=== PATIENT | male | born 1955 | race Caucasian/White ===

== ENCOUNTER 2022-03-26 00:25 | Inpatient (IN) | payer MEDICARE, OTHER, SELFPAY ==
[2022-03-26] VITALS (30 sets, daily range): BP systolic 92–196; BP diastolic 47–80; PULSE 74–104; RESP 15–23; TEMP 36.4–37.7; O2SAT 91–100; BMI 43.4
--- NOTE | ~2022-03-26 | XR_ITS ---
EXAMINATION: XR chest 1V portable 03/26/2022 01:28 INDICATION: Dyspnea. PROCEDURE: 2 view chest COMPARISON: 10/25/2017 FINDINGS: The lungs are clear. The cardiomediastinal silhouette is within normal limits. There are no pleural effusions. There is no pneumothorax suspected. IMPRESSION: 1: NO ACUTE CARDIOPULMONARY DISEASE. Reviewed, dictated and finalized at location A.
--- NOTE | ~2022-03-26 | XR_ITS ---
XR tibia fibula RT 2V 03/26/2022 01:28 INDICATION: Right leg pain after fall PROCEDURE: 2 views right tibia/fibula COMPARISON: No prior studies for comparison. FINDINGS: Fracture, dislocation or subluxation is not identified. There are extensive vascular calcif ications. The soft tissues appear within normal limits. No foreign bodies are identified. There are degenerative calcaneal enthesophytes. IMPRESSION: 1: NO ACUTE BONE OR JOINT ABNORMALITY IDENTIFIED. Reviewed, dictated and finalized at location A.
--- NOTE | 2022-03-26 00:35 | ECG_ITS ---
Measurements Intervals [place] Rate: 103 P: 55 VA: 175 QRS: 7 QRSD: 107 T: 29 QT: 326 QTc: 428 Interpretive Statements SINUS TACHYCARDIA LOW QRS VOLTAGE IN PRECORDIAL LEADS [QRS DEFLECTION < 1.0 mV IN CHEST LEADS] POSSIBLE ANTEROLATERAL MYOCARDIAL INFARCTION , OF INDETERMINATE AGE [30 ms Q WAVE IN I/aVL/V3-V6] NO PREVIOUS ECG AVAILABLE FOR COMPARISON Electronically Signed On 03-26-2022 11:05:53 CDT by Ap Zheng M.D.
--- NOTE | 2022-03-26 00:40 | ED.SOB ---
HPI - SOB/Dyspnea General Chief Complaint: Shortness of Breath/Dyspnea Stated Complaint: Covid positive today Weakness Skin Tear Time Seen by Provider: 03/26/22 00:34 Source: patient History of Present Illness HPI Narrative: Patient presents with shortness of breath cough and chest pain. Patient reports has been feeling unwell for the past couple days getting progressively worse today he was using the restroom and developed diffuse weakness and lightheadedness and lowered himself to the ground maybe he caught his leg on a table. Called EMS and he was transferred to the ER for further evaluation. Patient did report taking a home COVID test today and it was positive and thinks that may be contributing to his symptoms. His pain is achy, constant is in the center of her chest no clear aggravating or alleviating factors, no radiation. He is unsure if he had any fevers denies any nausea or vomiting. Denies any known sick contacts. EMS transported the patient and note is desaturation on room air to the low 80s on 4 L he was in the high 80s to low 90s and he was placed on a nonrebreather. Patient also reports his lower extremity edema has been getting worse and that he has a history of heart failure Related Data Home Medications Medication Instructions Recorded Confirmed Novolog Flexpen U-100 Insulin 03/26/22 allopurinol 100 mg tablet mg 03/26/22 aspirin 81 mg tablet,delayed mg 03/26/22 release atorvastatin 40 mg tablet mg 03/26/22 cetirizine 10 mg tablet mg 03/26/22 clonazepam 0.5 mg tablet mg 03/26/22 cyclobenzaprine 10 mg tablet mg 03/26/22 dulaglutide 4.5 mg/0.5 mL mg subcut 03/26/22 subcutaneous pen injector (Trulicity) empagliflozin 25 mg tablet mg 03/26/22 escitalopram oxalate 10 mg tablet mg 03/26/22 ezetimibe 10 mg tablet (Zetia) mg 03/26/22 fenofibrate 160 mg tablet mg 03/26/22 ferrous sulfate 325 mg (65 mg mg 03/26/22 iron) tablet fluticasone propionate 50 intranasal 03/26/22 mcg/actuation nasal spray,suspension (Allergy Relief (fluticasone)) gabapentin 600 mg tablet mg 03/26/22 insulin glargine 100 unit/mL unit subcut 03/26/22 subcutaneous solution isosorbide mononitrate 120 mg mg PO 03/26/22 tablet,extended release 24 hr lisinopril 10 mg tablet mg 03/26/22 metoprolol tartrate 100 mg tablet mg 03/26/22 nifedipine 30 mg tablet,extended mg PO 03/26/22 release nitroglycerin 400 mcg/spray 03/26/22 translingual aerosol oxycodone-acetaminophen 5 mg-325 tablet 03/26/22 mg tablet pantoprazole 20 mg tablet,delayed mg PO 03/26/22 release ropinirole 2 mg tablet mg 03/26/22 torsemide 20 mg tablet mg 03/26/22 warfarin 10 mg tablet mg 03/26/22 Allergies Allergy/AdvReac Type Severity Reaction Status Date / Time sitagliptin Allergy Unknown Rash Verified 03/26/22 00:51 metformin [From [employer] XR] Allergy Other Verified 03/26/22 00:58 perflutren AdvReac Mild Other Verified 03/26/22 00:51 Review of Systems Review of Systems: CONSTITUTIONAL: Denies fever, chills, or sweats. EYES: Denies visual changes, redness, or discharge. ENT: Denies rhinorrhea, congestion, sore throat, or otalgia. CARDIOVASCULAR: Denies palpitations, or edema. RESPIRATORY: Shortness of breath and cough GASTROINTESTINAL: Denies abdominal pain, nausea, vomiting, or diarrhea. GENITOURINARY: Denies dysuria or hematuria. SKIN: Denies rash or itching. MUSCULOSKELETAL: Denies back pain, joint pain, or myalgia. NEUROLOGIC: Denies headache, numbness, dizziness, or weakness. PSYCHIATRIC: Denies anxiety or depression. All systems reviewed & are unremarkable except as noted in HPI and below Exam Narrative: GENERAL: Well-appearing, well-nourished, and in no acute distress. HEAD: Normocephalic, atraumatic. EYES: PERRLA and EOMI. ENT: Nares clear, no rhinorrhea or epistaxis. Mucous membranes moist. NECK: Supple. No masses. CHEST: Clear to auscultation. No respiratory distress. No wheezes rales or r
[2022-03-26] MEDS: FUROSEMIDE INJ 40 MG/4 ML VIAL IV PUSH (00:44)
[2022-03-26 00:57] LABS: Alveolar/Arterial O2 Gradient 151.7 mmHg; Base Excess ABG 4.2 mEq/l (+/-2.0); Fractional Inspired Oxygen 38 %; Oxygen Content ABG 18.8 %vol (16.0-22.0); Oxygen Saturation ABG 94.1 % (95.0-100.0); Oxyhemoglobin 93.5 % THb (90.0-100.0); PCO2 ABG 44.2 mmHg (35.0-45.0); PO2 ABG 68.2 mmHg (80.0-100.0); PO2 FiO2 Ratio Arterial Blood 1.79 %; Total Hemoglobin 14.3 g/dL (12.0-18.0); pH ABG 7.435 (7.350-7.450)
[2022-03-26 00:58] LABS: Device NASAL CANNULA; Liters per Minute 4.5 LPM; Site Drawn RIGHT BRACHIAL
[2022-03-26 01:04] LABS: Alanine Aminotransferase 41 U/L (6-50); Albumin Level 3.5 g/dL (3.5-5.1); Alkaline Phosphatase 72 U/L (38-126); Anion Gap 5 mmol/L (8-16); Aspartate Amino Transferase 46 U/L (17-59); Bilirubin,Total 0.4 mg/dL (0.2-1.3); Blood Urea Nitrogen 40 mg/dL (9-20); Calcium 8.6 mg/dL (8.4-10.2); Carbon Dioxide 33 mmol/L (22-30); Chloride 102 mmol/L (98-107); Estimated CRCL calculation 54 ml/min; Estimated Glomerular Filt Rate 40; Glucose 86 mg/dL (65-110); Magnesium 1.9 mg/dL (1.6-2.3); Potassium 3.7 mmol/L (3.4-5.0); Sodium 140 mmol/L (137-145)
[2022-03-26 01:05] LABS: Lactic Acid Reflex 1.6 mmol/L (0.7-2.0)
[2022-03-26 01:07] LABS: INR 3.9; Prothrombin Time 37.3 Seconds (11.1-14.7)
[2022-03-26 01:08] LABS: Partial Thromboplastin Time 65.4 SECONDS (22.3-36.8)
--- NOTE | 2022-03-26 01:09 | PC.NURSE ---
Xray in room at this time.
[2022-03-26 01:16] LABS: NT Pro B Type Natriuretic Pept 117 pg/mL (5-100); Troponin I 0.015 ng/mL (0.000-0.034)
[2022-03-26 01:30] LABS: Basophils Absolute Auto 0.1 K/mm3 (0.0-0.1); Basophils Percent Auto 0.7 % (0.2-1.2); Eosinophils Absolute Auto 0.2 K/mm3 (0-0.3); Eosinophils Percent Auto 2.5 % (0-4.4); Hematocrit 43.9 % (42.0-52.0); Immature Granulocyte Absolute 0.11 K/mm3 (0.00-0.031); Immature Granulocyte Percent A 1.3 % (0-0.5); Lymphocytes Absolute Auto 0.93 K/mm3 (0.9-3.2); Lymphocytes Percent Auto 11.1 % (18.3-44.2); Mean Corpuscular HGB Conc 31.9 g/dl (32-36); Mean Corpuscular Hemoglobin 29.7 pg (26-34); Mean Corpuscular Volume 93.2 fl (80-100); Mean Platelet Volume 10.7 fl (7.4-10.4); Monocytes Absolute Auto 0.6 K/mm3 (0.1-0.6); Monocytes Percent Auto 7.6 % (2.6-8.5); Neutrophils Absolute Auto 6.4 K/mm3 (1.3-6.7); Neutrophils Percent Auto 76.8 % (45.5-73.1); Platelet Count Result 279 k/mm3 (150-375); Red Blood Count 4.71 M/mm3 (4.6-6.20); Red Cell Distribution Width 15.8 % (11.5-14.5); White Blood Count 8.4 K/mm3 (4.5-10.0)
[2022-03-26 01:33] LABS: SARS-CoV-2 RNA PCR Positive
[2022-03-26] MEDS: TETANUS,DIPHTHERIA,AC PERTUSSIS ADULT (0.5 ML) BOOSTRIX IM (02:02)
[2022-03-26] MEDS: DEXAMETHASONE SOD PHOS INJ 4 MG/ML VIAL 6 MG IV PUSH (02:19)
[2022-03-26] MEDS: REMDESIVIR 200 MG/NS 250 ML 200 MG/250 ML BAG 250 MG IVPB (02:21)
--- NOTE | 2022-03-26 02:29 | PC.NURSE ---
Stella, patients calls to get update. This nurse informed her of the plan of care and room number for admission.
--- NOTE | 2022-03-26 03:00 | ADMGEN ---
This patient, Vinh Goodrich, was admitted to Medical Room 249-01. Patient/family oriented to hospital policies and general routines including ID bracelet, bed and alarms, visiting hours, pain management, procedures, bathroom and other care routines, personal items, smoking policy, room service/diet, and visiting hours. Information on how to activate the Rapid Response Team has been discussed. Patient/Family are encouraged to report perceived risks to care and to ask questions if they do not understand what they are told or what they should do.
[2022-03-26 03:05] LABS: D Dimer 0.31 ug/mL (<0.48)
--- NOTE | 2022-03-26 06:25 | PM.IMHP ---
H&P: HPI History of Present Illness Date/Time: 03/26/22 05:25 Chief Complaint: COVID positive, shortness of breath Narrative: 66-year-old male with complex past medical history including CHF, chronic kidney disease, chronic kidney disease, coronary artery disease, diabetes mellitus, Miller and pulmonary embolism on chronic anticoagulation who presented to the ER with COVID and shortness of breath. The patient developed upper respiratory symptoms on the and thought that he had a summer c cold. He had rhinorrhea, nasal congestion, nonproductive cough, and postnasal drip. However, he reported feeling severely weak more so than he was expect from just a cold. He took a at home COVID test which was positive today. He reports that he is vaccinated against COVID and received his 1st booster. His primary care doctor told him last week that he was eligible for his 2nd booster but he had not yet received it. He did not check his temperature but felt warm the last couple of days. He did develop some chills before he came to the ER. He has had some decreased appetite but no nausea or vomiting. He has been having normal bowel movements. He denies any recent ill contacts. His and his [id number] who both live in the same house with him have been in good health. They took COVID test that her both negative. The patient reported that he became so weak that he has had to ambulate around the house with a 4 prong cane which he usually only uses when he is outside of the house on uneven surfaces. He was ambulating to the bathroom and lowered himself to the floor when he became lightheaded and was unable to get up. He did not strike his head. When EMS arrived at the patient's home he was satting 82% on room air. He was placed on 4 L nasal cannula in came up to the high 80s to low 90s. Was placed on 15 L non-rebreather was satting 99%. On arrival to the ER was 99.8. The patient reports he has got chronic venous stasis of his lower extremities and chronic edema. He feels that his edema is lower extremities has been worse over the last week. Source of information: Patient report in ER records. Patient has never been to our facility before. Review of Systems Review of Systems: 12 systems were reviewed with pertinent positives and negatives per HPI. Except as documented in the HPI, all other systems were reviewed and are negative. FOR[facility]LY [facility] Past Medical History Medical History (Updated 03/26/22 @ 07:06 by Larissa Silva DO) Chronic kidney disease, stage 3a Chronic venous stasis dermatitis of both lower extremities Managed by Nephrology at [facility] Congestive heart failure Coronary artery disease Diabetic peripheral neuropathy Diabetic retinopathy DVT (deep venous thrombosis) Initial DVT of the portal venous system and subsequent recurrent DVT several years later bilateral lower extremities Essential hypertension Gout Nonalcoholic steatohepatitis (MILLER) Normal esophagogastroduodenoscopy (EGD) Obstructive sleep apnea on CPAP Pulmonary embolism Stasis dermatitis of left lower extremity with venous ulcer due to chronic peripheral venous hypertension Type 2 diabetes mellitus, with long-term current use of insulin Managed by Endocrinology at [facility] with most recent hemoglobin A1c greater than 9 Surgical History Surgical History (Updated 03/26/22 @ 06:53 by Larissa Silva DO) History of appendectomy History of colonoscopy with polypectomy History of heart artery stent X4 managed by Cardiology at [facility] History of tonsillectomy Status post cataract extraction of both eyes with insertion of intraocular lens Family History Family History Father ALS (amyotrophic lateral sclerosis) Mother Heart attack Sibling Diabetes mellitus Hypertension Sibling Hypertension Sibling Hypertension Social History Social History (Updated 03/26/22 @ 06:42 by Larissa Silva DO) Social
[2022-03-26 07:11] LABS: CRP 3.4 mg/dL (<1.0); Lactate Dehydrogenase 490 U/L (313-618)
[2022-03-26 07:50] LABS: INR 3.6; Prothrombin Time 34.9 Seconds (11.1-14.7)
[2022-03-26] MEDS: DEXAMETHASONE 2 MG TABLET 6 MG PO (08:39)
[2022-03-26] MEDS: allopurinoL 100 MG TABLET 200 MG PO (08:39)
[2022-03-26] MEDS: FENOFIBRATE 160 MG TABLET PO (08:40)
[2022-03-26] MEDS: GABAPENTIN 300 MG CAPSULE 600 MG PO ×3 (08:40→16:47)
[2022-03-26] MEDS: FERROUS SULFATE 324 MG TABLET PO ×2 (08:40→16:47)
[2022-03-26] MEDS: ISOSORBIDE MONONITRATE 60 MG TAB.ER.24H 120 MG PO (08:40)
[2022-03-26] MEDS: EMPAGLIFLOZIN 25 MG TABLET PO (08:40)
[2022-03-26] MEDS: ASPIRIN 81 MG ENTERIC TABLET PO (08:40)
[2022-03-26] MEDS: ESCITALOPRAM OXALATE 10 MG TABLET PO (08:40)
[2022-03-26] MEDS: EZETIMIBE 10 MG TABLET PO (08:40)
[2022-03-26] MEDS: lisinopriL 10 MG TABLET PO (08:40)
[2022-03-26] MEDS: TORSEMIDE 20 MG TABLET 80 MG PO (08:41)
[2022-03-26] MEDS: NIFEdipine 30 MG TAB.ER.24 PO (08:41)
[2022-03-26] MEDS: LORATADINE 10 MG TABLET PO (08:41)
[2022-03-26] MEDS: PANTOPRAZOLE SOD SESQUIHYDRATE 20 MG TAB PO (08:41)
[2022-03-26] MEDS: METOPROLOL TARTRATE 50 MG TAB 100 MG PO ×2 (08:41→20:44)
[2022-03-26 09:01] LABS: Glucose Point of Care 150 mg/dl (65-105)
[2022-03-26 11:21] LABS: Glucose Point of Care 286 mg/dl (65-105)
--- NOTE | 2022-03-26 12:06 | P.PNIM_ITS ---
Progress Note: A&P Assessment and Plan (1) Acute respiratory failure with hypoxia: Code(s): J96.01 - Acute respiratory failure with hypoxia Status: Acute Assessment and Plan: Acute hypoxic respiratory failure due to COVID. * Currently requiring 3 L supplemental O2 per nasal cannula. Maintaining O2 sats at 100% * Wean oxygen as tolerated with goal saturations 92% or above (2) COVID-19: Code(s): U07.1 - COVID-19 Status: Acute Assessment and Plan: COVID PCR positive on 03/26 * Continue Dexamethasone and Remdesivir #2 today. LFTs reviewed and are appropriate for Remdesivir. Will need close monitoring with his history of liver disease. * Isolation precautions implemented * Supportive care to include bronchodilators, expectorants, antipyretics, incentive spirometry * Monitor inflammatory markers * Completed COVID vaccine with 1 booster (3) Supratherapeutic INR: Code(s): R79.1 - Abnormal coagulation profile Status: Acute Assessment and Plan: INR is 3.6 today * Warfarin on hold given supratherapeutic INR * Home regimen: 10 mg Sunday and 5 mg all other days. * May need to consider dose reduction when warfarin is resumed (4) Stasis dermatitis of left lower extremity with venous ulcer due to chronic peripheral venous hypertension: Code(s): I87.332 - Chronic venous hypertension (idiopathic) with ulcer and inflammation of left lower extremity; L97.929 - Non-pressure chronic ulcer of unspecified part of left lower leg with unspecified severity Status: Acute Assessment and Plan: Wound Care has been consulted for management of dressings and further recommendations. (5) Elevated serum creatinine: Code(s): R79.89 - Other specified abnormal findings of blood chemistry Status: Acute Assessment and Plan: Creatinine is 1.7 * No prior labs available to establish baseline * Monitor renal function * Will attempt to obtain records to establish baseline on Sunday if no improvement (6) Type 2 diabetes mellitus, with long-term current use of insulin: Code(s): E11.9 - Type 2 diabetes mellitus without complications; Z79.4 - alf (current) use of insulin Status: Acute Assessment and Plan: Patient has historically poorly controlled diabetes. * Continue Accu-Cheks, moderate dose sliding scale, hypoglycemic protocol * Anticipate blood sugars to be elevated with addition of IV steroids * Continue home Lantus * Home Trulicity is on hold * Check A1c (7) Skin tear of right lower leg without complication: Code(s): S81.811A - Laceration without foreign body, right lower leg, initial encounter Status: Acute Assessment and Plan: Sustained during fall prior to admission * Continue with dressing * Appreciate wound care evaluation * Received tetanus vaccination in ED Subjective Date/time seen: 03/26/22 12:06 Interval history: Date of service: 03/26/2022 Vinh Goodrich is a 66-year-old male with a history of CKD, CHF, CAD, chronic venous stasis dermatitis, VTE maintained on warfarin, hypertension, type 2 diabetes mellitus, Frankel, and several other comorbidities who is seen in follow- up for COVID-19 pneumonia. He is feeling slightly improved today. He continues to endorse shortness of breath. He reports he was able to get up and walk to the restroom today and denied having increased dyspnea with exertion. He does endorse frequent dry, barking cough that is bothersome to him. He feel
--- NOTE | 2022-03-26 12:06 | PM.IMPN ---
Progress Note: A&P Assessment and Plan (1) Acute respiratory failure with hypoxia: Code(s): J96.01 - Acute respiratory failure with hypoxia Status: Acute Assessment and Plan: Acute hypoxic respiratory failure due to COVID. Currently requiring 3 L supplemental O2 per nasal cannula. Maintaining O2 sats at 100% Wean oxygen as tolerated with goal saturations 92% or above (2) COVID-19: Code(s): U07.1 - COVID-19 Status: Acute Assessment and Plan: COVID PCR positive on 03/26 Continue Dexamethasone and Remdesivir #2 today. LFTs reviewed and are appropriate for Remdesivir. Will need close monitoring with his history of liver disease. Isolation precautions implemented Supportive care to include bronchodilators, expectorants, antipyretics, incentive spirometry Monitor inflammatory markers Completed COVID vaccine with 1 booster (3) Supratherapeutic INR: Code(s): R79.1 - Abnormal coagulation profile Status: Acute Assessment and Plan: INR is 3.6 today Warfarin on hold given supratherapeutic INR Home regimen: 10 mg Sunday and 5 mg all other days. May need to consider dose reduction when warfarin is resumed (4) Stasis dermatitis of left lower extremity with venous ulcer due to chronic peripheral venous hypertension: Code(s): I87.332 - Chronic venous hypertension (idiopathic) with ulcer and inflammation of left lower extremity; L97.929 - Non-pressure chronic ulcer of unspecified part of left lower leg with unspecified severity Status: Acute Assessment and Plan: Wound Care has been consulted for management of dressings and further recommendations. (5) Elevated serum creatinine: Code(s): R79.89 - Other specified abnormal findings of blood chemistry Status: Acute Assessment and Plan: Creatinine is 1.7 No prior labs available to establish baseline Monitor renal function Will attempt to obtain records to establish baseline on Sunday if no improvement (6) Type 2 diabetes mellitus, with long-term current use of insulin: Code(s): E11.9 - Type 2 diabetes mellitus without complications; Z79.4 - snf (current) use of insulin Status: Acute Assessment and Plan: Patient has historically poorly controlled diabetes. Continue Accu-Cheks, moderate dose sliding scale, hypoglycemic protocol Anticipate blood sugars to be elevated with addition of IV steroids Continue home Lantus Home Trulicity is on hold Check A1c (7) Skin tear of right lower leg without complication: Code(s): S81.811A - Laceration without foreign body, right lower leg, initial encounter Status: Acute Assessment and Plan: Sustained during fall prior to admission Continue with dressing Appreciate wound care evaluation Received tetanus vaccination in ED Subjective Date/time seen: 03/26/22 12:06 Interval history: Date of service: 03/26/2022 Vinh Goodrich is a 66-year-old male with a history of CKD, CHF, CAD, chronic venous stasis dermatitis, VTE maintained on warfarin, hypertension, type 2 diabetes mellitus, Frankel, and several other comorbidities who is seen in follow-up for COVID-19 pneumonia. He is feeling slightly improved today. He continues to endorse shortness of breath. He reports he was able to get up and walk to the restroom today and denied having increased dyspnea with exertion. He does endorse frequent dry, barking cough that is bothersome to him. He feels weak all over but particularly in his legs. He states he is unsure what he hit when he fell and scraped his leg. He currently rates his leg pain as 4/10 and notes that the site has been bleeding. He denies chest pain or palpitations. He denies nausea, vomiting, diarrhea, fever, chills, dizziness, or lightheadedness. He has no additional concerns. Review of Systems Review of Systems: All systems reviewed & are unrema
[2022-03-26] MEDS: INSULIN ASPART (*BKC) 100 UNITS/ML SUB-Q ×2 (12:08→16:49)
[2022-03-26 16:41] LABS: Glucose Point of Care 394 mg/dl (65-105)
[2022-03-26] MEDS: INSULIN GLARGINE (*BKC) 100 UNITS/ML 50 UNITS SUB-Q (16:47)
[2022-03-26] MEDS: ATORVASTATIN 40 MG TABLET PO (20:43)
[2022-03-26] MEDS: CYCLOBENZAPRINE HCL 10 MG TABLET PO (20:43)
[2022-03-26] MEDS: guaiFENesin 12 HR 600 MG TABCR PO (20:44)
[2022-03-26] MEDS: clonazePAM (*CRX) 0.5 MG TABLET PO (20:44)
[2022-03-26] MEDS: rOPINIRole HCL 1 MG TABLET 2 MG PO (20:44)
[2022-03-26] MEDS: REMDESIVIR 100 MG/NS 250 ML 100 MG/250 ML BAG 250 MG IVPB (20:44)
[2022-03-26] MEDS: INSULIN ASPART (*BKC) 100 UNITS/ML 8 UNITS SUB-Q (21:13)
[2022-03-26] MEDS: INSULIN GLARGINE (*BKC) 100 UNITS/ML 20 UNITS SUB-Q (21:14)
[2022-03-26 21:54] LABS: Glucose Point of Care 434 mg/dl (65-105)
[2022-03-27] VITALS (7 sets, daily range): BP systolic 116–130; BP diastolic 40–64; PULSE 58–77; RESP 16–20; TEMP 35.6–36.6; O2SAT 95–100
[2022-03-27 00:27] LABS: Glucose Point of Care 305 mg/dl (65-105)
[2022-03-27] MEDS: INSULIN ASPART (*BKC) 100 UNITS/ML 10 UNITS SUB-Q (00:37)
[2022-03-27 04:34] LABS: Glucose Point of Care 224 mg/dl (65-105)
[2022-03-27 05:45] LABS: Hematocrit 41.8 % (42.0-52.0); Hemoglobin 13.7 g/dL (14.0-18.0); Mean Corpuscular HGB Conc 32.8 g/dl (32-36); Mean Corpuscular Hemoglobin 29.8 pg (26-34); Mean Corpuscular Volume 91.1 fl (80-100); Mean Platelet Volume 10.6 fl (7.4-10.4); Platelet Count Result 288 k/mm3 (150-375); Red Blood Count 4.59 M/mm3 (4.6-6.20); Red Cell Distribution Width 15.5 % (11.5-14.5); White Blood Count 8.9 K/mm3 (4.5-10.0)
[2022-03-27 05:55] LABS: INR 2.8; Prothrombin Time 28.9 Seconds (11.1-14.7)
[2022-03-27 05:56] LABS: Hemoglobin A1C 10.6 % (<5.7)
[2022-03-27 06:01] LABS: Alanine Aminotransferase 36 U/L (6-50); Albumin Level 3.5 g/dL (3.5-5.1); Alkaline Phosphatase 70 U/L (38-126); Anion Gap 4 mmol/L (8-16); Aspartate Amino Transferase 38 U/L (17-59); Bilirubin,Total 0.4 mg/dL (0.2-1.3); Blood Urea Nitrogen 42 mg/dL (9-20); CRP 3.7 mg/dL (<1.0); Calcium 8.8 mg/dL (8.4-10.2); Carbon Dioxide 34 mmol/L (22-30); Chloride 96 mmol/L (98-107); Estimated CRCL calculation 58 ml/min; Estimated Glomerular Filt Rate 43; Glucose 204 mg/dL (65-110); Lactate Dehydrogenase 441 U/L (313-618); Sodium 134 mmol/L (137-145)
[2022-03-27] MEDS: GABAPENTIN 300 MG CAPSULE 600 MG PO ×3 (08:50→16:35)
[2022-03-27] MEDS: PANTOPRAZOLE SOD SESQUIHYDRATE 20 MG TAB PO (08:53)
[2022-03-27] MEDS: NIFEdipine 30 MG TAB.ER.24 PO (08:53)
[2022-03-27] MEDS: METOPROLOL TARTRATE 50 MG TAB 100 MG PO ×2 (08:53→20:23)
[2022-03-27 08:54] LABS: Glucose Point of Care 331 mg/dl (65-105)
[2022-03-27] MEDS: guaiFENesin 12 HR 600 MG TABCR PO ×2 (08:54→20:22)
[2022-03-27] MEDS: FERROUS SULFATE 324 MG TABLET PO ×2 (08:54→16:35)
[2022-03-27] MEDS: lisinopriL 10 MG TABLET PO (08:54)
[2022-03-27] MEDS: allopurinoL 100 MG TABLET 200 MG PO (08:54)
[2022-03-27] MEDS: TORSEMIDE 20 MG TABLET 80 MG PO (08:54)
[2022-03-27] MEDS: EZETIMIBE 10 MG TABLET PO (08:54)
[2022-03-27] MEDS: ISOSORBIDE MONONITRATE 60 MG TAB.ER.24H 120 MG PO (08:54)
[2022-03-27] MEDS: EMPAGLIFLOZIN 25 MG TABLET PO (08:55)
[2022-03-27] MEDS: FENOFIBRATE 160 MG TABLET PO (08:55)
[2022-03-27] MEDS: ESCITALOPRAM OXALATE 10 MG TABLET PO (08:55)
[2022-03-27] MEDS: DEXAMETHASONE 2 MG TABLET 6 MG PO (08:55)
[2022-03-27] MEDS: ASPIRIN 81 MG ENTERIC TABLET PO (08:55)
[2022-03-27] MEDS: LORATADINE 10 MG TABLET PO (08:56)
[2022-03-27] MEDS: INSULIN ASPART (*BKC) 100 UNITS/ML SUB-Q ×3 (09:00→16:39)
[2022-03-27] MEDS: INSULIN GLARGINE (*BKC) 100 UNITS/ML 70 UNITS SUB-Q (09:01)
[2022-03-27 11:21] LABS: Glucose Point of Care 288 mg/dl (65-105)
[2022-03-27] MEDS: INSULIN ASPART (*BKC) 100 UNITS/ML 7 UNITS SUB-Q (11:27)
--- NOTE | 2022-03-27 14:33 | P.PNIM_ITS ---
Progress Note: A&P Assessment and Plan (1) Acute respiratory failure with hypoxia: Code(s): J96.01 - Acute respiratory failure with hypoxia Status: Acute Assessment and Plan: Acute hypoxic respiratory failure due to COVID. * Currently requiring 3 L supplemental O2 per nasal cannula. Maintaining O2 sats at 97% * Wean oxygen as tolerated with goal saturations 92% or above (2) COVID-19: Code(s): U07.1 - COVID-19 Status: Acute Assessment and Plan: COVID PCR positive on 03/26 * Continue Dexamethasone and Remdesivir #3 today. LFTs reviewed and are appropriate for Remdesivir. Will need close monitoring with his history of liver disease. * Isolation precautions implemented * Supportive care to include bronchodilators, expectorants, antipyretics, incentive spirometry * Monitor inflammatory markers * Completed COVID vaccine with 1 booster (3) Supratherapeutic INR: Code(s): R79.1 - Abnormal coagulation profile Status: Acute Assessment and Plan: Resolved. INR 3.9 on presentation. * Warfarin was held and INR has declined to normal limits, 2.8 today * Home regimen: 10 mg Sunday and 5 mg all other days. * Resume warfarin, will decrease to 5 mg daily and monitor INR with this reduction (4) Elevated serum creatinine: Code(s): R79.89 - Other specified abnormal findings of blood chemistry Status: Acute Assessment and Plan: Creatinine is 1.6 * No prior labs available to establish baseline * Monitor renal function * Will attempt to obtain records to establish baseline (5) Type 2 diabetes mellitus, with long-term current use of insulin: Code(s): E11.9 - Type 2 diabetes mellitus without complications; Z79.4 - long term care administrator (current) use of insulin Status: Acute Assessment and Plan: Patient has historically poorly controlled diabetes. A1c is 10.6 * Continue Accu-Cheks, moderate dose sliding scale, hypoglycemic protocol * Blood sugars to be elevated while on IV steroids * Continue home Lantus * Add scheduled novolog 9 units TID with meals * Home Trulicity is on hold (6) Skin tear of right lower leg without complication: Code(s): S81.811A - Laceration without foreign body, right lower leg, initial encounter Status: Acute Assessment and Plan: Sustained during fall prior to admission * Continue with dressing * Appreciate wound care evaluation * Received tetanus vaccination in ED (7) Stasis dermatitis of left lower extremity with venous ulcer due to chronic peripheral venous hypertension: Code(s): I87.332 - Chronic venous hypertension (idiopathic) with ulcer and inflammation of left lower extremity; L97.929 - Non-pressure chronic ulcer of unspecified part of left lower leg with unspecified severity Status: Acute Assessment and Plan: No acute issues * Evaluated by wound care, no further treatment/wound care needs Subjective Date/time seen: 03/27/22 14:33 Interval history: Date of service: 03/27/2022 Vinh Goodrich is a 66-year-old male with a history of CKD, CHF, CAD, chronic venous stasis dermatitis, VTE maintained on warfarin, hypertension, type 2 diabetes mellitus, MILLER, and several other comorbidities who is seen in follow- up for COVID-19 pneumonia. Is feeling a bit better today. His shortness of breath has improved. He still endorses dyspnea on exertion after walking to the bathroom. He has been able to get up and ambulate around the room however. He endorses a persistent
--- NOTE | 2022-03-27 14:33 | PM.IMPN ---
Progress Note: A&P Assessment and Plan (1) Acute respiratory failure with hypoxia: Code(s): J96.01 - Acute respiratory failure with hypoxia Status: Acute Assessment and Plan: Acute hypoxic respiratory failure due to COVID. Currently requiring 3 L supplemental O2 per nasal cannula. Maintaining O2 sats at 97% Wean oxygen as tolerated with goal saturations 92% or above (2) COVID-19: Code(s): U07.1 - COVID-19 Status: Acute Assessment and Plan: COVID PCR positive on 03/26 Continue Dexamethasone and Remdesivir #3 today. LFTs reviewed and are appropriate for Remdesivir. Will need close monitoring with his history of liver disease. Isolation precautions implemented Supportive care to include bronchodilators, expectorants, antipyretics, incentive spirometry Monitor inflammatory markers Completed COVID vaccine with 1 booster (3) Supratherapeutic INR: Code(s): R79.1 - Abnormal coagulation profile Status: Acute Assessment and Plan: Resolved. INR 3.9 on presentation. Warfarin was held and INR has declined to normal limits, 2.8 today Home regimen: 10 mg Sunday and 5 mg all other days. 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 A1c is 10.6 Continue Accu-Cheks, moderate dose sliding scale, hypoglycemic protocol Blood sugars to be elevated while on IV steroids Continue home Lantus Add scheduled novolog 9 units TID with meals Home Trulicity is on hold (6) Skin tear of right lower leg without complication: Code(s): S81.811A - Laceration without foreign body, right lower leg, initial encounter Status: Acute Assessment and Plan: Sustained during fall prior to admission Continue with dressing Appreciate wound care evaluation Received tetanus vaccination in ED (7) Stasis dermatitis of left lower extremity with venous ulcer due to chronic peripheral venous hypertension: Code(s): I87.332 - Chronic venous hypertension (idiopathic) with ulcer and inflammation of left lower extremity; L97.929 - Non-pressure chronic ulcer of unspecified part of left lower leg with unspecified severity Status: Acute Assessment and Plan: No acute issues Evaluated by wound care, no further treatment/wound care needs Subjective Date/time seen: 03/27/22 14:33 Interval history: Date of service: 03/27/2022 Vinh Goodrich is a 66-year-old male with a history of CKD, CHF, CAD, chronic venous stasis dermatitis, VTE maintained on warfarin, hypertension, type 2 diabetes mellitus, MILLER, and several other comorbidities who is seen in follow-up for COVID-19 pneumonia. Is feeling a bit better today. His shortness of breath has improved. He still endorses dyspnea on exertion after walking to the bathroom. He has been able to get up and ambulate around the room however. He endorses a persistent dry cough that is bothersome to him. His appetite is good. He denies nausea, vomiting, fever, chills, dizziness, lightheadedness. He feels that his weakness has improved some. His leg pain has improved. He also notes that his skin tear has been bleeding much less today. He denies numbness or tingling of his extremities. He feels that his lower extremity edema is minimally improved. He has been trying to elevate his legs.
[2022-03-27 16:12] LABS: Glucose Point of Care 242 mg/dl (65-105)
[2022-03-27] MEDS: INSULIN GLARGINE (*BKC) 100 UNITS/ML 50 UNITS SUB-Q (16:35)
[2022-03-27] MEDS: INSULIN ASPART (*BKC) 100 UNITS/ML 9 UNITS SUB-Q (16:38)
[2022-03-27] MEDS: CYCLOBENZAPRINE HCL 10 MG TABLET PO (20:22)
[2022-03-27] MEDS: clonazePAM (*CRX) 0.5 MG TABLET PO (20:22)
[2022-03-27] MEDS: REMDESIVIR 100 MG/NS 250 ML 100 MG/250 ML BAG 200 MG IVPB (20:22)
[2022-03-27] MEDS: rOPINIRole HCL 1 MG TABLET 2 MG PO (20:22)
[2022-03-27] MEDS: ATORVASTATIN 40 MG TABLET PO (20:22)
[2022-03-27 20:35] LABS: Glucose Point of Care 273 mg/dl (65-105)
[2022-03-28] VITALS (9 sets, daily range): BP systolic 100–108; BP diastolic 49–52; PULSE 60–68; RESP 16–20; TEMP 36.1–36.6; O2SAT 95–99
[2022-03-28 05:48] LABS: Hematocrit 45.3 % (42.0-52.0); Hemoglobin 14.7 g/dL (14.0-18.0); Mean Corpuscular HGB Conc 32.5 g/dl (32-36); Mean Corpuscular Hemoglobin 29.7 pg (26-34); Mean Corpuscular Volume 91.5 fl (80-100); Mean Platelet Volume 10.8 fl (7.4-10.4); Platelet Count Result 388 k/mm3 (150-375); Red Blood Count 4.95 M/mm3 (4.6-6.20); Red Cell Distribution Width 15.5 % (11.5-14.5); White Blood Count 10.2 K/mm3 (4.5-10.0)
[2022-03-28 05:59] LABS: INR 1.7; Prothrombin Time 19.1 Seconds (11.1-14.7)
[2022-03-28 06:05] LABS: Alanine Aminotransferase 40 U/L (6-50); Alkaline Phosphatase 77 U/L (38-126); Anion Gap 6 mmol/L (8-16); Aspartate Amino Transferase 42 U/L (17-59); Bilirubin,Total 0.6 mg/dL (0.2-1.3); Blood Urea Nitrogen 50 mg/dL (9-20); CRP 2.3 mg/dL (<1.0); Carbon Dioxide 34 mmol/L (22-30); Chloride 93 mmol/L (98-107); Estimated CRCL calculation 55 ml/min; Estimated Glomerular Filt Rate 40; Glucose 274 mg/dL (65-110); Sodium 133 mmol/L (137-145)
[2022-03-28 07:44] LABS: Glucose Point of Care 242 mg/dl (65-105)
[2022-03-28] MEDS: INSULIN ASPART (*BKC) 100 UNITS/ML SUB-Q ×2 (07:53→12:15)
[2022-03-28] MEDS: INSULIN ASPART (*BKC) 100 UNITS/ML 9 UNITS SUB-Q ×2 (07:54→12:15)
[2022-03-28] MEDS: INSULIN GLARGINE (*BKC) 100 UNITS/ML 70 UNITS SUB-Q (07:55)
[2022-03-28] MEDS: DEXAMETHASONE 2 MG TABLET 6 MG PO (07:59)
[2022-03-28] MEDS: FERROUS SULFATE 324 MG TABLET PO (07:59)
[2022-03-28] MEDS: allopurinoL 100 MG TABLET 200 MG PO (08:00)
[2022-03-28] MEDS: NIFEdipine 30 MG TAB.ER.24 PO (08:02)
[2022-03-28] MEDS: LORATADINE 10 MG TABLET PO (08:02)
[2022-03-28] MEDS: guaiFENesin 12 HR 600 MG TABCR PO (08:02)
[2022-03-28] MEDS: PANTOPRAZOLE SOD SESQUIHYDRATE 20 MG TAB PO (08:02)
[2022-03-28] MEDS: EZETIMIBE 10 MG TABLET PO (08:05)
[2022-03-28] MEDS: lisinopriL 10 MG TABLET PO (08:05)
[2022-03-28] MEDS: TORSEMIDE 20 MG TABLET 80 MG PO (08:05)
[2022-03-28] MEDS: GABAPENTIN 300 MG CAPSULE 600 MG PO ×2 (08:05→12:12)
[2022-03-28] MEDS: ISOSORBIDE MONONITRATE 60 MG TAB.ER.24H 120 MG PO (08:05)
[2022-03-28] MEDS: ASPIRIN 81 MG ENTERIC TABLET PO (08:06)
[2022-03-28] MEDS: ESCITALOPRAM OXALATE 10 MG TABLET PO (08:06)
[2022-03-28] MEDS: EMPAGLIFLOZIN 25 MG TABLET PO (08:06)
[2022-03-28] MEDS: METOPROLOL TARTRATE 50 MG TAB 100 MG PO (08:06)
[2022-03-28] MEDS: FENOFIBRATE 160 MG TABLET PO (08:06)
[2022-03-28 11:51] LABS: Glucose Point of Care 272 mg/dl (65-105)
--- NOTE | 2022-03-28 14:49 | P.DS_ITS ---
DS: Admitting Diagnosis Discharge Date 03/28/2022 Admitting Diagnosis COVID-19 DS: Discharge Diagnosis Discharge Diagnosis (1) Acute respiratory failure with hypoxia: Code(s): J96.01 - Acute respiratory failure with hypoxia Status: Acute Assessment and Plan: Acute hypoxic respiratory failure due to COVID. * He required up to 3 L supplemental O2 per nasal cannula during admission * Was able to be weaned to room air and maintained adequate O2 saturations * Home O2 eval performed on 03/28/2022. Patient does not require supplemental oxygen (2) COVID-19: Code(s): U07.1 - COVID-19 Status: Acute Assessment and Plan: COVID PCR positive on 03/26 * Completed 3 days of dexamethasone and remdesivir. LFTs reviewed and were appropriate to continue remdesivir. * Patient was weaned from oxygen, therefore steroid and antiviral therapy discontinued * Supportive care provided including bronchodilators, expectorants, antipyretics, incentive spirometry. * Educated on proper COVID-19 precautions and isolation * Patient completed his COVID vaccination with 1 booster (3) Chronic anticoagulation: Code(s): Z79.01 - jail (current) use of anticoagulants Status: Acute Assessment and Plan: INR was supratherapeutic on presentation at 3.9 * Warfarin was held to allow INR to drift down. * INR declined to 2.8. Warfarin was resumed at 5 mg however patient did not receive this dose * Subsequent INR was subtherapeutic at 1.8 * Patient will continue warfarin on discharge. Dosing was changed. He will take 6 mg daily and 10 mg on Wednesdays. * He has an INR machine at home. He will recheck his INR on 03/31/2022 * Follow-up with [facility] at [facility] where he is established * Discussed transitioning to DOAC, however patient prefers to discuss this with his senior consumer insights consultant. He will follow-up as an outpatient. (4) Elevated serum creatinine: Code(s): R79.89 - Other specified abnormal findings of blood chemistry Status: Acute Assessment and Plan: Creatinine was 1.6-1.7 during admission * No prior labs available to establish baseline * Records requested from PCP to establish baseline, however records were not received during the admission * Suspect this is near his baseline. He should follow-up with his PCP as an outpatient for further monitoring (5) Type 2 diabetes mellitus, with long-term current use of insulin: Code(s): E11.9 - Type 2 diabetes mellitus without complications; Z79.4 - jail (current) use of insulin Status: Acute Assessment and Plan: Patient has historically poorly controlled diabetes. A1c is 10.6 * Monitored with Accu-Cheks, moderate dose sliding scale, hypoglycemic protocol during admission * Blood sugars elevated well on IV steroids * Continue regimen including Lantus 70 units in the morning and 50 units at bedtime, NovoLog 10 units with meals, Trulicity * Encouraged to monitor blood sugars closely and follow-up with PCP for review (6) Skin tear of right lower leg without complication: Code(s): S81.811A - Laceration without foreign body, right lower leg, initial encounter Status: Acute Assessment and Plan: Sustained during fall prior to admission * Received tetanus vaccination in the ED * He was seen by wound care. Wound was dressed appropriately * Educated on how to care for this at home. He has follow-up with his paperhanger on Sunday who will evaluate (7) Stasis dermatitis of left lower extremity with venous ulcer
--- NOTE | 2022-03-28 14:49 | PM.DS ---
DS: Admitting Diagnosis Discharge Date 03/28/2022 Admitting Diagnosis COVID-19 DS: Discharge Diagnosis Discharge Diagnosis (1) Acute respiratory failure with hypoxia: Code(s): J96.01 - Acute respiratory failure with hypoxia Status: Acute Assessment and Plan: Acute hypoxic respiratory failure due to COVID. He required up to 3 L supplemental O2 per nasal cannula during admission Was able to be weaned to room air and maintained adequate O2 saturations Home O2 eval performed on 03/28/2022. Patient does not require supplemental oxygen (2) COVID-19: Code(s): U07.1 - COVID-19 Status: Acute Assessment and Plan: COVID PCR positive on 03/26 Completed 3 days of dexamethasone and remdesivir. LFTs reviewed and were appropriate to continue remdesivir. Patient was weaned from oxygen, therefore steroid and antiviral therapy discontinued Supportive care provided including bronchodilators, expectorants, antipyretics, incentive spirometry. 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 INR declined to 2.8. Warfarin was resumed at 5 mg however patient did not receive this dose Subsequent INR was subtherapeutic at 1.8 Patient will continue warfarin on discharge. Dosing was changed. He will take 6 mg daily and 10 mg on Wednesdays. He has an INR machine at home. 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 He will follow-up as an outpatient. (4) Elevated serum creatinine: Code(s): R79.89 - Other specified abnormal findings of blood chemistry Status: Acute Assessment and Plan: Creatinine was 1.6-1.7 during admission No prior labs available to establish baseline Records requested from PCP to establish baseline, however records were not received during the admission Suspect this is near his baseline. He should follow-up with his PCP as an outpatient for further monitoring (5) Type 2 diabetes mellitus, with long-term current use of insulin: Code(s): E11.9 - Type 2 diabetes mellitus without complications; Z79.4 - detention (current) use of insulin Status: Acute Assessment and Plan: Patient has historically poorly controlled diabetes. A1c is 10.6 Monitored with Accu-Cheks, moderate dose sliding scale, hypoglycemic protocol during admission Blood sugars elevated well on IV steroids Continue regimen including Lantus 70 units in the morning and 50 units at bedtime, NovoLog 10 units with meals, Trulicity Encouraged to monitor blood sugars closely and follow-up with PCP for review (6) Skin tear of right lower leg without complication: Code(s): S81.811A - Laceration without foreign body, right lower leg, initial encounter Status: Acute Assessment and Plan: Sustained during fall prior to admission Received tetanus vaccination in the ED He was seen by wound care. Wound was dressed appropriately Educated on how to care for this at home. 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
== END 2022-03-28 15:40 | disposition home or self-care (01) | DRG 177 ==
LOC: ANHED 01:59 → ANH2MED 02:27
PROVIDERS: Physician Assistant; Admitting Provider Internal Medicine; Emergency Provider Emergency Medicine; Visit Provider Internal Medicine
DX: U07.1 COVID-19 (principal); J96.01 Acute respiratory failure with hypoxia; I87.332 Chronic venous hypertension (idiopathic) with ulcer and inflammation of left lower extremity; L97.929 Non-pressure chronic ulcer of unspecified part of left lower leg with unspecified severity; I13.0 Hypertensive heart and chronic kidney disease with heart failure and stage 1 through stage 4 chronic kidney disease, or unspecified chronic kidney disease; Z79.4 Long term (current) use of insulin; G47.33 Obstructive sleep apnea (adult) (pediatric); R79.1 Abnormal coagulation profile; S81.811A Laceration without foreign body, right lower leg, initial encounter; E11.22 Type 2 diabetes mellitus with diabetic chronic kidney disease; N18.31 Chronic kidney disease, stage 3a; I50.9 Heart failure, unspecified; E11.42 Type 2 diabetes mellitus with diabetic polyneuropathy; Z86.718 Personal history of other venous thrombosis and embolism; Z86.711 Personal history of pulmonary embolism; I25.10 Atherosclerotic heart disease of native coronary artery without angina pectoris; I87.2 Venous insufficiency (chronic) (peripheral); E11.319 Type 2 diabetes mellitus with unspecified diabetic retinopathy without macular edema; Z82.49 Family history of ischemic heart disease and other diseases of the circulatory system; Z83.3 Family history of diabetes mellitus; Z79.899 Other long term (current) drug therapy; Z79.01 Long term (current) use of anticoagulants; W19.XXXA Unspecified fall, initial encounter
CPT/HCPCS: 36415; 36600; 71045; 73590; 80053; 82728; 82805; 82948; 83036; 83605; 83615; 83735; 83880; 84484; 85025; 85027; 85380; 85610; 85730; 86140; 90471; 90715; 93005; 94618; 96374; 96375; 99285; A9270; C9803; J0131; J0248; J1100; J1815; J1940; J8540; U0003; U0005

== ENCOUNTER 2023-10-16 10:37 | Outpatient (RCR) | payer MEDICARE, OTHER, SELFPAY ==
[2023-10-16 11:00] VITALS: BP_SYST 75
--- NOTE | 2023-10-16 11:49 | OPREHPOC ---
Outpatient Therapy Plan of Care This is a Multidisciplinary Plan of Care that may contain components documented by all disciplines (PT, OT, and ST.) PT Problem 1 PT Problem #1 Knowledge Deficit PT Goal 1 Goal 1* indep with HEP PT Problem 2 PT Problem #2 Pain PT Goal 1 Goal 1* pain rating at worst of 7/10 2* self assessment Quick DASH score of 30% limitation in activity level 3* pt report with sleeping, awaken 2x/night due to shoulder pain PT Problem 3 PT Problem #3 Impaired Range of Motion PT Goal 1 Goal increase L shoulder ROM to increase use of L arm with reaching up into cabinets, bathing active ROM in sittin* flexion 90' 2* abduction 80' 3* IR- reach behind back, palm to waist 4* ER- reach towards back of head, palm to behind ear PT Problem 4 PT Problem #4 Impaired Strength PT Goal 1 Goal increase strength of L shoulder, to improve use or arm with self care and kitchen tasks: in sitting, perform 5 reps through available ROM: 1* flexion 2* abduction 3* IR 4* ER
--- NOTE | 2023-10-16 11:50 | PTOPEVAL1 ---
Assessment and note entered by Katharina Wright, PT Evaluation Information Assessment Status Evaluation Diagnosis L shoulder pain Onset Jul 2023 Subjective Information gradual increase in shoulder pain, fell about month ago and landed on L shoulder; decreased strength of L arm and hand x ray negative per pt; awaiting MRI insurance approval after therapy ACTIVITY: use cane or walker for walking; light cooking and home tasks, using walker and seat with it; stays on main level of home, due to not able to do the stairs. not working/disabled Reported Pain Level Pain Score Self Report Additional Pain Score Comments pain range 0-10/10; lateral shoulder radicular to elbow at worst; very severe, sharp pain; sleep- normally on L side, cannot do now; awaken from sleep 3-4x/night due to pain; increase: lie on L side, moving or lifting arm decrease pain: use shoulder harness, tramadol 3x/ day; gabapentin for LE neuropathy; have tried heat and ice- not really help; Assessment PT Clinical Summary Neno has the diagnosis of L shoulder pain, gradual increase in pain, then fell recently and landed on L shoulder. His medical history includes back pain, neuropathy of legs, diabetes, HTN and decreased mobility with use of cane for walking. was present during eval and supportive to pt. He is R handed. Shoulder pain is limiting his sleeping and activity level with home and self care tasks. Self assessment functional score of Quick DASH 45% limitation in activity level. With the evaluation, he has decreased ROM and strength of all ranges of L shoulder; most pain increase with abduction; poor standing position of shoulders and trunk; pain over deltoid area. Skilled PT services are indicated for treatment of L shoulder pain: modalities for pain control, therapeutic exercises to increase ROM and strength with education for HEP and posture correction. Plan of Care Interventions Electrical Stimulation,Hot Pack/Cold Pack,Manual Therapy,Patient/Caregiver Education,Therapeutic Activities,Therapeutic Exercise,Ultrasound,Other Other Interventions tap
--- NOTE | 2023-10-23 10:54 | PTOPDC ---
Assessment and note entered by Katharina Wright, PT Discharge Information Assessment PT Clinical Summary PHYSICAL THERAPY DISCHARGE Neno attended the PT evaluation on 10-16-23, for L shoulder pain. He then called and canceled therapy due to falling. Discharge PT per pt request. The goals were not addressed. Plan of Care PT Services Indicated No
== END 2023-10-23 11:26 | disposition home or self-care (01) ==
LOC: ANHPT 10:37
DX: M25.512 Pain in left shoulder (principal)
CPT/HCPCS: 97110; 97161

== ENCOUNTER 2023-12-12 12:56 | Emergency (ER) | payer MEDICARE, OTHER, SELFPAY ==
[2023-12-12 13:08] VITALS: BP 151/72; PULSE 81; RESP 18; TEMP 36.3; O2SAT 99
--- NOTE | 2023-12-12 13:26 | ED.HEATRA ---
HPI - Head Injury General Chief complaint: Head Injury Stated complaint: Head Injury Time Seen by Provider: 12/12/23 13:07 Source: patient, family and RN notes reviewed Mode of arrival: wheelchair Limitations: no limitations History of Present Illness HPI Narrative: Patient presents today after a trip and fall at home approximately 1 hour prior to arrival. He fell in his bathroom and struck his head on the bathroom door. Denies loss of consciousness. Denies headache, vision changes, nausea or vomiting, dizziness or lightheadedness, neck pain. He currently takes Plavix and Coumadin. He is currently pain-free. He was in the hospital at [facility] at the end of October for STEMI. Related Data Home Medications Medication Instructions Recorded Confirmed allopurinol 100 mg tablet 200 mg PO DAILY 03/26/22 12/12/23 aspirin 81 mg tablet,delayed 81 mg PO DAILY 03/26/22 12/12/23 release atorvastatin 40 mg tablet 40 mg PO HS 03/26/22 12/12/23 cetirizine 10 mg tablet 10 mg PO DAILY 03/26/22 12/12/23 clonazepam 0.5 mg tablet 0.5 mg PO HS 03/26/22 12/12/23 cyclobenzaprine 10 mg tablet 10 mg PO HS 03/26/22 12/12/23 dulaglutide 4.5 mg/0.5 mL 1 mg subcut WEEKLY 03/26/22 12/12/23 subcutaneous pen injector (Trulicity) empagliflozin 25 mg tablet 25 mg PO DAILY 03/26/22 12/12/23 escitalopram oxalate 10 mg tablet 10 mg PO DAILY 03/26/22 12/12/23 ezetimibe 10 mg tablet (Zetia) 10 mg PO DAILY 03/26/22 12/12/23 fenofibrate 160 mg tablet 160 mg PO DAILY 03/26/22 12/12/23 ferrous sulfate 325 mg (65 mg 325 mg PO BIDWM 03/26/22 12/12/23 iron) tablet fluticasone propionate 50 1 spray intranasal PRN PRN 03/26/22 12/12/23 mcg/actuation nasal Allergic Symptoms spray,suspension (Allergy Relief (fluticasone)) gabapentin 600 mg tablet 600 mg PO TID 03/26/22 12/12/23 insulin glargine 100 unit/mL 70 unit subcut DAILY 03/26/22 12/12/23 subcutaneous solution isosorbide mononitrate 120 mg 120 mg PO DAILY 03/26/22 12/12/23 tablet,extended release 24 hr lisinopril 10 mg tablet 2.5 mg PO DAILY 03/26/22 12/12/23 metoprolol tartrate 100 mg tablet 100 mg PO Q12H 03/26/22 12/12/23 nifedipine 30 mg tablet,extended 30 mg PO DAILY 03/26/22 12/12/23 release nitroglycerin 400 mcg/spray 400 mcg translingual PRN PRN Chest 03/26/22 12/12/23 translingual aerosol Pain pantoprazole 20 mg tablet,delayed 20 mg PO DAILY 03/26/22 12/12/23 release ropinirole 2 mg tablet 2 mg PO HS 03/26/22 12/12/23 torsemide 20 mg tablet 80 mg PO DAILY 03/26/22 12/12/23 clopidogrel 75 mg tablet 75 mg PO DAILY 12/12/23 12/12/23 insulin aspart U-100 100 unit/mL 100 unit subcut DAILY 12/12/23 12/12/23 (3 mL) subcutaneous pen (Novolog FlexPen U-100 Insulin aspart) paricalcitol 1 mcg capsule 1 mcg PO DAILY 12/12/23 12/12/23 Allergies Allergy/AdvReac Type Severity Reaction Status Date / Time metformin [From OctPerformLinet XR] AdvReac Mild Other Verified 12/12/23 13:00 perflutren AdvReac Mild Other Verified 12/12/23 13:00 sitagliptin AdvReac Mild Rash Verified 12/12/23 13:00 Review of Systems Review of Systems: CONSTITUTIONAL: Denies body aches, fever, chills, or sweats. EYES: Denies visual changes, redness, or discharge. ENT: Denies rhinorrhea, congestion, sore throat, or otalgia. CARDIOVASCULAR: Denies chest pain, palpitations, or edema. RESPIRATORY: Denies cough or dyspnea. GASTROINTESTINAL: Denies abdominal pain, nausea, vomiting, or diarrhea. GENITOURINARY: Denies dysuria or hematuria. SKIN: Denies rash, itching. + laceration to scalp MUSCULOSKELETAL: Denies back pain, joint pain, or myalgia. NEUROLOGIC: Denies headache, numbness, tingling, or weakness.+ head injury PSYCH: Denies depression or anxiety. [facility] Past Medical History Medical History Chronic kidney disease, stage 3a Chronic venous stasis dermatitis of both lower extremities Managed by Nephrology at [facility] Congestive heart failure Darren
== END 2023-12-12 13:25 | disposition short-term general hospital (02) ==
PROVIDERS: Emergency Provider Nurse Practitioner
DX: S09.90XA Unspecified injury of head, initial encounter (principal); W19.XXXA Unspecified fall, initial encounter; I13.0 Hypertensive heart and chronic kidney disease with heart failure and stage 1 through stage 4 chronic kidney disease, or unspecified chronic kidney disease; E11.22 Type 2 diabetes mellitus with diabetic chronic kidney disease; N18.31 Chronic kidney disease, stage 3a; I50.9 Heart failure, unspecified; Z79.4 Long term (current) use of insulin; I25.10 Atherosclerotic heart disease of native coronary artery without angina pectoris; E11.42 Type 2 diabetes mellitus with diabetic polyneuropathy; E11.319 Type 2 diabetes mellitus with unspecified diabetic retinopathy without macular edema; Z86.718 Personal history of other venous thrombosis and embolism; M10.9 Gout, unspecified; K75.81 Nonalcoholic steatohepatitis (NASH); G47.33 Obstructive sleep apnea (adult) (pediatric); Z86.711 Personal history of pulmonary embolism; Z95.5 Presence of coronary angioplasty implant and graft; Z96.1 Presence of intraocular lens; Z98.42 Cataract extraction status, left eye; Z98.41 Cataract extraction status, right eye; Z79.01 Long term (current) use of anticoagulants; Z79.82 Long term (current) use of aspirin
CPT/HCPCS: 99212; G0463

== ENCOUNTER 2024-04-09 17:18 | Emergency (ER) | payer MEDICARE, OTHER, SELFPAY ==
--- NOTE | ~2024-04-09 | XR_ITS ---
EXAM: XR foot RT min 3V DATE: 04/09/2024 18:26 HISTORY: fall . COMPARISON: None available. FINDINGS: Normal mineralization. No fracture or dislocation. No lytic or blastic lesion. Moderate de generative change at the first MTP joint. Plantar enthesopathy. No erosion or periosteal change. Line ar radiopaque foreign body in the soft tissues of the ball of the foot overlying the second ray. Diff use vascular calcification. IMPRESSION: No acute osseous finding in the right foot. Linear radiopaque foreign body, likely needle fragment, in the soft tissues of the ball of foot over the second ray, at the level of the second MT P joint. Reviewed, dictated and finalized at location K. IMPRESSION: No acute osseous finding in the right foot. Linear radiopaque forei gn body, likely needle fragment, in the soft tissues of the ball of foot over t he second ray, at the level of the second MTP joint.
--- NOTE | ~2024-04-09 | XR_ITS ---
EXAM: XR foot RT 2V DATE: 04/09/2024 19:43 HISTORY: r/o fb . COMPARISON: None available. FINDINGS: Examination limited by obliquity in the frontal view. Normal mineralization. No fracture o r dislocation. No lytic or blastic lesion. First MTP, first interphalangeal joint, and midfoot degene rative changes. Plantar enthesopathy. No erosion or periosteal change. Vascular calcifications. Uncha nged linear radiopacity over the ball of foot. No soft tissue gas. IMPRESSION: Unchanged likely needle fragment in the ball of foot, projecting at the level of the seco nd MTP joint. Reviewed, dictated and finalized at location K. IMPRESSION: Unchanged likely needle fragment in the ball of foot, projecting at the level of the second MTP joint.
[2024-04-09 17:19] VITALS: BP 136/66; PULSE 72; RESP 16; TEMP 36.8; O2SAT 94
--- NOTE | 2024-04-09 17:33 | ED.LOWEXIN ---
HPI - Extremity Injury (Lower) General Chief Complaint: Extremity Injury, Lower Stated Complaint: foot lac Time Seen by Provider: 04/09/24 17:23 Source: patient Mode of arrival: EMS Limitations: no limitations History of Present Illness HPI Narrative: Patient is a 68 y/o male who presents to the ED via EMS with report of fall, R foot pain. Patient reports he tripped and fell today and injured his right 1st toe in the fall. He sustained a skin tear/blood blister to his right 1st toe. He is on warfarin and Plavix due to history of CAD and blood clots and was unable to control bleeding at home so EMS was contacted. Patient denies any pain. Denies head injury or LOC, other injuries from the fall. He does have history of peripheral arterial/venous disease, peripheral neuropathy, diabetes. He has been seeing wound care for a skin tear on his R lower leg sustained from a separate fall, but states he was just released from wound care. Tetanus up-to-date. Related Data Home Medications Medication Instructions Recorded Confirmed allopurinol 100 mg tablet 200 mg PO DAILY 03/26/22 12/12/23 aspirin 81 mg tablet,delayed 81 mg PO DAILY 03/26/22 12/12/23 release atorvastatin 40 mg tablet 40 mg PO HS 03/26/22 12/12/23 cetirizine 10 mg tablet 10 mg PO DAILY 03/26/22 12/12/23 clonazepam 0.5 mg tablet 0.5 mg PO HS 03/26/22 12/12/23 cyclobenzaprine 10 mg tablet 10 mg PO HS 03/26/22 12/12/23 dulaglutide 4.5 mg/0.5 mL 1 mg subcut WEEKLY 03/26/22 12/12/23 subcutaneous pen injector (Trulicity) empagliflozin 25 mg tablet 25 mg PO DAILY 03/26/22 12/12/23 escitalopram oxalate 10 mg tablet 10 mg PO DAILY 03/26/22 12/12/23 ezetimibe 10 mg tablet (Zetia) 10 mg PO DAILY 03/26/22 12/12/23 fenofibrate 160 mg tablet 160 mg PO DAILY 03/26/22 12/12/23 ferrous sulfate 325 mg (65 mg 325 mg PO BIDWM 03/26/22 12/12/23 iron) tablet fluticasone propionate 50 1 spray intranasal PRN PRN 03/26/22 12/12/23 mcg/actuation nasal Allergic Symptoms spray,suspension (Allergy Relief (fluticasone)) gabapentin 600 mg tablet 600 mg PO TID 03/26/22 12/12/23 insulin glargine 100 unit/mL 70 unit subcut DAILY 03/26/22 12/12/23 subcutaneous solution isosorbide mononitrate 120 mg 120 mg PO DAILY 03/26/22 12/12/23 tablet,extended release 24 hr lisinopril 10 mg tablet 2.5 mg PO DAILY 03/26/22 12/12/23 metoprolol tartrate 100 mg tablet 100 mg PO Q12H 03/26/22 12/12/23 nifedipine 30 mg tablet,extended 30 mg PO DAILY 03/26/22 12/12/23 release nitroglycerin 400 mcg/spray 400 mcg translingual PRN PRN Chest 03/26/22 12/12/23 translingual aerosol Pain pantoprazole 20 mg tablet,delayed 20 mg PO DAILY 03/26/22 12/12/23 release ropinirole 2 mg tablet 2 mg PO HS 03/26/22 12/12/23 torsemide 20 mg tablet 80 mg PO DAILY 03/26/22 12/12/23 clopidogrel 75 mg tablet 75 mg PO DAILY 12/12/23 12/12/23 insulin aspart U-100 100 unit/mL 100 unit subcut DAILY 12/12/23 12/12/23 (3 mL) subcutaneous pen (Novolog FlexPen U-100 Insulin aspart) paricalcitol 1 mcg capsule 1 mcg PO DAILY 12/12/23 12/12/23 Allergies Allergy/AdvReac Type Severity Reaction Status Date / Time metformin [From Octumet XR] AdvReac Mild Other Verified 04/09/24 17:25 perflutren AdvReac Mild Other Verified 04/09/24 17:25 sitagliptin AdvReac Mild Rash Verified 04/09/24 17:25 Review of Systems Review of Systems: CONSTITUTIONAL: Denies fever, chills, or sweats. MUSCULOSKELETAL: see HPI. NEUROLOGIC: Denies HI/LOC, headache, dizziness, numbness, or weakness. All systems reviewed & are unremarkable except as noted in HPI and below PMFSH Past Medical History Medical History Chronic kidney disease, stage 3a Chronic venous stasis dermatitis of both lower extremities Managed by Nephrology at [facility] Congestive heart failure Coronary artery disease Diabetic peripheral neuropathy Diabetic retinopathy DVT (deep venous thrombosis) Initial DVT of the p
[2024-04-09 20:01] LABS: INR 3.2; Prothrombin Time 32.6 Seconds (11.1-14.7)
--- NOTE | 2024-04-09 21:29 | PC.NURSE ---
Pressure dressing applied to R big toe and foot using gauze and coban.
[2024-04-09 22:21] VITALS: BP 139/84; PULSE 81; RESP 15; O2SAT 93
== END 2024-04-09 22:24 | disposition home or self-care (01) ==
PROVIDERS: Emergency Provider Physician Assistant
DX: S91.111A Laceration without foreign body of right great toe without damage to nail, initial encounter (principal); S90.421A Blister (nonthermal), right great toe, initial encounter; S90.851A Superficial foreign body, right foot, initial encounter; E11.22 Type 2 diabetes mellitus with diabetic chronic kidney disease; I13.0 Hypertensive heart and chronic kidney disease with heart failure and stage 1 through stage 4 chronic kidney disease, or unspecified chronic kidney disease; N18.31 Chronic kidney disease, stage 3a; I50.9 Heart failure, unspecified; I87.2 Venous insufficiency (chronic) (peripheral); E11.42 Type 2 diabetes mellitus with diabetic polyneuropathy; E11.319 Type 2 diabetes mellitus with unspecified diabetic retinopathy without macular edema; E11.51 Type 2 diabetes mellitus with diabetic peripheral angiopathy without gangrene; I73.9 Peripheral vascular disease, unspecified; I25.10 Atherosclerotic heart disease of native coronary artery without angina pectoris; M10.9 Gout, unspecified; Z95.5 Presence of coronary angioplasty implant and graft; Z86.718 Personal history of other venous thrombosis and embolism; Z86.010 Personal history of colon polyps; Z96.1 Presence of intraocular lens; Z98.42 Cataract extraction status, left eye; Z98.41 Cataract extraction status, right eye; Z79.85 Long-term (current) use of injectable non-insulin antidiabetic drugs; Z79.82 Long term (current) use of aspirin; Z79.4 Long term (current) use of insulin; Z79.899 Other long term (current) drug therapy; Z79.01 Long term (current) use of anticoagulants; Z79.02 Long term (current) use of antithrombotics/antiplatelets; W01.0XXA Fall on same level from slipping, tripping and stumbling without subsequent striking against object, initial encounter; W27.3XXA Contact with needle (sewing), initial encounter
CPT/HCPCS: 36415; 73620; 73630; 85610; 99283

== ENCOUNTER 2025-02-04 07:23 | Emergency (ER) | payer MEDICARE, OTHER, SELFPAY ==
[2025-02-04] VITALS (15 sets, daily range): BP systolic 98–119; BP diastolic 58–70; PULSE 90–110; RESP 18–29; TEMP 37; O2SAT 94–100
--- NOTE | ~2025-02-04 | US_ITS ---
Limited Abdominal Sonogram: Real-time sonographic imaging of the right upper quadrant was performed. Clinical History: Cholecystitis Findings: The liver appears echogenic, with no evidence of mass lesion or bile duct dilatation. Main portal vein demonstrates normal direction of flow. The gallbladder is well distended, with no defini te gallstone. There is borderline gallbladder wall thickening. The common bile duct measures 3 mm. T he visualized pancreas, aorta, and IVC are unremarkable. Impression: Diffuse fatty infiltration of liver. Borderline gallbladder wall thickening without evidence of gallstone. This is nonspecific. Reviewed, dictated and finalized at location M. Impression: Diffuse fatty infiltration of liver. Borderline gallbladder wall thickening without evidence of gallstone. This is n onspecific.
--- NOTE | ~2025-02-04 | CT_ITS ---
CT abdomen pelvis w con Ordering provider: Juany Marquez MD History: 69 years Male with . Abdominal pain . Comparison: None. Technique: CT of abdomen and pelvis with IV and without oral contrast. Automated exposure control and iterative reconstruction technique were employed. The dose-length product was 1659.76 mGy-cm. 100 mL Omnipaque 350 was given IV. Findings: VISUALIZED LOWER CHEST: Dependent atelectatic changes. Under lying fibrotic changes. UPPER ABDOMINAL ORGANS: Liver: Normal. Minimal fluid seen around the liver. 1.8 cm lymph node is seen in the zhanna hepatis. Gallbladder: Distended with thickened wall. Focal thickening is seen in the wall adjacent to the live r Spleen: Normal. Stomach/duodenum: Normal. Pancreas: Normal. Adrenals: Normal. Kidneys: Normal. PELVIC ORGANS: The bladder is normal. BOWEL AND MESENTERY: Colon: No evidence of diverticulitis. Appendix is remote surgically. Small Bowel: Normal. No obstruction. Peritoneum/mesentery: No free air. Trace of Free fluid seen around the liver and in the right paracol ic gutter. No mesenteric lymphadenopathy. RETROPERITONEUM: Mild atheromatous disease of the abdominal aorta. No retroperitoneal lymphadenopat hy. MUSCULOSKELETAL: Superficial soft tissues: A fat-containing umbilical hernia. Fat stranding in the subcutaneous tissue s of the upper abdomen. Otherwise, The superficial soft tissues are normal. Bones: Age appropriate degenerative changes of the spine. Bilateral hip osteoarthritic changes. IMPRESSION: 1. No evidence of appendicitis, diverticulitis or intestinal obstruction. 2. Thickened wall of the gallbladder with distention which may raise the possibility of cholecystiti s. Clinical correlation and follow-up advised. 3. Minimal free fluid around the liver and in the right upper. 4. Small fat-containing umbilical hernia. Reviewed, dictated and finalized at location A. IMPRESSION: 1. No evidence of appendicitis, diverticulitis or intestinal obstruction. 2. Thickened wall of the gallbladder with distention which may raise the possi bility of cholecystitis. Clinical correlation and follow-up advised. 3. Minimal free fluid around the liver and in the right upper. 4. Small fat-containing umbilical hernia.
--- NOTE | ~2025-02-04 | XR_ITS ---
EXAMINATION: XR chest 2V DATE: 02/04/2025 08:42 INDICATION: Shortness of breath and wheezing TECHNIQUE: frontal view of the chest was obtained. COMPARISON: Chest radiograph dated 03/26/[address] dated 02/04/2025 FINDINGS: Mild streaky bibasilar atelectasis. Subtle increased interstitial pattern in the bilateral lower lung zones consistent with minimal pulmonary edema. Bilateral pericardial fat pads more prominent on the leftward obscures portions of the left heart border. No pleural effusion or pneumothorax. Heart size within normal limits for AP technique. Coronary artery stenting. IMPRESSION: 1. Minimal pulmonary edema and mild streaky atelectasis at the bilateral lung bases. Reviewed, dictated and finalized at location A. IMPRESSION: 1. Minimal pulmonary edema and mild streaky atelectasis at the bilateral lung b ases.
--- NOTE | 2025-02-04 07:27 | ED_ITS ---
HPI - SOB/Dyspnea General Chief Complaint: Shortness of Breath/Dyspnea Stated Complaint: Vomiting, SOB Source: patient, family and EMS Mode of arrival: EMS Limitations: no limitations History of Present Illness HPI Narrative: 69 years old white male came to the ED from home by ambulance because of abdominal pain started last night, vomiting twice at 6:00 a.m. today. History of CHF, diabetes, hypertension, hyperlipidemia, coronary artery disease with multiple stents, TIA, patient currently on aspirin and warfarin. Patient did not take his medication last night or this morning because of the abdominal pain. Patient on home oxygen as needed, got it from, [facility] without a physician prescription. Patient denies any fever or chills. History of appendectomy and large abdomen Patient is DNR discussed with the patient/ and daughter who are at the bedside right now Patient usually go to [facility] Medications ?Medication ?Instructions ?Recorded ?Confirmed ?Last Taken ?Type allopurinol 100 mg tablet 200 mg PO DAILY 03/26/22 12/12/23 Unknown History aspirin 81 mg tablet,delayed 81 mg PO DAILY 03/26/22 12/12/23 Unknown History release atorvastatin 40 mg tablet 40 mg PO HS 03/26/22 12/12/23 Unknown History cetirizine 10 mg tablet 10 mg PO DAILY 03/26/22 12/12/23 Unknown History clonazepam 0.5 mg tablet 0.5 mg PO HS 03/26/22 12/12/23 Unknown History cyclobenzaprine 10 mg tablet 10 mg PO HS 03/26/22 12/12/23 Unknown History dulaglutide 4.5 mg/0.5 mL 1 mg subcut WEEKLY 03/26/22 12/12/23 Unknown History subcutaneous pen injector (Trulicity) empagliflozin 25 mg tablet 25 mg PO DAILY 03/26/22 12/12/23 Unknown History escitalopram oxalate 10 mg tablet 10 mg PO DAILY 03/26/22 12/12/23 Unknown History ezetimibe 10 mg tablet (Zetia) 10 mg PO DAILY 03/26/22 12/12/23 Unknown History fenofibrate 160 mg tablet 160 mg PO DAILY 03/26/22 12/12/23 Unknown History ferrous sulfate 325 mg (65 mg 325 mg PO BIDWM 03/26/22 12/12/23 Unknown History iron) tablet fluticasone propionate 50 1 spray intranasal PRN PRN 03/26/22 12/12/23 Unknown History mcg/actuation nasal Allergic Symptoms spray,suspension (Allergy Relief (fluticasone)) gabapentin 600 mg tablet 600 mg PO TID 03/26/22 12/12/23 Unknown History insulin glargine 100 unit/mL 70 unit subcut DAILY 03/26/22 12/12/23 Unknown History subcutaneous solution isosorbide mononitrate 120 mg 120 mg PO DAILY 03/26/22 12/12/23 Unknown History tablet,extended release 24 hr lisinopril 10 mg tablet 2.5 mg PO DAILY 03/26/22 12/12/23 Unknown History metoprolol tartrate 100 mg tablet 100 mg PO Q12H 03/26/22 12/12/23 Unknown History nifedipine 30 mg tablet,extended 30 mg PO DAILY 03/26/22 12/12/23 Unknown History release nitroglycerin 400 mcg/spray 400 mcg translingual PRN PRN Chest 03/26/22 12/12/23 Unknown History translingual aerosol Pain pantoprazole 20 mg tablet,delayed 20 mg PO DAILY 03/26/22 12/12/23 Unknown History release ropinirole 2 mg tablet 2 mg PO HS 03/26/22 12/12/23 Unknown History torsemide 20 mg tablet 80 mg PO DAILY 03/26/22 12/12/23 Unknown History clopidogrel 75 mg tablet 75 mg PO DAILY 12/12/23 12/12/23 Unknown History insulin aspart U-100 100 unit/mL 100 unit subcut DAILY 12/12/23 12/12/23 Unknown History (3 mL) subcutaneous pen (Novolog FlexPen U-100 Insulin aspart) paricalcitol 1 mcg capsule 1 mcg PO DAILY 12/12/23 12/12/23 Unknown History Allergies Allergy/AdvReac Type Severity Reaction Status Date / Time metformin (From Janumet XR) AdvReac Mild Other Verified 02/04/25 07:55 perflutren AdvReac Mild Other Verified 02/04/25 07:55 sitagliptin AdvReac Mild Rash Verified 02/04/25 07:55 Review of Systems 2 Review of Systems: All systems reviewed & are unremarkable except as noted in HPI and below PMFSH Past Medical History Medical History Diabetic retinopathy Normal esophagogastroduodenoscopy (EGD) Coronary artery disease Gout Essential hypertension Pulmonary embolism DVT (deep venous thrombosis) Initial DVT of the portal venous system and subsequent recurrent DVT several years later bilateral lower extremities Obstructive sleep apnea on CPAP Nonalcoholic steatohepatitis (MILLER) Chronic kidney disease, stage 3a Congestive heart failure Stasis dermatitis of left lower extremity with venous ulcer due to chronic peripheral venous hypertension Chronic venous stasis dermatitis of both lower extremities Managed by Nephrology at [facility] Diabetic peripheral neuropathy Type 2 diabetes mellitus, with long-term current use of insulin Managed by Endocrinology at [facility] with most recent hemoglobin A1c greater than 9 Surgical History Surgical History Status post cataract extraction of both eyes with insertion of intraocular lens History of colonoscopy with polypectomy History of appendectomy History of tonsillectomy History of heart artery stent X4 managed by Cardiology at [facility] Family History Family History Father ALS (amyotrophic lateral sclerosis) Mother Heart attack Sibling Diabetes mellitus Hypertension Sibling Hypertension Sibling Hypertension Social History Social History Social History: He lives at home with his and his [id number]. He and his have been for 41 years. They raised both the daughter (teacher) and a son (pH D). He served in the [employer] for 21 years before retiring in completing 2nd career for another 20 years. Code status: Full code Surrogate decision maker: Smoking status: Never smoker Alcohol intake: never Substance use: never Spiritual care concerns: No Exam 2 Narrative: General appearance: Well-developed, well-nourished, obese, intermittent snoring and sleeping, arousable Skin: Normal color Head: Normocephalic, nontraumatic Eyes: Clear conjunctiva ENT: Oropharynx normal, ears normal, nose normal Neck: Supple, nontender Chest and respiratory: Diminution of air entry bilaterally at the bases, patient is obese, difficult to auscultation Heart: Regular rate/rhythm Abdomen: Soft, mild diffuse tenderness, no organomegaly, quiet bowel sounds, large abdomen Neurologic: Alert and oriented ?3, PATIENT ACCOUNTS CLERK is normal as tested, no gross motor deficit Course Consultations Consultation #1: Dr. Villarreal Hospitalist at [facility] who accepted patient transfer, waiting for a bed. Date: 02/04/25 Vital Signs Vital signs: Vital Signs Temperature 37.0 C 02/04/25 07:24 Pulse Rate 110 H 02/04/25 07:24 Respiratory Rate 20 02/04/25 07:24 Pulse Oximetry 96 02/04/25 07:24 Oxygen Delivery Nasal Cannula 02/04/25 07:24 Oxygen Flow Rate 6 02/04/25 07:24 Temperature 37.0 C 02/04/25 07:24 Pulse Rate 90 02/04/25 12:38 Respiratory Rate 20 02/04/25 12:38 Blood Pressure 119/58 L 02/04/25 10:58 Pulse Oximetry 94 02/04/25 12:38 Oxygen Delivery Nasal Cannula 02/04/25 07:36 Oxygen Flow Rate 6 02/04/25 07:36 MDM - SOB/Dyspnea MDM Narrative Medical decision making narrative: Patient presents with abdominal pain and vomiting Vital signs showing heart rate of 110 otherwise within normal limit Physical examination showing sleeping patient, arousable, large abdomen, slightly diffusely tender Differential diagnosis include small-bowel obstruction, diverticulitis, colitis, gastritis, esophagitis, urinary tract infection, pancreatitis Blood workup today includes CBC, CMP, lipase showed WBC 12.5, INR 2.0 glucose 198, lactic acid 2.1, total bilirubin 3.7, AST 310, ALT 110, pro BMP 3630, troponin 2.1 Chest x-ray showed slight pulmonary edema CT abdomen and pelvis with IV contrast showed possible cholecystitis EKG on arrival showed sinus tachycardia at 1:11 a.m. Zosyn IV given, Diagnosis: Acute cholecystitis-suspected, elevated troponin The patient and his family requested to be transferred to [facility] Patient was accepted for transferred to [facility] waiting for a bed Lab Data 02/04/25 07:42 02/04/25 07:42 Labs: Lab Results 02/04/25 02/04/25 02/04/25 Range/Units 07:34 07:42 07:44 WBC 12.5 H (4.5-10.0) K/mm3 RBC 4.99 (4.6-6.20) M/mm3 Hgb 14.5 (14.0-18.0) g/dL Hct 46.2 (42.0-52.0) % MCV 92.6 (80-100) fl MCH 29.1 (26-34) pg MCHC 31.4 L (32-36) g/dl RDW 16.0 H (11.5-14.5) % Plt Count 275 (150-375) k/mm3 MPV 10.6 H (7.4-10.4) fl Immature Gran % (Auto) 0.6 H (0-0.5) % Neut % (Auto) 94.4 H (45.5-73.1) % Lymph % (Auto) 3.1 L (18.3-44.2) % [place] % (Auto) 1.5 L (2.6-8.5) % Eos % (Auto) 0.2 (0-4.4) % Baso % (Auto) 0.2 (0.2-1.2) % Lymph # (Auto) 0.39 L (0.9-3.2) K/mm3 [place] # (Auto) 0.2 (0.1-0.6) K/mm3 Eos # (Auto) 0.0 (0-0.3) K/mm3 Baso # (Auto) 0.0 (0.0-0.1) K/mm3 Abs Immat Gran (auto) 0.07 H (0.00-0.031) K/mm3 Absolute Neuts (auto) 11.8 H (1.3-6.7) K/mm3 Absolute Nucleated RBC 0.000 (0.0-0.012) K/mm3 Nucleated RBC % 0.0 (0.0-0.2) % PT 23.2 H (11.1-14.7) Seconds INR 2.0 APTT 32.7 (22.3-36.8) Seconds Sodium 138 (137-145) mmol/L Potassium 3.8 (3.4-5.0) mmol/L Chloride 102 (98-107) mmol/L Carbon Dioxide 28 (22-30) mmol/L Anion Gap 8 (4-12) mmol/L BUN 19 D (9-20) mg/dL Creatinine 1.17 (0.7-1.3) mg/dL Estim Creat Clear Calc 75 ml/min Estimated GFR > 60 (59 - ) Glucose 198 H (65-110) mg/dL POC Capillary Glucose 225 H (65-105) mg/dl Lactic Acid 2.1 H (0.7-2.0) mmol/L Calcium 9.0 (8.4-10.2) mg/dL Total Bilirubin 3.7 H (0.2-1.3) mg/dL AST 310 H (17-59) U/L ALT 110 H (6-50) U/L Alkaline Phosphatase 107 (38-126) U/L Troponin I 2.140 H* (0.000-0.034) ng/mL NT-Pro-B Natriuret Pep 3630 H (19.9-100) pg/mL Total Protein 7.0 (6.3-8.2) g/dL Albumin 3.6 (3.5-5.1) g/dL Lipase (23-300) U/L Urine Color (Yellow) Urine Appearance (Clear) Urine pH (5.0-9.0) Ur Specific [place] (1.001-1.035) Urine Protein (Negative) mg/dL Urine Glucose (UA) (Negative) mg/dL Urine Ketones (Negative) mg/dL Ur Blood (Man) (Negative) Urine Nitrate (Negative) Urine Bilirubin (Negative) Urine Urobilinogen (<2.0) mg/dL Leukocyte Esterase Rfl (Negative) SABA/UL Urine RBC (0-2) /hpf Urine WBC (0-3) /hpf Ur Squamous Epith Cells (Few) /hpf Urine Bacteria /hpf Urine Casts 02/04/25 02/04/25 02/04/25 Range/Units 09:55 10:14 11:04 WBC (4.5-10.0) K/mm3 RBC (4.6-6.20) M/mm3 Hgb (14.0-18.0) g/dL Hct (42.0-52.0) % MCV (80-100) fl MCH (26-34) pg MCHC (32-36) g/dl RDW (11.5-14.5) % Plt Count (150-375) k/mm3 MPV (7.4-10.4) fl Immature Gran % (Auto) (0-0.5) % Neut % (Auto) (45.5-73.1) % Lymph % (Auto) (18.3-44.2) % [place] % (Auto) (2.6-8.5) % Eos % (Auto) (0-4.4) % Baso % (Auto) (0.2-1.2) % Lymph # (Auto) (0.9-3.2) K/mm3 [place] # (Auto) (0.1-0.6) K/mm3 Eos # (Auto) (0-0.3) K/mm3 Baso # (Auto) (0.0-0.1) K/mm3 Abs Immat Gran (auto) (0.00-0.031) K/mm3 Absolute Neuts (auto) (1.3-6.7) K/mm3 Absolute Nucleated RBC (0.0-0.012) K/mm3 Nucleated RBC % (0.0-0.2) % PT (11.1-14.7) Seconds INR APTT (22.3-36.8) Seconds Sodium (137-145) mmol/L Potassium (3.4-5.0) mmol/L Chloride (98-107) mmol/L Carbon Dioxide (22-30) mmol/L Anion Gap (4-12) mmol/L BUN (9-20) mg/dL Creatinine (0.7-1.3) mg/dL Estim Creat Clear Calc ml/min Estimated GFR (59 - ) Glucose (65-110) mg/dL POC Capillary Glucose (65-105) mg/dl Lactic Acid 2.2 H (0.7-2.0) mmol/L Calcium (8.4-10.2) mg/dL Total Bilirubin (0.2-1.3) mg/dL AST (17-59) U/L ALT (6-50) U/L Alkaline Phosphatase (38-126) U/L Troponin I 4.940 H* D (0.000-0.034) ng/mL NT-Pro-B Natriuret Pep (19.9-100) pg/mL Total Protein (6.3-8.2) g/dL Albumin (3.5-5.1) g/dL Lipase 120 (23-300) U/L Urine Color Dark yellow (Yellow) Urine Appearance Clear (Clear) Urine pH 7.0 (5.0-9.0) Ur Specific [place] 1.022 (1.001-1.035) Urine Protein 1+ H (Negative) mg/dL Urine Glucose (UA) 1+ H (Negative) mg/dL Urine Ketones Negative (Negative) mg/dL Ur Blood (Man) Non-hemolyzed trace (Negative) Urine Nitrate Negative (Negative) Urine Bilirubin Negative (Negative) Urine Urobilinogen 1.0 (<2.0) mg/dL Leukocyte Esterase Rfl Negative (Negative) SABA/UL Urine RBC 6-10 H (0-2) /hpf Urine WBC 0-5 (0-3) /hpf Ur Squamous Epith Cells None seen (Few) /hpf Urine Bacteria None seen /hpf Urine Casts 0-2 ABG Data ABG results: 02/04/25 09:28 Puncture Site Right radial ABG pH 7.464 H ABG pCO2 38.8 ABG pO2 37.7 L* ABG PO2/FiO2 Ratio 0.86 ABG HCO3 27.2 H ABG O2 Saturation 75.2 L* ABG O2 Content 15.5 L ABG Base Excess 3.4 A-a Gradient 231.8 Oxyhemoglobin 76.7 L* Total Hemoglobin 14.4 O2 Delivery Device Nasal cannula O2 Liters/Min 6.0 FiO2 44 Imaging Data Radiologist's impression: Impressions Abdomen/Pelvis CT 02/04/25 08:42 IMPRESSION: 1. No evidence of appendicitis, diverticulitis or intestinal obstruction. 2. Thickened wall of the gallbladder with distention which may raise the possibility of cholecystitis. Clinical correlation and follow-up advised. 3. Minimal free fluid around the liver and in the right upper. 4. Small fat-containing umbilical hernia. Chest X-Ray 02/04/25 08:53 IMPRESSION: 1. Minimal pulmonary edema and mild streaky atelectasis at the bilateral lung bases. Critical Care Time Critical Care Time Critical Care Time: No Discharge Plan Discharge Clinical Impression: Elevated troponin, Acute cholecystitis Patient Disposition: Acute Care Hospital Condition: Stable Patient Language: Beninese Prescriptions: No Action insulin aspart U-100 [Novolog FlexPen U-100 Insulin] 100 unit/mL (3 mL) insulin pen 100 unit SUBCUT DAILY paricalcitol 1 mcg capsule 1 mcg PO DAILY clopidogrel 75 mg tablet 75 mg PO DAILY cyclobenzaprine 10 mg Tablet 10 mg PO HS atorvastatin 40 mg Tablet 40 mg PO HS gabapentin 600 mg Tablet 600 mg PO TID insulin glargine 100 unit/mL Solution 70 unit subcut DAILY Rx Instructions: Lantus 70 units in the morning and 50 units in the evening torsemide 20 mg Tablet 80 mg PO DAILY nitroglycerin 400 mcg/spray Aerosol,[place] 400 mcg translingual PRN PRN (Reason: Chest Pain) cetirizine 10 mg Tablet 10 mg PO DAILY metoprolol tartrate 100 mg Tablet 100 mg PO Q12H clonazepam 0.5 mg Tablet 0.5 mg PO HS nifedipine 30 mg Tablet Extended Release 30 mg PO DAILY allopurinol 100 mg Tablet 200 mg PO DAILY aspirin 81 mg Tablet,Delayed Release (Dr/Ec) 81 mg PO DAILY isosorbide mononitrate 120 mg Tablet Extended Release 24 Hr 120 mg PO DAILY pantoprazole 20 mg Tablet,Delayed Release (Dr/Ec) 20 mg PO DAILY ropinirole 2 mg Tablet 2 mg PO HS ferrous sulfate 325 mg (65 mg iron) Tablet 325 mg PO BIDWM lisinopril 10 mg Tablet 2.5 mg PO DAILY fluticasone propionate [Allergy Relief (fluticasone)] 50 mcg/actuation [place],Suspension 1 spray INTRANASAL PRN PRN (Reason: Allergic Symptoms) escitalopram oxalate 10 mg Tablet 10 mg PO DAILY ezetimibe [Zetia] 10 mg Tablet 10 mg PO DAILY fenofibrate 160 mg Tablet 160 mg PO DAILY empagliflozin 25 mg Tablet 25 mg PO DAILY Trulicity 4.5 mg/0.5 mL Pen Injector 1 mg subcut WEEKLY Rx Instructions: Sunday Morning albuterol sulfate 90 mcg/actuation HFA aerosol inhaler 1 inh inhalation QID PRN (Reason: shortness of breath or wheezing) Qty: 6.7 0RF Follow-up/Referrals: PHYSICIAN NOT ON STAFF,NONSTAFF [Non-Staff] -
--- NOTE | 2025-02-04 07:38 | ECG_ITS ---
Test Date: 2025-02-04 07:30:51 Measurements Intervals [place] Rate: 111 P: 52 [place]: 185 QRS: -19 QRSD: 94 T: 60 QT: 345 QTc: 469 Interpretive Statements SINUS TACHYCARDIA INCOMPLETE RIGHT BUNDLE BRANCH BLOCK LOW QRS VOLTAGE IN PRECORDIAL LEADS INFERIOR INFARCT, AGE INDETERMINATE ANTEROLATERAL INFARCT, AGE INDETERMINATE BORDERLINE ST-T WAVE ABNORMALITY- HIGH LATERAL LEADS BASELINE ARTIFACT- II, AVR, AVL, V1 ABNORMAL ECG No previous ECG available for comparison Electronically Signed On 02-04-2025 07:50:57 CDT by Eric Dougherty D.O.
[2025-02-04 07:43] LABS: Glucose Point of Care 225 mg/dl (65-105)
[2025-02-04 07:54] LABS: Basophils Percent Auto 0.2 % (0.2-1.2); Eosinophils Percent Auto 0.2 % (0-4.4); Hematocrit 46.2 % (42.0-52.0); Hemoglobin 14.5 g/dL (14.0-18.0); Immature Granulocyte Absolute 0.07 K/mm3 (0.00-0.031); Immature Granulocyte Percent A 0.6 % (0-0.5); Lymphocytes Absolute Auto 0.39 K/mm3 (0.9-3.2); Lymphocytes Percent Auto 3.1 % (18.3-44.2); Mean Corpuscular HGB Conc 31.4 g/dl (32-36); Mean Corpuscular Hemoglobin 29.1 pg (26-34); Mean Corpuscular Volume 92.6 fl (80-100); Mean Platelet Volume 10.6 fl (7.4-10.4); Monocytes Absolute Auto 0.2 K/mm3 (0.1-0.6); Monocytes Percent Auto 1.5 % (2.6-8.5); Neutrophils Absolute Auto 11.8 K/mm3 (1.3-6.7); Neutrophils Percent Auto 94.4 % (45.5-73.1); Platelet Count Result 275 k/mm3 (150-375); Red Blood Count 4.99 M/mm3 (4.6-6.20); White Blood Count 12.5 K/mm3 (4.5-10.0)
[2025-02-04 08:10] LABS: Lactic Acid Reflex 2.1 mmol/L (0.7-2.0)
[2025-02-04 08:11] LABS: Alanine Aminotransferase 110 U/L (6-50); Albumin Level 3.6 g/dL (3.5-5.1); Alkaline Phosphatase 107 U/L (38-126); Anion Gap 8 mmol/L (4-12); Aspartate Amino Transferase 310 U/L (17-59); Bilirubin,Total 3.7 mg/dL (0.2-1.3); Blood Urea Nitrogen 19 mg/dL (9-20); Carbon Dioxide 28 mmol/L (22-30); Chloride 102 mmol/L (98-107); Estimated CRCL calculation 75 ml/min; Estimated Glomerular Filt Rate > 60; Glucose 198 mg/dL (65-110); Potassium 3.8 mmol/L (3.4-5.0); Sodium 138 mmol/L (137-145)
--- OUTSIDE RECORDS SUMMARY | 2025-02-04 08:25 | XMS_ITS | Encounter Summary ---
Author Organization [facility] Address [facility] [place] [address] Care Team Providers Care Drapery Operator Name Role Phone Deborah Haley MD Unavailable [phone] Andreas Alcantara MD Unavailable Orion Lomax Primary Care Provider [phone] John Cleary MD Unavailable Encounter Details Date Type Department Care Team (Late st Contact Info) Description 12/11/2024 Radisys Message Enc [facility] Medical [facility] Multispecialty Care - [facility] [address] [facility], [address] [place] [address] Kimmy, [facility] Provider swallow test Social History Tobacco Use Types Packs/Day Years Used Date Smoking Tobacco: Never Smokeless Tobacco: Never Comments:na Alcohol Use Standard Drinks/Week Comments Yes 0 (1 standard drink = 0.6 oz pur e alcohol) rare B1300 Health Literacy Answer Date Recor ded How often do you need to hav e someone help you when you read instructions, pamphlets, or other written material from your doctor or pharmacy? Never 07/25/2024 [facility] Utilities Answer Date Recorded In the past 12 months has th e electric, gas, oil, or water company threatened to shut off services in your home? No 07/25/2024 Humiliation, Afraid, Rape, and Kick questionnair e Answer Date Recorded Within the last year, have y ou been afraid of your partner or ex-partner? No 07/25/2024 Within the last year, have y ou been humiliated or emotionally abused in other ways by your partner or ex-partner? No Within the last year, have y ou been kicked, hit, slapped, or otherwise physically hurt by your partner or ex-partner? No 07/25/2024 Within the last year, have y ou been raped or forced to have any kind of sexual activity by your partner or ex-partner? No 07/25/2024 Social Connection and Isolat ion Panel [NHANES] Answer Date Recorded In a typical week, how many times do you talk on the phone with family, friends, or neighbors? More than three times a week 07/25/2024 How often do you get togethe r with friends or relatives? Twice a week 07/25/2024 How often do you attend [facility] or baptist services? More than 4 times per year 07/25/2024 Do you belong to any clubs o r organizations such as methodist groups, unions, fraternal or athletic groups, or school groups? Yes 07/25/2024 How often do you attend meet ings of the clubs or organizations you belong to? More than 4 times per year 07/25/2024 Are you , , di vorced, , never , or living with a partner? 07/25/2024 AUDIT-C Answer Date Recorded Q1: How often do you have a drink containing alcohol? Never 07/25/2024 Q2: How many drinks containi ng alcohol do you have on a typical day when you are drinking? Patient does not drink Q3: How often do you have si x or more drinks on one occasion? Never 07/25/2024 Overall Financial Resource Strain (CARDIA) Answe r Date Recorded How hard is it for you to pa y for the very basics like food, housing, medical care, and heating? Not hard at all 07/25/2024 PHQ-2 Answer Date Recorded Patient Health Questionnaire-2 Score 0 11/24/2024 [facility] [place] of Occupat ional Health - Occupational Stress Questionnaire Answer Date Recorded Do you feel stress - tense, restless, nervous, or anxious, or unable to sleep at night because your mind is troubled all the time - these days? To some extent 07/25/2024 Exercise Vital Sign Answer Date Recorde d On average, how many days pe r week do you engage in moderate to strenuous exercise (like a brisk walk)? 0 days 07/25/2024 On average, how many minutes do you engage in exercise at this level? 0 min 07/25/2024 Hunger Vital Sign Answer Date Recorded Within the past 12 months, y ou worried that your food would run out before you got the money to buy more. Never true 07/25/20 Within the past 12 months, t he food you bought just didn't last and you didn't have money to get more. Never true 07/25/2024 PRAPARE - Transportation Answer Date Re corded In the past 12 months, has l ack of transportation kept you from medical appointments or from getting medications? No 07/15 In the past 12 months, has l ack of transportation kept you from meetings, work, or from getting things needed for daily living? No 07/25/2024 Housing Stability Vital Sign Answer Nolan e Recorded In the last 12 months, was t here a time when you were not able to pay the mortgage or rent on time? No 11/07/2023 In the last 12 months, how many places have you lived? 1 11/07/2023 In the last 12 months, was t here a time when you did not have a steady place to sleep or slept in a nursing home (including now)? No 11/07/2023 Housing Stability Vital Sign Answer Nolan e Recorded In the last 12 months, was t here a time when you were not able to pay the mortgage or rent on time? No 07/25/2024 In the past 12 months, how m any times have you moved where you were living? 0 07/25/2024 At any time in the past 12 m [facility], were you homeless or living in a nursing home (including now)? 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 Answer Date of Assessment Author Status No 07/25/2024 8:46 PM CDT Steven Saucedo RN Active * Do you have serious difficulty walking or climbing stairs? Answer Date of Assessment Author Status Yes 07/25/2024 8:46 PM CDT Steven Saucedo RN Active * Do you have difficulty dressing or bathing? Answer Date of Assessment Author Status Yes 07/25/2024 8:46 PM CDT Steven Saucedo RN Active * Because of a physical, mental, or emotional condition, do you have difficulty doing errands alone such as visiting a doctor's office or shopping? Answer Date of Assessment Author Status Yes 07/25/2024 8:46 PM CDT Steven Saucedo RN Active documented as of this encounter Mental Status * Because of a physical, mental, or emotional condition, do you have serious difficulty concentrating, remembering, or making decisions? Answer Entry Date Author Status No 07/25/2024 8:46 PM CDT Steven Saucedo RN Active documented in this encounter Plan of Treatment Upcoming Encounters Date Type Department Care Team (Late st Contact Info) Description 02/05/2025 8:30 AM CDT Appointment [facility] Care [address] [place] [id number] [place] [address] [address] [place] [address] 02/06/2025 12:[address] [facility] [address] [place] [address] John Cleary MD [facility]. [address] [place] [address] 02/18/2025 11:30 AM CDT [facility] [address] [place] [address] John Cleary MD [facility]. [address] [place] [address] 02/23/2025 9:00 AM CDT Office Visit [facility] [place] [address] [facility] [address] [place], [place] [id number] [place] [address] [place] [address] 04/03/2025 10:30 AM CDT [facility], [address] [place] [address] Kathi Gant PA-C [address] [place] [address], [address] [place] [address] 04/27/2025 10:00 AM CDT Office Visit [facility] [place] [address] [place] [phone] [place] [address] [place] [address] 08/20/2025 11:00 AM DATA COMMUNICATIONS ENGINEER Office Visit [facility] [address] [place] [phone] Baljeet Chavez DO [address] [facility] [address] [place] [address] documented as of this encounter Goals Goal Patient Goal Type Associated Problems Recent Progress Patient-Stated? 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, RN documented as of this encounter Visit Diagnoses Not on filedocumented in this encounter Additional Health Concerns Infection Onset Date Last Indicated Resolved Time MRSA Comment:08/28/24 Left Toe (RR) 08/28/2024 08/28/2024 Assessment Noted Time PHQ-9 Depression Total Score: 1 09/23/20 12:03 PM DATA COMMUNICATIONS ENGINEER documented as of this encounter Care Teams Drapery Operator Relationship Specialty Start [place] [address] [place] [address] PCP - General Physician Brake Repairer [employer] 11/13/23 Deborah Haley MD [facility]. [address] [place] [address] [place] [employer] Marshal CARDIOVASCULAR DISEASE 03/15/16 Andreas Alcantara MD [facility]. [facility] [address] [place] [address] Consulting Physician Internal Medicine Pulmonary Disease 10/14/18 [place] [address] [place] [address] Referring Physician VASCULAR SURGERY 09/09/24 09/09/25 documented as of this encounter
--- OUTSIDE RECORDS SUMMARY | 2025-02-04 08:25 | XMS_ITS | Encounter Summary ---
Author Organization [facility] Address [facility] [place] [address] Care Team Providers Care Cable Installation Technician Name Role Phone Deborah Haley MD Unavailable [phone] Andreas Alcantara MD Unavailable Heath Orion Sullivan Primary Care Provider [phone] John Cleary MD Unavailable Encounter Details Date Type Department Care Team (Late st Contact Info) Description 12/13/2024 Bizimplyt Message Enc [facility] Medical Group Family & Internal Medicine [facility] [id number] [place] [phone] [place] [id number] [place] [address] Requested refill Social History Tobacco Use Types Packs/Day Years [...] your doctor or pharmacy? Never 07/25/2024 [facility] Utilities Answer Date Recorded In the past 12 months has e electric, gas, oil, or water company [...] week 07/25/2024 How often do you attend [facility] or jainism services? More than 4 times per year 07/25/2024 Do you belong to any clubs o r organizations such as yarsanism groups, unions, fraternal or athletic groups, or [...] Recorded Patient Health Questionnaire-2 Score 0 11/24/2024 [facility] of Occupat ional Health - Occupational Stress [...] place to sleep or slept in a custodial (including now)? No 11/07/2023 Housing Stability Vital Sign Answer Nolan e Recorded In the last 12 months, was t here a time when you were not able to pay the mortgage or rent on time? No 07/25/2024 In the past 12 months, how m any times have you moved where you were living? 0 07/25/2024 At any time in the past 12 m [facility], were you homeless or living in a custodial (including now)? 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 Not on file Not on file documented as of this encounter Functional Status * Are you deaf or do you have serious difficulty hearing Answer Date of Assessment Author Status Yes 07/25/2024 8:46 PM CDT Steven Saucedo RN Active * Are you blind or do [...] Date Author Status No 07/25/2024 8:46 PM CDSteven Edwards RN Active documented in this encounter Progress Notes * SANDRITA Cowart - 12/15/2024 12:56 PM CST Med sent SORTER * Rafael Busby MA - 12/15/2024 9:55 AM CST Please advise RX last filled on 10/13 for 30 days Pt has follow up appt with you on 12/29 SORTER documented in this encounter Plan of Treatment Upcoming Encounters Date Type Department Care Team (Late st Contact Info) Description 02/05/2025 8:30 AM CDT Appointment [facility] [address] [place] [address] Gillian Jameson, OUTSIDE CUTTER [address] [facility] [address] [address] 02/06/2025 12:45 PM CDT Appointment [facility] Open MRI [address] [place] [address] John Cleary MD [facility]. [address] [place] [address] 02/18/2025 11:30 AM CDT [facility] [address] [place] [phone] John Cleary MD [facility]. [address] [place], [place] [address] 02/23/2025 9:00 AM CDT Office Visit [facility] Medical [facility] Orth[facility] [address] [facility] [address] [place] [address] [place] [address] [address] [place], [place] [address] 04/03/2025 10:30 AM CDT [facility] [address] [place], [place] [address] Kathi Gant PA-C [address] [facility], [address] [place] [address] 04/27/2025 10:00 AM CDT Office Visit [facility] Family & Internal Medicine [facility] [address] [place] [phone] [place] [address] [place] [address] 08/20/2025 11:00 AM BULB SORTER Office Visit [facility]ty [facility] - [facility] [address] [facility] [place] [address] Baljeet Chavez DO [address] [facility] [address] [place] [address] documented as of this encounter Goals Goal Patient Goal Type Associated Problems Recent Progress Patient-Stated? 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 RN documented as of this encounter Visit Diagnoses Diagnosis Osteomyelitis of fifth toe of left foot ([facility]/HCC HHS/HCC)- Primary documented in this encounter Additional Health Concerns Infection Onset Date Last Indicated Resolved Time MRSA Comment:08/28/24 Left Toe (RR) 08/28/2024 08/28/2024 Assessment Noted Time PHQ-9 Depression Total Score: 1 09/23/20 24 12:03 PM BULB SORTER documented as of this encounter Care Teams Cable Installation Technician Relationship Specialty Start [place] [address] [place] [address] PCP - General Physician Ophthalmic Technician Medical 11/13/23 Deborah Haley MD [facility]. [address] [place] [address] [place] [employer] CARDIOVASCULAR DISEASE 03/15/16 Andreas Alcantara MD [facility]. [address] [place] [address] Consulting Physician Internal Medicine Pulmonary Disease 10/14/18 [place] [address] [place] [address] Referring Physician VASCULAR SURGERY 09/09/24 09/09/25 documented as of this encounter
--- OUTSIDE RECORDS SUMMARY | 2025-02-04 08:25 | XMS_ITS | Clinical Summary ---
Author Organization [facility] [address] Address [address] [place] [address] Care Team Providers Care Environmental Professional Name Role Phone La Erazo MD Primary Care Provider Allergies Active Allergy Reactions Criticality Noted Date Comments Sitagliptin Phos-Metformin Rash Medium 2 Medications gabapentin (NEURONTIN) 600 mg tablet Take 1,200 mg by mouth 3 (three) times a day Active rOPINIRole (REQUIP) 2 mg tablet Take 2 mg by mouth nightly Active cyclobenzaprine (FLEXERIL) 10 mg tablet Take 10 mg by mouth nightly Active cetirizine (ZyrTEC) 10 mg tablet Take 10 mg by mouth daily Active fluticasone (VERAMYST) 27.5 mcg/actuation nasal sprayIndications :Allergic Rhinitis Administer 2 sprays into each nostril daily Active escitalopram (LEXAPRO) 10 mg tablet Take 10 mg by mouth daily Active allopurinoL (ZYLOPRIM) 300 mg tablet Take 600 mg by mouth daily Active ergocalciferol (VITAMIN D) 50,000 unit capsule Take 50,000 Units by mouth once a week Active atorvastatin (LIPITOR) 40 mg tablet Take 40 mg by mouth nightly Active pantoprazole DR (PROTONIX) 20 mg EC tablet Take 20 mg by mouth daily Active metoprolol (LOPRESSOR) 100 mg tablet Take 100 mg by mouth 2 (two) times a day 1 tablet in am, 1/2 tab in evening Active NIFEdipine (PROCARDIA XL/ADALAT CC) 30 mg 24 hr tablet Take 30 mg by mouth daily Active torsemide (DEMADEX) 20 mg tablet Take 80 mg by mouth daily Active aspirin 81 mg enteric coated tablet Take 81 mg by mouth daily Active isosorbide mononitrate ER (IMDUR) 120 mg 24 hr tablet Take 120 mg by mouth daily Active fenofibrate (TRIGLIDE) 160 mg tablet Take 160 mg by mouth daily Active ferrous sulfate 325 mg (65 mg of elemental iron) tabletIndication s:Iron Deficiency Anemia Take 65 mg of elemental iron by mouth 2 (two) times a day with meals Active lisinopriL (PRINIVIL,ZESTRI L) 10 mg tablet Take 10 mg by mouth daily Active ezetimibe (ZETIA) 10 mg tablet Take 10 mg by mouth daily Active empagliflozin (JARDIANCE) 25 mg tabletIndication s:type 2 diabetes mellitus 25 mg Active insulin glargine (insulin glargine) 100 unit/mL vial for injection Inject 47 Units under the skin 2 (two) times a day Active warfarin (COUMADIN) 5 mg tablet Take 5 mg by mouth 4 (four) times a week Sun, tue, thrs, sat Active warfarin (COUMADIN) 10 mg tablet Take 10 mg by mouth 3 (three) times a week Mon, Wed, Sun Active clonazePAM (KlonoPIN) 0.5 mg tablet Take 0.5 mg by mouth nightly Active dulaglutide (TRULICITY) 1.5 mg/0.5 mL pen injectorIndicati ons:type 2 diabetes mellitus Inject 4.5 mg under the skin once a week On sundays Active ramelteon (ROZEREM) 8 mg tabletIndication s:Sleep-Onset Insomnia Take 1 tablet (8 mg total) by mouth nightly 30 tablet 11 2 Active oxyCODONE-acetam inophen (PERCOCET) 5-325 mg per tabletIndication s:Pain Take 1 tablet by mouth every 6 (six) hours as needed for pain (Please take one tablet as needed for pain every 6 hours.) 10 tablet 2 Active Active Problems Problem Noted Date Diagnosed Date Cellulitis of left lower extremity 06/09/2022 Assessment & Plan (06/09/2022 11:10 AM CDT): Failed 2 rounds of Keflex as an outpatient, monitor with ceftriaxone started on admission day 2. Wound culture collected in wound care clinic showing Gram-negative bacilli, follow cultures. Peripheral vascular disease 06/09/2022 Type 2 diabetes mellitus wit h diabetic polyneuropathy, with long-term current use of insulin 06/09/2022 Assessment & Plan (06/09/2022 11:15 AM CDT): Weight based basal/bolus regimen while inpatient. PADMINI (obstructive sleep apnea) 06/09/2022 Assessment & Plan (06/09/2022 11:14 AM CDT): Patient's to procure home CPAP unit. MILLER (nonalcoholic steatohepatitis) 06/09/2022 Hypertension 06/09/2022 Gout 06/09/2022 GERD (gastroesophageal reflux disease) DISH (diffuse idiopathic skeletal hyperostosis) 06/09/2022 Coronary artery disease 06/09/2022 Stage 3a chronic kidney disease 06/09/2022 Assessment & Plan (06/09/2022 11:14 AM CDT): Renal function currently at baseline, monitor while inpatient. Chronic diastolic congestive heart failure 06/09 Arthritis 06/09/2022 Infected skin tear 06/09/2022 Assessment & Plan (06/09/2022 11:13 AM CDT): Purulent drainage noted from right lower leg skin tear and wound care clinic, monitor with IV antibiotics as above. Surgical History Surgery Date Site/Laterality Comments APPENDECTOMY CARDIAC CATHETERIZATION Left 4 stents placed COLONOSCOPY EYE SURGERY Medical History Medical History Date Comments Chronic diastolic congestive heart failure (HCC) MILLER (nonalcoholic steatohepatitis) Type 2 diabetes mellitus wit h diabetic polyneuropathy, with long-term current use of insulin (HCC) Stage 3a chronic kidney disease (HCC) Diabetic peripheral neuropat hy associated with type 2 diabetes mellitus (HCC) PADMINI (obstructive sleep apnea) Hypertension Coronary artery disease Arthritis DISH (diffuse idiopathic skeletal hyperostosis) Gout GERD (gastroesophageal reflux disease) Iron deficiency anemia, unspecified Chronic pain Family History Medical History Relation Name Comments Coronary artery disease Other Diabetes Other Hyperlipidemia Other Hypertension Other Relation Name Status Comments Other Social History Tobacco Use Types Packs/Day Years Used Date Smoking Tobacco: Never Smokeless Tobacco: Never AUDIT-C Answer Date Recorded Q1: How often do you have a drink containing alcohol? Never 06/20/2022 Q2: How many drinks containi ng alcohol do you have on a typical day when you are drinking? Patient does not drink Q3: How often do you have si x or more drinks on one occasion? Never 06/20/2022 PHQ-2 Answer Date Recorded PHQ-2 Total Score (If total score is 3 or more points, staff should administer the PHQ-9) 0 06/24/2022 Sex and Gender Information Value Date Recorded Sex Assigned at Not on file Legal Sex Male 2:40 AM ASSEMBLY LINE DRIVER Gender Identity Not on file Sexual Orientation Not on file Obstetrics History Last Filed Vital Signs Vital Sign Reading Time Taken Comments Blood Pressure 136/50 06/27/2022 7:30 AM CDT Pulse 61 06/27/2022 7:30 AM CDT Temperature 36.3 C (97.4 F) 06/27/2022 7:30 AM CDT Respiratory Rate 12 06/27/2022 7:30 AM CDT Oxygen Saturation 93% 06/27/2022 7:30 AM CDT Inhaled Oxygen Concentration - - Weight 139.8 kg (308 lb 4.8 oz) 022 12:43 PM CDT Height 180.3 cm (5' 11 ) 06/20/2022 12: 43 PM CDT Body Mass Index 43 06/20/2022 12:43 PM CDT Plan of Treatment Health Maintenance Due Date Last Done Comments Albumin Creatinine Ratio, Urine 1954 Colon Cancer Screening-Colonoscopy 1955 Hepatitis C Screening 1955 Dilated Eye Exam 1954 Foot Exam 1954 Lipid Panel 1954 Zoster Vaccine (2 of 3) 01/19/2016 11/24/2015 Hemoglobin A1C 06/03/2019 12/04/2018, 10/30/2017 Abdominal Aortic Aneurysm (A AA) Screen 12/30/2019 Well Visit 65+ 12/30/2019 Depression Screening 06/20/2023 06/20/2022 eGFR 06/26/2023 06/26/2022, 04/2022, 06/20/2022, Additional history exists Fall Risk Assessment 06/27/2023 06/27/2022 Covid-19 Vaccine (2023-2 5 season) 2024 08/19/2021, 12/11/2020, 11/13/2020 Influenza Vaccine (Season Ended) 2025 07/06/2021, 06/17/2020, 09/05/2019, Additional history exists DTaP/Tdap/Td Vaccine (2 - Td or Tdap) 08/04/2025 08/04/2015, 02/20/2002 Pneumococcal vaccine 65+ Completed 021, 06/22/2020, 11/05/2009, Additional history exists Procedures Procedure Name Priority Date/Time Associated Diagnosis Comments EGFR Timed 06/26/2022 6:16 AM CDT from Last 3 Months or Most Recently Relevant to Health Maintenance Results * eGFR (06/26/2022 6:16 AM CDT) eGFR 56 mL/min/1. 73 m2 MIKE HUTTON (ANETTE) Comment: Interpretive Data Reference Interval Normal >/= 90 mL/min/1.73m2 Mildly decreased* 60 - 89 mL/min/1.73m2 Mildly to moderately decreased 45 - 59 mL/min/1.73m2 Moderately to severely decreased 30 - 44 mL/min/1.73m2 Severely decreased 15 - 29 mL/min/1.73m2 Kidney Failure < 15 mL/min/1.73m2 *Relative to young adult level Estimated glomerular filtration rate is determined by the 2020 CKD-EPI equation recommended by the National Kidney Foundation (A Unifying Approach to GFR Estimation: Recommendations of the NKF-ASK Task Force on Reassessing the Inclusion of Race in Diagnosing Kidney Disease, JASN 2020). The CKD-EPI equation should not be used for patients with unstable renal function and has not been validated in children and those over 70. Current interpretive data was last reviewed 2021. Blood 06/26/2022 6:16 AM CDT 06/26/2022 6:50 AM CDT us Carlos Vásquez Jr., MD LAB BLOOD ORDERABLE S Final Result [facility] [address] [facility] [place] [address] from Last 3 Months or Most Recently Relevant to Health Maintenance Insurance [facility] CLAIMS MEDICARE MEDICARE [facility] CLAIMS Advance Directives For more information, please contact: [phone] * Full Code (Latest Code Status on File) Date Activated Date Inactivated Comments 06/20/2022 11:27 PM 06/27/2022 3:17 PM * Full Code Date Activated Date Inactivated Comments 06/08/2022 3:43 PM 06/14/2022 3:35 PM Care Teams Environmental Professional Relationship Specialty Start Date End Date La Erazo MD [address] [id number] PCP - General 12/23/20
--- OUTSIDE RECORDS SUMMARY | 2025-02-04 08:26 | XMS_ITS | Encounter Summary ---
Author Organization [facility] Address [facility] [place] [address] Care Team Providers Care Masonry Contractor Name Role Phone Deborah Haley MD Unavailable [phone] Andreas Alcantara MD Unavailable Orion Lomax Primary Care Provider [phone] John Cleary MD Unavailable Encounter Details Date Type Department Care Team (Late st Contact Info) Description 09/03/2024 Xymogen Message Enc [facility] Family & Internal Medicine [address] [address] Kimmy, [facility] Provider Appointment with Jeromy Social History Tobacco Use Types Packs/Day Years [...] from your doctor or pharmacy? Never 07/25/2024 [facility] Utilities Answer Date Recorded In the [...] week 07/25/2024 How often do you attend chur or restorationism services? More than 4 times per year 07/25/2024 Do you belong to any clubs o r organizations such as pentecostalism groups, unions, fraternal or athletic groups, or [...] Date Recorded Patient Health Questionnaire-2 Score 0 02/26/2024 [facility] - Occupational Stress [...] place to sleep or slept in a detention (including now)? No 11/07/2023 Housing Stability Vital Sign Answer Nolan e Recorded In the last 12 months, was t here a time when you were not able to pay the mortgage or rent on time? No 07/25/2024 In the past 12 months, how m any times have you moved where you were living? 0 07/25/2024 At any time in the past 12 m [facility], were you homeless or living in a detention (including now)? 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 [place] [address] 02/06/2025 12:45 PM CDT [facility] [address] [place] [address] John Cleary MD [facility]. [facility] [address] [place], [place] [id number] 02/18/2025 11:30 AM CDT Office Visit [facility] [address] [place] [address] John lCeary MD Three [facility]. [address] [place] [address] 02/23/2025 9:00 AM CDT Office Visit [facility] [place] [address] [facility] [address] [place] [address] [place] [address] [place] [address] 04/03/2025 10:30 AM CDT Office Visit [facility], [address] [place] [address] Kathi Gant PA-C [address] [place] [address], [address] [place] [address] 04/27/2025 10:00 AM CDT Office Visit [facility] Family & Internal Medicine - [place] [address] [place] [address] [place] [address] [place] [address] 08/20/2025 11:00 AM ODD JOBS DAY WORKER Office Visit [facility]ialty Care - [facility] [address] [facility] [place] [phone] Baljeet Chavez DO 3 [facility] [address] [place] [address] documented as of this encounter Goals Goal [...] MRSA Comment:08/28/24 Left Toe (RR) 08/28/2024 08/28/2024 COVID-19 Rule Out 11/26/2024 11/26/2024 11/26/2024 6:06 AM ODD JOBS DAY WORKER Assessment Noted Time PHQ-9 Depression Total Score: 3 02/26/20 24 10:46 AM CDT documented as of this encounter Care Teams Masonry Contractor Relationship Specialty [place] [address] [place] [address] PCP - General Physician [facility] 11/13/23 Deborah Haley MD [facility]. [facility] [address] [place] [address] Gurley Track Fitter CARDIOVASCULAR DISEASE 03/15/16 Andreas Alcantara MD [facility]. [facility] [address] [place] [address] Consulting Physician Internal Medicine Pulmonary Disease 10/14/18 [place] [address] [place] [address] Referring Physician VASCULAR SURGERY 09/09/24 09/09/25 documented as of this encounter
--- OUTSIDE RECORDS SUMMARY | 2025-02-04 08:26 | XMS_ITS | Encounter Summary ---
Author Organization [facility] Address [facility] [place] [address] Care Team Providers Care Professor Of Theater Name Role Phone Deborah Haley MD Unavailable [phone] Andreas Alcantara MD Unavailable Heath Orion Sullivan Primary Care Provider [phone] John Celary MD Unavailable Encounter Details Date Type Department Care Team (Late st Contact Info) Description 09/24/2024 xTuriont Message Enc [facility] Medical [facility] Family & Internal Medicine [facility] [id number] [place] [address] [place] [id number] [place] [address] Neno Goodrich starting IV antibiotics on 09/25 Social History Tobacco Use Types Packs/Day Years [...] from your doctor or pharmacy? Never 07/25/2024 [facility] Utilities Answer Date Recorded In the past 12 months has e [employer], gas, oil, or water [employer] threatened to shut off services in your [...] week 07/25/2024 How often do you attend [facility] or church services? More than 4 times per year 07/25/2024 Do you belong to any clubs o r organizations such as yazidism groups, unions, fraternal or athletic groups, or [...] Date Recorded Patient Health Questionnaire-2 Score 0 09/23/2024 [facility] - Occupational Stress [...] place to sleep or slept in a correction (including now)? No 11/07/2023 Housing Stability Vital Sign Answer Nolan e Recorded In the last 12 months, was t here a time when you were not able to pay the mortgage or rent on time? No 07/25/2024 In the past 12 months, how m any times have you moved where you were living? 0 07/25/2024 At any time in the past 12 m [facility], were you homeless or living in a correction (including now)? 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 Answer Date of Assessment Author Status Yes 07/25/2024 8:46 PM Steven Johnson RN Active * Do you have difficulty dressing or bathing? Answer Date of Assessment Author Status Yes 07/25/2024 8:46 PM SHASHANKT Steven Saucedo RN Active * Because of a physical, mental, or emotional condition, do you have difficulty doing errands alone such as visiting a doctor's office or shopping? Answer Date of Assessment Author Status Yes 07/25/2024 8:46 PM SHASHANKT Steven Saucedo RN Active documented as of this encounter Mental Status * Because of a physical, mental, or emotional condition, do you have serious difficulty concentrating, remembering, or making decisions? Answer Entry Date Author Status No 07/25/2024 8:46 PM Steven Johnson RN Active documented in this encounter Progress Notes * Viki Begum RN - 09/25/2024 9:31 AM CST Just FYI. Thanks! OMER LEADER * Viki Begum RN - 09/24/2024 2:00 PM CST Is OTC probiotic ok? Thanks! OMER LEADER documented in this encounter Plan of Treatment Upcoming Encounters Date Type Department Care Team (Late st Contact Info) Description 02/05/2025 8:30 AM CDT Appointment [facility] Wound Care [address] [place] [address] Gillian Jameson, COO [address] [facility] [address] [place] [address] 02/06/2025 12:45 PM CDT Appointment [facility] Open MRI [address] [facility] [place] [address] John Cleary MD [facility]. [address] [place], [place] [address] 02/18/2025 11:30 AM CDT [facility] [address] [place] [address] John Cleary MD [facility]. [address] [place], [place] [address] 02/23/2025 9:00 AM CDT Office Visit [facility] Orthopedic Surgery [facility] [address] [facility] [address] [place] [address] [place] [address] [place] [address] 04/03/2025 10:30 AM CDT [facility], [address] [place], [place] [address] Kathi Gant PA-C [address] [facility] [place], [place] [address] 04/27/2025 10:00 AM CDT Office Visit [facility] Family & Internal Medicine [facility] [address] [place] [phone] [place] [address] [place] [address] 08/20/2025 11:00 AM CUSTOMER LEADER Office Visit [facility] Multispecialty Care - [facility] [address] [facility] [address] [place] [address] Baljeet Chavez, [address] [facility] [address] [place] [address] documented as of this encounter Goals Goal [...] Rule Out 11/26/2024 11/26/2024 11/26/2024 6:06 AM CUSTOMER LEADER Assessment Noted Time PHQ-9 Depression Total Score: 1 09/23/20 24 12:03 PM CUSTOMER LEADER documented as of this encounter Care Teams Professor Of Theater Relationship Specialty Start [place] [address] [place] [address] PCP - General Physician [facility] 11/13/23 Deborah Haley MD Three [facility]. [address] [place] [address] Orchard Post Office Clerk CARDIOVASCULAR DISEASE 03/15/16 Andreas Alcantara MD [facility]. [place] [address] [place] [address] Consulting Physician Internal Medicine Pulmonary Disease 10/14/18 [place] [address] [place] [address] Referring Physician VASCULAR SURGERY 09/09/24 09/09/25 documented as of this encounter
--- OUTSIDE RECORDS SUMMARY | 2025-02-04 08:26 | XMS_ITS | Encounter Summary ---
Author Organization [facility] Address [address] [place] [address] Care Team Providers Care Scale Operator Name Role Phone Deborah Haley MD Unavailable [phone] Andreas Alcantara MD Unavailable Dona Silver DO Primary Care Provider [phone] La Erazo MD Primary Care Provider [phone] Sean Smith MD Primary Care Provider [phone] Orion Pinzon Primary Care Provider [phone] John Cleary MD Unavailable Encounter Details Date Type Department Care Team (Late st Contact Info) Description 10/22/2019 [facility] at [address] [address] Greardo Strauss MA Social History Tobacco Use Types Packs/Day Years Used Date Smoking Tobacco: Never Smokeless Tobacco: Never Alcohol Use Standard Drinks/Week Comments Yes 0 (1 standard drink = 0.6 oz pur e alcohol) rare Sex and Gender Information Value Date Recorded Sex Assigned at Male 11/07/2023 6:03 PM AUTOMOTIVE SALES SPECIALIST Legal Sex Male 12:46 AM CDT Gender Identity Male 11/07/2023 6:03 PM AUTOMOTIVE SALES SPECIALIST Sexual Orientation Straight 11/07/2023 6: 03 PM AUTOMOTIVE SALES SPECIALIST 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 Answer Date of Assessment Author Status No 10/02/2019 3:21 PM AUTOMOTIVE SALES SPECIALIST Activ e * Do you have serious difficulty walking or climbing stairs? Answer Date of Assessment Author Status No 10/02/2019 3:21 PM AUTOMOTIVE SALES SPECIALIST Heather Luna RN Active * Do you have difficulty dressing or bathing? Answer Date of Assessment Author Status No 10/02/2019 3:21 PM Heather Tiwari RN Active * Because of a physical, mental, or emotional condition, do you have difficulty doing errands alone such as visiting a doctor's office or shopping? Answer Date of Assessment Author Status No 10/02/2019 3:21 PM Heather Tiwari RN Active documented as of this encounter Mental Status * Because of a physical, mental, or emotional condition, do you have serious difficulty concentrating, remembering, or making decisions? Answer Entry Date Author Status No 10/02/2019 3:21 PM Heather Tiwari RN Active documented in this encounter Plan of Treatment Upcoming Encounters Date Type Department Care Team (Late st Contact Info) Description 02/05/2025 8:30 AM CDT Appointment [facility] Care [address] [place] [address] [place] [address] [facility] [address] [place] [address] 02/06/2025 12:45 PM CDT [facility] [address] [place] [address] John Cleary MD [facility] [address] [place] [address] 02/18/2025 11:30 AM CDT Office [facility] [place] [facility] [address] [place] [address] John Cleary MD Three [facility]. [address] [place] [address] 02/23/2025 9:00 AM CDT Office Visit [facility] Orthopedic Surgery - [place] [address] [facility] [address] [place] [address] [place] [address] [place] [address] 04/03/2025 10:30 AM CDT Office Visit [place] [facility], [address] [place] [address] Kathi Gant PA-C 3 [facility], [address] [place] [address] 04/27/2025 10:00 AM CDT Office Visit [facility] Family & Internal Medicine [facility] [address] [place] [phone] [place] [address] [place] [address] 08/20/2025 11:00 AM AUTOMOTIVE SALES SPECIALIST Office Visit [facility]ialty Care - [facility] 3 [facility], [address] [place] [address] Baljeet Chavez DO 3 [facility] [address] [place] [address] documented as of this encounter Procedures Procedure Name Priority Date/Time Associated Diagnosis Comments CBC (OUTSIDE LAB) Routine 10/20/2019 BASIC METABOLIC PANEL Routine 10/20/2019 documented in this encounter Results * CBC (OUTSIDE LAB) (10/20/2019) WBC 7.9 4.0 - 11.0 HGB 11.2 13.0 - 16.3 HCT 38.8 40.0 - 49.0 PLT 435 150 - 450 10/20/2019 us Doc [facility] LAB-OUTSIDE/ABSTRACTED Edite d Result - Final * (ABNORMAL) BASIC METABOLIC PANEL (10/20/2019) SODIUM S/P/B 141 136 - 145 POTASSIUM S/P/B 4.6 3.5 - 5.1 CO2 29 22 - 29 CHLORIDE S/P/B 104 98 - 107 GLUCOSE 174 74 - 99 mg/dL CALCIUM S/P/B 9.5 8.4 - 10.2 BUN 24 8 - 26 CREATININE S/P/B 1.80(A) 0.7 - 1.3 EGFR AFR. AMER. 45 EGFR NON-AFR. AMER. 39 <=90 10/20/2019 us Doc [facility] LABORATORY Final Result documented in this encounter Visit Diagnoses Not on filedocumented in this encounter Additional Health Concerns Infection Onset Date Last Indicated Resolved Time COVID-19 Rule Out 07/22/2024 07/22/2024 07/22/2024 8:48 AM CDT COVID-19 Rule Out 07/25/2024 07/25/2024 07/25/2024 9:25 PM CDT MRSA Comment:08/28/24 Left Toe (RR) 08/28/2024 08/28/2024 COVID-19 Rule Out 11/26/2024 11/26/2024 11/26/2024 6:06 AM AUTOMOTIVE SALES SPECIALIST documented as of this encounter Care Teams Scale Operator Relationship Specialty Start Date End Date Dona Carmona DO [address] [address] PCP - General UNKNOWN PHYSICIAN SPECIALTY 10/02/19 06/10/20 La Erazo MD [address] [address] PCP - General FAMILY PRACTICE 06/11/20 05/22/23 Sean Smith MD [address] [address] PCP - General FAMILY PRACTICE 05/23/23 11/12/23 [place] [address] [place], [place] [id number] PCP - General Physician Ux Architect Medical 11/13/23 Deborah Haley MD [facility]. [address] [address] [place] Layer CARDIOVASCULAR DISEASE 03/15/16 Andreas Alcantara MD Three [facility]. [address] [address] Consulting Physician Internal Medicine Pulmonary Disease 10/14/18 [place] [address] [place], [place] [phone] Referring Physician VASCULAR SURGERY 09/09/24 09/09/25 documented as of this encounter
--- OUTSIDE RECORDS SUMMARY | 2025-02-04 08:26 | XMS_ITS | Encounter Summary ---
Author Organization [facility] Address [address] [place] [address] Care Team Providers Care Eyelet Punch Operator Name Role Phone Deborah Haley MD Unavailable [phone] Andreas Alcantara MD Unavailable Dona Silver DO Primary Care Provider [phone] La Erazo MD Primary Care Provider [phone] Sean Smith MD Primary Care Provider [phone] Orion Pinzon Primary Care Provider [phone] John Cleary MD Unavailable Encounter Details Date Type Department Care Team (Late st Contact Info) Description 10/09/2019 Hospital Follow-up Call [facility] Telemetry Unit [facility] [place] [address] Leola Pappas, Die Cleaner Social History Tobacco Use Types Packs/Day Years Used Date Smoking Tobacco: Never Smokeless Tobacco: Never Alcohol Use Standard Drinks/Week Comments Yes 0 (1 standard drink = 0.6 oz pur e alcohol) rare Sex and Gender Information Value Date Recorded Sex Assigned at Male 11/07/2023 6:03 PM TRANSIT VEHICLE INSPECTOR Legal Sex Male 12:46 AM CDT Gender Identity Male 11/07/2023 6:03 PM TRANSIT VEHICLE INSPECTOR Sexual Orientation Straight 11/07/2023 6: 03 PM TRANSIT VEHICLE INSPECTOR 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 Answer Date of Assessment Author Status No 10/02/2019 3:21 PM TRANSIT VEHICLE INSPECTOR Activ e * Do you have serious difficulty walking or climbing stairs? Answer Date of Assessment Author Status No 10/02/2019 3:21 PM Heather Tiwari RN Active * Do you have difficulty [...] Info) Description 02/05/2025 8:30 AM CDT Appointment [facility] Wound Care [address] [place] [address] [place] [address] [facility] [address] [address] 02/06/2025 12:45 PM CDT Appointment [facility] Open MRI [address] [facility] [place] [address] John Cleary MD [facility] [address] [place] [address] 02/18/2025 11:30 AM CDT Office Visit [place] [facility] [address] [place] [address] John Cleary MD Three [facility]. [address] [place] [address] 02/23/2025 9:00 AM CDT Office Visit [facility] Orthopedic [facility] - [place] [address] [facility] [address] [place], [place] [phone] [place] [address] [place] [address] 04/03/2025 10:30 AM CDT Office Visit [place] [facility], [address] [place] [address] Kathi Gant PA-C [address] [place] [address], [address] [place] [address] 04/27/2025 10:00 AM CDT Office Visit [facility] Family & Internal Medicine - [place] [address] [place] [address] [place] [address] [place], [place] [phone] 08/20/2025 11:00 AM TRANSIT VEHICLE INSPECTOR Office Visit [facility]ty Care - [facility] 3 [facility] [address] [place] [address] Baljeet Chavez DO 3 [facility] [address] [place], [place] [address] documented as of this encounter Visit Diagnoses Not on filedocumented in this encounter Additional Health Concerns Infection Onset Date Last Indicated Resolved Time COVID-19 Rule Out 07/22/2024 07/22/2024 07/22/2024 8:48 AM CDT COVID-19 Rule Out 07/25/2024 07/25/2024 07/25/2024 9:25 PM CDT MRSA Comment:08/28/24 Left Toe (RR) 08/28/2024 08/28/2024 COVID-19 Rule Out 11/26/2024 11/26/2024 11/26/2024 6:06 AM TRANSIT VEHICLE INSPECTOR documented as of this encounter Care Teams Eyelet Punch Operator Relationship Specialty Start Date End Date Dona Carmona DO [address] [address] PCP - General UNKNOWN PHYSICIAN SPECIALTY 10/02/19 06/10/20 La Erazo MD [address] [address] PCP - General FAMILY PRACTICE 06/11/20 05/22/23 Sean Smith MD [address] [address] PCP - General FAMILY PRACTICE 05/23/23 11/12/23 [place] [address] [place] [address] PCP - General Physician Superintendent Communications Medical 11/13/23 Deborah Haley MD [facility] [address] [place] [address] [place] Lab Clerk CARDIOVASCULAR DISEASE 03/15/16 Andreas Alcantara MD Three [facility]. [place] [address] [place] [address] Consulting Physician Internal Medicine Pulmonary Disease 10/14/18 [place] [address] [place] [address] Referring Physician VASCULAR SURGERY 09/09/24 09/09/25 documented as of this encounter
--- OUTSIDE RECORDS SUMMARY | 2025-02-04 08:26 | XMS_ITS | Encounter Summary ---
Author Organization [facility] Address [facility] [place] [address] Care Team Providers Care Seat Pack Inspector Name Role Phone Deborah Haley MD Unavailable [phone] Andreas Alcnatara MD Unavailable Orion Lomax Primary Care Provider [phone] John Cleary MD Unavailable Encounter Details Date Type Department Care Team (Late st Contact Info) Description 09/09/2024 [facility] Message Enc [place] [facility] THREE [facility], [address] [place], [place] [phone] Kathi Gant PA-C 3 [facility], [address] [place] [address] UA result Social History Tobacco Use Types Packs/Day Years [...] from your doctor or pharmacy? Never 07/25/2024 [facility] Utilities Answer Date Recorded In the past 12 months has e thesixtyone, gas, oil, or water [employer] threatened to shut off services in your [...] How often do you attend chur or buddhism services? More than 4 times per year 07/25/2024 Do you belong to any clubs o r organizations such as temple groups, unions, fraternal or athletic groups, or [...] Recorded Patient Health Questionnaire-2 Score 0 02/26/2024 [place] of Occupat ional Health - Occupational Stress [...] place to sleep or slept in a chcf (including now)? No 11/07/2023 Housing Stability Vital Sign Answer Nolan e Recorded In the last 12 months, was t here a time when you were not able to pay the mortgage or rent on time? No 07/25/2024 In the past 12 months, how m any times have you moved where you were living? 0 07/25/2024 At any time in the past 12 m [facility], were you homeless or living in a chcf (including now)? 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 [address] 02/06/2025 12:45 PM CDT [facility] [address] [place] [address] John Cleary MD [facility]. [address] [place] [address] 02/18/2025 11:30 AM CDT Office Visit [facility] [address] [place] [address] John Cleary MD [facility]. [address] [place] [address] 02/23/2025 9:00 AM CDT Office Visit [facility] Orthopedic Surgery - [place] [address] [facility] [address] [place] [address] [place] [address] [place], [place] [address] 04/03/2025 10:30 AM CDT Office Visit [place] [facility], [address] [place] [address] Kathi Gant PA-C [address] [place] [address], [address] [place] [address] 04/27/2025 10:00 AM CDT Office Visit [facility] Family & Internal Medicine - [place] [address] [place] [phone] [place] [address] [place] [address] 08/20/2025 11:00 AM OIL BURNER SERVICER AND INSTALLER Office Visit [facility] Mult[facility]ty Care - [facility] 3 [facility], [address] [place] [phone] Baljeet Chavez, [facility] [address] [place], [place] [address] documented as of this encounter Goals Goal [...] Rule Out 11/26/2024 11/26/2024 11/26/2024 6:06 AM OIL BURNER SERVICER AND INSTALLER Assessment Noted Time PHQ-9 Depression Total Score: 3 02/26/20 24 10:46 AM CDT documented as of this encounter Care Teams Seat Pack Inspector Relationship Specialty Start [place] [address] [place] [address] PCP - General Physician Vegetable Inspector Medical 11/13/23 Deborah Haley MD Three [facility]. [address] [place] [address] [place] Pneumatic Tube Fitter CARDIOVASCULAR DISEASE 03/15/16 Andreas Alcantara MD Three [facility]. [address] [place] [address] Consulting Physician Internal Medicine Pulmonary Disease 10/14/18 [place] [address] [place] [address] Referring Physician VASCULAR SURGERY 09/09/24 09/09/25 documented as of this encounter
--- OUTSIDE RECORDS SUMMARY | 2025-02-04 08:26 | XMS_ITS | Encounter Summary ---
Author Organization [facility] Address [facility] [place] [address] Care Team Providers Care Dean Of Instruction Name Role Phone Deborah Haley MD Unavailable [phone] Andreas Alcantara MD Unavailable Orion Lomax Primary Care Provider [phone] John Cleary MD Unavailable Encounter Details Date Type Department Care Team (Late st Contact Info) Description 09/16/2024 [facility] Message Enc [facility] [address] [place], [place] [phone] Gillian Jameson, DEVELOPMENT SPEC [address] [facility] [address] [place] [address] [facility] - need orders for home health nurse sent Social History Tobacco Use Types Packs/Day Years [...] from your doctor or pharmacy? Never 07/25/2024 [facility] Utilities Answer Date Recorded In the [...] How often do you attend chur or scientologist services? More than 4 times per year 07/25/2024 Do you belong to any clubs o r organizations such as hindu groups, unions, fraternal or athletic groups, or [...] Date Recorded Patient Health Questionnaire-2 Score 0 09/19/2024 [place] of Occupat ional Health - Occupational Stress [...] money to buy more. Never true 07/25/20 24 Within the past 12 months, t he [...] place to sleep or slept in a fci (including now)? No 11/07/2023 Housing Stability Vital Sign Answer Nolan e Recorded In the last 12 months, was t here a time when you were not able to pay the mortgage or rent on time? No 07/25/2024 In the past 12 months, how m any times have you moved where you were living? 0 07/25/2024 At any time in the past 12 m [facility], were you homeless or living in a fci (including now)? 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 Question Answer Date of Assessment Author Status Little interest or pleasure in doing things Not at all 09/19/2024 1:09 PM Greta Christine MA Act maritza Feeling down, depressed, or hopeless Not at all 09/19/2024 1:09 PM Greta Christine MA Active Patient Health Questionnaire-2 Score 0 09/19/2024 1:09 PM Greta Christine MA Active documented as of this encounter Mental Status * Because of a physical, mental, or emotional condition, do you have serious difficulty concentrating, remembering, or making decisions? Answer Entry Date Author Status No 07/25/2024 8:46 PM CDT Steven Saucedo RN Active documented in this encounter Progress Notes * Ana Laura Bazzi MA - 09/17/2024 11:44 AM CST Please advise DRY WORKER documented in this encounter Plan of Treatment Upcoming Encounters Date Type Department Care Team (Late st Contact Info) Description 02/05/2025 8:30 AM CDT Appointment [facility] Wound Care [address] [place] [address] [place] [address] [facility] [address] [place] [address] 02/06/2025 12:45 PM CDT Appointment [facility] Open MRI [address] [place] [address] John Cleary MD [facility]. [address] [place] [address] 02/18/2025 11:30 AM CDT [facility] [address] [place] [address] John Cleary MD [facility]. [address] [place], [place] [address] 02/23/2025 9:00 AM CDT Office Visit [facility] Orthopedic Surgery - [place] [address] [facility] [address] [place] [address] [place] [address] [place], [place] [address] 04/03/2025 10:30 AM CDT Office Visit [facility], [address] [place] [address] Kathi Gant PA-C 3 [facility], [address] [place] [address] 04/27/2025 10:00 AM CDT Office Visit [facility] Family [facility] Internal Medicine [facility] [address] [place] [address] [place] [address] [place], [place] [phone] 08/20/2025 11:00 AM FOUNDRY WORKER Office Visit [facility] Multispecialty Care - [facility] 3 [facility] [address] [place] [address] Baljeet Chavez DO 3 [facility] [address] [place], [place] [address] documented as of this encounter Goals Goal [...] Rule Out 11/26/2024 11/26/2024 11/26/2024 6:06 AM FOUNDRY WORKER Assessment Noted Time PHQ-9 Depression Total Score: 3 02/26/20 10:46 AM CDT documented as of this encounter Care Teams Dean Of Instruction Relationship Specialty Start [place] [address] [place] [address] PCP - General Physician Farm Equipment Maintenance Supervisor Medical 11/13/23 [facility] [address] [place] [address] [place] Psychologist Chief CARDIOVASCULAR DISEASE 03/15/16 Andreas Alcantara MD Three [facility]. [facility] [address] [place] [address] Consulting Physician Internal Medicine Pulmonary Disease 10/14/18 [place] [address] [place], [place] [address] Referring Physician VASCULAR SURGERY 09/09/24 09/09/25 documented as of this encounter
--- OUTSIDE RECORDS SUMMARY | 2025-02-04 08:26 | XMS_ITS | Encounter Summary ---
Author Organization [facility] Address [facility] [place] [address] Care Team Providers Care Health And Safety Consultant Name Role Phone Deborah Haley MD Unavailable [phone] Andreas Alcantara MD Unavailable Orion Lomax Primary Care Provider [phone] John Cleary MD Unavailable Encounter Details Date Type Department Care Team (Late st Contact Info) Description 11/14/2024 BoxCat Message Enc [facility] Medical Group Multispecialty Care - [facility] [address] [facility], [address] [place] [address] Kimmy, [facility] Provider Appt Change Social History Tobacco Use Types Packs/Day Years [...] from your doctor or pharmacy? Never 07/25/2024 [facility] Utilities Answer Date Recorded In the [...] week 07/25/2024 How often do you attend [facility] or mandaeism services? More than 4 times per year 07/25/2024 Do you belong to any clubs o r organizations such as pentecostal groups, unions, fraternal or athletic groups, or [...] Date Recorded Patient Health Questionnaire-2 Score 0 11/06/2024 [facility] [place] of Occupat ional Health - Occupational Stress [...] place to sleep or slept in a half-way (including now)? No 11/07/2023 Housing Stability Vital Sign Answer Nolan e Recorded In the last 12 months, was t here a time when you were not able to pay the mortgage or rent on time? No 07/25/2024 In the past 12 months, how m any times have you moved where you were living? 0 07/25/2024 At any time in the past 12 m [facility], were you homeless or living in a half-way (including now)? 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 [address] [place] [address] [place] [address] [address] [facility]. [place], [place] [id number] 02/06/2025 12:[address] [facility] Open MRI [address] [facility] [facility] [place] [address] John Celary MD [facility] [address] [place] [address] 02/18/2025 11:30 AM CDT [facility] [address] [place] [address] John Cleary MD Three [facility]. [address] [place] [address] 02/23/2025 9:00 AM CDT Office Visit [facility] - [place] [address] [facility] [address] [place], [place] [id number] [place] [address] [place] [address] 04/03/2025 10:30 AM CDT Office Visit [facility], [address] [place] [address] Kathi Gant PA-C [address] [place] [address], [address] [place] [address] 04/27/2025 10:00 AM CDT Office Visit [facility] - [place] [address] [place] [address] [place] [address] [place] [address] 08/20/2025 11:00 AM HEALTH WORKER Office Visit [facility] Multispecialty Care - [facility] [address] [facility] [place] [address] Baljeet Chavez DO 3 [facility] [address] [place] [address] documented as of this encounter Goals Goal [...] Rule Out 11/26/2024 11/26/2024 11/26/2024 6:06 AM HEALTH WORKER Assessment Noted Time PHQ-9 Depression Total Score: 1 09/23/20 24 12:03 PM HEALTH WORKER documented as of this encounter Care Teams Health And Safety Consultant Relationship Specialty [place] [address] [place] [address] PCP - General Physician Studio Technician Video Operator Medical 11/13/23 Deborah Haley MD [address] [place] [address] [place] Icu Manager CARDIOVASCULAR DISEASE 03/15/16 Andreas Alcantara MD Three [facility] [address] [place] [address] Consulting Physician Internal Medicine Pulmonary Disease 10/14/18 [place] [address] [place] [address] Referring Physician VASCULAR SURGERY 09/09/24 09/09/25 documented as of this encounter
--- OUTSIDE RECORDS SUMMARY | 2025-02-04 08:26 | XMS_ITS | Encounter Summary ---
Author Organization [facility] Address [facility] [place] [address] Care Team Providers Care Farmworker General Name Role Phone Deborah Haley MD Unavailable [phone] Andreas Alcantara MD Unavailable La Multani MD Primary Care Provider [phone] Sean Smith MD Primary Care Provider [phone] Orion Pinzon Primary Care Provider [phone] John Cleary MD Unavailable Encounter Details Date Type Department Care Team (Latest Contact Info) Description 02/07/2021 MyChart Message Enc [facility] Medical Group Multispecialty Care - [facility] [address] [place] [phone] Baljeet Chavez DO [address] [facility] [address] [place] [address] RE: Follow Up/Update Social History Tobacco Use Types Packs/Day Years Used Date Smoking Tobacco: Never Smokeless Tobacco: Never Alcohol Use Standard Drinks/Week Comments Yes 0 (1 standard drink = 0.6 oz pur e alcohol) rare Sex and Gender Information Value Date Recorded Sex Assigned at Male 11/07/2023 6:03 PM PLASTICS HEAT WELDER Legal Sex Male 12:46 AM CDT Gender Identity Male 11/07/2023 6:03 PM PLASTICS HEAT WELDER Sexual Orientation Straight 11/07/2023 6: 03 PM PLASTICS HEAT WELDER 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 Answer Date of Assessment Author Status No 10/02/2019 3:21 PM PLASTICS HEAT WELDER Activ e * Do you have serious [...] Info) Description 02/05/2025 8:30 AM CDT Appointment [facility] [address] [place] [address] [place] [address] [address] [facility] [place], [place] [id number] 02/06/2025 12:45 PM CDT Appointment [facility] Open MRI [address] [place] [address] John Cleary MD [facility]. [facility] [address] [place], [place] [address] 02/18/2025 11:30 AM CDT Office [facility] [address] [place] [address] John Cleary MD [facility]. [facility] [address] [place], [place] [address] 02/23/2025 9:00 AM CDT Office Visit [facility] [place] [address] [facility] [address] [place], [place] [phone] [place] [address] [place] [address] 04/03/2025 10:30 AM CDT Office Visit [facility], [address] [place] [address] Kathi Gant PA-C [address] [place] [address], [facility] [address] [place] [address] 04/27/2025 10:00 AM CDT Office Visit [facility] - [place] [address] [place] [address] [place] [address] [place], [place] [id number] 08/20/2025 11:00 AM PLASTICS HEAT WELDER Office Visit [facility] Multispecialty Care - [address], [address] [place] [address] Baljeet Chavez DO [address] [facility] [address] [place] [address] documented as of this encounter Visit Diagnoses Not on filedocumented in this encounter Additional Health Concerns Infection Onset Date Last Indicated Resolved Time COVID-19 Rule Out 07/22/2024 07/22/2024 07/22/2024 8:48 AM CDT COVID-19 Rule Out 07/25/2024 07/25/2024 07/25/2024 9:25 PM CDT MRSA Comment:08/28/24 Left Toe (RR) 08/28/2024 08/28/2024 COVID-19 Rule Out 11/26/2024 11/26/2024 11/26/2024 6:06 AM PLASTICS HEAT WELDER documented as of this encounter Care Teams Farmworker General Relationship Specialty Start Date End Date La Erazo MD [address] [facility] [address] [address] PCP - General FAMILY PRACTICE 06/11/20 05/22/23 Sean Smith MD Three [facility]. [facility] [address] [place] [address] PCP - General FAMILY PRACTICE 05/23/23 11/12/23 [place] [address] [place] [address] PCP - General Physician Rn Delivery Medical 11/13/23 Deborah Haley MD [address] [facility] [address] [place] [address] [place] Streetcar Dispatcher CARDIOVASCULAR DISEASE 03/15/16 Andreas Alcantara MD [facility]. [place] [address] [place] [address] Consulting Physician Internal Medicine Pulmonary Disease 10/14/18 [place] [address] [place] [address] Referring Physician VASCULAR SURGERY 09/09/24 09/09/25 documented as of this encounter
--- OUTSIDE RECORDS SUMMARY | 2025-02-04 08:26 | XMS_ITS | Encounter Summary ---
Author Organization [facility] Address [facility] [place] [address] Care Team Providers Care District Wildlife Manager Name Role Phone Deborah Haley MD Unavailable [phone] Andreas Alcantara MD Unavailable Orion Lomax Primary Care Provider [phone] John Cleary MD Unavailable Encounter Details Date Type Department Care Team (Late st Contact Info) Description 09/23/2024 Therapy Plan [facility] Day Services [address] [place], [place] [id number] Shlomo Sanchez MD [address] [place] [address] Social History Tobacco Use Types Packs/Day Years [...] from your doctor or pharmacy? Never 07/25/2024 [facility] Utilities Answer Date Recorded In the past [...] week 07/25/2024 How often do you attend [facility] or sabianism services? More than 4 times per year [...] Recorded Patient Health Questionnaire-2 Score 0 09/23/2024 [facility] of Occupat ional Health - [...] place to sleep or slept in a [place] health care facility (including now)? No 11/07/2023 Housing Stability Vital Sign Answer Nolan e Recorded In the last 12 months, was t here a time when you were not able to pay the mortgage or rent on time? No 07/25/2024 In the past 12 months, how m any times have you moved where you were living? 0 07/25/2024 At any time in the past [address] [facility], were you homeless or living in a [place] health care facility (including now)? 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 Answer Date of Assessment Author Status No 07/25/2024 8:46 PM Steven Johnson RN Active * Do you have serious difficulty walking or climbing stairs? Answer Date of Assessment Author Status Yes 07/25/2024 8:46 PM Steven Johnson RN Active * Do you have difficulty dressing or bathing? Answer Date of Assessment Author Status Yes 07/25/2024 8:46 PM Steven Johnson RN Active * Because of a physical, mental, or emotional condition, do you have difficulty doing errands alone such as visiting a doctor's office or shopping? Answer Date of Assessment Author Status Yes 07/25/2024 8:46 PM Steven Johnson RN Active * Over the past 2 weeks, how often have you been bothered by any of the following problems? Question Answer Date of Assessment Author Status Little interest or pleasure in doing things Not at all 09/23/2024 12:03 PM Denise Polanco RN Acti ve Feeling down, depressed, or hopeless Not at all 09/23/2024 12:03 PM Denise Polanco RN Active Patient Health Questionnaire-2 Score 0 09/23/2024 12:03 PM Denise Polanco R N Active * Question Answer Date of Assessment Author Status Trouble falling or staying asleep, or sleeping too much Not at all 09/23/2024 12:03 PM Denise Polanco RN Active Feeling tired or having little energy Several days 09/23/2024 12:03 PM Denise Polanco, RN Active Poor appetite or overeating Not at all 09/23/2024 12:03 PM Denise Polanco RN Active Feeling bad about yourself - or that you are a failure or have let yourself or your family down Not at all 09/23/2024 12:03 PM Denise Polanco RN Active Trouble concentrating on things, such as reading the newspaper or watching television Not at all 09/23/2024 12:03 PM Denise Polanco RN Active Moving or speaking so slowly that other people could have noticed? Or the opposite - being so fidgety or restless that you have been moving around a lot more than usual. Not at all 09/23/2024 12:03 PM Denise Polanco RN Active Thoughts that you would be better off or hurting yourself in some way Not at all 09/23/2024 12:03 PM Denise Polanco RN Active Patient Health Questionnaire-9 Score 1 09/23/2024 12:03 PM Denise Polanco RN Active documented as of this encounter [...] Info) Description 02/05/2025 8:30 AM CDT Appointment [facility] [address] [place] [address] Gillian Jameson SUBSEA ENGINEER [address] [facility] [address] [place] [address] 02/06/2025 12:45 PM CDT Appointment [facility] Open MRI [address] [place], [place] [address] John Cleary MD [facility]. [facility] [address] [place] [address] 02/18/2025 11:30 AM CDT Office [facility] [address] [place] [address] John Cleary MD [facility]. [address] [place] [address] 02/23/2025 9:00 AM CDT Office Visit [facility] [place] [address] [facility] [address] [place], [place] [phone] [place] [address] [place] [address] 04/03/2025 10:30 AM CDT Office Visit [facility] THREE [facility], [address] [place] [address] Kathi Gant PA-C [address] [place] [address], [address] [place] [address] 04/27/2025 10:00 AM CDT Office Visit [facility] [address] [place] [address] [place] [address] [place] [address] 08/20/2025 11:00 AM WORKFORCE PLANNER Office Visit [facility] Multispecialty Care - [facility] [address] [facility] [place] [address] Baljeet Chavez DO 3 [facility] [address] [place] [address] documented as of this encounter Goals Goal Patient Goal Type Associated Problems Recent Progress Patient-Stated? Author Family - family caregiver with be involved in care transitions and discharge planning Lifestyle Vi Garzon K, RN documented as of this encounter Visit Diagnoses Diagnosis Wound of left lower extremity, initial encounter- Primary documented in this encounter Additional Health Concerns Infection Onset Date Last Indicated Resolved Time MRSA Comment:08/28/24 Left Toe (RR) 08/28/2024 08/28/2024 COVID-19 Rule Out 11/26/2024 11/26/2024 11/26/2024 6:06 AM WORKFORCE PLANNER Assessment Noted Time PHQ-9 Depression Total Score: 1 09/23/20 12:03 PM WORKFORCE PLANNER documented as of this encounter Care Teams District Wildlife Manager Relationship Specialty [place] [address] [place] [address] PCP - General Physician Contact Center Assistant Medical 11/13/23 Deborah Haley MD Three [facility]. [address] [address] [place] Rn Endocrinology CARDIOVASCULAR DISEASE 03/15/16 Andreas Alcantara MD Three [facility]. [address] [address] Consulting Physician Internal Medicine Pulmonary Disease 10/14/18 [place] [address] [place] [address] Referring Physician VASCULAR SURGERY 09/09/24 09/09/25 documented as of this encounter
--- OUTSIDE RECORDS SUMMARY | 2025-02-04 08:26 | XMS_ITS | Encounter Summary ---
Author Organization [facility] Address [facility] [place] [address] Care Team Providers Care Field Installer Name Role Phone Deborah Haley MD Unavailable [phone] Andreas Alcantara MD Unavailable Orion Lomax Primary Care Provider [phone] John Cleary MD Unavailable Encounter Details Date Type Department Care Team (Late st Contact Info) Description 08/18/2024 Blueliv Message Enc [facility] THREE [facility], [address] [place], [place] [phone] Kathi Gant PA-C [address] [facility], [address] [place] [address] neuro Social History Tobacco Use Types Packs/Day Years [...] from your doctor or pharmacy? Never 07/25/2024 [facility] Utilities Answer Date Recorded In the past 12 months has e electric, gas, oil, or water [employer] threatened to shut off services in your [...] How often do you attend [facility] or buddhist services? More than 4 times per year 07/25/2024 Do you belong to any clubs o r organizations such as protestant groups, unions, fraternal or athletic groups, or [...] Recorded Patient Health Questionnaire-2 Score 0 02/26/2024 [facility] [place] [place] of Occupat ional Health - Occupational Stress [...] place to sleep or slept in a assisted (including now)? No 11/07/2023 Housing Stability Vital Sign Answer Nolan e Recorded In the last 12 months, was t here a time when you were not able to pay the mortgage or rent on time? No 07/25/2024 In the past 12 months, how m any times have you moved where you were living? 0 07/25/2024 At any time in the past 12 m [facility], were you homeless or living in a assisted (including now)? 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 [address] 02/06/2025 12:45 PM CDT [facility]ment [facility] [address] [place] [address] John Cleary MD [facility]. [facility] [address] [place] [address] 02/18/2025 11:30 AM CDT Office Visit [facility] [address] [place] [address] John Cleary MD [facility]. [facility] [address] [place] [address] 02/23/2025 9:00 AM CDT Office Visit [facility] [place] [address] [facility] [address] [place] [address] [place] [address] [place], [place] [address] 04/03/2025 10:30 AM CDT Office Visit [facility], [address] [place] [address] Kathi Gant PA-C [address] [place] [address], [address] [place] [address] 04/27/2025 10:00 AM CDT Office Visit [facility] [place] [address] [place] [phone] [place] [address] [place] [address] 08/20/2025 11:00 AM AD TAKER Office Visit [facility]ialty Care - [facility] [address] [facility], [address] [place] [phone] Baljeet Chavez DO 3 [facility] [address] [place], [place] [address] documented as of this encounter Goals Goal [...] Rule Out 11/26/2024 11/26/2024 11/26/2024 6:06 AM AD TAKER Assessment Noted Time PHQ-9 Depression Total Score: 3 02/26/20 10:46 AM CDT documented as of this encounter Care Teams Field Installer Relationship Specialty Start [place] [address] [place] [address] PCP - General Physician Adobe Layer Helper Medical 11/13/23 Deborah Haley MD Three [facility]. [address] [place] [address] Birney Cnc Operator CARDIOVASCULAR DISEASE 03/15/16 Andreas Alcantara MD Three [facility]. [address] [place] [address] Consulting Physician Internal Medicine Pulmonary Disease 10/14/18 [place] [address] [place] [address] Referring Physician VASCULAR SURGERY 09/09/24 09/09/25 documented as of this encounter
--- OUTSIDE RECORDS SUMMARY | 2025-02-04 08:26 | XMS_ITS | Encounter Summary ---
Author Organization [facility] Address [address] [place] [address] Care Team Providers Care Flower Maker Name Role Phone Deborah Haley MD Unavailable [phone] Andreas Alcantara MD Unavailable La Multani MD Primary Care Provider [phone] Sean Smith MD Primary Care Provider Orion Pinzon Primary Care Provider John Cleary MD Unavailable Encounter Details Date Type Department Care Team (Late st Contact Info) Description 05/17/2021 Abstract [facility], [address] [id number] Gerardo Strauss MA Social History Tobacco Use Types Packs/Day Years Used Date Smoking Tobacco: Never Smokeless Tobacco: Never Alcohol Use Standard Drinks/Week Comments Yes 0 (1 standard drink = 0.6 oz pur e alcohol) rare Sex and Gender Information Value Date Recorded Sex Assigned at Male 11/07/2023 6:03 PM FOOD AND NUTRITION SERVICES ASSISTANT Legal Sex Male 12:46 AM CDT Gender Identity Male 11/07/2023 6:03 PM FOOD AND NUTRITION SERVICES ASSISTANT Sexual Orientation Straight 11/07/2023 6: 03 PM FOOD AND NUTRITION SERVICES ASSISTANT 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 Answer Date of Assessment Author Status No 10/02/2019 3:21 PM FOOD AND NUTRITION SERVICES ASSISTANT Activ e * Do you have serious [...] Info) Description 02/05/2025 8:30 AM CDT Appointment [facility] [address] [place] [address] Gillian Jameson, SUBCONTRACT ADMINISTRATOR [address] [facility] [address] [address] 02/06/2025 12:45 PM CDT [facility] [address] [place], [place] [id number] John Cleary MD [facility]. [facility] [address] [place] [address] 02/18/2025 11:30 AM CDT [facility] [address] [place] [address] John Cleary MD [facility]. [facility] [address]00 [place] [address] 02/23/2025 9:00 AM CDT Office Visit [facility] Orthopedic Surgery - [place] [address] [facility] [address] [place], [place] [phone] [place] [address] [place] [address] 04/03/2025 10:30 AM CDT Office Visit [facility], [address] [place] [address] Kathi Gant PA-C [address] [place] [address], [address] [place] [address] 04/27/2025 10:00 AM CDT Office Visit [facility] Family & Internal Medicine [facility] [address] [place] [address] [place] [address] [place], [place] [id number] 08/20/2025 11:00 AM FOOD AND NUTRITION SERVICES ASSISTANT Office Visit [facility] Multispecialty Care - [address] [place] [address] Baljeet Chavez DO 3 [facility] [address] [place] [address] documented as of this encounter Procedures Procedure Name Priority Date/Time Associated Diagnosis Comments BASIC METABOLIC PANEL Routine 04/20/2021 LIPID PANEL Routine 04/20/2021 documented in this encounter Results * (ABNORMAL) BASIC METABOLIC PANEL (04/20/2021) SODIUM S/P/B 141 POTASSIUM S/P/B 4.3 CO2 29 CHLORIDE S/P/B 101 GLUCOSE 122 mg/dL CALCIUM S/P/B 9.4 BUN 28 CREATININE S/P/B 1.60(A) 0.7 - 1.3 EGFR AFR. AMER. 51 <=90 EGFR NON-AFR. AMER. 44 <=90 04/20/2021 us Doc [facility] Abstract LABORATORY Final Result * LIPID PANEL (04/20/2021) CHOLESTEROL 93 HDL 27 TRIGLYCERIDES 144 LDL (CALCULATED) 41 04/20/2021 us Doc [facility] Abstract LABORATORY Final Result documented in this encounter Visit Diagnoses Not on filedocumented in this encounter Additional Health Concerns Infection Onset Date Last Indicated Resolved Time COVID-19 Rule Out 07/22/2024 07/22/2024 07/22/2024 8:48 AM CDT COVID-19 Rule Out 07/25/2024 07/25/2024 07/25/2024 9:25 PM CDT MRSA Comment:08/28/24 Left Toe (RR) 08/28/2024 08/28/2024 COVID-19 Rule Out 11/26/2024 11/26/2024 11/26/2024 6:06 AM FOOD AND NUTRITION SERVICES ASSISTANT documented as of this encounter Care Teams Flower Maker Relationship Specialty Start Date End Date La Erazo MD [facility] [address] [address] PCP - General FAMILY PRACTICE 06/11/20 05/22/23 Sean Smith MD [facility] [address] [place] [address] PCP - General FAMILY PRACTICE 05/23/23 11/12/23 [place] [address] [place], [place] [id number] PCP - General Physician Maintenance Worker Swimming Pool Medical 11/13/23 Deborah Haley MD [facility] [address] [place] [address] [place] Chief Of Safety And Protection CARDIOVASCULAR DISEASE 03/15/16 Andreas Alcantara MD Three [facility]. [address] [address] Consulting Physician Internal Medicine Pulmonary Disease 10/14/18 [place] [address] [place], [place] [id number] Referring Physician VASCULAR SURGERY 09/09/24 09/09/25 documented as of this encounter
--- OUTSIDE RECORDS SUMMARY | 2025-02-04 08:26 | XMS_ITS | Encounter Summary ---
Author Organization [facility] Address [facility]ly [facility] [place] [address] Care Team Providers Care Item Processing Clerk Name Role Phone Deborah Haley MD Unavailable Andreas Alcantara MD Unavailable Orion Lomax Primary Care Provider [phone] John Cleary MD Unavailable Encounter Details Date Type Department Care Team (Late st Contact Info) Description 10/03/2024 Direct Access Softwaret Message Enc [facility] Medical Group Orthopedic Surgery [facility] [address] [address] [place] [address] [place] [address] [place] [address] Upcoming visit question Social History Tobacco Use Types Packs/Day Years [...] from your doctor or pharmacy? Never 07/25/2024 [facility] Utilities Answer Date Recorded In [...] week 07/25/2024 How often do you attend [facility] or episcopal services? More than 4 times per year 07/25/2024 Do you belong to any clubs o r organizations such as worship groups, unions, fraternal or athletic groups, or [...] Answer Date Recorded Patient Health Questionnaire-2 Score 1 09/30/2024 [facility] - [...] any time in the past 12 m [facility], were you homeless or living in a custodial (including now)? 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 [place], [place] [phone] 02/06/2025 12:45 PM CDT Appointment [facility] Open MRI [address] [place] [address] John Cleary MD [facility]. [facility] [address] [place], [place] [address] 02/18/2025 11:30 AM CDT Office Visit [facility] [address] [place] [address] John Cleary MD [facility]. [facility] [address] [place], [place] [address] 02/23/2025 9:00 AM CDT Office Visit [facility] Orthopedic Surgery - [place] [address] [facility] [address] [place], [place] [phone] [place] [address] [place] [address] 04/03/2025 10:30 AM CDT Office Visit [facility], [address] [place] [address] Kathi Gant PA-C [address] [place] [address], [address] [place] [address] 04/27/2025 10:00 AM CDT Office Visit [facility] Family & Internal Medicine - [place] [address] [place] [address] [place] [address] [place], [place] [phone] 08/20/2025 11:00 AM DEVELOPER EVANGELIST Office Visit [facility] Multispecialty Care - [address], [address] [place] [address] Baljeet Chavez DO 3 [facility] [address] [place] [address] documented as of this encounter Goals Goal [...] Rule Out 11/26/2024 11/26/2024 11/26/2024 6:06 AM DEVELOPER EVANGELIST Assessment Noted Time PHQ-9 Depression Total Score: 1 09/23/20 24 12:03 PM DEVELOPER EVANGELIST documented as of this encounter Care Teams Item Processing Clerk Relationship Specialty Start [place] [address] [place] [address] PCP - General Physician Buhr Mill Operator Medical 11/13/23 Deborah Haley MD Three [facility]. [facility] [address] [place] [address] [place] Experimental [employer] CARDIOVASCULAR DISEASE 03/15/16 Andreas Alcantaar MD Three [facility]. [facility] [address] [place] [address] Consulting Physician Internal Medicine Pulmonary Disease 10/14/18 [place] [address] [place] [address] Referring Physician VASCULAR SURGERY 09/09/24 09/09/25 documented as of this encounter
--- OUTSIDE RECORDS SUMMARY | 2025-02-04 08:26 | XMS_ITS | Encounter Summary ---
Author Organization [facility] Address [address] [place] [address] Care Team Providers Care Traffic Warehouse Supervisor Name Role Phone Deborah Haley MD Unavailable [phone] Andreas Alcantara MD Unavailable Dona Silver DO Primary Care Provider [phone] La Erazo MD Primary Care Provider [phone] Sean Smith MD Primary Care Provider [phone] Orion Pinzon Primary Care Provider [phone] John Cleary MD Unavailable Encounter Details Date Type Department Care Team (Late st Contact Info) Description 10/07/2019 Hospital Follow-up Call [facility] Telemetry Unit A [facility] [place] [address] Leola Pappas, Optometrist/Practice Owner Social History Tobacco Use Types Packs/Day Years Used Date Smoking Tobacco: Never Smokeless Tobacco: Never Alcohol Use Standard Drinks/Week Comments Yes 0 (1 standard drink = 0.6 oz pur e alcohol) rare Sex and Gender Information Value Date Recorded Sex Assigned at Male 11/07/2023 6:03 PM GUN PERFORATOR Legal Sex Male 12:46 AM CDT Gender Identity Male 11/07/2023 6:03 PM GUN PERFORATOR Sexual Orientation Straight 11/07/2023 6: 03 PM GUN PERFORATOR 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 Answer Date of Assessment Author Status No 10/02/2019 3:21 PM GUN PERFORATOR Activ e * Do you have serious [...] Info) Description 02/05/2025 8:30 AM CDT Appointment [facility] [address] [place] [address] [place] [address] [facility] [address] [address] 02/06/2025 12:45 PM CDT Appointment [facility] Open MRI [address] [facility] [place] [address] John Cleary MD [facility]. [facility] [address] [place] [address] 02/18/2025 11:30 AM CDT Office Visit [facility] [address] [place] [address] John Cleary MD Three [facility]. [address] [place] [address] 02/23/2025 9:00 AM CDT Office Visit [facility] Orthopedic Surgery - [place] [address] [facility] 300 [place], [place] [phone] [place] [address] [place] [address] 04/03/2025 10:30 AM CDT Office Visit [facility], [address] [place] [address] Kathi Gant PA-C [address] [place] [address], [address] [place] [address] 04/27/2025 10:00 AM CDT Office Visit [facility] Family & Internal Medicine - [place] [address] [place] [address] [place] [address] [place], [place] [phone] 08/20/2025 11:00 AM GUN PERFORATOR Office Visit [facility] Multispecialty Care - [facility] [address] [facility] [address] [place] [address] Baljeet Chavez DO 3 [facility] [address] [place], [place] [address] documented as of this encounter Visit Diagnoses Not on filedocumented in this encounter Additional Health Concerns Infection Onset Date Last Indicated Resolved Time COVID-19 Rule Out 07/22/2024 07/22/2024 07/22/2024 8:48 AM CDT COVID-19 Rule Out 07/25/2024 07/25/2024 07/25/2024 9:25 PM CDT MRSA Comment:08/28/24 Left Toe (RR) 08/28/2024 08/28/2024 COVID-19 Rule Out 11/26/2024 11/26/2024 11/26/2024 6:06 AM GUN PERFORATOR documented as of this encounter Care Teams Traffic Warehouse Supervisor Relationship Specialty Start Date End Date Dona Carmona DO [address] [address] PCP - General UNKNOWN PHYSICIAN SPECIALTY 10/02/19 06/10/20 La Erazo MD [address] [address] PCP - General FAMILY PRACTICE 06/11/20 05/22/23 Sean Smith MD [address] [address] PCP - General FAMILY PRACTICE 05/23/23 11/12/23 [place] [address] [place] [address] PCP - General Physician Neurourologist Medical 11/13/23 Deborah Haley MD [facility] [address] [place] [address] [place] Strategic Debriefing Specialist CARDIOVASCULAR DISEASE 03/15/16 Andreas Alcantara MD Three [facility]. [place] [address] [place] [address] Consulting Physician Internal Medicine Pulmonary Disease 10/14/18 [place] [address] [place] [address] Referring Physician VASCULAR SURGERY 09/09/24 09/09/25 documented as of this encounter
--- OUTSIDE RECORDS SUMMARY | 2025-02-04 08:26 | XMS_ITS | Encounter Summary ---
Author Organization [facility] Address [address] [place] [address] Care Team Providers Care Fitter Armament Name Role Phone Deborah Haley MD Unavailable [phone] Andreas Alcantara MD Unavailable Dona Silver DO Primary Care Provider [phone] La Erazo MD Primary Care Provider [phone] Sean Smith MD Primary Care Provider [phone] Orion Pinzon Primary Care Provider [phone] John Cleary MD Unavailable Encounter Details Date Type Department Care Team (Late st Contact Info) Description 12/23/2019 [facility] at [address] [address] Gerardo Strauss MA Social History Tobacco Use Types Packs/Day Years Used Date Smoking Tobacco: Never Smokeless Tobacco: Never Alcohol Use Standard Drinks/Week Comments Yes 0 (1 standard drink = 0.6 oz pur e alcohol) rare Sex and Gender Information Value Date Recorded Sex Assigned at Male 11/07/2023 6:03 PM STILL WORKER HELPER Legal Sex Male 12:46 AM CDT Gender Identity Male 11/07/2023 6:03 PM STILL WORKER HELPER Sexual Orientation Straight 11/07/2023 6: 03 PM STILL WORKER HELPER 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 Answer Date of Assessment Author Status No 10/02/2019 3:21 PM STILL WORKER HELPER Activ e * Do you have serious difficulty walking or climbing stairs? Answer Date of Assessment Author Status No 10/02/2019 3:21 PM STILL WORKER HELPER Heather Luna RN Active * Do you [...] Info) Description 02/05/2025 8:30 AM CDT Appointment [facility]ound Care [address] [place] [address] [place] [address] [facility] [address] [place] [address] 02/06/2025 12:45 PM CDT [facility]ment [facility] [address] [place] [address] John Cleary MD [facility] [address] [place] [address] 02/18/2025 11:30 AM CDT [facility] [address] [place] [address] John Cleary MD Three [facility]. [address] [place] [address] 02/23/2025 9:00 AM CDT Office Visit [facility] Orthopedic Surgery - [place] [address] [facility] [address] [place] [address] [place] [address] [place] [address] 04/03/2025 10:30 AM CDT Office Visit [facility], [address] [place] [address] Kathi Gant PA-C 3 [facility], [address] [place] [address] 04/27/2025 10:00 AM CDT Office Visit [facility] Family & Internal Medicine [facility] [address] [place] [address] [place] [address] [place] [address] 08/20/2025 11:00 AM STILL WORKER HELPER Office Visit [facility] Multispecialty Care - [facility] 3 [facility], [address] [place] [address] Baljeet Chavez DO 3 [facility] [address] [place] [address] documented as of this encounter Procedures Procedure Name Priority Date/Time Associated Diagnosis Comments CBC (OUTSIDE LAB) Routine 09/28/2020 AST/SGOT Routine 09/28/2020 BASIC METABOLIC PANEL Routine 09/28/2020 LIPID PANEL Routine 09/28/2020 ALT/SGPT Routine 09/28/2020 CBC (OUTSIDE LAB) Routine 07/01/2020 COMPREHENSIVE METABOLIC PANEL Routine 07/01/2020 COMPREHENSIVE METABOLIC PANEL Routine 12/22/2019 documented in this encounter Results * CBC (OUTSIDE LAB) (09/28/2020) WBC 6.5 HGB 14.6 HCT 45.0 PLT 268 09/28/2020 [facility] Abstract LAB-OUTSIDE/ABSTRACTED Final Result * LIPID PANEL (09/28/2020) Pathologist [facility] CHOLESTEROL 150 HDL 27 TRIGLYCERIDES 351 LDL (CALCULATED) 80 09/28/2020 us Doc [facility] Abstract LABORATORY Final Result * ALT/SGPT (09/28/2020) ALT 38 6 - 55 09/28/2020 us Doc [facility] Abstract LABORATORY Final Result * AST/SGOT (09/28/2020) AST 43 5 - 34 09/28/2020 us Doc [facility] Abstract LABORATORY Final Result * (ABNORMAL) BASIC METABOLIC PANEL (09/28/2020) SODIUM S/P/B 141 POTASSIUM S/P/B 4.4 CO2 31 CHLORIDE S/P/B 98 GLUCOSE 161 mg/dL CALCIUM S/P/B 9.9 BUN 34 CREATININE S/P/B 1.80(A) 0.7 - 1.3 EGFR AFR. AMER. 45 <=90 EGFR NON-AFR. AMER. 39 <=90 09/28/2020 us Doc [facility] Abstract LABORATORY Final Result * CBC (OUTSIDE LAB) (07/01/2020) Pathologist [facility] WBC 7.0 HGB 15.0 HCT 46.4 PLT 243 07/01/2020 us Doc [facility] Abstract LAB-OUTSIDE/ABSTRACTED Final Result * (ABNORMAL) COMPREHENSIVE METABOLIC PANEL (07/01/2020) SODIUM S/P/B 143 POTASSIUM S/P/B 4.1 CO2 28 CHLORIDE S/P/B 103 GLUCOSE 110 mg/dL CALCIUM S/P/B 9.3 BUN 38 CREATININE S/P/B 1.90(A) 0.7 - 1.3 EGFR AFR. AMER. 42 <=90 EGFR NON-AFR. AMER. 36 <=90 ALKALINE PHOSPHATASE S/P/B 64 ALT 62 AST 59 BILIRUBIN TOTAL S/P/B 0.4 ALBUMIN S/P/B 3.7 3.5 - 5.0 TOTAL PROTEIN S/P/B 6.6 07/01/2020 us Doc [facility] Abstract LABORATORY Final Result * (ABNORMAL) COMPREHENSIVE METABOLIC PANEL (12/22/2019) SODIUM S/P/B 138 136 - 145 POTASSIUM S/P/B 4.3 3.5 - 5.1 CO2 29 22 - 29 CHLORIDE S/P/B 99 98 - 107 GLUCOSE 278 74 - 99 mg/dL CALCIUM S/P/B 10.2 8.4 - 10.2 BUN 22 8 - 26 CREATININE S/P/B 2.10(A) 0.7 - 1.3 EGFR AFR. AMER. 37 EGFR NON-AFR. AMER. 32 <=90 ALKALINE PHOSPHATASE S/P/B 66 40 - 150 ALT 47 6 - 55 AST 57 5 - 34 BILIRUBIN TOTAL S/P/B 0.3 0.2 - 1.2 ALBUMIN S/P/B 3.7 3.5 - 5.0 TOTAL PROTEIN S/P/B 7.2 6.4 - 8.3 12/22/2019 us Doc [facility] Abstract LABORATORY Final Result documented in this encounter Visit Diagnoses Not on filedocumented in this encounter Additional Health Concerns Infection Onset Date Last Indicated Resolved Time COVID-19 Rule Out 07/22/2024 07/22/2024 07/22/2024 8:48 AM CDT COVID-19 Rule Out 07/25/2024 07/25/2024 07/25/2024 9:25 PM CDT MRSA Comment:08/28/24 Left Toe (RR) 08/28/2024 08/28/2024 COVID-19 Rule Out 11/26/2024 11/26/2024 11/26/2024 6:06 AM STILL WORKER HELPER documented as of this encounter Care Teams Fitter Armament Relationship Specialty Start Date End Date Dona Carmona DO [address] [address] PCP - General UNKNOWN PHYSICIAN SPECIALTY 10/02/19 06/10/20 La Erazo MD [address] [address] PCP - General FAMILY PRACTICE 06/11/20 05/22/23 Sean Smith MD [address] [address] PCP - General FAMILY PRACTICE 05/23/23 11/12/23 [place] [address] [place] [address] PCP - General Physician Ballistics Teacher Medical 11/13/23 Deborah Haley MD [facility] [address] [address] [place] Wind Up Worker CARDIOVASCULAR DISEASE 03/15/16 Andreas Alcantara MD [facility] [address] [address] Consulting Physician Internal Medicine Pulmonary Disease 10/14/18 [place] [address] [place] [address] Referring Physician VASCULAR SURGERY 09/09/24 09/09/25 documented as of this encounter
--- OUTSIDE RECORDS SUMMARY | 2025-02-04 08:26 | XMS_ITS | Encounter Summary ---
Author Organization [facility] Address [facility] [place] [address] Care Team Providers Care Scrap Kettle Tender Name Role Phone Deborah Haley MD Unavailable [phone] Andreas Alcantara MD Unavailable Dona Silver DO Primary Care Provider [phone] La Erazo MD Primary Care Provider [phone] Sean Smith MD Primary Care Provider Orion Pinzon Primary Care Provider [phone] John Cleary MD Unavailable Encounter Details Date Type Department Care Team (Late st Contact Info) Description 12/09/2019 [employer] [facility] at [facility], [facility] [address] [place] [address] Deborah Haley MD [facility]. 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 Answer Date of Assessment Author Status No 10/02/2019 3:21 PM FIELD ENGINEER Activ e * Do you have serious [...] Info) Description 02/05/2025 8:30 AM CDT Appointment [facility] Care [address] [place] [phone] [place] [address] [address] [place] [address] 02/06/2025 12:45 PM CDT Appointment [facility] Open MRI [address] [place] [address] John Cleary MD [facility]. [facility] [address] [place], [place] [address] 02/18/2025 11:30 AM CDT [facility] [address] [place] [address] John Cleary MD [facility]. [place] [address] [place], [place] [address] 02/23/2025 9:00 AM CDT Office Visit [facility] - [place] [address] [facility] [address] [place], [place] [phone] [place] [address] [place], [place] [address] 04/03/2025 10:30 AM CDT Office Visit [facility], [address] [place] [address] Kathi Gant PA-C [address] [place] [address], [address] [place] [address] 04/27/2025 10:00 AM CDT Office Visit [facility] Family & Internal Medicine - [place] [address] [place] [phone] [place] [address] [place], [place] [id number] 08/20/2025 11:00 AM FIELD ENGINEER Office Visit [facility] Multispecialty Care - [facility] [address] [facility] [place] [phone] Baljeet Chavez DO [address] [facility] [address] [place] [address] documented as of this encounter Visit Diagnoses Not on filedocumented in this encounter Additional Health Concerns Infection Onset Date Last Indicated Resolved Time COVID-19 Rule Out 07/22/2024 07/22/2024 07/22/2024 8:48 AM CDT COVID-19 Rule Out 07/25/2024 07/25/2024 07/25/2024 9:25 PM CDT MRSA Comment:08/28/24 Left Toe (RR) 08/28/2024 08/28/2024 COVID-19 Rule Out 11/26/2024 11/26/2024 11/26/2024 6:06 AM FIELD ENGINEER documented as of this encounter Care Teams Scrap Kettle Tender Relationship Specialty Start Date End Date Dona Carmona DO [address] [address] PCP - General UNKNOWN PHYSICIAN SPECIALTY 10/02/19 06/10/20 La Erazo MD [address] [address] PCP - General FAMILY PRACTICE 06/11/20 05/22/23 Sean Smith MD [address] [address] PCP - General FAMILY PRACTICE 05/23/23 11/12/23 [place] [address] [place] [address] PCP - General Physician Lead Sewage Plant Operator Medical 11/13/23 Deborah Haley MD Three [facility] [address] [place] [address] [employer] Mine Engineering Manager CARDIOVASCULAR DISEASE 03/15/16 Andreas Alcantara MD [address] [facility] [address] [place] [address] Consulting Physician Internal Medicine Pulmonary Disease 10/14/18 [place] [address] [place] [address] Referring Physician VASCULAR SURGERY 09/09/24 09/09/25 documented as of this encounter
--- OUTSIDE RECORDS SUMMARY | 2025-02-04 08:26 | XMS_ITS | Encounter Summary ---
Author Organization [facility] Address [facility] [place] [address] Care Team Providers Care Pressurised Container Filler Name Role Phone Deborah Haley MD Unavailable [phone] Andreas Alcantara MD Unavailable La Multani MD Primary Care Provider [phone] Sean Smith MD Primary Care Provider [phone] Orion Pinzon Primary Care Provider [phone] John Cleary MD Unavailable Encounter Details Date Type Department Care Team (Latest Contact Info) Description 03/21/2021 MyChart Message Enc [facility] Multispecialty Care - [facility] [address] [place] [phone] Baljeet Chavez DO [address] [facility] [address] [place] [address] RE: Follow Up/Update Social History Tobacco Use Types Packs/Day Years Used Date Smoking Tobacco: Never Smokeless Tobacco: Never Alcohol Use Standard Drinks/Week Comments Yes 0 (1 standard drink = 0.6 oz pur e alcohol) rare Sex and Gender Information Value Date Recorded Sex Assigned at Male 11/07/2023 6:03 PM NURSING HOME SOCIAL WORKER Legal Sex Male 12:46 AM CDT Gender Identity Male 11/07/2023 6:03 PM NURSING HOME SOCIAL WORKER Sexual Orientation Straight 11/07/2023 6: 03 PM NURSING HOME SOCIAL WORKER 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 Answer Date of Assessment Author Status No 10/02/2019 3:21 PM NURSING HOME SOCIAL WORKER Activ e * Do you have serious [...] Assessment Author Status No 10/02/2019 3:21 PM Heathre Tiwari RN Active documented as of this [...] Info) Description 02/05/2025 8:30 AM CDT Appointment [facility] [address] [place] [address] [place] [address] [address] [facility]. [place], [place] [phone] 02/06/2025 12:[address] [facility] Open MRI [address] [place] [address] John Cleary MD [facility]. [facility] [address] [place], [place] [address] 02/18/2025 11:30 AM CDT [facility] [address] [place] [address] John Cleary MD [facility]. [facility] [address] [place], [place] [address] 02/23/2025 9:00 AM CDT Office Visit [facility] Orthopedic Surgery - [place] [address] [facility] [address] [place], [place] [phone] [place] [address] [place] [address] 04/03/2025 10:30 AM CDT Office Visit [facility], [address] [place] [address] Kathi Gant PA-C [address] [place] [address], [facility] [address] [place] [address] 04/27/2025 10:00 AM CDT Office Visit [facility] Family & Internal Medicine - [place] [address] [place] [address] [place] [address] [place], [place] [phone] 08/20/2025 11:00 AM NURSING HOME SOCIAL WORKER Office Visit [facility] Multispecialty Care - [address], [address] [place] [address] Baljeet Chavez DO [address] [facility] [address] [place] [address] documented as of this encounter Visit Diagnoses Not on filedocumented in this encounter Additional Health Concerns Infection Onset Date Last Indicated Resolved Time COVID-19 Rule Out 07/22/2024 07/22/2024 07/22/2024 8:48 AM CDT COVID-19 Rule Out 07/25/2024 07/25/2024 07/25/2024 9:25 PM CDT MRSA Comment:08/28/24 Left Toe (RR) 08/28/2024 08/28/2024 COVID-19 Rule Out 11/26/2024 11/26/2024 11/26/2024 6:06 AM NURSING HOME SOCIAL WORKER documented as of this encounter Care Teams Pressurised Container Filler Relationship Specialty Start Date End Date La Erazo MD Three [facility] [address] [address] PCP - General FAMILY PRACTICE 06/11/20 05/22/23 Sean Smith MD Three [facility]. [facility] [address] [place] [address] PCP - General FAMILY PRACTICE 05/23/23 11/12/23 [place] [address] [place] [address] PCP - General Physician Division Sergeant Medical 11/13/23 Deborah Haley MD [facility] [address] [place] [address] Ferriday Cooler Man CARDIOVASCULAR DISEASE 03/15/16 Andreas Alcantara MD [facility]. [place] [address] [place] [address] Consulting Physician Internal Medicine Pulmonary Disease 10/14/18 [place] [address] [place] [address] Referring Physician VASCULAR SURGERY 09/09/24 09/09/25 documented as of this encounter
--- OUTSIDE RECORDS SUMMARY | 2025-02-04 08:27 | XMS_ITS | Encounter Summary ---
Author Organization [facility] Address [address] [facility] [place] [address] Care Team Providers Care Refinery Operator Coking Name Role Phone La Erazo MD Primary Care Provider [phone] Orion Pinzon PA-C Primary Care Provider [phone] Reason for Visit * Reason Onset Date Comments MEDICATION REFILL 01/01/2021 Encounter Details Date Type Department Care Team (Late st Contact Info) Description 01/01/2021 Refill [facility], Diabetes and Metabolism [address] [place] [address] Mychart, Generic Provider MEDICATION REFILL Social History Tobacco Use Types Packs/Day Years Used Date Smoking Tobacco: Never Smokeless Tobacco: Never Alcohol Use Standard Drinks/Week Comments No 0 (1 standard drink = 0.6 oz pur e alcohol) RARELY Sex and Gender Information Value Date Recorded Sex Assigned at Not on file Legal Sex Male 5:16 PM BOTTLE CAPPING MACHINE OPERATOR Gender Identity Not on file Sexual Orientation Not on file documented as of this encounter Plan of Treatment Upcoming Encounters Date Type Department Care Team (Late st Contact Info) Description 02/17/2025 9:00 AM CDT Office Visit [facility] - Endocrinology [address] [place] [address], [facility] [place] [phone] Marce Demarco MD [address] [place] [address] [place] [phone] 04/27/2025 11:00 AM CDT [facility] [address] [place] [address], [place] [phone] 04/27/2025 11:30 AM CDT Office Visit [facility] - GI [address] [place] [phone] Frank Dela Cruz MD [address] [place] [address] [address]L [place] [address] 05/22/2025 8:30 AM CDT Video Visit [facility] - Nephrology [address] [place] [phone] Keyla Contreras MD [address] [place] [address] [address]L [place] [phone] documented as of this encounter Visit Diagnoses Not on filedocumented in this encounter Care Teams Refinery Operator Coking Relationship Specialty Start Date End Date La Erazo MD PCP - General Student Resident 03/19/20 12/20/23 Orion Pinzon, PAIanC [address] [place] [address] PCP - General Physician Program Assistant 12/21/23 documented as of this encounter
--- OUTSIDE RECORDS SUMMARY | 2025-02-04 08:27 | XMS_ITS | Encounter Summary ---
Author Organization [facility] Address [facility] [place] [address] Care Team Providers Care Pinking Sewing Machine Operator Name Role Phone Deborah Haley MD Unavailable Andreas Alcantara MD Unavailable Orion Lomax Primary Care Provider [phone] John Cleary MD Unavailable Encounter Details Date Type Department Care Team (Late st Contact Info) Description 05/01/2024 [employer] Message Enc [facility] Medical Group Family & Internal Medicine [facility] [address] [place] [phone] Orion Pinzon [place] [address] [place] [address] Prescription Refill Social History Tobacco Use Types Packs/Day Years Used Date Smoking Tobacco: Never Smokeless Tobacco: Never Comments:na Alcohol Use Standard Drinks/Week Comments Yes 0 (1 standard drink = 0.6 oz pur e alcohol) rare [facility] Utilities Answer Date Recorded In the past 12 months has e electric, gas, oil, or water company threatened to shut off services in your home? No 11/07/2023 Humiliation, Afraid, Rape, and Kick questionnair e Answer Date Recorded Within the last year, have y ou been afraid of your partner or ex-partner? No 11/07/2023 Within the last year, have y ou been humiliated or emotionally abused in other ways by your partner or ex-partner? No Within the last year, have y ou been kicked, hit, slapped, or otherwise physically hurt by your partner or ex-partner? No 11/07/2023 Within the last year, have y ou been raped or forced to have any kind of sexual activity by your partner or ex-partner? No 11/07/2023 Social Connection and Isolat ion Panel [NHANES] Answer Date Recorded In a typical week, how many times do you talk on the phone with family, friends, or neighbors? More than three times a week 11/07/2023 How often do you get togethe r with friends or relatives? More than three times a week 11/07/2023 How often do you attend chur ch or rastafari services? More than 4 times per year 11/07/2023 Do you belong to any clubs o r organizations such as episcopal groups, unions, fraternal or athletic groups, or school groups? Yes 11/07/2023 How often do you attend meet ings of the clubs or organizations you belong to? More than 4 times per year 11/07/2023 Are you , , di vorced, , never , or living with a partner? 11/07/2023 AUDIT-C Answer Date Recorded Q1: How often do you have a drink containing alc ohol? Monthly or less 02/26/2024 Q2: How many drinks containi ng alcohol do you have on a typical day when you are drinking? 1 or 2 02/26/2024 Q3: How often do you have si x or more drinks on one occasion? Never 02/26/2024 Overall Financial Resource Strain (CARDIA) Answe r Date Recorded How hard is it for you to pa y for the very basics like food, housing, medical care, and heating? Not hard at all 11/07/2023 PHQ-2 Answer Date Recorded Patient Health Questionnaire-2 Score 0 02/26/2024 [facility] [place] of Occupat ional Health - Occupational Stress Questionnaire Answer Date Recorded Do you feel stress - tense, restless, nervous, or anxious, or unable to sleep at night because your mind is troubled all the time - these days? Not at all 11/07/2023 Exercise Vital Sign Answer Date Recorde d On average, how many days pe r week do you engage in moderate to strenuous exercise (like a brisk walk)? 0 days 11/07/2023 On average, how many minutes do you engage in exercise at this level? 0 min 11/07/2023 Hunger Vital Sign Answer Date Recorded Within the past 12 months, y ou worried that your food would run out before you got the money to buy more. Never true 11/07/19 Within the past 12 months, t he food you bought just didn't last and you didn't have money to get more. Never true 11/07/2023 PRAPARE - Transportation Answer Date Re corded In the past 12 months, has l ack of transportation kept you from medical appointments or from getting medications? No 10/16 In the past 12 months, has l ack of transportation kept you from meetings, work, or from getting things needed for daily living? No 11/07/2023 Housing Stability Vital Sign Answer [...] place to sleep or slept in a long-term (including now)? 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 Answer Date of Assessment Author Status No 11/07/2023 6:10 PM Ting Layne RN Active * Do you have serious difficulty walking or climbing stairs? Answer Date of Assessment Author Status Yes 11/07/2023 6:10 PM Ting Layne RN Active * Do you have difficulty dressing or bathing? Answer Date of Assessment Author Status Yes 11/07/2023 6:10 PM Ting Layne RN Active * Because of a physical, mental, or emotional condition, do you have difficulty doing errands alone such as visiting a doctor's office or shopping? Answer Date of Assessment Author Status Yes 11/07/2023 6:10 PM Ting Layne RN Active documented as of this encounter Mental Status * Because of a physical, mental, or emotional condition, do you have serious difficulty concentrating, remembering, or making decisions? Answer Entry Date Author Status No 11/07/2023 6:10 PM Ting Layne RN Active documented in this encounter Progress Notes * Viki Begum RN - 05/01/2024 8:49 AM CDT Just FYI. I did send you the Hydrocodone. Thanks! documented in this encounter Plan of Treatment Upcoming Encounters Date Type Department Care Team (Late st Contact Info) Description 02/05/2025 8:30 AM CDT Appointment [facility] Care [address] [place] [address] [place] [address] [facility] [address] [place] [address] 02/06/2025 12:45 PM CDT [facility]ment [facility] [address] [place] [address] John Cleary MD [facility]. [facility] [address] [place] [address] 02/18/2025 11:30 AM CDT Office Visit [facility] [address] [place] [phone] John Cleary MD [facility]. [facility] [address] [place] [address] 02/23/2025 9:00 AM CDT Office Visit [facility] Orthopedic Surgery - [place] [address] [facility] [address] [place], [place] [phone] [place] [address] [place], [place] [address] 04/03/2025 10:30 AM CDT Office Visit [facility], [address] [place] [address] Kathi Gant PA-C [address] [place] [address], [address] [place] [address] 04/27/2025 10:00 AM CDT Office Visit [facility] Family & Internal Medicine - [place] [address] [place] [phone] [place] [address] [place], [place] [phone] 08/20/2025 11:00 AM LICENSE INSPECTOR Office Visit [facility] Multispecialty Care - [address] [place] [phone] Baljeet Chavez DO [address] [facility] [address] [place] [address] documented as of this encounter Goals Goal [...] Rule Out 11/26/2024 11/26/2024 11/26/2024 6:06 AM LICENSE INSPECTOR Assessment Noted Time PHQ-9 Depression Total Score: 3 02/26/20 10:46 AM CDT documented as of this encounter Care Teams Pinking Sewing Machine Operator Relationship Specialty Start [place] [address] [place] [address] PCP - General Physician Smoke Control Supervisor Medical 11/13/23 Deborah Haley MD [address] [address] [place] [employer] CARDIOVASCULAR DISEASE 03/15/16 Andreas Alcantara MD [address] [address] Consulting Physician Internal Medicine Pulmonary Disease 10/14/18 [place] [address] [place], [place] [phone] Referring Physician VASCULAR SURGERY 09/09/24 09/09/25 documented as of this encounter
--- OUTSIDE RECORDS SUMMARY | 2025-02-04 08:27 | XMS_ITS | Encounter Summary ---
Author Organization [facility] Address [facility] [place] [address] Care Team Providers Care Stopper Maker Helper Name Role Phone Smooth Ravi MD Primary Care Provider [phone] Deborah Haley MD Unavailable [phone] Yogesh Bazzi MD Primary Care Provider [phone] Andreas Alcantara MD Unavailable Valentin Lee MD Primary Care Provider [phone] Dona Carmona DO Primary Care Provider [phone] La Erazo MD Primary Care Provider + [phone] Sean Smith MD Primary Care Provider [phone] Orion Pinzon Primary Care Provider [phone] John Cleary MD Unavailable Encounter Details Date Type Department Care Team (Late st Contact Info) Description 11/23/2017 AOI Medical Message Enc [facility], [address] [place] [address] Deborah Haley MD [facility]. 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 I was admitted and blood clotting was determined. They were unable to treat me and I was transferred to [facility] were I suffered an acute submassive saddle pulmonary embolism with acute cor pulmonate. Multiple blood clots in both lungs and multiple blood clots inboth legs. They said the right side of my heart was blocked and not functioning right and this was causing the left side to be overworked. Dr. Kevin Acosta performed a EKOS catheter in the right and left descending pulmonary arteries with clot busting medications. Heparin was administered for a few days. I was in ICU for four days and released to go home on October 31, 2017. I was sent home with 14 shots of Lovenox to take and placed back on blood thinners (warfarin). I have seen my new primary physician Dr. Cathy Bazzi and I???m also seeing a Pulmonary Embolism Specailist Dr. Abbi Styles at [facility]. I???m going to the Coumadin clinic at [place] weekly to have my INR checked. I will bring in all of my paper work from the hospital on my upcoming appointment. My former residential finish carpenter took me off the blood thinners on August 11, 2017 and said I know longer needed to be on blood thinners. My appointment with you is on December 06, 2017. Tests are scheduled for December to determine the possible damage to heart and lungs. E CALLER documented in this encounter Plan of Treatment Upcoming Encounters Date Type Department Care Team (Late st Contact Info) Description 02/05/2025 8:30 AM CDT Appointment [facility] [address] [place] [address] [place] [address] [facility] [address] [place] [address] 02/06/2025 12:45 PM CDT Appointment [facility] Open MRI [address] [place] [address] John Cleary MD [facility]. [address] [place] [address] 02/18/2025 11:30 AM CDT Office Visit [facility] [address] [place] [phone] John Cleary MD [facility]. [address] [place] [address] 02/23/2025 9:00 AM CDT Office Visit [facility] Orthopedic Surgery - [place] [address] [facility] [address] [place], [place] [phone] [place] [address] [place] [address] 04/03/2025 10:30 AM CDT Office Visit [facility] [address] [place] [address] Kathi Gant PA-C [address] [facility], [address] [place] [address] 04/27/2025 10:00 AM CDT Office Visit [facility] Family & Internal Medicine - [place] [address] [place] [phone] [place] [address] [place], [place] [phone] 08/20/2025 11:00 AM SCORE CALLER Office Visit [facility] Multispecialty Care - [facility] [address] [facility] [place] [phone] Baljeet Chavez DO 3 [facility] [address] [place] [address] documented as of this encounter Visit Diagnoses Not on filedocumented in this encounter Additional Health Concerns Infection Onset Date Last Indicated Resolved Time COVID-19 Rule Out 07/22/2024 07/22/2024 07/22/2024 8:48 AM CDT COVID-19 Rule Out 07/25/2024 07/25/2024 07/25/2024 9:25 PM CDT MRSA Comment:08/28/24 Left Toe (RR) 08/28/2024 08/28/2024 COVID-19 Rule Out 11/26/2024 11/26/2024 11/26/2024 6:06 AM SCORE CALLER documented as of this encounter Care Teams Stopper Maker Helper Relationship Specialty Start Date End Date Smooth Ravi MD [address] [place], [place] [address] PCP - General INTERNAL MEDICINE 03/15/16 12/05/17 Yogesh Bazzi MD [address] [address] PCP - General INTERNAL MEDICINE 12/06/17 07/02/19 Valentin Valentin MD [address] [place] [address] PCP - General INTERNAL MEDICINE 07/03/19 10/01/19 Dona Carmona DO [address] [place] [address] PCP - General UNKNOWN PHYSICIAN SPECIALTY 10/02/19 06/10/20 La Erazo MD [address] [place] [address] PCP - General FAMILY PRACTICE 06/11/20 05/22/23 Sean Smith MD [address] [place] [address] PCP - General FAMILY PRACTICE 05/23/23 11/12/23 [place] [address] [place] [address] PCP - General Physician Programming Internship Medical 11/13/23 Deborah Haley MD [address] [address] [place] [employer] Mail [employer]or CARDIOVASCULAR DISEASE 03/15/16 Andreas Alcantara MD Three [facility]. [place] [address] [place] [address] Consulting Physician Internal Medicine Pulmonary Disease 10/14/18 [place] [address] [place] [address] Referring Physician VASCULAR SURGERY 09/09/24 09/09/25 documented as of this encounter
--- OUTSIDE RECORDS SUMMARY | 2025-02-04 08:27 | XMS_ITS | Encounter Summary ---
Author Organization [facility] Address [address] [facility] [place] [address] Care Team Providers Care Rn Clinical Coordinator Name Role Phone La Erazo MD Primary Care Provider [phone] Orion Pinzon PA-C Primary Care Provider [phone] Reason for Visit * Reason Onset Date Comments MEDICATION REFILL 01/01/2021 Encounter Details Date Type Department Care Team (Late Contact Info) Description 01/01/2021 Refill [facility], Diabetes and Metabolism [address] [place] [phone] Wilmar Solis MD [address] [place] [address] [place] [address] MEDICATION REFILL Social History Tobacco Use Types Packs/Day Years Used Date Smoking Tobacco: Never Smokeless Tobacco: Never Alcohol Use Standard Drinks/Week Comments No 0 (1 standard drink = 0.6 oz pur e alcohol) RARELY Sex and Gender Information Value Date Recorded Sex Assigned at Not on file Legal Sex Male 5:16 PM OFFICE 365 CONSULTANT Gender Identity Not on file Sexual Orientation Not on file documented as of this encounter Plan of Treatment Upcoming Encounters Date Type Department Care Team ([facility] Contact Info) Description 02/17/2025 9:00 AM CDT Office Visit [facility] - Endocrinology [address] [place] [phone] Marce Demarco MD [address] [place] [address] 2L [place] [phone] 04/27/2025 11:00 AM CDT Procedure visit [facility] - GI [address] [place] [phone] 04/27/2025 11:30 AM CDT Office Visit [facility] - GI [address] [place] [phone] Frank Dela Cruz MD [address] [place] [address] 2L [place] [address] 05/22/2025 8:30 AM CDT Video Visit [facility] - Nephrology [address] [place] [phone] Keyla Contreras MD [address] [place] [address] 2L [place] [phone] documented as of this encounter Visit Diagnoses Diagnosis Type 2 diabetes mellitus with complication, with long-term current use of insulin (HCC) documented in this encounter Care Teams Rn Clinical Coordinator Relationship Specialty Start Date End Date La Erazo MD PCP - General Student Resident 03/19/20 12/20/23 Orion Pinzon PAIanC [address] [place] [address] PCP - General Physician Poem Writer 12/21/23 documented as of this encounter
--- OUTSIDE RECORDS SUMMARY | 2025-02-04 08:27 | XMS_ITS | Encounter Summary ---
Author Organization [facility] Address [address] [place] [address] Care Team Providers Care Banker Mason Name Role Phone Smooth Ravi MD Primary Care Provider [phone] Deborah Haley MD Unavailable [phone] Yogesh Bazzi MD Primary Care Provider [phone] Andreas Alcantara MD Unavailable Valentin Lee MD Primary Care Provider [phone] Dona Carmona DO Primary Care Provider [phone] La Erazo MD Primary Care Provider [phone] Sean Smith MD Primary Care Provider [phone] Orion Pinzon Primary Care Provider [phone] John Cleary MD Unavailable Encounter Details Date Type Department Care Team (Late st Contact Info) Description 08/31/2016 Abstract [facility] AT [address] [address] Gerardo Strauss MA Social History Tobacco Use Types Packs/Day Years Used Date Smoking Tobacco: Never Smokeless Tobacco: Never Alcohol Use Standard Drinks/Week Comments Yes 0 (1 standard drink = 0.6 oz pur e alcohol) rare Sex and Gender Information Value Date Recorded Sex Assigned at Male 11/07/2023 6:03 PM PATTERNMAKER ALL AROUND Legal Sex Male 12:46 AM CDT Gender Identity Male 11/07/2023 6:03 PM PATTERNMAKER ALL AROUND Sexual Orientation Straight 11/07/2023 6: 03 PM PATTERNMAKER ALL AROUND 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 [place] [address] 02/06/2025 12:45 PM CDT [facility] [address] [place] [address] John Cleary MD [facility]. [address] [place] [address] 02/18/2025 11:30 AM CDT [facility] [address] [place] [phone] John Cleary MD [facility]. [address] [place] [address] 02/23/2025 9:00 AM CDT Office Visit [facility] Medical Group Orthopedic Surgery - [place] [address] [facility] [address] [place], [place] [phone] [place] [address] [place] [address] 04/03/2025 10:30 AM CDT [facility] [address] [place] [address] Kathi Gant PA-C 3 [facility], [address] [place] [address] 04/27/2025 10:00 AM CDT Office Visit [facility] Internal Medicine - [place] [address] [place] [phone] [place] [address] [place] [address] 08/20/2025 11:00 AM PATTERNMAKER ALL AROUND Office Visit [facility] Mult[facility] - [facility] [address] [facility] [place] [phone] Baljeet Chavez DO 3 [facility] [address] [place] [address] documented as of this encounter Procedures Procedure Name Priority Date/Time Associated Diagnosis Comments PROTIME (OUTSIDE LAB) Routine 02/08/2017 CBC (OUTSIDE LAB) Routine 02/08/2017 COMPREHENSIVE METABOLIC PANEL Routine 02/08/2017 VITAMIN D, 25 OH Routine 02/08/2017 FERRITIN Routine 02/08/2017 HEMOGLOBIN, GLYCOSYLATED Routine 12/27/2016 PROTIME (OUTSIDE LAB) Routine 08/18/2016 CBC (OUTSIDE LAB) Routine 08/18/2016 COMPREHENSIVE METABOLIC PANEL Routine 08/18/2016 LIPID PANEL Routine 08/18/2016 HEMOGLOBIN, GLYCOSYLATED Routine 08/18/2016 THYROID STIM HORMONE TSH Routine 08/18/2016 VITAMIN D, 25 OH Routine 08/18/2016 FERRITIN Routine 08/18/2016 documented in this encounter Results * PROTIME (OUTSIDE LAB) (02/08/2017) PROTIME 25.9 INR 2.2 02/08/2017 us Doc [facility] Abstract LAB-OUTSIDE/ABSTRACTED Final Result * CBC (OUTSIDE LAB) (02/08/2017) WBC 4.9 HGB 13.9 HCT 45.3 PLT 314 02/08/2017 us Doc [facility] Abstract LAB-OUTSIDE/ABSTRACTED Final Result * VITAMIN D, 25 OH (02/08/2017) VITAMIN D 25 HYDROXY S/P/B 27.2 02/08/2017 us Doc [facility] Abstract LABORATORY Edited Resul t - Final * FERRITIN (02/08/2017) FERRITIN 131.3 02/08/2017 us Doc [facility] Abstract LABORATORY Final Result * (ABNORMAL) COMPREHENSIVE METABOLIC PANEL (02/08/2017) SODIUM S/P/B 142 POTASSIUM S/P/B 4.0 CO2 27 CHLORIDE S/P/B 104 GLUCOSE 131 CALCIUM S/P/B 9.5 BUN 24 EGFR AFR. AMER. 44 EGFR NON-AFR. AMER. 38 ALKALINE PHOSPHATASE S/P/B 52 ALT 45 AST 49 BILIRUBIN TOTAL S/P/B 0.4 ALBUMIN S/P/B 3.6 3.5 - 5.0 TOTAL PROTEIN S/P/B 7.0 CREATININE S/P/B 1.86(A) 0.7 - 1.3 02/08/2017 us Doc [facility] Abstract LABORATORY Edited Resul t - Final * HEMOGLOBIN, GLYCOSYLATED (12/27/2016) HGB A1C 7.7 12/27/2016 us Doc [facility] Abstract LABORATORY Final Result * PROTIME (OUTSIDE LAB) (08/18/2016) PROTIME 28.3 INR 2.4 08/18/2016 Doc [facility] Abstract LAB-OUTSIDE/ABSTRACTED Final Result * HEMOGLOBIN, GLYCATED (08/18/2016) HGB A1C 7.4 08/18/2016 us [facility] LABORATORY Final Result * CBC (OUTSIDE LAB) (08/18/2016) WBC 5.9 HGB 13.8 HCT 44.1 PLT 265 08/18/2016 Doc [facility] Abstract LAB-OUTSIDE/ABSTRACTED Final Result * FERRITIN (08/18/2016) FERRITIN 153.8 08/18/2016 us Doc [facility] Abstract LABORATORY Edited Resul t - Final * COMPREHENSIVE METABOLIC PANEL (08/18/2016) SODIUM S/P/B 144 POTASSIUM S/P/B 3.6 CO2 33 CHLORIDE S/P/B 99 GLUCOSE 51 CALCIUM S/P/B 9.3 BUN 27 CREATININE S/P/B 1.97 EGFR AFR. AMER. 36 ALKALINE PHOSPHATASE S/P/B 49 ALT 31 AST 34 BILIRUBIN TOTAL S/P/B 0.3 ALBUMIN S/P/B 3.7 3.5 - 5.0 TOTAL PROTEIN S/P/B 6.3 PHOSPHORUS 3.0 URIC ACID 6.3 08/18/2016 us Doc [facility] Abstract LABORATORY Edited Resul t - Final * LIPID PANEL (08/18/2016) CHOLESTEROL 124 HDL 26 TRIGLYCERIDES 241 LDL (CALCULATED) 63 08/18/2016 us Doc [facility] Abstract LABORATORY Final Result * THYROID STIM HORMONE, TSH (08/18/2016) TSH 2.16 08/18/2016 us Doc [facility] Abstract LABORATORY Final Result * VITAMIN D, 25 OH (08/18/2016) VITAMIN D 25 HYDROXY S/P/B 27.6 08/18/2016 us Doc [facility] Abstract LABORATORY Final Result documented in this encounter Visit Diagnoses Not on filedocumented in this encounter Additional Health Concerns Infection Onset Date Last Indicated Resolved Time COVID-19 Rule Out 07/22/2024 07/22/2024 07/22/2024 8:48 AM CDT COVID-19 Rule Out 07/25/2024 07/25/2024 07/25/2024 9:25 PM CDT MRSA Comment:08/28/24 Left Toe (RR) 08/28/2024 08/28/2024 COVID-19 Rule Out 11/26/2024 11/26/2024 11/26/2024 6:06 AM PATTERNMAKER ALL AROUND documented as of this encounter Care Teams Banker Mason Relationship Specialty Start Date End Date Smooth Ravi MD [address] [place], [place] [phone] PCP - General INTERNAL MEDICINE 03/15/16 12/05/17 Yogesh Bazzi MD [address] [address] PCP - General INTERNAL MEDICINE 12/06/17 07/02/19 Valentin Valentin MD [address] [place] [address] PCP - General INTERNAL MEDICINE 07/03/19 10/01/19 Dona Carmona DO [address] [address] PCP - General UNKNOWN PHYSICIAN SPECIALTY 10/02/19 06/10/20 La Erazo MD [address] [place] [address] PCP - General FAMILY PRACTICE 06/11/20 05/22/23 Sean Smith MD [address] [place] [address] PCP - General FAMILY PRACTICE 05/23/23 11/12/23 [place] [address] [place] [address] PCP - General Physician Senior Sales Administrator Medical 11/13/23 Deborah Haley MD [place] [address] [place] [address] [facility] Consultant CARDIOVASCULAR DISEASE 03/15/16 Andreas Alcantara MD Three [facility] [address] [place] [address] Consulting Physician Internal Medicine Pulmonary Disease 10/14/18 [place] [address] [place] [address] Referring Physician VASCULAR SURGERY 09/09/24 09/09/25 documented as of this encounter
--- OUTSIDE RECORDS SUMMARY | 2025-02-04 08:27 | XMS_ITS | Data Portability ---
Author Organization [facility] Address [address] [place] [address] Care Team Providers Care Production Welding Supervisor Name Role Phone JANIS HALEY Senior Production Supervisor WASHINGTON CANO Hardboard Press Operator LORENZO VILLALBA Casino Cage Cashier YAEL LYNN Solution Make Up Operator SEAN PARIS Primary Care Provider [phone] Assessment No assessment recorded. Plan of Treatment Reminders Order Date Submit Date Provider Last Modified By Organization Details Last Modified Time Details Appointments None record ed. Lab drug screen , 14 drugs (detec timed) , urine 2022 023 [facility], [address] [place] [address], [address], [place], [address], 3 09:22:42 Referral orthop edic surgeo n referr al - recurr ent falls on the L should er and family wants to see Ortho for furthe r manage ment 2023 024 blaise Beatty MD, [address] [place], [address], 4 14:17:37 physic al therap ist referr al 2022 023 [facility], [address], [place], [address], 3 14:47:11 Procedures None record ed. Surgeries None record ed. Imaging XR, should er, 2 or more view 2023 024 BOO Not available 4 12:44:55 MRI, should er, w/o contra st - Recurr ent falls on Left should er, PT recomm ends MRI should er 2023 024 [facility], [address] [place] [address], [address], 4 10:22:04 XR, should er, 2 or more view - fall from chair on left side 2022 023 [facility], [facility], [place], [address], 3 09:33:54 XR, should er, 2 or more view - should er pain suspec t rotato r cuff pathol ogy r/o arthri tis 2022 023 felicity [facility], [address] [place] [address], [address], 3 11:52:03 Medication Orders tramad ol 50 mg tablet 2023 024 [email or web address] [facility], [address] [place] [address], [address], 4 15:57:40 tramad ol 50 mg tablet [address] [id number], [address] [place], [place], [id number], 3 11:26:32 gabape ntin 600 mg tablet [address], [address] [place] [address], [address], 11:55:41 tramad ol 50 mg tablet 2022 023 [email or web address] [facility], [address] [place] [address], [address], 12:04:49 ropini role 2 mg tablet 2022 023 [facility], [address] [place] [address], [address], 11:16:29 Ubrelv y 50 mg tablet 2022 023 [facility], [address] [place] [address], [address], 09:29:26 pregab mimi 25 mg capsul e 2022 023 [email or web address] [facility], [address] [place] [address], [address], 12:46:13 Patient TargetsNo targets recorded. Patient Instructions Encounter Date Encounter Id Patient Instructions Last Modified By Organization Details Last Modified Time 03/20/2023 [id number] A healthy lifestyle: care instructions [email or web address] Not available 03/21/2023 09:32:30 I was present an d available in the Family Medicine clinic to discuss this patient's care during the appointment. I agree with the resident's assessment and plan as documented. Justin Huynh [email or web address] Not available 03/21/2023 18:53:52 04/03/2023 [id number] I was present an d available in the Family Medicine clinic to discuss this patient's care during the appointment. I agree with the resident's assessment and plan as documented. LESA [email or web address] Not available 04/04/2023 11:56:45 06/25/2023 [id number] I was present an d available in the Family Medicine clinic to discuss this patient's care during the appointment. I agree with the resident's assessment and plan as documented. LESA romero Not available 06/26/2023 11:28:18 09/04/2023 [id number] Case was discussed with me in the Teach Room on date of encounter. I agree with residents assessment and plan of care as docuemented above with any exceptions/additi ons noted below if necessary. All labs/rads/consult s to be followed by ordering provider. Myriam Trejo DO Family Medicine Physician [email or web address] Not available 09/08/2023 14:14:42 10/23/2023 [id number] I was present an d available in the Family Medicine clinic to discuss this patients care during the appointment. I agree with the residents assessment and plan as documented. Alicia Wylie DO Family Medicine-Obstetri Faculty [email or web address] Not available 11/05/2023 15:58:28 Reason for Referral Physical Therapist Referral for Pain of left shoulder joint Referring Physician: Nico Farooq, Maintenance Mechanic 2Nd Shift, Encounter Date: 03/20/2023 Orthopedic Surgeon Referral for Recurrent falls recurrent falls on the L shoulder and family wants to see Ortho for further management Referring Physician: Sean Paris Maintenance Mechanic 2Nd Shift, Encounter Date: 10/23/2023 Results Created Date Observation Date Name Description Value Unit Range Abnormal Flag Note LastModifiedBy Organization Detail LastModifiedTime 09/07/20 23 XR, shoul rochelle, [address] [facility] [address] [facility] [place] [address] INDICA TION: Left should er pain. Fall. Limite d range of motion . COMPAR RENETTA: None. TECHNI QUE: 3 views of the left should er. FINDIN GS: There is no acute fractu re or disloc ation. There are mild to modera te degene rative change s of the acromi oclavi cular joint with inferi or bony osteop hytes. The glenoh umeral joint is normal . There is no bony destru ctive proces s. IMPRES CAROLYN: 1. No acute proces s. 2. Mild to modera te degene rative osteoa rthrit is of the acromi oclavi cular joint. Referr ed By: Cheko olivas Signed By: Sharan overton MD on 2022 1:04 AM Interp reted By: Sharan overton MD, 2022 1:04 AM hbhooma [facility], [place], [address], 09/13/2023 14:48:59 10/26/19 24 XR, shoul rochelle, 2 or more view [facility] [address] [facility] [place] [address] Examin ation: XR SHOULD ER LT 3V Exam time: 10/23/19 3:40 PM Clinic al histor y: Pain after fall. Compar renetta: Radiog raphs 2022. Techni que: 3 views of the left should er. Findin gs: No fractu re or disloc ation is identi fied. Arthri tic change s of the glenoh umeral and AC joints are redemo nstrat ed and appear simila r to prior. No destru ctive bone lesion s are identi fied. IMPRES CAROLYN: 1. No acute osseou s abnorm ality identi fied. 2. Arthri tic change s of the glenoh umeral and A.C. Joints . Referr ed By: Electr onical ly Signed By: Shahbaz Lloyd MD on 2:58 PM Interp reted By: Shahbaz Lloyd MD, 2:57 PM felicity Not Available 12:44:55 10/27/19 24 ECG 12-le ad [facility] [address] [facility] [place] [address] [facility] [place] [address], [place] Test Date: 10-27 Pat Name: GOLDEN GOODRICH Depart ment: 41 Patien t ID: [id number] Room: [id number] Gender : Male Techni itz: [id number] : 3-17 Reques lizet By: ARIADNE ROBERT Order Number : [id number] Akilah silveira MD: Sam Khan Measur ements Interv als Deming Rate: 73 P: 65 DC: 189 QRS: 8 QRSD: 92 T: 51 QT: 394 QTc: 436 Interp retive Statem ents SINUS RHYTHM LOW QRS VOLTAG E IN PRECOR DIAL LEADS [QRS DEFLEC TION < 1.0 mV IN CHEST LEADS] PROBAB LE ANTERI OR MYOCAR DIAL INFARC TION , OF INDETE RMINAT E AGE [35 ms Q WAVE IN V3/V4] Compar ed to ECG 2022 10:29: 42 Myocar dial infarc t findin g now presen t Sinus arrhyt hmia no longer presen t Electr onical ly signed by Sam Khan at 6:54:0 8 SOAP DRIER OPERATOR [facility] [address] [facility], [place], [address], 10/27/2023 12:01:32 10/27/19 24 ECG 12-le ad [facility] [place] [address] [facility] [place] [address] [place], [facility] n [place] Test Date: 10-27 Pat Name: GOLDEN GOODRICH Depart ment: 41 Patien t ID: [id number] Room: [facility] Gender : Male Techni itz: [id number] : 12-29 Reques lizet By: ARIADNE ROBERT Order Number : [id number] Akilah silveira MD: Sam Khan Measur ements Interv als Deming Rate: 73 P: 65 DC: 189 QRS: 8 QRSD: 92 T: 51 QT: 394 QTc: 436 Interp retive Statem ents SINUS RHYTHM LOW QRS VOLTAG E IN PRECOR DIAL LEADS [QRS DEFLEC TION < 1.0 mV IN CHEST LEADS] PROBAB LE ANTERI OR MYOCAR DIAL INFARC TION , OF INDETE RMINAT E AGE [35 ms Q WAVE IN V3/V4] Compar ed to ECG 2022 10:29: 42 Myocar dial infarc t findin g now presen t Sinus arrhyt hmia no longer presen t Electr onical ly signed by Sam Khan at 6:54:0 8 SOAP DRIER OPERATOR [facility] [address] [facility], [place], [address], 10/27/2023 12:01:33 10/27/19 24 xr shoul rochelle lt 3V [facility] [place] [address] Examin ation: X-ray left should er, 3 views. Exam time: 6:45 AM Clinic al histor y: Fall. Left should er pain. Chroni c left should er pain. 67-yea r-old male ashlee barragan follow ing a ground -level fall. On his way to the [facility], the patien ana's hand slippe d off his walker and he fell Compar renetta: None. Techni que: AP, internal combustion engine subassembler al/ext ernal rotati on, and scapul ar Y views of left should er obtain ed. Findin gs: No acute fractu re. No disloc ation. No eviden ce of bone destru ction or erosiv e arthro mercedez. Osteop hytes, acromi oclavi cular joint. Cervic al spondy losis. Athero sclero sis. IMPRES CAROLYN: 1. No acute fractu re or disloc ation. 2. Arthri tic change s, left acromi oclavi cular joint. Ordere d By: SCOTTY TOM LARISA Electr onical ly Signed By: Melida Mora MD on 7:21 AM Interp reted By: Melida Mora MD, 7:20 AM [facility] [address] [facility], [place], [address], 10/27/2023 12:01:33 10/27/19 24 XR, chest [facility] [place] [address] Examin ation: X-ray chest, 1 view Exam time: at 0638 hours Clinic al histor y: Dyspne a.67-y ear-ol d male ashlee barragan follow ing a ground -level fall. On his way to the [facility], the patien ana's hand slippe d off his walker and he fell Compar renetta: 2018 Techni que: Single fronta l uprigh t view of the chest obtain ed. FINDIN GS: Superi or medias tinum has increa sed in size with increa se opacit ies behind athero sclero tic calcif ic lesion s of aorta. Heart border has increa sed in size as well. No pneumo thorax . No large pleura l effusi on. Decrea sed lung volume s. IMPRES CAROLYN: Increa sed superi or medias tinal wideni ng with increa sed opacit ies behind athero sclero tic calcif ic lesion s of aorta. Increa sed heart size. Indete rminat e etiolo gy. Possib ly techni que and expira tion images . Cannot defini tively exclud e acute aortic syndro me/dis sectio n or perica rdial effusi on. RECOMM ENDATI ON: If clinic al indica tion, may consid er CTA dissec tion protoc ol with and withou t contra st Ordere d By: SCOTTY TOM LARISA Electr onical ly Signed By: Melida Mora MD on 7:25 AM Interp reted By: Melida Mora MD, 7:[address] [facility] [address] [facility] [place], [address], 10/27/2023 12:01:33 10/27/19 24 cta chest +CT ABD+p el W con [facility] [place] [address] Examin ation: CTA CHEST+ CT ABD+PE L W CON Clinic al Indica tion: Histor y given by the orderi ng provid er states DISSE CTION. Histor y given by the perfor moise techno logist states Pt. hypote nsive. both feet cyanot ic. As well as PT BIBEMS with CC of fall and lacera tion to right leg. EMS contro lled bleedi ng with pressu re bandag e, stated at leaset 500cc blood loss on scene. INA LE poor perfus ion, but right foot found to be cold. Pressu re bandag e unwrap ped, pedal pulse found INA by dopple r. Bleedi ng contro lled, but BP 70s/40 s, triage paused to conduc t mass transf usion protoc ol. Compar renetta: No compar renetta. Techni que: Chest CT angiog bernardino with IV contra st. Standa rd and MIP images were review ed. Next, portal venous phase images of the abdome n and pelvis were obtain ed. 3-D rotati onal recons tructi ons were also submit lizet. IV contra st: 100 mL of Isovue -370. Dose reduct ion: This CT exam was perfor med using one or more of the follow ing dose-r educti on techni ques: Automa lizet exposu re contro l, adjust ment of the mA and/or kV accord ing to patien t size, and/or use of iterat maritza recons tructi on techni que. Findin gs: PULMON LAKSHMI ARTERI ES: The arteri es appear normal in calibe r. Centra l pulmon lakshmi arteri es appear well opacif ied with no fillin g defect s noted. The distal subseg mental pulmon lakshmi arteri es are poorly opacif ied and assess ment for small distal PE is limite d. HEART: Heart: No right heart strain . Normal size. Aorta: The thorac ic aorta appear s normal in calibe r. No CT findin gs of dissec tion identi fied within the thorac ic aorta. Vanessa ry arteri es: Vanessa ry artery calcif icatio ns are presen t. Perica rdium: Normal . No effusi on, thicke esther, or calcif icatio n. MEDIAS TINUM: Suppor t tubes and lines: None. Base of neck/t hyroid : Slight promin ence of the right lobe of the thyroi d with nodule s measur ing up to 1.8 cm. Furthe r assess ment with noneme rgent thyroi d ultras ound is recomm ended. Lymph nodes: No suprac lavicu lar, axilla ry, internal combustion engine subassembler al mammar y, medias tinal, or hilar adenop athy. Trache a: Normal . Esopha norberto: Normal . LUNGS AND PLEURA : Lungs: Depend ent atelec tasis. Pleura : No effusi on, thicke esther, or calcif icatio n. UPPER ABDOME N Liver and bile ducts: No focal liver lesion . Oral veins are patent . No biliar y dilata tion. Gallbl adder: Unrema rkable . No gallbl adder wall thicke esther or perich olecys tic fluid. Pancre as: Unrema rkable . Spleen : Normal . RETROP ERITON EUM Adrena ls: Normal . Kidney s: Unrema rkable . Lymph nodes: No lympha denopa thy in the abdome n or pelvis . BOWEL AND PERITO NEUM Bowel: Duoden al divert iculum noted. No bowel obstru ction. No acute inflam matory proces s. Free air or fluid: None. VASCUL ATURE Athero sclero tic calcif icatio ns of the abdomi nal aorta noted withou t eviden ce of aneury sm. PELVIS No abnorm ality. BONES/ SOFT TISSUE S Fat-co ntaini ng umbili dany hernia noted. Multil evel spondy losis. No acute osseou s abnorm alitie s. Impres carolyn: 1. The thorac ic aorta is normal in calibe r with no findin gs of aneury sm or dissec tion. No centra l pulmon lakshmi emboli sm. The distal subseg mental pulmon lakshmi arteri es are poorly opacif ied and assess ment for small distal PE is limite d. 2. Vanessa ry artery calcif icatio ns. 3. No acute abnorm ality identi fied within the abdome n or pelvis . 4. Fat-co ntaini ng umbili dany hernia . 5. Right thyroi d nodule s are identi fied. Furthe r assess ment with noneme rgent thyroi d ultras ound is recomm ended. Referr ed By: Electr onical ly Signed By: Shahbaz Lloyd MD on 8:22 AM Interp reted By: Shahbaz Lloyd MD, 1/13/2 024 8:09 AM [facility] [address] [facility], [place], [address], 10/27/2023 12:01:34 10/28/19 24 ECG 12-le ad [facility] [place] [address] [facility] [place] [address] [place], [facility] [place] Test Date: 10-28 Pat Name: GOLDEN GOODRICH Depart ment: 40 Patien t ID: [id number] Room: [id number] Gender : Male Techni itz: TN : 12-29 Reques lizet By: STEPHANIE JOSHI [facility] Order Number : [id number] Akilah silveira MD: Janis Martinez i Measur ements Interv als Deming Rate: 94 P: 40 DC: 182 QRS: 5 QRSD: 97 T: 32 QT: 347 QTc: 436 Interp retive Statem ents SINUS RHYTHM LOW QRS VOLTAG E IN PRECOR DIAL LEADS ASCENCION LATERA L MYOCAR DIAL INFARC TION, Of INDETE RMINAT E AGE possib le old inferi or infarc tion. Compar ed to ECG 2023 06:39: 35 No signif icant change s Electr onical ly signed by Janis Martinez i at 12:16: 51 SOAP DRIER OPERATOR [facility] [address] [facility], [place], [address], 10/31/2023 12:36:18 10/28/19 24 XR, chest [facility] [place] [address] EXAMIN ATION: XR CHEST PORTAB LE, 4:29 PM TECHNI QUE: Uprigh t AP portab le radiog raph of the chest HISTOR Y: Dyspne a COMPAR RENETTA: Chest radiog raph FINDIN GS: There are multip le leads overly ing the chest. Mild to modera te cardio megaly . Arteri oscler otic calcif icatio n of the thorac ic aorta. Promin ence of pulmon lakshmi vascul ar patter n. No focal pulmon lakshmi consol idatio n. No pleura l effusi on. No pneumo thorax . Ossifi c densit ies along the superi or aspect of the acromi oclavi cular joints bilate rally that are likely degene rative . IMPRES CAROLYN: 1. Mild promin ence of pulmon lakshmi vascul ar patter n which may be seen with pulmon lakshmi vascul ar conges tion. Otherw ise, no radiog raphic eviden ce of an acute cardio pulmon lakshmi abnorm ality. 2. Mild to modera te cardio megaly . Referr ed By: Cheko block ly Signed By: John Mendez MD on 4:35 PM Interp reted By: John Mendez MD, 4:[address] [facility] [address] [facility], [place], [address], 10/31/2023 12:36:18 10/28/19 24 use echoc ardio gram [facility] [place] [place] [address] ZEE Echo w/ Cardia c Dopple r comp Pat.Na me: GOLDEN GOODRICH Pat.ID : [id number] Ex[facility] Time: 2:52:0 0 PM Study Type:E cho w/ Cardia c Dopple r comp Height : 71 in Weight : 311 lb BSA: 2.54 m2 Age: [birth year]67 Y Sex: M BP: 98/63 Sonogr phr: [place] Histor y / Clinic al:BLE edema with weepin g. INR 3.4. Hx- DVT/PE . warfar in. HLD. HTN. CHF. PVD. DM. kidney diseas e. PADMINI. CAD. gout. BMI 46. Prior - chroni c Lt fem, Lt pop Race: W ++++++ ++++++ ++++++ ++++++ ++++++ ++++++ SUMMAR Y: ++++++ ++++++ ++++++ ++++++ ++++++ ++++++ Estima lizet left ventri cular ejecti on fracti on is 60%. Modera te concen tric left ventri cular hypert rophy. Left ventri cular diasto lic functi on is abnorm al (grade 2 - pseudo normal patter n). Apical Anteri or wall is not visual . Apical Septal , Apical hdez are hypoki netic. The left atrial size is mildly enlarg ed. Mild aortic valve stenos is. Peak veloci ty across the aortic valve measur es 2.5m/s ec with a mean gradie nt of 12mmHg . Unable to reliab ly estima te pulmon lakshmi pressu res. ++++++ ++++++ ++++++ ++++++ ++++++ ++++++ FINDIN GS: ++++++ ++++++ ++++++ ++++++ ++++++ ++++++ LV: The left ventri cular size is normal . The left ventri cular systol ic functi on is normal . Estima lizet left ventri cular ejecti on fracti on is 60%. Modera te concen tric left ventri cular hypert rophy. The averag e E/e' is elevat ed at >14. Left ventri cular diasto lic functi on is abnorm al (grade 2 - pseudo normal patter n). Apical Anteri or wall is not visual . Apical Septal , Apical hdez are hypoki netic. RV: The right ventri cular size is normal . Right ventri cular systol ic functi on is normal . LA: The left atrial size is mildly enlarg ed. RA: Right atrial size is normal . IAS: Atrial septum appear s intact . SHABBIR: No eviden ce of perica rdial effusi on. AO: Normal aortic root. SVn: Inferi or vena cava is normal in size. AV: The aortic valve is trilea flet. Mild aortic valve stenos is. The peak veloci ty across the aortic valve measur es 2.5m/s ec with a peak gradie nt of 20mmHg and a mean gradie nt of 12mmHg . No eviden ce of aortic valve regurg itatio n. MV: No eviden ce of mitral regurg itatio n. No eviden ce of mitral stenos is. PV: No eviden ce of pulmon ic regurg itatio n. TV: A trace of tricus pid regurg itatio n. ++++++ ++++++ ++++++ ++++++ ++++++ ++++++ MEASUR EMENTS : ++++++ ++++++ ++++++ ++++++ ++++++ ++++++ DOPPLE R LVOT LVOTpk PG 4 mmHg LVOTmn PG 2 mmHg LVOTpk Brandon 105 cm/s (70-11 0)+ LVOT SV 53 ml LVOT TVI 17 cm AV Forwar d Flow AV TVI 32.1 cm AV pkPG 20 mmHg AV pkVel 222 cm/s (100-1 70)+* Area (TVI) 1.66 cm2 (3-5)* AV mnPG 10 mmHg Area (Brandon) 1.49 cm2 (3-5)* MV Forwar d Flow MV DeTm 275 msec MV pkE 105 cm/s (60-13 0) MV E/A 0.9 MV pkA 120 cm/s PV Forwar d Flow PV pkVel 140 cm/s (60-90 )+* PV AC 90 msec PV pkPG 8 mmHg TV Regurg Flow TV pkPG 34 mmHg TV pkVel 290 cm/s (30-70 )* TV Forwar d Flow TV pkE 100 cm/s Lat E' Lat e 7.1 cm/s Lat E/E' Lat E/e 14.8 Med E' Med e 4.99 cm/s Med E/E' Med E/e 21 Aortic Valve Aortic Valve Ar 0.65 Aortic Valve Ve 0.47 PV Antegr linda Flow Accele ration Sl 1232 cm/s2 Right Atrium Simpso n's Disk 20 Right Ventri good Right Ventri good 18.2 cm/s 2D Left Ventri good LVIDd 5.46 cm (3.6-5 .2)* LngAxs 7.41 cm LVIDs 3.68 cm (2.3-3 .9) LV ESV 22.1 ml LngAxd 7.23 cm LV ESV 39 ml LngAxd 8.66 cm LV EF 63.7 % LV EDV 60.9 ml LV EF 59.8 % LV EDV 97 ml LV SV 38.8 ml LVEDV BP 83.9 ml LV SV 58 ml LngAxs 5.37 cm LVPW LVPWd 0.912 cm Right Ventri good RVIDd 3.54 cm (2.6-4 .3) Right Ventri good 37 mm Right Ventri good 36.5 mm Right and Left 0.648 Major Deming 82.1 mm Ventri cular Septum IVSd 1.41 cm Aorta Ao Rtd 3.5 cm LVOT LVOT 2 cm LVOTAr ea 3.14 cm2 Ratios IVS RA Single Plane Right Atrium MO 11 mm Right Atrium Sy 32.8 ml Right Atrium Sy 51 mm Right Atrium Sy 12.9 ml/m2 Right Atrium Sy 14.2 cm2 MMODE Aorta Ao Rt 3.1 cm (zsc 0.1) TA Tricus pid Annul 23.3 mm ++++++ ++++++ ++++++ ++++++ ++++++ ++++++ WALL MOTION : ++++++ ++++++ ++++++ ++++++ ++++++ ++++++ RESTIN G WALL MOTION : Apical Anteri or wall is not visual . Apical Septal , Apical hdez are hypoki netic. Wall Index = 2 2023 05:06 PM Janis Martinez i, M.D. [facility] [address] [facility], [place], [address], 10/31/2023 12:36:18 10/29/19 24 ECG 12-le ad [facility] [address] [facility] [place] [address] [facility] [place], [facility] n [place] Test Date: 10-29 Pat Name: GOLDEN GOODRICH Depart ment: 40 Patien t ID: [id number] Room: [id number] Gender : Male Techni itz: [facility] : 12-29 Reques lizet By: ERUM GOLD Order Number : [id number] Akilah silveira MD: Raymond May Measur ements Interv als Deming Rate: 100 P: DC: 0 QRS: -19 QRSD: 86 T: 69 QT: 320 QTc: 413 Interp retive Statem ents SUPRAV ENTRIC ULAR TACHYC ARDIA LOW QRS VOLTAG E IN PRECOR DIAL LEADS INFERI OR MYOCAR DIAL INFARC TION , OF INDETE RMINAT E AGE ASCENCION LATERA L MYOCAR DIAL INFARC TION , RECENT Compar ed to ECG 2023 04:46: 18 Sinus rhythm no longer presen t Myocar dial infarc t findin g still presen t Electr onical ly signed by Raymond May at 10-29-2 024 10:55: 46 SOAP DRIER [address]PER[address] [facility] [address] [facility], [place], [address], 10/30/2023 17:20:39 10/31/19 24 ECG 12-le ad [facility] [place] [address] [facility] [place] [address] [facility] [place], [facility] n [place] Test Date: 10-30 Pat Name: GOLDEN GOODRICH Depart ment: 40 Patien t ID: [id number] Room: A211 Gender : Male Techni itz: : 12-29 Reques lizet By: STEPHANIE LI Order Number : [id number] Akilah silveira MD: Raymond May Measur ements Interv als Deming Rate: 102 P: 73 DC: 194 QRS: 63 QRSD: 96 T: 77 QT: 338 QTc: 441 Interp retive Statem ents SINUS TACHYC ARDIA LOW QRS VOLTAG E IN PRECOR DIAL LEADS [QRS DEFLEC TION < 1.0 mV IN CHEST LEADS] INFERI OR MYOCAR DIAL INFARC TION [40+ ms Q WAVE AND/OR ST/T ABNORM ALITY IN II/aVF ], OF INDETE RMINAT E AGE ASCENCION LATERA L MYOCAR DIAL INFARC TION [40+ ms Q WAVE IN I/aVL/ V3-V6] , PROBAB LY RECENT +++ ACUTE [place] +++ Compar ed to ECG 2023 09:24: 29 Suprav entric ular tachyc ardia no longer presen t Myocar dial infarc t findin g still presen t Electr onical ly signed by Raymond May at 10-31-2 024 7:13:3 7 SOAP DRIER OPERATOR [facility] 1 [facility], [place], [address], 10/31/2023 12:36:19 10/31/19 24 ECG 12-le ad [facility] [address] [facility] [place] [address] [facility] [place] [address] [facility] y [place], [place] Test Date: 10-30 Pat Name: GOLDEN GOODRICH Depart ment: 39 Patien t ID: [id number] Room: [id number] Gender : Male Techni itz: _[id number] 2 : [birth year] Reques lizet By: STEPHANIE JOSHI RBER Order Number : [id number] Akilah silveira MD: Raymond May Measur ements Interv als [place] Rate: 103 P: 59 DC: 187 QRS: 72 QRSD: 98 T: 69 QT: 342 QTc: 449 Interp retive Statem ents SINUS TACHYC ARDIA LOW QRS VOLTAG E IN PRECOR DIAL LEADS [QRS DEFLEC TION < 1.0 mV IN CHEST LEADS] INFERI OR MYOCAR DIAL INFARC TION , OF INDETE RMINAT E AGE [40+ ms Q WAVE AND/OR ST/T ABNORM ALITY IN II/aVF ] ASCENCION LATERA L MYOCAR DIAL INFARC TION , OF INDETE RMINAT E AGE [40+ ms Q WAVE IN I/aVL/ V3-V6] POSSIB LE ANTERI OR ANEURY SM. Compar ed to ECG 2023 19:44: 50 No signif icant change s Electr onical ly signed by Raymond May at 7:14:3 5 SOAP DRIER OPERATOR [address], [place], [address], 10/31/2023 12:36:19 10/31/19 24 XR, chest [facility] [place] [address] Examin ation: XR CHEST PORTAB LE Exam time: 9:50 AM Clinic al histor y: CHF. Compar renetta: Radiog raphs Januar y 2023 and Januar y 2023. Techni que: AP image of the chest. Findin gs: Mild cardio megaly . Mild centra l vascul ar conges tion. No sizabl e pleura l effusi on. No consol idativ e airspa ce opacit ies. No pneumo thorax . IMPRES CAROLYN: Mild cardio megaly and centra l vascul ar conges tion. Ordere d By: JANIS MARTINEZ I Electr onical ly Signed By: Shahbaz Lloyd MD on 11:06 AM Interp reted By: Shahbaz Lloyd MD, 11:06 AM [facility] 1 [facility], [place], [address], 10/31/2023 12:36:20 10/31/19 24 usvar wple [facility] [address] [facility] [place] [address] ARTERI AL DOPPLE R - TWIN BILATE RAL LOWER EXTREM ITY VASCUL AR LAB Pat.Na me: GOLDEN GOODRICH Pat.ID : [id number] e: 024 Refer. MD: Yahaira Paris i Exam Time: 10:59: 00 AM Study Type:S EB VS Arteri al Dopple r Legs INA Age: [birth year]67 Y Sex: M Sonogr phr: Marylu Bowers RVT Pat. Stat.: Inpati ent Room: 405 Histor y / Clinic al:ulc er of right calf Proced ures: Dopple r wavefo abel, Digit PPG, Systol ic Pressu res w/TWIN Race: W ++++++ ++++++ ++++++ ++++++ ++++++ ++++++ SUMMAR Y: ++++++ ++++++ ++++++ ++++++ ++++++ ++++++ Deandra TWIN Criter ia: >1.30 = falsel y elevat ed, calcif ied vessel s; 1.00-1 .29 = no signif ischem ia at rest ; .80-.9 9 = mild PAD, asympt omatic ; .50-.7 9 = modera te PAD, claudi cation ; <.50 = severe PAD, rest pain; <.30 = critic al PAD, necros is, poor healin g (Digit s: DBI >.60 Normal ; <.60 Abnorm al) (Posit maritza Stress eval: TWIN decrea se of >.20 or >20% pressu re drop) Right leg: Common Femora l wavefo rm is hypere shukri, tripha sic, high amplit ude; Poplit eal hypere shukri, tripha sic, high amplit ude; Supervisor Roving ior Tibial hypere shukri, tripha sic, medium amplit ude with TWIN 0 ; DP/Ant erior Tibial hypere shukri, tripha sic, medium amplit ude with TWIN 0 . Digit flow by PPG is not record ed; DBI not record ed. Left leg: Common Femora l wavefo rm is tripha sic, high amplit ude; Poplit eal tripha sic, medium amplit ude; Supervisor Roving ior Tibial tripha sic, medium amplit ude with TWIN 0 ; DP/Ant erior Tibial tripha sic, medium amplit ude with TWIN 0 . Digit flow by PPG is not record ed; DBI not record ed. CONCLU CAROLYN: Pressu res >220 mmHg bilate rally sugges tive of calcif ied vessel s. ++++++ ++++++ ++++++ ++++++ ++++++ ++++++ MEASUR EMENTS : ++++++ ++++++ ++++++ ++++++ ++++++ ++++++ DOPPLE R Left BARTENDER HELPER BARTENDER HELPER PSV 153 cm/s Left Dist Pop A Dist Pop A PSV 69.3 cm/s Left Dist LOSS PREVENTION GUARD Dist LOSS PREVENTION GUARD PSV 49.7 cm/s Left Dist DAGOBERTO Dist DAGOBERTO PSV 77.7 cm/s Right BARTENDER HELPER BARTENDER HELPER PSV 142 cm/s Right Dist Pop A Dist Pop A PSV 84.1 cm/s Right Dist LOSS PREVENTION GUARD Dist LOSS PREVENTION GUARD PSV 66.8 cm/s Right Dist DAGOBERTO Dist DAGOBERTO PSV 71.1 cm/s PRESSU RES Right Brachi al Brach P 130 mmHg Right Ankle DP AnkleD P P 0 mmHg Right Ankle PT AnkleP T P 0 mmHg Right TWIN PT TWIN PT 0 Right TWIN DP TWIN DP 0 Left Ankle DP AnkleD P P 0 mmHg Left Ankle PT AnkleP T P 0 mmHg Left TWIN PT TWIN PT 0 Left TWIN DP TWIN DP 0 2023 03:37 PM John Cleary M.D. [facility] 1 [facility], [place], [address], 10/31/2023 22:54:16 10/31/19 24 usv venou s reflu x low ina [facility] [place] [address] VENOUS DUPLEX IMAGIN G BILATE RAL LOWER EXTREM ITY VASCUL AR LAB Pat.Na me: GOLDEN GOODRICH Pat.ID : [id number] e: 024 Refer. MD: Yahaira Paris i Exam Time: 11:12: 00 AM Study Type:S EB VS Venous Duplex Legs INA Age: [birth year],67 Y Sex: M Sonogr phr: Marylu Bowers RVT Pat. Stat.: Inpati ent Room: 405 Histor y / Clinic al:ulc er of right calf Proced ures: Aldana scale, Color Dopple r imagin g, Dopple r Spectr al Analys is Race: W ++++++ ++++++ ++++++ ++++++ ++++++ ++++++ SUMMAR Y: ++++++ ++++++ ++++++ ++++++ ++++++ ++++++ The deep veins are patent bilate rally from groin to calf. There are chroni c charac ter venous defect s seen in the left poplit eal veins. Presen ce of reflux > 1 second durati on is seen in the bilate ral poplit eal veins and left GSV proxim al thigh. Reflux measur ements obtain ed with patien t supine in steep revers e Trende lenber g. CONCLU CAROLYN:T here is reflux (>1 sec) in the left great saphen ous veins. No eviden ce of acute deep vein thromb osis (DVT) in the femora l, poplit eal, below knee veins. Eviden ce of right lower extrem ity and left lower extrem ity chroni c diseas e/refl ux. There is no eviden ce of superf icial vein thromb ophleb itis (SVT) in the saphen ous veins. ++++++ ++++++ ++++++ ++++++ ++++++ ++++++ MEASUR EMENTS : ++++++ ++++++ ++++++ ++++++ ++++++ ++++++ REFLUX Right CFV CFV 0 sec Right Mid FV Mid FV 0 sec Right Pop V Pop V 1.5 sec Right SFJ GSV SFJ 6 mm GSV SFJ 0 sec Right Prox Thigh GSV Prox Thigh 4.6 mm GSV Prox Thigh 0 sec Left CFV CFV 0 sec Left Mid FV Mid FV 0 sec Left Pop V Pop V 5.1 sec Left SFJ GSV SFJ 6.1 mm GSV SFJ 0 sec Left Prox Thigh GSV Prox Thigh 7.3 mm GSV Prox Thigh 2 sec Left Mid SSV Mid 5.7 mm SSV Mid 0 sec DOPPLE R Right Diamet er 0.46 cm Left Diamet er 0.73 cm SFJ Right SFJ Diame 0.6 cm Left SFJ Diamet 0.61 cm 2023 10:27 PM John Cleary M.D. [facility] [address] [facility], [place], [address], 10/31/2023 23:35:22 11/01/19 24 ECG 12-le ad [facility] [place] [address] [facility] [place] [address] [place], [facility] n [place] Test Date: 11-01 Pat Name: GOLDEN GOODRICH Depart ment: 39 Patien t ID: [id number] Room: [facility] Gender : Male Techni itz: Tiffanie Valdivia : 12[birth year]29 Reques lizet By: JANIS MARTINEZ I Order Number : [id number] Akilah silveira MD: aJnis Martinez i Measur ements Interv als [place] Rate: 92 P: 50 DC: 181 QRS: 37 QRSD: 108 T: 73 QT: 372 QTc: 462 Interp retive Statem ents SINUS RHYTHM LOW QRS VOLTAG E IN PRECOR DIAL LEADS INFERI OR MYOCAR DIAL INFARC TION , OF INDETE RMINAT E AGE ASCENCION LATERA L MYOCAR DIAL INFARC TION , OF INDETE RMINAT E AGE Compar ed to ECG 2023 22:02: 21 Sinus tachyc ardia no longer presen t Myocar dial infarc t findin g still presen t Electr onical ly signed by Janis Martinez i at 11-01- 024 19:14: 52 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 Pulmon lakshmi venous conges tion withou t defini te edema. Athero sclero sis. No pneumo thorax or pleura l effusi on. ===== IMPRES CAROLYN:= ==== Pulmon lakshmi venous conges tion withou t defini te edema. Referr ed By: Cheko onical ly Signed By: Yunier Lala MD on 11:30 AM Interp reted By: Yunier Lala MD, 11:[address] [facility] [address] [facility], [place], [address], 11/07/2023 13:48:15 Result Notes None recorded. 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 Not Available [facility] 4 09:35:57 Congesti ve heart failure 36417278 Active 2019 diastoli c NYHA class III Not Available [facility] 4 09:35:58 Coronary arterios clerosis 10853784 Active 2019 PCI of LAD in October 2018 Not Available [facility] 4 09:35:58 Hyperten sive disorder 98782904 Active 2019 Not Available [facility] 4 09:35:58 Hypercho lesterol emia 09856920 Completed 201903/21/2023 Nico [facility], [place] - [facility] 3 09:35:00 Chronic kidney disease 940177591 Active 2019 Not Available [facility] 4 09:35:58 Nonalcoh olic steatohe patitis 120915890 Active 2019 Not Available [facility] 4 09:35:58 Diabetes mellitus 75631377 Active 2019 Not Available [facility] 4 09:35:58 Restless legs 96199925 Active 2019 Not Available [facility] 4 09:35:58 Sleep apnea 37144921 Active 2019 Not Available [facility] 4 09:35:58 Gout 99097742 Active 2019 Not Available [facility] 4 09:35:58 Hyperlip idemia 99188443 Active 2021 Not Available [facility] 4 09:35:58 Peripher al venous insuffic iency 06256031 Active 2021 Not Available [facility] 4 09:35:57 Anemia 172490352 Active 2021 Not Available [facility] 4 09:35:57 Migraine 39091528 Active 2022 Not Available [facility] 4 09:35:58 Neuropat hy 700871235 Active 2022 Not Available [facility] 4 09:35:58 Pain of left shoulder joint 24470012905 421162 Active 2022 Not Available [facility] 4 09:35:57 Chronic low back pain 168554222 Active 2022 Not Available [facility] 4 09:35:57 Morbid obesity 186868620 Active 06/07/ 2023 Not Available [facility] 09:35:57 Problem Notes None recorded. Procedures Surgical History Date Name Laterality Status Provider Name and Address Organization Details Recorded Time 03/17/20 22 Diabetic Foot Exam completed [place] [facility] 03/18/2022 23:06:52 03/22/20 21 Joint Injection completed [place] [facility] 03/22/2021 15:12:04 Appendectomy [place] [facility] 12/15/2019 17:33:42 Ligation of hemorrhoid(s) completed [place] [facility] 12/15/2019 17:33:49 vasectomy [place] [facility] 12/15/2019 17:33:54 decompression of tarsal tunnel completed [place] [facility] 12/15/2019 17:34:05 extraction of cataract completed [place] [facility] 12/15/2019 17:34:11 Imaging Results Imaging Date Name Status LastModified by Organization Details LastModified Time 09/07/2023 XR, shoulder, 2 or more view completed [facility] [place], [address], 09/13/2023 14:48:59 10/26/2023 XR, shoulder, 2 or more view completed [email or web address] Information not available 11/02/2023 12:44:55 10/27/2023 ECG 12-lead completed [address], [place], [address], 10/27/2023 12:01:32 10/27/2023 ECG 12-lead completed [address], [place], [address], 10/27/2023 12:01:33 10/27/2023 xr shoulder lt 3V completed [address] [place], [address], 10/27/2023 12:01:33 10/27/2023 XR, chest completed [address], [place], [address], 10/27/2023 12:01:33 10/27/2023 cta chest+CT ABD+pel W con completed [address], [place], [address], 10/27/2023 12:01:34 10/28/2023 ECG 12-lead completed [address], [place], [address], 10/31/2023 12:36:18 10/28/2023 XR, chest completed [address], [place], [address], 10/31/2023 12:36:18 10/28/2023 use echocardiogram completed [address], [place], [address], 10/31/2023 12:36:18 10/29/2023 ECG 12-lead completed [address], [place], [address], 10/30/2023 17:20:39 10/31/2023 ECG 12-lead completed [address], [place], [address], 10/31/2023 12:36:19 10/31/2023 ECG 12-lead completed [address], [place], [address], 10/31/2023 12:36:19 10/31/2023 XR, chest completed [address], [place], [address], 10/31/2023 12:36:20 10/31/2023 usvarwple completed [address], [place], [address], 10/31/2023 22:54:16 10/31/2023 usv venous reflux low ina completed [address], [place], [address], 10/31/2023 23:35:22 11/01/2023 ECG 12-lead completed [address], [place], [address], 11/07/2023 13:48:14 11/05/2023 XR, chest completed [address], [place], [address], 11/07/2023 13:48:15 Procedure Notes None recorded. Medical Equipment None Reported. Allergies Allergen ID Allergen Name Allergen Category Reaction Reaction Severity Criticality Documentation Date Start Date Code Code System Note Provider Name and Address Organization Details Recorded Time 905357 metformin / sitaglipt in medicatio n hives severe Not available 12/15/2019 33681 7 RxNorm Not Available Not Available Not Available 854194 pregabali n medicatio n abdominal pain moderate Not available 04/03/2023 85565 2 RxNorm also had dry heave s, and loss of appet ite.- JLins horowitz, EXECUTIVE PERSONAL ASSISTANT Not Available Not Available Not Available Medications Name Sig Start Date Stop Date Status Note LastModified by Organization Details LastModified Time mdryl/lid o/maalox 111 mouthwash RINSE AND SPIT 15-30ML BY MOUTH UP TO THREE TIMES DAILY NEEDED PAIN active Not Available Not Available No t Available compound drug active Not Available Not Available Not Available Prescript ion - New active [facility] Not Available Not Available Not Available cyclobenz aprine 10 mg tablet Take 1 tablet every day by oral route at bedtime. active Not Available Not Available No t Available pioglitaz one 15 mg tablet 09/12 completed Not Available Not Available Not Available atorvasta tin 40 mg tablet active Not Available Not Available Not Available potassium chloride ER 10 mEq capsule,e xtended release active Not Available Not Available Not Available gabapenti n 600 mg tablet Take 2 tablets 3 times a day by oral route for 90 days. active Not Available Not Available No t Available torsemide 20 mg tablet 4 TABS EVERY MORNING active Not Available Not Available No t Available clindamyc in HCl 300 mg capsule TAKE 1 CAPSULE BY MOUTH THREE TIMES DAILY 09/12 completed Not Available Not Available Not Available ciproflox acin 750 mg tablet 09/12 completed Not Available Not Available Not Available trazodone 50 mg tablet Take 1 tablet every day by oral route. 04/30 completed Not Available Not Available Not Available cetirizin e 10 mg tablet Take 1 tablet every day by oral route. active Not Available Not Available No t Available pravastat in 40 mg tablet 12/14 completed Not Available Not Available Not Available metoprolo l tartrate 100 mg tablet BID active Not Available Not Available Not Available atenolol 100 mg tablet 03/22 completed Not Available Not Available Not Available hydrocodo ne 5 mg-acetam inophen 325 mg tablet TAKE 1 TABLET EVERY 6 HOURS NEEDED FOR PAIN 03/21 completed Not Available Not Available Not Available warfarin 10 mg tablet 03/21 completed Not Available Not Available Not Available sucralfat e 1 gram tablet 12/14 completed Not Available Not Available Not Available lisinopri l 20 mg tablet 09/12 completed Not Available Not Available Not Available clonazepa m 0.5 mg tablet TAKE 1 TABLET BY MOUTH EVERY DAY AT BEDTIME 09/12 completed Not Available Not Available Not Available Lantus U-100 Insulin 100 unit/mL subcutane ous solution 47U bid active Not Available Not Available Not Available nifedipin e ER 30 mg tablet,ex tended release 09/12 completed Not Available Not Available Not Available clopidogr el 75 mg tablet 12/14 completed Not Available Not Available Not Available allopurin ol 100 mg tablet Take 2 tablets every day by oral route. 09/12 completed Not Available Not Available Not Available ciproflox acin 500 mg tablet TAKE 1 TABLET BY MOUTH TWICE DAILY 09/12 completed Not Available Not Available Not Available aspirin 81 mg tablet,de layed release active Not Available Not Available Not Available tramadol 50 mg tablet Take 1 tablet every 12 hours by oral route as needed. 2023 active Not Available Not Available Not Avai lable isosorbid e mononitra te ER 120 mg tablet,ex tended release 24 hr active Not Available Not Available Not Available pantopraz ole 20 mg tablet,de layed release active Not Available Not Available Not Available Kenalog 40 mg/mL suspensio n for injection Take 0.25 mL by injectio n route. 09/12 completed -Left hand 5th digit Administ ered by:Dr.Nw talavera/ Gaclover Charted by:TShop e,EXECUTIVE PERSONAL ASSISTANT Not Available Not Available Not Available oxycodone -acetamin ophen 5 mg-325 mg tablet TAKE 1 TABLET BY MOUTH EVERY 4 TO 6 HOURS 09/12 completed Not Available Not Available Not Available isosorbid e mononitra te ER 60 mg tablet,ex tended release 24 hr 10/28 completed Not Available Not Available Not Available terbinafi ne HCl 250 mg tablet TAKE 1 TABLET BY MOUTH DAILY 09/12 completed Not Available Not Available Not Available amoxicill in 875 mg tablet 03/22 completed Not Available Not Available Not Available oxycodone -acetamin ophen 10 mg-325 mg tablet TAKE 1 TABLET BY MOUTH EVERY 4 HOURS NEEDED FOR PAIN 09/12 completed Not Available Not Available Not Available hydrocodo ne 7.5 mg-acetam inophen 325 mg tablet 03/22 completed Not Available Not Available Not Available flurandre nolide 0.05 % lotion 09/12 completed Not Available Not Available Not Available ropinirol e 2 mg tablet Take 1 tablet by mouth 1-3 hours before bedtime active Not Available Not Available No t Available cephalexi n 500 mg capsule TAKE 1 CAPSULE BY MOUTH TWICE DAILY 09/12 completed Not Available Not Available Not Available pantopraz ole 40 mg tablet,de layed release Take 1 tablet every day by oral route. 03/22 completed Not Available Not Available Not Available triamcino lone acetonide 0.1 % topical ointment 09/12 completed Not Available Not Available Not Available ropinirol e 0.5 mg tablet 06/04 completed Not Available Not Available Not Available cevimelin e 30 mg capsule 03/22 completed Not Available Not Available Not Available lisinopri l 10 mg tablet active Not Available Not Available Not Available lidocaine 5 % topical patch 09/12 completed Not Available Not Available Not Available warfarin 5 mg tablet active Not Available Not Available Not Available nitroglyc tin 400 mcg/spray transling ual [place] 0.4 mg as needed by translin gual route as directed . active Not Available Not Available No t Available enoxapari n 150 mg/mL subcutane ous syringe 12/14 completed Not Available Not Available Not Available monteluka st 10 mg tablet 09/12 completed Not Available Not Available Not Available allopurin ol 300 mg tablet TAKE 1 TABLET BY MOUTH EVERY DAY active Not Available Not Available No t Available ranitidin e 150 mg capsule 09/12 completed Not Available Not Available Not Available lisinopri l 5 mg tablet 09/04 completed Not Available Not Available Not Available mupirocin 2 % topical ointment 12/14 completed Not Available Not Available Not Available zaleplon 10 mg capsule TAKE 1 CAPSULE BY MOUTH EVERY NIGHT AT BEDTIME 09/12 completed Currentl y out of medicati on. Pending further discussi on with pulm Not Available Not Available Not Available ergocalci ferol (vitamin D2) 1,250 mcg (50,000 unit) capsule TAKE 1 CAPSULE BY MOUTH EVERY 7 DAYS 09/12 completed Not Available Not Available Not Available zaleplon 5 mg capsule TAKE 1 CAPSULE BY MOUTH NIGHTLY AT BEDTIME DIRECTED 03/23 completed Not Available Not Available Not Available warfarin 1 mg tablet 09/12 completed Not Available Not Available Not Available albuterol sulfate HFA 90 mcg/actua tion aerosol inhaler INHALE 1 PUFF BY MOUTH FOUR TIMES DAILY NEEDED FOR SHORTNES S OF BREATH OR WHEEZING 09/12 completed Not Available Not Available Not Available nifedipin e ER 60 mg tablet,ex tended release 03/22 completed Not Available Not Available Not Available fluticaso ne propionat e 50 mcg/actua tion nasal spray,mabel pension [place] 1 spray every day by intranas al route. active Not Available Not Available No t Available gentamici n 0.1 % topical ointment APPLY EXTERNAL LY TO AFFECTED TOE DAILY active Not Available Not Available No t Available amoxicill in 875 mg-potass ium clavulana te 125 mg tablet TAKE 1 TABLET BY MOUTH TWICE DAILY FOR 7 DAYS 09/12 completed Not Available Not Available Not Available ciclopiro x 0.77 % topical cream APPLY TOPICALL Y TO THE AFFECTED AREA DAILY active Not Available Not Available No t Available escitalop ge 10 mg tablet Take 1 tablet every day by oral route for 90 days. active Not Available Not Available No t Available ezetimibe 10 mg tablet Take 1 tablet every day by oral route. active Not Available Not Available No t Available Novolog FlexPen U-100 Insulin aspart 100 unit/mL (3 mL) subcutane ous 10U prn for glucose >300 active Not Available Not Available No t Available cyclobenz aprine 5 mg tablet 12/14 completed Not Available Not Available Not Available omega-3 acid ethyl esters 1 gram capsule 09/12 completed Not Available Not Available Not Available fenofibra te 160 mg tablet 03/21 completed Not Available Not Available Not Available paricalci caroline 1 mcg capsule active Not Available Not Available Not Available pregabali n 25 mg capsule Take 1 capsule 3 times a day by oral route for 30 days. 04/03 completed N/V, diarrhea , abdomina l pain Not Available Not Available Not Available ramelteon 8 mg tablet active Not Available Not Available Not Available ranolazin e ER 500 mg tablet,ex tended release,1 2 hr active Not Available Not Available Not Available calcipotr iene-beta methasone 0.005 %-0.064 % topical ointment 03/21 completed Not Available Not Available Not Available Sure Comfort Pen Needle 31 gauge x 02/27 completed Not Available Not Available Not Available FeroSul 325 mg (65 mg iron) tablet active Not Available Not Available Not Available fenofibra te 54 mg tablet active Not Available Not Available Not Available naftifine 2 % topical cream APPLY TOPICALL Y TO THE AFFECTED AREA TWICE DAILY 09/12 completed Not Available Not Available Not Available BD Insulin Syringe Ultra-Fin e 1 mL 31 gauge x 16 09/12 completed Not Available Not Available Not Available Victoza 3-Kevin 0.6 mg/0.1 mL (18 mg/3 mL) subcutane ous pen injector 10/28 completed Not Available Not Available Not Available Jardiance 25 mg tablet active Not Available Not Available Not Available Trulicity 1.5 mg/0.5 mL subcutane ous pen injector 3mg weekly 07/26 completed Not Available Not Available Not Available Trulicity 0.75 mg/0.5 mL subcutane ous pen injector 04/30 completed Not Available Not Available Not Available BD Trinity 2nd Gen Pen Needle 32 gauge x active Not Available Not Available Not Available Afluria Qd 2018- (36 mos up)(PF)60 mcg (15 mcg x4)/0.5 mL IM syringe 09/12 completed Not Available Not Available Not Available Ubrelvy 50 mg tablet Take one tablet at the onset of migraine symptoms . May repeat dose in 2 hours. Max 100 mg in 24 hours. 2022 active Not Available Not Available Not Avai lable Fluzone High-Dose Quad 2019- (PF) 240 mcg/0.7 mL IM syringe ADM 0.7ML IM UTD 09/12 completed Not Available Not Available Not Available Trulicity 4.5 mg/0.5 mL subcutane ous pen injector active Not Available Not Available Not Available Vitals Date Recorded Body height Body mass index (BMI) Body weight Heart rate Oxygen saturation Oxygen saturation in Arterial blood by Pulse oximetry Body temperature Systolic blood pressure Diastolic blood pressure Provider Name and Address Organization Details Last Updated DateTime 3 180.34 cm 44 kg/m2 867672. 05 g 61 /min 96 % 96 % 97.8 [degF] 146 mm[Hg] 76 mm[Hg] Venita Moses MA [facility] 3 10:39:57 Date Recorded Body height Body mass index (BMI) Body weight Heart rate Oxygen saturation Oxygen saturation in Arterial blood by Pulse oximetry Body temperature Systolic blood pressure Diastolic blood pressure Provider Name and Address Organization Details Last Updated DateTime 3 180.34 cm 44.4 kg/m2 265803. 37 g 64 /min 95 % 95 % 98.2 [degF] 177 mm[Hg] 91 mm[Hg] Alis Mar MA [facility] 3 12:40:13 Date Recorded Heart rate Systolic blood pressure Diastolic blood pressure Provider Name and Address Organization Details Last Updated DateTime 04/03/2023 62 /min 147 mm[Hg] 87 mm[Hg] Nico Farooq [facility] 0 04/03/2023 12:53:25 Date Recorded Body height Body mass index (BMI) Body weight Body temperature Oxygen saturation Oxygen saturation in Arterial blood by Pulse oximetry Heart rate Systolic blood pressure Diastolic blood pressure Provider Name and Address Organization Details Last Updated DateTime 3 180.34 cm 43.9 kg/m2 892321. 6 g 98.3 [degF] 96 % 96 % 70 /min 136 mm[Hg] 79 mm[Hg] Rashawn Barajas MA [facility] 3 16:12:42 Date Recorded Body height Body mass index (BMI) Body weight Heart rate Oxygen saturation Oxygen saturation in Arterial blood by Pulse oximetry Body temperature Systolic blood pressure Diastolic blood pressure Provider Name and Address Organization Details Last Updated DateTime 3 180.34 cm 44.7 kg/m2 323008. 31 g 65 /min 95 % 95 % 97.4 [degF] 155 mm[Hg] 82 mm[Hg] Alis Mar MA [facility] 3 16:56:02 Date Recorded Systolic blood pressure Diastolic blood pressure Provider Name and Address Organization Details Last Updated DateTime 09/04/2023 141 mm[Hg] 85 mm[Hg] Sean Paris MD Attn: [address] [place], [address], [facility] 09/04/2023 17:20:53 Date Recorded Body height Body mass index (BMI) Body weight Oxygen saturation Oxygen saturation in Arterial blood by Pulse oximetry Heart rate Body temperature Systolic blood pressure Diastolic blood pressure Provider Name and Address Organization Details Last Updated DateTime 4 180.34 cm 43.9 kg/m2 623527. 6 g 95 % 95 % 66 /min 98.2 [degF] 122 mm[Hg] 69 mm[Hg] Rashawn Barajas MA [facility] 4 14:00:29 Social History Question Answer Notes LastModified by Organizat ion Details LastModified Time Tobacco Smoking Status Never Smoker Alis Mar MA [facility], [facility] 12/15/2019 17:00:41 What Is Your Level Of Alcohol Consumption? Occasional Information not available 04/29/2021 Do You Or Have You Ever Used E-cigarettes Or Vape? Never Used Electronic Cigarettes Information not available 06/22/2020 What Was The Date Of Your Most Recent Tobacco Screening? 10/23/2023 [email or web address] Information not available 10/23/2023 Do You Or Have You Ever Used Smokeless Tobacco? Never Used Smokeless Tobacco Information not available 06/22/2020 Do You Use Any Illicit Or Recreational Drugs? No Information not available 04/29/2021 Sex: Unknown Functional Status None recorded. Mental Status None recorded. Family History Relationship Description Onset Age of this Age Resolved Age Notes LastModified by Organization Details LastModified Time Mother No current problems or disability [email or web address] Not available 12/14 17:34:16 Father Amyotrophic lateral sclerosis [email or web address] Not available 2019 17:34:49 Medical History No medical history recorded. Immunizations Vaccine Type Date Status Note Provider Nam e and Address Organization Details Recorded Time Influenza, split virus, quadrivalent, preservative 8 completed Not Available [facility] 11/09/2023 09:35:59 Influenza, split virus, quadrivalent, preservative 9 completed Not Available [facility] 11/09/2023 09:35:58 COVID-19, mRNA, LNP-S, PF, 100 mcg/0.5mL dose or 50 mcg/0.25mL dose 1 completed Not Available [facility] 11/09/2023 09:35:59 pneumococcal polysaccharide PPV23 0 completed Not Available [facility] 11/09/2023 09:35:59 Influenza, split virus, quadrivalent, preservative 9 completed Not Available [facility] 11/09/2023 09:35:58 Influenza, high-dose, quadrivalent, PF 0 completed Not Available [facility] 11/09/2023 09:35:59 Tdap 2 completed Not Available [facility] 11/09/2023 09:35:59 Influenza, high-dose, quadrivalent, PF 1 completed Not Available [facility] 11/09/2023 09:35:59 Pneumococcal conjugate PCV 13 0 completed Angeline Severino RN null, [place] - [facility] 06/28/2020 11:43:54 COVID-19, mRNA, LNP-S, PF, 100 mcg/0.5mL dose or 50 mcg/0.25mL dose 1 completed Sera Frankel MD Attn: [address] [place], [address], [place] [facility] 11/13/2020 20:17:41 COVID-19, mRNA, LNP-S, PF, 100 mcg/0.5mL dose or 50 mcg/0.25mL dose 1 completed Angelien Severino RN null, [place] [facility] 12/11/2020 13:28:39 pneumococcal polysaccharide PPV23 1 completed Alis Mar [place] null, [place] [facility] 07/26/2021 15:52:34 Influenza, high-dose, quadrivalent, PF 2 completed DEENA FAIR MD Attn: [address] [place], [address], [place] [facility] 09/15/2022 15:20:11 Past Encounters Encounter ID Performer Location Encounter Start Date Encounter Closed Date Diagnosis/Indication Diagnosis SNOMED-CT Code Diagnosis ICD10 Code Diagnosis Note [id number] Mary Jane Avila MD [place] [address] [address] [facility] [address] [place] [address] 12/15/2019 16:42:16 12/18/2019 11:37:52 Diabetic peripheral neuropathy 700495948 E11.40 Chronic, controlled -Continue Gabapentin -Encourage d compliance with diet for improvemen t in glucose control to prevent further complicati ons Gout 07348715 M10.9 Chronic, uncontroll edPt reports control with previously prescribed Allopurino l (100mg BID). Dose recently decreased possibly due to communicat ion error. Cr clearance based off most recent BMP in 10/2018 is 89. Will start Allopurino l 100mg BID Disseminat ed idiopathic skeletal hyperostosis 59670484 M48.10 Chronic, stableFoll ows with pain management -Continue Flexeril 10mg nightly Restless legs 03499062 G 25.81 Chronic, stable-Con tinue Ropinirole 2mg nightly Gastroesop hageal reflux disease 155346977 K21.0 Chronic, stableRece nt EGD with healed linear ulcers-Con tinue Protonix as previously prescribed (pt unsure of dose but as per patient was started on 40mg daily) Seasonal a llergic rhinitis 884979617 J30.2 Chronic, stable-Con tinue Zyrtec daily-Cont inue Flonase Anemia 011435163 D64.9 Acute, stableMost recent Hgb 11.2 since being discharged from hospital. EGD and colonoscop y performed without evidence of acute bleed however EGD revealed non bleeding linear ulcers. Ulcers may have attributed to ALEX. Pt still remains symptomati c however given extensive medical history his symptoms may be multifacto rial.-Repe at CBC. If Hgb <8 can consider transfusio n given symptoms and cardiac history-Co ntinue ferrous sulfate. Instructed patient to take medication with vitamin C Diabetes mellitus 427375 09 E11.69 Chronic, uncontroll edPt follows with endocrinol janett at [facility] and has appointmen t next week. Pt reports compliance with medication s but continues to have poor control of diet. As per patient glucose ranges from 160-260. Most recent A1C per chart review was 8.5 in 09/2019. Goal 7-8%-Patie nt recently seen by PCP in the past 2 months. Will order A1C, lipids and CMP. Pt will take labs when he gets records from previous PCP. If labs done within the past 2 months will not repeat. Last A1C:{{less than 7.0% 7-8% 8-9%* grea ter than 9%}} Goal A1C less than:{{7.0 %* 8.0%}} Current Therapy:{{ metformin sulfonylur ea TZD SGL T-2 DDP-4 GLP-1 RA long-ac ting insulin* r apid/short -acting insulin}} {{metformi n sulfonyl urea TZD S GLT-2 DDP- 4 GLP-1 RA* long-a cting insulin ra pid/short- acting insulin}} {{metformi n sulfonyl urea TZD S GLT-2* DDP -4 GLP-1 RA long-ac ting insulin ra pid/short- acting insulin}} {{metformi n sulfonyl urea TZD S GLT-2 DDP- 4 GLP-1 RA long-ac ting insulin ra pid/short- acting insulin}} Statin:{{y es* no dec lined due to adverse reaction/a llergy dec lined}} NAYANA/ARB:{{ yes* no no due to negative nephropath y screening contraindi cated decl ined due to adverse reaction/a llergy dec lined}} Foot Exam:{{com pleted in the past 12 months-neg ative comp leted in the past 12 months-pos itive* com pleted in the past 12 months- result unknown du e}} Nephropath y Screening: {{unknown# completed in the past 12 months- negative c ompleted in the past 12 months- positive d ue}} Pneumovax 23:{{UTD* Declined N ot given}} Eye Exam:{{com pleted in the last 12 months- negative c ompleted in the last 12 months- positive c ompleted per patient report* du e- recommende d annual dilated eye exam}} Patient Education: healthy diet: {{yes no*} } exercise: {{yes no*} } weight loss: {{yes no*} } foot care: {{yes# yes no}} complicati ons of uncontroll ed diabetes: {{yes# yes no}} medication compliance : {{yes# yes no}} Next Visit: {{1 2 3* 4 5 6 7 8 9 10 11 12} } {{months# week(s) mo nth(s)}} Stable angina 428352232 I20.8 Chronic, stable Pt uses Nitroglyce rin a few times a week for symptoms. Requesting refill for medication . Follows with Cardiology -Dr. Haley. Pt understand s that if chest pain is not relieved with nitroglyce rin he should call 911 or report immediatel y to the ED-1 spray (0.4 mg total) under the tongue every 5 (five) minutes as needed for Chest Pain (Maximum of 3 doses.) [id number] Lc Tavarez, EXECUTIVE PERSONAL ASSISTANT OFallon [address] [facility] [address] [place] [address] 06/22/2020 09:55:22 06/23/2020 14:00:46 Diabetes mellitus 48218073 E11.69 Chronic, improvingA 1C 8.5 today which is improved from 9.7 in 12/2019. Follows with [facility] endocrinol [facility]-Encour aged compliance with dietary modificati ons as patient requires significan t amount of insulin and other medication s to control blood glucose. Pt reports understand ing of weight and glucose control.-C ontinue Lantus 80u BID, Victoza, Jardiance and Actos. Pt also with history of CHF with fluid retention. Recommende d patient discuss risks/bene fits of Actos given other comorbidit ies. Last A1C:{{less than 7.0% 7-8% 8-9%* grea ter than 9%}} Goal A1C less than:{{7.0 %* 8.0%}} Current Therapy:{{ metformin sulfonylur ea TZD SGL T-2 DDP-4 GLP-1 RA long-ac ting insulin* r apid/short -acting insulin}} {{metformi n sulfonyl urea TZD S GLT-2 DDP- 4 GLP-1 RA* long-a cting insulin ra pid/short- acting insulin}} {{metformi n sulfonyl urea TZD S GLT-2* DDP -4 GLP-1 RA long-ac ting insulin ra pid/short- acting insulin}} {{Pioglita zone# metf ormin sulf onylurea T ZD SGLT-2 DDP-4 GLP- 1 RA long-ac ting insulin ra pid/short- acting insulin}} Statin:{{y es* no dec lined due to adverse reaction/a llergy dec lined}} NAYANA/ARB:{{ yes* no no due to negative nephropath y screening contraindi cated decl ined due to adverse reaction/a llergy dec lined}} Foot Exam:{{com pleted in the past 12 months-neg ative comp leted in the past 12 months-pos itive* com pleted in the past 12 months- result unknown du e}} Nephropath y Screening: {{complete d in the past 12 months- negative c ompleted in the past 12 months- positive* due}} -Follows with nephrology regularlyP neumovax 23:{{UTD* Declined N ot given}} -received Pneumovax in 2009. Will give PCV 13 today. Will need PPSV23 in 6 months to 1 yearEye Exam:{{com pleted in the last 12 months- negative c ompleted in the last 12 months- positive c ompleted per patient report due - recommende d annual dilated eye exam*}} Next Visit: {{1 2 3 4 5 6* 7 8 9 10 11 12} } {{months# week(s) mo nth(s)}} Gout 36249337 M10.9 Chronic, controlled -Unknown uric acid level. Will obtain previous records from PCP -Continue Allopurino l 100mg BID Disseminat ed idiopathic skeletal hyperostosis 44728987 M48.10 Chronic, stable-Con tinue Flexeril 10mg QHS Seasonal a llergic rhinitis 048667637 J30.2 Chronic, stable-Con tinue Zyrtec daily-Cont inue Flonase Diabetic p eripheral neuropathy 489463674 E11.40 Chronic, stable-Con tinue Gabapentin 1200mg TID Active or passive immunization 945647244 Z23 [id number] [place] [address] [address] [place] [address] [place] [address] 10/28/2020 09:33:29 11/02/2020 09:39:19 Morbid obesity 141823032 E66.01 -Choose minimally processed foods -Increase consumptio n of whole grains, vegetables , fruits, nuts, fish -Limit sugar-swee tened beverages and fruit juice -Recommend 150 minutes of moderate intensity exercise a week Diabetes mellitus 572129 09 E11.69 Chronic, stable-Fol lows with [facility]-Encour aged compliance with dietary modificati ons as patient requires significan t amount of insulin and other medication s to control blood glucose. Pt reports understand ing of weight and glucose control.-C ontinue Lantus 80u BID and Jardiance- Actos discontinu ed per endocrinol ogy-Plan to transition from Victoza to Trulicity- Will obtain labs today: A1c, CMP, Urine alb/Cr Last A1C:{{less than 7.0% 7-8% 8-9%* grea ter than 9%}} Goal A1C less than:{{7.0 %* 8.0%}} Current Therapy:{{ metformin sulfonylur ea TZD SGL T-2 DDP-4 GLP-1 RA long-ac ting insulin* r apid/short -acting insulin}} {{metformi n sulfonyl urea TZD S GLT-2 DDP- 4 GLP-1 RA* long-a cting insulin ra pid/short- acting insulin}} {{metformi n sulfonyl urea TZD S GLT-2* DDP -4 GLP-1 RA long-ac ting insulin ra pid/short- acting insulin}} {{metformi n sulfonyl urea TZD S GLT-2 DDP- 4 GLP-1 RA long-ac ting insulin ra pid/short- acting insulin}} Statin:{{y es* no dec lined due to adverse reaction/a llergy dec lined}} NAYANA/ARB:{{ yes* no no due to negative nephropath y screening contraindi cated decl ined due to adverse reaction/a llergy dec lined}} Foot Exam:{{com pleted in the past 12 months-neg ative comp leted in the past 12 months-pos itive* com pleted in the past 12 months- result unknown du e}} Nephropath y Screening: {{complete d in the past 12 months- negative c ompleted in the past 12 months- positive* due}} -Follows with nephrology regularlyP neumovax 23:{{UTD* Declined N ot given}} -received Pneumovax in 2009. Will give PCV 13 today. Will need PPSV23 in 6 months to 1 yearEye Exam:{{com pleted in the last 12 months- negative c ompleted in the last 12 months- positive c ompleted per patient report due - recommende d annual dilated eye exam*}} Next Visit: {{1 2 3* 4 5 6 7 8 9 10 11 12} } {{months# week(s) mo nth(s)}} [id number] Sera Frankel MD [facility] ([facility]) [address] [place] [address] 11/13/2020 09:11:27 11/15/2020 10:37:59 Administration of SARS-CoV-2 antigen vaccine 710679679 Z23 [id number] Angeline Severino RN [facility] ([facility]) [address] [place] [address] 12/11/2020 10:51:20 12/13/2020 10:36:12 Administration of SARS-CoV-2 antigen vaccine 015339493 Z23 [id number] Bobbi Dallas MD [facility] [address] [facility] [address] [place] [address] 03/22/2021 13:58:05 03/28/2021 10:40:38 Diabetes mellitus 26605933 E11.69 Chronic, stable POC A1c today 8 -Follows with [facility] -Continue Lantus 80u BID and Jardiance -Continue Trulicity Last A1C:{{less than 7.0% 7-8% 8-9%* grea ter than 9%}}Goal A1C less than:{{7.0 %* 8.0%}}C urrent Therapy:{{ metformin sulfonylur ea TZD SGL T-2 DDP-4 GLP-1 RA long-ac ting insulin* r apid/short -acting insulin}} {{metformi n sulfonyl urea TZD S GLT-2 DDP- 4 GLP-1 RA* long-a cting insulin ra pid/short- acting insulin}} {{metformi n sulfonyl urea TZD S GLT-2* DDP -4 GLP-1 RA long-ac ting insulin ra pid/short- acting insulin}} {{metformi n sulfonyl urea TZD S GLT-2 DDP- 4 GLP-1 RA long-ac ting insulin ra pid/short- acting insulin}} Statin:{{y es* no dec lined due to adverse reaction/a llergy dec lined}}NAYANA /ARB:{{yes * no no due to negative nephropath y screening contraindi cated decl ined due to adverse reaction/a llergy dec lined}}Bisi t Exam:{{com pleted in the past 12 months-neg ative comp leted in the past 12 months-pos itive* com pleted in the past 12 months- result unknown du e}}Nephrop athy Screening: {{complete d in the past 12 months- negative c ompleted in the past 12 months- positive* due}}-Foll ows with nephrology regularlyP neumovax 23:{{UTD* Declined N ot given}}-re ceived Pneumovax in 2009. Will give PCV 13 today. Will need PPSV23 in 6 months to 1 yearEye Exam:{{com pleted in the last 12 months- negative c ompleted in the last 12 months- positive c ompleted per patient report* du e- recommende d annual dilated eye exam}} Anxiety 35539690 F41.9 Acute, unresolved PHQ-9: 13, CHECO-7: 11 Pt reports life stressors resulting in increased anxiety. This may also correlate with recent difficulty sleeping. Discussed medication options such as SSRI. Pt amenable -Start Lexapro 10mg RTC in 1 month Insomnia [id number] G47.0 0 Subacute, unresolved Discussed importance of sleep hygeine. Underlying anxiety likely contributi ng. Previously on Zaleplon 10mg which patient did not feel made a difference -Will trial Trazadone 50mg -Lexapro as above RTC in 1 month Trigger fi nger of left hand [id number] M65.30 Exam consistent with trigger finger. Risks/bene fits of Kenalog injection discussed with patient. Diabetes well controlled . Informed patient that glucose may be slightly elevated after injection -S/p trigger point injection in the RT 5th digit. Pt tolerated procedure without complicati ons Restless legs 40122498 G 25.81 Chronic, stable -Continue Ropinorole Gout 95285403 M10.9 Chronic, controlled -Continue Allopurino l 100mg BID [id number] MD Lonny Rashid [address] [address] 04/29/2021 10:55:39 05/02/2021 14:18:45 Anxiety disorder 931099198 F41.9 PHQ-9 and CHECO-7 improved-C ontinue Lexapro 10mg daily-Disc ussed that medication should be continued for at least 6 months but would recommend not discontinu ing prior to a year Chronic insomnia 1780163 04 F51.04 Follow up with specialist as scheduled [id number] [facility] [address] [address] 07/26/2021 14:20:57 07/28/2021 17:36:49 Active or passive immunization 789623111 Z23 Anxiety 68951693 F41.9 Chronic, stable-Con tinue Lexapro 10mg Diabetes mellitus 101403 09 E11.69 Chronic, stable -Follows with [facility] Last A1C:{{less than 7.0% 7-8% 8-9%* grea ter than 9%}}Goal A1C less than:{{7.0 %* 8.0%}}C urrent Therapy:{{ metformin sulfonylur ea TZD SGL T-2 DDP-4 GLP-1 RA long-ac ting insulin* r apid/short -acting insulin}} {{metformi n sulfonyl urea TZD S GLT-2 DDP- 4 GLP-1 RA* long-a cting insulin ra pid/short- acting insulin}} {{metformi n sulfonyl urea TZD S GLT-2* DDP -4 GLP-1 RA long-ac ting insulin ra pid/short- acting insulin}} {{metformi n sulfonyl urea TZD S GLT-2 DDP- 4 GLP-1 RA long-ac ting insulin ra pid/short- acting insulin}}S tatin:{{ye s* no decl ined due to adverse reaction/a llergy dec lined}}NAYANA /ARB:{{yes * no no due to negative nephropath y screening contraindi cated decl ined due to adverse reaction/a llergy dec lined}}Bisi t Exam:{{com pleted in the past 12 months-neg ative comp leted in the past 12 months-pos itive* com pleted in the past 12 months- result unknown du e}}Nephrop athy Screening: {{complete d in the past 12 months- negative c ompleted in the past 12 months- positive* due}}-Foll ows with nephrology regularlyP neumovax 23:{{UTD* Declined N ot given}}Eye Exam:{{com pleted in the last 12 months- negative c ompleted in the last 12 months- positive c ompleted per patient report* du e- recommende d annual dilated eye exam}} [id number] CANDIE PORTER MD [facility] [address] [place] [address] [place] [address] 03/17/2022 08:50:30 03/20/2022 12:03:46 Diabetes mellitus 66979168 E11.69 Chronic, uncontroll ed -Follows with [facility] endocrinol [facility] Last A1C:{{less than 7.0% 7-8% 8-9% great er than 9%*}}Goal A1C less than:{{7.0 %* 8.0%}}C urrent Therapy:{{ metformin sulfonylur ea TZD SGL T-2 DDP-4 GLP-1 RA long-ac ting insulin* r apid/short -acting insulin}} {{metformi n sulfonyl urea TZD S GLT-2 DDP- 4 GLP-1 RA* long-a cting insulin ra pid/short- acting insulin}} {{metformi n sulfonyl urea TZD S GLT-2* DDP -4 GLP-1 RA long-ac ting insulin ra pid/short- acting insulin}} {{metformi n sulfonyl urea TZD S GLT-2 DDP- 4 GLP-1 RA long-ac ting insulin ra pid/short- acting insulin*}} Statin:{{y es* no dec lined due to adverse reaction/a llergy dec lined}}NAYANA /ARB:{{yes * no no due to negative nephropath y screening contraindi cated decl ined due to adverse reaction/a llergy dec lined}}Bisi t Exam:{{com pleted in the past 12 months-neg ative comp leted in the past 12 months-pos itive* com pleted in the past 12 months- result unknown du e}}Nephrop athy Screening: {{complete d in the past 12 months- negative c ompleted in the past 12 months- positive* due}}-Foll ows with nephrology regularlyP neumovax 23:{{UTD* Declined N ot given}}Eye Exam:{{com pleted in the last 12 months- negative c ompleted in the last 12 months- positive c ompleted per patient report* du e- recommende d annual dilated eye exam}}A1c increased to 11, previously well controlled . Pt does endorse receiving multiple steroid joint injections over the past 6 weeks which may be responsibl e for some of the elevations . Pt has done a good job monitoring his diet and limiting portions. 18 pound weight loss since 07/2021. Pt's endocrinol ogist has already given Novolog to be used for glucose >300. Recommend patient keep a glucose log to make sure glucose isn't continuing to elevate and to notify office if trending up. Will avoid any changes at this time given primary management by endocrine. Pt aware to notify endocrine should glucose remain elevated-C ontinue Lantus 44u BID (previousl y on 80u BID)-Clotilde nue Trulicity- Continue Jardiance 25mg-Clotilde nue Novolog 5u as needed for glucose >300 Neuropathy [id number] G62 .9 Chronic, stable-Con tinue Gabapentin 1200mg TID Restless legs 26158253 G 25.81 Chronic, stable -Continue Ropinirole Anxiety disorder 8590290 06 F41.9 Chronic, controlled -Continue Lexapro 10mg daily Nasal congestion 7969992 0 R09.81 Chronic, stable-Con tinue Flonase as needed Recurrent falls 29017294 2 R29.6 Subacute, unresolved Pt ambulates with a cane at baseline. Has chronic back, hip and feet pain which he sees specialist s for. Reports multiple falls in the past 6 months which appear mechanical . Recommend PT for balance and gait training. Pt states he has too many medical appointmen ts over the next few months. Emphasized risk of recurrent falls especially since being on Warfarin. Pt will think about PT for the future-Con tinue ambulation with cane-Monit or home for loose cords and other fall risks [id number] DEENA FAIR MD [place] [address] [address] [facility] [address] [place] [address] 09/12/2022 09:07:59 09/15/2022 15:44:26 Diabetes mellitus 94473697 E11.69 Last A1C:{{less than 7.0% 7-8% 8-9% great er than 9%*}} 9.4% on 08/14/22 at [facility] endocrinol ogyGoal A1C less than:{{7.0 % 8.0%*}}C urrent Therapy:{{ metformin sulfonylur ea TZD SGL T-2 DDP-4 GLP-1 RA* long-a cting insulin ra pid/short- acting insulin}} {{metformi n sulfonyl urea TZD S GLT-2 DDP- 4 GLP-1 RA long-ac ting insulin* r apid/short -acting insulin}} {{metformi n sulfonyl urea TZD S GLT-2 DDP- 4 GLP-1 RA long-ac ting insulin ra pid/short- acting insulin*}} {{metformi n sulfonyl urea TZD S GLT-2* DDP -4 GLP-1 RA long-ac ting insulin ra pid/short- acting insulin}}S tatin:{{ye s* no decl ined due to adverse reaction/a llergy dec lined}}NAYANA /ARB:{{yes * no no due to negative nephropath y screening contraindi cated decl ined due to adverse reaction/a llergy dec lined}}Bisi t Exam:{{com pleted in the past 12 months-neg ative comp leted in the past 12 months-pos itive comp leted in the past 12 months- result unknown du e*}} sees podiatry, exam deferred today due to compressio n socks and velcro wraps being in placeNephr opathy Screening: {{complete d in the past 12 months- negative c ompleted in the past 12 months- positive* due}}Pneum ovax 23:{{UTD* Declined N ot given}}Eye Exam:{{com pleted in the last 12 months- negative c ompleted in the last 12 months- positive c ompleted per patient report due - recommende d annual dilated eye exam*}}Pat ient Education: healthy diet: {{yes no}} exercise: {{yes no}} weight loss: {{yes no}} foot care: {{yes no}} complicati ons of uncontroll ed diabetes: {{yes no}} medication compliance : {{yes no}} Next Visit: {{1 2 3 4 5 6* 7 8 9 10 11 12} } {{week(s) month(s)*} }- Primarily managed by endocrine, continue current regimen Disseminat ed idiopathic skeletal hyperostosis [id number] M48.10 Chronic pain, requesting refills of cyclobenza chyna. Seasonal a llergic rhinitis [id number] J30.2 Chronic, stable.- Continue cetirizine 10 mg Administra tion of influenza vaccine [id number] Z23 Morbid obesity [id number] E66.01 [id number] Justin Huynh MD [facility] [address] [address] 03/20/2023 09:57:37 03/22/2023 14:22:17 Migraine [id number] G43.909 Chronic for past approx. 30 years, now having more frequent headache days (3-5/month ). Patient declines adding a prophylact ic medication . Currently using excedrin prn for headaches which contains NSAID and should be avoided due to CKD.- Due to heart disease and hypertensi on, triptans are contraindi cated- Due to chronic kidney disease with GFR 39 based [facility], fioricet and NSAIDs contraindi cated- Will trial ubrelvy 50 mg prn for migraine abortive therapy Neuropathy [id number] G62 .9 Chronic, controlled on gabapentin 600 mg tid. Patient nephrologi recommends max dose of gabapentin 700 mg bid for renal dose adjustment . Patient has never tried pregabalin . Discussed risks/bene fits of using higher than recommende d gabapentin dose vs. trial of switching to pregabalin . Patient interested in pregabalin trial.- Start pregabalin 25 mg tid (renally adjusted starting dose)- Stop gabapentin during trial- f/u 2-3 weeks for dose adjustment Restless legs [id number] G 25.81 Chronic, stable. Requesting refill of ropinirole . Pain of le ft shoulder joint [id number] M25.512 Subacute, unresolved . Suspect rotator cuff tendinopat hy likely supraspina tus based on exam.- Check shoulder x-ray- Referral to PT Chronic low back pain 27 [id number] M54.50 Patient states he has not taken tramadol for several weeks due to his injection still working for pain relief. We will be taking over tramadol prescripti on from his pain management physician to use in the weeks before next epidural injection when pain control is wearing off. Would expect UDS to be negative at this point.- UDS and controlled substance agreement per clinic protocol - patient to complete UDS in the future as he did not take lasix today and cannot give a urine sample- Tramadol 50 mg bid prn for breakthrou gh pain Morbid obesity [id number] E66.01 [id number] Nirmal Galvin MD [facility] [address] [address] 04/03/2023 12:18:03 04/04/2023 09:28:09 Neuropathy [id number] G62.9 Chronic, controlled on gabapentin 600 mg tid. Patient nephrologi st recommends max dose of gabapentin 700 mg bid for renal dose adjustment . Patient did not tolerate pregabalin .- Stop pregabalin due to side effects- Restart gabapentin 1200 mg tid, discussed risks of higher dose with decreased kidney function and patient wishes to proceed Hypertensive disorder 38 [id number] I10 BP Goal: {{Less than 140/90* Le ss than 150/90}}BP Controlled : {{yes no*} }Healthy Weight: {{4'10= 91-118 lbs 4'11= 94-123 lbs 5'= 97-127 lbs 5'1= 100-131 lbs 5'2= 104-135 5' 3= 107-140 lbs 5'4= 110-144 lbs 5'5= 115-149 lbs 5'6= 118-154 lbs 5'7= 121-158 lbs 5'8= 125-163 lbs 5'9= 128-168 lbs 5'10= 132-173 lbs 5'11= 136-178 lbs* 6'= 140-183 lbs 6'1= 144-188 lbs 6'2= 148-193 lbs 6'3= 152-199 lbs 6'4= 156-204 lbs}}Discu ssed: Low sodium balanced diet, moderate exercise at least 3-4 times per week for an average of 40 minutes, limiting alcohol to 1 drink per day (F) or 2 drinks per day (M), and smoking cessation if currently smoking.Ne xt Visit: {{1 2 3* 4 5 6 7 8 9 10 11 12} }{{week(s) month(s)* }}- For now, continue metoprolol tartrate 100 mg bid, imdur 120 mg daily, lisinopril 5 mg daily- Consider increasing lisinopril back to 10 mg, patient will discuss with cardiologi st at visit in May- /u with new PCP in 3 months [id number] Nirmal Galvin MD [facility] [address] [address] 06/25/2023 15:57:09 06/28/2023 14:41:33 Chronic low back pain [id number] M54.50 Chronic, controlled with meds and steroid shots- UDS pending, pt unable to give sample today. Said he will come back in couple of days to provide urine sample- Refilled tramadol 50 mg Essential hypertension 13883039 I10 BP Goal: {{Less than 140/90 Les s than 150/90 Les s than 130/90#}}B P Controlled : {{yes no*} }Healthy Weight: {{4'10= 91-118 lbs 4'11= 94-123 lbs 5'= 97-127 lbs 5'1= 100-131 lbs 5'2= 104-135 5' 3= 107-140 lbs 5'4= 110-144 lbs 5'5= 115-149 lbs 5'6= 118-154 lbs 5'7= 121-158 lbs 5'8= 125-163 lbs 5'9= 128-168 lbs 5'10= 132-173 lbs 5'11= 136-178 lbs* 6'= 140-183 lbs 6'1= 144-188 lbs 6'2= 148-193 lbs 6'3= 152-199 lbs 6'4= 156-204 lbs}}Discu ssed: Low sodium balanced diet, moderate exercise at least 3-4 times per week for an average of 40 minutes, limiting alcohol to 1 drink per day (F) or 2 drinks per day (M), and smoking cessation if currently smoking.Ne xt Visit: {{1 2* 3 4 5 6 7 8 9 10 11 12} }{{week(s) month(s)* }}Continue taking Metoprolol tartrate 100 mg BID, Imdur 120 mg and increased Lisinopril to 10 mg after d/w Dr. Haley [id number] MYRIAM TREJO DO [facility] [address] [facility] [address] [place] [address] 09/04/2023 16:44:23 09/10/2023 10:11:42 Pain of left shoulder joint [id number] M25.512 H/o chair level fall on left shoulder x 2 days associated with pain and inability to carry out ADLs. H/o T2DM.Inspe ction wnl. No bruises or rashes notedPalpa tion : Tenderness + anterolate ral side of L shoulder joint and extending posterior to supraspina tusROM : decreased on LUE due to pain( pt can able to lift to 60 degrees with forward flexion). RUE ROM normalSpec ial tests: Empty can test positive LUE. unable to perform due to painDiffer entials most likely 2/2 rotator cuff tendinopat hy vs AC joint pathology vs labral tears vs frozen joint vs glenohumer al joint dislocatio nPlan:X ray L shoulder joint pending. Consider PT referral once fracture ruled out- Advised to take Tramadol twice daily and if needed TID. Heat and cold therapy- Strict ER precaution s if symptoms worse [id number] ALICIA WYLIE DO [facility] [address] [facility] [address] [place] [address] 10/23/2023 13:39:31 11/05/2023 16:47:15 Recurrent falls [id number] R29.6 H/o recurrent fall, the recent one 3 days ago and landed on left shoulder because of his knee giving away. H/o L shoulder pain- Xray shoulder ordered to rule out fractures and will f/u with results- MRI shoulder pending to see for rotator cuff injury- Ortho referral made per family request- Continue scheduled tylenol 650 mg TID with tramadol prn for severe pain- Strict ER precaution s given for worsening symptoms Chronic low back pain 27 [id number] M54.50 Chronic, controlled with meds and steroid shots- Due for UDS, pt cannot give sample today and defer to next visit- Encouraged importance of UDS and refilled tramadol few pills with acute pain Health Concerns Section Related Observation LastModified by Organization Detai ls LastModified Time None Recorded Concern Status LastModified by Organization Details LastModified Time None Recorded Advance Directives Directive None Recorded Payers Encounter Date Sequence Insurance Name Policy Number Policy Nolen Covered Member ID Nolen Member ID Guarantor Name 03/20/2023 2 [employer] - FOR LIFE (SECONDARY TO MEDICARE) Vinh Will [place] [id number] Vinh Will [place] 03/20/2023 [place] Vinh Will [place] [id number] Vinh Will [place] 04/03/2023 2 [employer] - FOR LIFE (SECONDARY TO MEDICARE) Vinh Will [place] [id number] Vinh Will [place] 04/03/2023 [place] [id number] Vinh Will [place] 06/25/2023 2 [place] - FOR LIFE (SECONDARY TO MEDICARE) Vinh [place] [id number] Vinh Will [place] 06/25/2023 1 [place] Vinh L [place]p [id number] Vinh Will [place] 09/04/2023 2 [place] - FOR LIFE (SECONDARY TO MEDICARE) Vinh L [place] [id number] Vinh Will [place] 09/04/2023 1 [place] Vinh Will [place] [id number] Vinh Will Kp 10/23/2023 2 [place] - FOR LIFE (SECONDARY TO MEDICARE) Vinh Will [place] [id number] Vinh Will [place] 10/23/2023 1 [place] Vinh Goodrich [id number] Vinh Goodrich Notes Date Note Type Note Provider Name and Address Organization Details Recorded Time 03/20/2023 text/html 66 y/o M with hx of DM, hx of DVT/PE/SMA thrombosis/portal vein thrombosis in the setting of antiphospholipid syndrome, anemia, CKD, HFrEF (NYHA class III), CAD s/p PCI in 2019, DM, gout, HLD, HTN, FRANKEL, PADMINI on CPAP presents for follow-up of chronic conditions. Left shoulder pain that runs down to middle of upper arm for 3 weeks. It is worse with abduction of the arm. No pain at rest. He is right handed. The pain is staying the same. He does have trouble picking up a gallon of milk with the left hand. Denies any injuries or trauma. He has a history of migraines and has noticed they are getting worse. 3 days ago he had a migraine that caused him to throw up. Normally he takes excedrin migraine and goes to the bedroom and rests with the lights off and feels better in a couple of hours but they are happening more frequently. Usually migraines last about 6 hours. Estimates about 3-5 migraine days per month. Has been having migraines since 1997. BP running 120-160/60-80. Systolic is >140 very occasionally. Takes tramadol when caudal epidural wears off after about 8 weeks. He gets this injection every 12 weeks and uses tramadol for breakthrough pain usually during the last month before he gets the injection again. When he does need it, he usually 1-2 tramadol per day 50 mg tablets. He has 3 pills left from his pain management doctor but she requests that we take over the prescription. Justin Huynh MD Attn: Accounting,[address] [place], [address], [facility] 03/21/2023 18:53:56 04/03/2023 text/html 67 yo M with hx of DM, hx of DVT/PE/SMA thrombosis/portal vein thrombosis in the setting of antiphospholipid syndrome, anemia, CKD, HFrEF (NYHA class III), CAD s/p PCI in 2019, DM, gout, HLD, HTN, FRANKEL, PADMINI on CPAP presents for follow up of medication changes. At last visited, gabapentin was switched to pregabalin due to needing higher dose of gabapentin than recommended with his CKD. Howevere he did not tolerate pregabalin due to side effects of nausea and stomach cramping/diarrhea, low appetite, vomiting. He stopped pregabalin and went back on gabapentin and side effects went away. He has not scheduled PT for his shoulder yet as his shoulder is starting to feel better. He notes his BP is running 120-150/60-80 at home, has been on higher dose of lisinopril in the past but it was decreased from 20 to 10 to 5 mg due to intolerance/fatigue. He will be seeing size maker in May. He has not filled ubrelvy prescription yet. Nirmal Galvin MD Attn: Accounting, [facility], [place], [address], [facility] 04/04/2023 11:56:51 06/25/2023 text/html Mr. Goodrich is her e for refill of tramadol for low Back pain and f/u HTN. Gets epidural steroid shots Q 3 months at [facility]( [facility]). Also gets bursitis shots, trigger point shots.PMH- DM, HTN, CAD, PAD, CKD stage 3, FRANKEL, chronic venous insufficiency, Sees Q 3-[address] Hagan at [facility], Dr. Benedict for FRANKEL at [facility], Cardiology- Dr. Haley Q [address] Cano- Pulmonology for sleep apnea, on CPAP, Dr. Demarco for Dm every 6 months at [facility].Denies new symptoms since last visit. Denies CP, SOB, palpitations, increased leg swelling, weakness, tingling or numbness- Has Colonoscopy 2 years ago, normal read. Nirmal Galvin MD Attn: Accounting, [address] [facility], [place], [address], [facility] 06/26/2023 11:28:23 09/04/2023 text/html Mr. Goodrich is her e for f/u left shoulder pain.PMH: T2DM, HTN, CKD, CHF, antiphospholipid syndromeHad a chair level fall yesterday, 7-8 /10 in intensity, pain radiating to upper arm. Not better with tylenol or tramadol. Has underlying chronic arthritic pain on the same side before. Unable to carry out his ADLs with left hand due to painDenies head trauma, LOC, dizziness or external bleeding, fever, weakness, tingling or numbness MYRIAM TREJO DO Attn: Accounting,[address] [facility], [place], [address], [facility] 09/08/2023 14:14:46 10/23/2023 text/html 67 y/o M present s for follow-up of recurrent Lt shoulder pain that began 3 months ago. He reports he fell onto his Lt shoulder in 08/2023 and XR was performed at that time which showed mild to moderate osteoarthritis, but no acute findings. He reports that he fell again 3 days ago, landing on his left shoulder. His pain is constant and sharp. Pt had 1 visit with PT prior to this most recent fall, but PT is requesting MRI prior to continuing PT. He denies head injury, dizziness, syncope, chest pain, or SOB. He has tried Tramadol with minimal improvement of his pain, but is out of this medication. ALICIA WYLIE DO Attn: Accounting,[address] [facility], [place], [address], [facility] 11/05/2023 15:58:32
--- OUTSIDE RECORDS SUMMARY | 2025-02-04 08:27 | XMS_ITS | Encounter Summary ---
Author Organization [facility] Address [facility] [place] [address] Care Team Providers Care Laboratory Geneticist Name Role Phone Deborah Haley MD Unavailable [phone] Andreas Alcantara MD Unavailable Heath Orion Sullivan Primary Care Provider [phone] John Cleary MD Unavailable Encounter Details Date Type Department Care Team (Late st Contact Info) Description 02/18/2024 [employer] Enc [facility] Family & Internal Medicine [address] [address] Orion Pinzon PA [address] [place] [address] Meds New Request Social History Tobacco Use Types Packs/Day Years Used Date Smoking Tobacco: Never Smokeless Tobacco: Never Comments:na Alcohol Use Standard Drinks/Week Comments Yes 0 (1 standard drink = 0.6 oz pur e alcohol) rare [facility] Utilities Answer Date Recorded In the [...] 11/07/2023 How often do you attend chur or orthodox services? More than 4 times per year 11/07/2023 Do you belong to any clubs o r organizations such as congregation groups, unions, fraternal or athletic groups, or [...] drink containing alc ohol? Monthly or less 11/07/2023 Q2: How many drinks containi ng alcohol do you have on a typical day when you are drinking? 1 or 2 11/07/2023 Q3: How often do you have si x or more drinks on one occasion? Never 11/07/2023 Overall Financial Resource Strain (CARDIA) Answe r Date Recorded How hard is it for you to pa y for the very basics like food, housing, medical care, and heating? Not hard at all 11/07/2023 PHQ-2 Answer Date Recorded Patient Health Questionnaire-2 Score 0 11/26/2023 [facility] - [...] in a half-way (including now)? 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 Not on file Not on file documented as of this encounter Functional Status * Are you deaf or do you have serious difficulty hearing Answer Date of Assessment Author Status Yes 11/07/2023 6:10 PM TASTE TESTER Ting Martinez RN Active * Are you [...] Layne RN Active documented in this encounter Plan of Treatment Upcoming Encounters Date Type Department Care Team (Late st Contact Info) Description 02/05/2025 8:30 AM CDT Appointment [facility] Wound Care [address] [place] [address] [place] [address] [id number] 02/06/2025 12:45 PM CDT Appointment [facility] Open MRI [address] [facility] [place] [address] John Cleary MD [facility] [address] [place] [address] 02/18/2025 11:30 AM CDT [facility] [address] [place] [address] John Cleary MD [facility]. [address] [place] [address] 02/23/2025 9:00 AM CDT Office Visit [facility] Orthopedic Surgery [facility] [address] [facility] [address] [place], [place] [id number] [place] [address] [place] [address] 04/03/2025 10:30 AM CDT Office Visit [facility], [address] [place] [address] Kathi Gant PA-C [address] [facility], [address] [place] [address] 04/27/2025 10:00 AM CDT Office Visit [facility] Family & Internal Medicine [facility] [address] [place] [address] [place] [address] [place], [place] [phone] 08/20/2025 11:00 AM TASTE TESTER Office Visit [facility] [address] [facility] [place] [address] Baljeet Chavez DO [address] [facility] [address] [place] [address] documented as of this encounter Goals Goal Patient Goal Type Associated Problems Recent Progress Patient-Stated? 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, RN documented as of this encounter Visit Diagnoses Not on filedocumented in this encounter Additional Health Concerns Infection Onset Date Last Indicated Resolved Time COVID-19 Rule Out 07/22/2024 07/22/202407/22/2024 8:48 AM CDT COVID-19 Rule Out 07/25/2024 07/25/2024 07/25/2024 9:25 PM CDT MRSA Comment:08/28/24 Left Toe (RR) 08/28/2024 08/28/2024 COVID-19 Rule Out 11/26/2024 11/26/2024 11/26/2024 6:06 AM TASTE TESTER documented as of this encounter Care Teams Laboratory Geneticist Relationship Specialty [place] [address] [place] [address] PCP - General Physician Clinical Analyst Medical 11/13/23 Deborah Haley MD Three [facility]. [facility] [address] [place] [address] [place] [employer] Content Manager CARDIOVASCULAR DISEASE 03/15/16 Andreas Alcantara MD Three [facility] [address] [place] [address] Consulting Physician Internal Medicine Pulmonary Disease 10/14/18 [place] [address] [place] [address] Referring Physician VASCULAR SURGERY 09/09/24 09/09/25 documented as of this encounter
--- OUTSIDE RECORDS SUMMARY | 2025-02-04 08:27 | XMS_ITS | Encounter Summary ---
Author Organization [facility] Address [facility] [place] [address] Care Team Providers Care Fish Cleaner Machine Tender Name Role Phone Deborah Haley MD Unavailable [phone] Yogesh Bazzi MD Primary Care Provider [phone] Andreas Alcantara MD Unavailable Valentin Lee MD Primary Care Provider [phone] Dona Carmona DO Primary Care Provider La Erazo MD Primary Care Provider [phone]- [phone] Sean Smith MD Primary Care Provider [phone] Orion Pinzon Primary Care Provider [phone] John Cleary MD Unavailable Encounter Details Date Type Department Care Team (Late st Contact Info) Description 12/20/2017 Abstract [facility] at [facility], [address] [address] Gerardo Strauss MA Social History Tobacco Use Types Packs/Day Years Used Date Smoking Tobacco: Never Smokeless Tobacco: Never Alcohol Use Standard Drinks/Week Comments Yes 0 (1 standard drink = 0.6 oz pur e alcohol) rare Sex and Gender Information Value Date Recorded Sex Assigned at Male 11/07/2023 6:03 PM AUTOMOTIVE TITLE CLERK Legal Sex Male 12:46 AM CDT Gender Identity Male 11/07/2023 6:03 PM AUTOMOTIVE TITLE CLERK Sexual Orientation Straight 11/07/2023 6: 03 PM AUTOMOTIVE TITLE CLERK 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 [address] 02/06/2025 12:45 PM CDT [facility]ment [facility] [address] [place] [address] John Cleary MD [facility]. [address] [place] [address] 02/18/2025 11:30 AM CDT Office Visit [facility] [address] [place] [phone] John Cleary MD [facility]. [address] [place] [address] 02/23/2025 9:00 AM CDT Office Visit [facility] Orthopedic Surgery [facility] [address] [facility] [address] [place] [address] [place] [address] [place] [address] 04/03/2025 10:30 AM CDT [facility], [address] [place], [place] [address] Kathi Gant PA-C [address] [facility], [address] [place] [address] 04/27/2025 10:00 AM CDT Office Visit [facility] Family & Internal Medicine [facility] [address] [place] [address] [place] [address] [place] [address] 08/20/2025 11:00 AM AUTOMOTIVE TITLE CLERK Office Visit [facility]ialty Care - [facility] [address] [facility] [place] [address] Baljeet Chavez DO 3 [facility] [address] [place] [address] documented as of this encounter Procedures Procedure Name Priority Date/Time Associated Diagnosis Comments AST/SGOT Routine 07/12/2018 BASIC METABOLIC PANEL Routine 07/12/2018 ALT/SGPT Routine 07/12/2018 COMPREHENSIVE METABOLIC PANEL Routine 05/08/2018 LIPID PANEL Routine 01/22/2018 CK (CPK) Routine 12/19/2017 CBC (OUTSIDE LAB) Routine 10/26/2017 COMPREHENSIVE METABOLIC PANEL Routine 10/26/2017 documented in this encounter Results * (ABNORMAL) BASIC METABOLIC PANEL (07/12/2018) SODIUM S/P/B 139 POTASSIUM S/P/B 3.9 CO2 28 CHLORIDE S/P/B 99 GLUCOSE 227 mg/dL CALCIUM S/P/B 10.1 BUN 26 CREATININE S/P/B 1.90(A) 0.7 - 1.3 EGFR AFR. AMER. 42 EGFR NON-AFR. AMER. 37 <=90 07/12/2018 [facility]ATORY Final Result * ALT/SGPT (07/12/2018) ALT 81 07/12/2018 [facility] Abstract LABORATORY Final Result * AST/SGOT (07/12/2018) AST 66 07/12/2018 us [facility] Abstract LABORATORY Final Result * (ABNORMAL) COMPREHENSIVE METABOLIC PANEL (05/08/2018) SODIUM S/P/B 141 POTASSIUM S/P/B 4.7 CO2 29 CHLORIDE S/P/B 99 GLUCOSE 186 mg/dL CALCIUM S/P/B 10.6 BUN 34 CREATININE S/P/B 1.80(A) 0.7 - 1.3 EGFR AFR. AMER. 45 EGFR NON-AFR. AMER. 39 <=90 ALKALINE PHOSPHATASE S/P/B 91 ALT 77 AST 65 BILIRUBIN TOTAL S/P/B 0.6 ALBUMIN S/P/B 3.9 3.5 - 5.0 TOTAL PROTEIN S/P/B 7.3 05/08/2018 [facility] Abstract LABORATORY Final Result * LIPID PANEL (01/22/2018) CHOLESTEROL 149 HDL 27 TRIGLYCERIDES 413 LDL (CALCULATED) 70 01/22/2018 [facility] LABORATORY Final Result * CK (CPK) (12/19/2017) CPK 145 30 - 200 12/19/2017 [facility] LABORATORY Final Result * CBC (OUTSIDE LAB) (10/26/2017) WBC 7.5 HGB 14.8 HCT 43.9 PLT 241 10/26/2017 us [facility] Abstract LAB-OUTSIDE/ABSTRACTED Final Result * (ABNORMAL) COMPREHENSIVE METABOLIC PANEL (10/26/2017) SODIUM S/P/B 135 POTASSIUM S/P/B 4.8 CO2 16 CHLORIDE S/P/B 103 GLUCOSE 411 mg/dL CALCIUM S/P/B 10.1 BUN 30 CREATININE S/P/B 1.6(A) 0.7 - 1.3 EGFR NON-AFR. AMER. 44 <=90 ALKALINE PHOSPHATASE S/P/B 51 ALT 43 AST 40 BILIRUBIN TOTAL S/P/B 1.0 ALBUMIN S/P/B 3.7 3.5 - 5.0 TOTAL PROTEIN S/P/B 8.2 10/26/2017 [facility] LABORAT[facility] Final Result documented in this encounter Visit Diagnoses Not on filedocumented in this encounter Additional Health Concerns Infection Onset Date Last Indicated Resolved Time COVID-19 Rule Out 07/22/2024 07/22/2024 07/22/2024 8:48 AM CDT COVID-19 Rule Out 07/25/2024 07/25/2024 07/25/2024 9:25 PM CDT MRSA Comment:08/28/24 Left Toe (RR) 08/28/2024 08/28/2024 COVID-19 Rule Out 11/26/2024 11/26/2024 11/26/2024 6:06 AM AUTOMOTIVE TITLE CLERK documented as of this encounter Care Teams Fish Cleaner Machine Tender Relationship Specialty Start Date End Date Yogesh Bazzi MD [facility]. [address] [address] PCP - General INTERNAL MEDICINE 12/06/17 07/02/19 Valentin Valentin MD [address] [place] [address] PCP - General INTERNAL MEDICINE 07/03/19 10/01/19 Dona Carmona DO [address] [address] PCP - General UNKNOWN PHYSICIAN SPECIALTY 10/02/19 06/10/20 La Erazo MD [address] [place] [address] PCP - General FAMILY PRACTICE 06/11/20 05/22/23 Sean Smith MD [address] [place] [address] PCP - General FAMILY PRACTICE 05/23/23 11/12/23 [place] [address] [place] [address] PCP - General Physician Trawl Net Maker Medical 11/13/23 Deborah Haley MD [facility]. [facility] [address] [place] [address] Bath Box Lining Machine Feeder CARDIOVASCULAR DISEASE 03/15/16 Andreas Alcantara MD Three [facility]. [facility] [address] [place] [address] Consulting Physician Internal Medicine Pulmonary Disease 10/14/18 [place] [address] [place] [address] Referring Physician VASCULAR SURGERY 09/09/24 09/09/25 documented as of this encounter
--- OUTSIDE RECORDS SUMMARY | 2025-02-04 08:27 | XMS_ITS | Encounter Summary ---
Author Organization [facility] Address [address] [facility] [place] [address] Care Team Providers Care Gis Coordinator Name Role Phone La Erazo MD Primary Care Provider [phone] Orion Pinzon PA-C Primary Care Provider [phone] Reason for Visit * Reason Onset Date Comments MEDICATION REFILL 02/13/2022 Encounter Details Date Type Department Care Team (Late Contact Info) Description 02/13/2022 Refill 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 Physician Group - GI [address] [place] [phone] 04/27/2025 11:30 AM CDT Office Visit [facility] - GI [address] [place] [phone] Frank Dela Cruz MD [address] [place] [address] [address] [place] [address] 05/22/2025 8:30 AM CDT Video Visit [facility] - Nephrology [address] [place] [address], [place] [phone] Keyla Contreras MD [address] [place] [address] [address]L [place] [phone] documented as of this encounter Goals Goal Patient Goal Type Associated Problems Recent Progress Patient-Stated? Author Medication Management General On track( 024 10:40 AM CDT) Vinh Vazquez, RN Note: Expected end date: Interventions: Take all medications as prescribed Let your doctor know right away about any changes in your medications Make sure to request a refill of your medication at least one week prior to your last dose documented as of this encounter Visit Diagnoses Diagnosis Chronic insomnia Insomnia, unspecified documented in this encounter Care Teams Gis Coordinator Relationship Specialty Start Date End Date La Erazo MD PCP - General Student Resident 03/19/20 12/20/23 Orion Pinzon PAIanC [address] [place] [address] PCP - General Physician Applied Biology Professor 12/21/23 documented as of this encounter
--- OUTSIDE RECORDS SUMMARY | 2025-02-04 08:27 | XMS_ITS | Encounter Summary ---
Author Organization [facility] Address [address] [facility] [place] [address] Care Team Providers Care Patient Support Associate Name Role Phone La Erazo MD Primary Care Provider [phone] Orion Pinzon PA-C Primary Care Provider [phone] Encounter Details Date Type Department Care Team ([facility] Contact Info) Description 01/24/2022 Telephone [facility] [address] [place] [address] Lindsay Benson MD [address] [place] [address] Social History Tobacco Use Types Packs/Day Years Used Date Smoking Tobacco: Never Smokeless Tobacco: Never Alcohol Use Standard Drinks/Week Comments Yes 0 (1 standard drink = 0.6 oz pur e alcohol) RARELY; 3 beers this year Sex and Gender Information Value Date Recorded Sex Assigned at Not on file Legal Sex 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 No / Unsure 01/13/2022 8:02 AM CDT documented as of this encounter Plan of Treatment Upcoming Encounters Date Type Department Care Team ([facility] Contact Info) Description 02/17/2025 9:00 AM CDT Office Visit [facility] - Endocrinology [address] [place] [address], [place] [address] Marce Demarco MD [address] [place] [address] 2L [place] [phone] 04/27/2025 11:00 AM CDT Procedure visit [facility] - GI [address] [place] [phone] 04/27/2025 11:30 AM CDT Office Visit [facility] - GI [address] [place] [phone] Frank Dela Cruz MD [address] [place] [address] 2L [place] [address] 05/22/2025 8:30 AM CDT Video Visit [facility] - Nephrology [address] [place] [address], [place] [phone] Keyla Contreras MD [address] [place] [address] 2L [place] [phone] documented as of this encounter Goals Goal [...] on filedocumented in this encounter Care Teams Patient Support Associate Relationship Specialty Start Date End Date La Erazo MD PCP - General Student Resident 03/19/20 12/20/23 Orion Pinzon PA-C [address] [place] [address] PCP - General Physician Educational Director 12/21/23 documented as of this encounter
--- OUTSIDE RECORDS SUMMARY | 2025-02-04 08:27 | XMS_ITS | Encounter Summary ---
Author Organization [facility] Address [facility] [place] [address] Care Team Providers Care Customer Management Specialist Name Role Phone Deborah Haley MD Unavailable [phone] Andreas Alcantara MD Unavailable Orion Lomax Primary Care Provider [phone] John Cleary MD Unavailable Encounter Details Date Type Department Care Team (Late st Contact Info) Description 07/03/2024 Crunch Accountingt Message Enc [facility] Medical Group Family & Internal Medicine [facility] [id number] [place] [phone] [place] [address] [place] [address] Medication Refill Request Social History Tobacco Use Types Packs/Day Years Used Date Smoking Tobacco: Never Smokeless Tobacco: Never Comments:na Alcohol Use Standard Drinks/Week Comments Yes 0 (1 standard drink = 0.6 oz pur e alcohol) rare [facility] Utilities Answer Date Recorded In [...] How often do you attend chur or anglican services? More than 4 times per year 11/07/2023 Do you belong to any clubs o r organizations such as muslim groups, unions, fraternal or athletic groups, or [...] Recorded Patient Health Questionnaire-2 Score 0 02/26/2024 [facility] Occupat ional [facility] - Occupational Stress [...] health care facility (including now)? 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 Not on file Not on file documented as of this encounter Functional Status * Are you deaf or do you have serious difficulty hearing Answer Date of Assessment Author Status Yes 11/07/2023 6:10 PM NEWS ASSISTANT Ting Matrinez RN Active * Are you blind or [...] Info) Description 02/05/2025 8:30 AM CDT Appointment [facility] [address] [place] [address] [place] [address] [id number] 02/06/2025 12:45 PM CDT Appointment [facility] Open MRI [address] [facility] [place] [address] John Cleary MD [facility] [address] [place] [address] 02/18/2025 11:30 AM CDT [facility] [address] [place] [phone] John Cleary MD [facility]. [address] [place] [address] 02/23/2025 9:00 AM CDT Office Visit [facility] Orthopedic Surgery [facility] [address] [facility] [address] [place], [place] [phone] [place] [address] [place] [address] 04/03/2025 10:30 AM CDT Office Visit [facility] THREE [facility], [address] [place] [address] Kathi Gant PA-C [address] [facility], [address] [place] [address] 04/27/2025 10:00 AM CDT Office Visit [facility] Family & Internal Medicine [facility] [address] [place] [phone] [place] [address] [place], [place] [phone] 08/20/2025 11:00 AM NEWS ASSISTANT Office Visit [facility] Multispecialty Care - [facility] [address] [facility] [place] [phone] Baljeet Chavez DO 3 [facility] [address] [place] [address] documented as of this encounter Goals Goal [...] Rule Out 11/26/2024 11/26/2024 11/26/2024 6:06 AM NEWS ASSISTANT Assessment Noted Time PHQ-9 Depression Total Score: 3 02/26/20 10:46 AM CDT documented as of this encounter Care Teams Customer Management Specialist Relationship Specialty Start [place] [address] [place] [address] PCP - General Physician Machine Marker Medical 11/13/23 Deborah Haley MD Three [facility]. [facility] [address] [place] [address] [place] Living Advisor CARDIOVASCULAR DISEASE 03/15/16 Andreas Alcantara MD Three [facility] [address] [place] [address] Consulting Physician Internal Medicine Pulmonary Disease 10/14/18 [place] [address] [place] [address] Referring Physician VASCULAR SURGERY 09/09/24 09/09/25 documented as of this encounter
--- OUTSIDE RECORDS SUMMARY | 2025-02-04 08:27 | XMS_ITS | Clinical Summary ---
Author Organization [facility] [address] [facility] Address [address] [place] [address] Care Team Providers Care Supervisor Wash House Name Role Phone Not Found, Stl Primary Care Provider Unavailabl e Allergies Active Allergy Reactions Criticality Noted Date Comments Sitagliptin Phos-Metformin Itching,Rash Medium 013 Medications gabapentin (NEURONTIN) 600 mg tablet Take 1,200 mg by mouth 3 times daily. Active rOPINIRole (REQUIP) 2 mg Tablet Take 2 mg by mouth daily at bedtime. 1 Active cyclobenzaprine (FLEXERIL) 10 mg tablet Take 10 mg by mouth daily at bedtime. 9 Active cetirizine (ZyrTEC) 10 mg tablet Take 10 mg by mouth nightly as needed. 0 Active atorvastatin (LIPITOR) 40 mg tablet Take 40 mg by mouth daily at bedtime. 0 Active fluticasone propionate (FLONASE) 50 mcg/spray Orange, Suspension nasal inhaler Administer 1 Orange in each nostril nightly as needed. Active pantoprazole (PROTONIX) 20 mg Tablet, Delayed Release (E.C.) Take 20 mg by mouth daily. 0 Active metoprolol tartrate (LOPRESSOR) 100 mg tablet Take 100 mg by mouth 2 times daily. 1 Active omega-3 acid ethyl esters (LOVAZA) 1 gram Capsule Take 2 Grams by mouth. 0 Active NIFEdipine (ADALAT CC) 30 mg Extended Release tablet Take 30 mg by mouth daily. 0 Active nitroglycerin (NITROMIST) 400 mcg/spray Aerosol, Orange Place 1 Orange under tongue every 5 minutes as needed. Active torsemide (DEMADEX) 20 mg tablet Take 80 mg by mouth daily. 0 Active isosorbide mononitrate (IMDUR) 120 mg Extended Release 24 hour tablet Take 120 mg by mouth daily. 0 Active aspirin (ECOTRIN EC) 81 mg Tablet, Delayed Release (E.C.) Take 81 mg by mouth daily. 0 Active ferrous sulfate 325 mg (65 mg iron) tablet Take 325 mg by mouth 2 times daily. 0 Active fenofibrate (LOFIBRA) 160 mg Tablet Take 160 mg by mouth daily. 1 Active lisinopriL (PRINIVIL) 10 mg tablet Take 10 mg by mouth daily. 0 Active ezetimibe (ZETIA) 10 mg tablet Take 10 mg by mouth daily. 0 Active dulaglutide (Trulicity) 1.5 mg/0.5 mL injection Inject 1.5 mg by subcutaneous injection every 7 days. 1 Active empagliflozin (JARDIANCE) 25 mg tablet Take 25 mg by mouth. 0 Active warfarin (COUMADIN) 10 mg tablet 5 mg on Tu, Sat, 10 mg all other days daily in the evening 0 Active zaleplon (SONATA) 5 mg capsule Take 10 mg by mouth daily at bedtime. 1 Active oxyCODONE-aceta minophen (PERCOCET) 5-325 mg tablet Take 1 Tablet by mouth every 4 hours as needed. 1 Active insulin glargine (LANTUS) 100 unit/mL vial Inject 70 Units by subcutaneous injection. 9 Active acetaminophen (TYLENOL) 500 mg tablet Take 500 mg by mouth every 6 hours as needed. Active betamethasone-c alcipotriene (TACLONEX) 0.005-0.064 % Ointment 1 Active ciclopirox (LOPROX) 0.77 % Cream 0 Active lidocaine (LIDODERM) 5 % Adhesive Patch, Medicated Apply 1 Patch to skin as directed every 24 hours. 08/31/201 8 Active polyethylene glycol 3350 (MIRALAX) 17 gram/dose Powder Take 17 Grams by mouth nightly as needed. Active allopurinoL (ZYLOPRIM) 100 mg tablet Take 100 mg by mouth daily. Active multivitamin/ir on/folic acid (CENTRUM ORAL) Take by mouth. Active melatonin 3 mg Tablet Take by mouth nightly as needed for Insomnia. Active Active Problems Patient Care Coordination No te Formatting of this note migh t be different from the original. Vascular Teacher Music - Dr. Ellis Vargas MD, [facility], [facility] - [address] [facility] [address] Keyla Adan - DPM Dr. Deborah Haley - Teacher Music [facility] Problem Noted Date Diagnosed Date Venous insufficiency 01/12/2021 Family History Medical History Relation Name Comments Diabetes Brother High Cholesterol Brother Other Father ALS Heart Disease Mother Varicose Veins Son Relation Name Status Comments Brother Father Mother Alive Son Social History Tobacco Use Types Packs/Day Years Used Date Smoking Tobacco: Never Smokeless Tobacco: Never Alcohol Use Standard Drinks/Week Comments Not Currently 0 (1 standard drink = 0.6 oz pur e alcohol) Sex and Gender Information Value Date Recorded Sex Assigned at Not on file Legal Sex Male 2:37 PM CDT Gender Identity Not on file Sexual Orientation Not on file Last Filed Vital Signs Vital Sign Reading Time Taken Comments Blood Pressure 130/70 08/04/2021 10:00 AM CDT Pulse 74 08/04/2021 10:00 AM CDT Temperature 36.7 C (98 F) 05/23/2021 7:25 AM CDT Respiratory Rate - - Oxygen Saturation 95% 05/23/2021 9:41 AM CDT Inhaled Oxygen Concentration - - Weight 140.6 kg (310 lb) 08/04/2021 10:00 AM CDT Height 180.3 cm (5' 11 ) 08/04/2021 10:00 AM CDT Body Mass Index 43.24 08/04/2021 10:00 AM CDT Plan of Treatment Health Maintenance Due Date Last Done Comments DIABETES ANNUAL RETINAL EXAM 1972 DIABETES MICROALBUMIN ANNUAL SCREEN 1972 LDL CHOLESTEROL ANNUAL 1972 COLORECTAL SCREENING 12/30/1999 Colorectal Cancer Screening 12/30/1999 FIT-DNA Q 3 years 12/30/1999 FIT/FOBT Q 1 year 12/30/1999 Flex Sig/CT Colonography Q 5 years 12/30/1999 PNEUMOCOCCAL VACCINE 50+ YEA RS (2 of 2 - PCV) 11/05/2010 11/05/2009, 02/20/2002 RSV VACCINE (60+ or ) (1 - Risk 60-74 years 1-dose series) 2014 ZOSTER VACCINE (2 of 3) 01/19/2016 11/24/2015 DIABETES ANNUAL FOOT EXAM 08/14/2023 08/14/2022 INFLUENZA VACCINE (#1) 2024 , 09/05/2019, 08/14/2018, Additional history exists DIABETES HBA1C Q 6 MONTHS 03/24/20252023, 04/25/2024, 12/21/2023, Additional history exists DTAP/TDAP/TD VACCINES (2 - T d or Tdap) 08/04/2025 08/04/2015 Insurance MEDICARE PART A AND B [employer] Care Teams Supervisor Wash House Relationship Specialty Start Date End Date Not Found, Stl NO ADDRESS ON FILE PCP - General 01/12/21
--- OUTSIDE RECORDS SUMMARY | 2025-02-04 08:27 | XMS_ITS | Encounter Summary ---
Author Organization [facility] Address [address] [place] [address] Care Team Providers Care Energy Scheduler Name Role Phone La Erazo MD Primary Care Provider [phone] Orion Pinzon PA-C Primary Care Provider [phone] Reason for Visit * Reason Onset Date Comments MEDICATION REFILL 08/19/2020 Encounter Details Date Type Department Care Team (Late Contact Info) Description 08/19/2020 Refill [facility] [address] [place] [address] Mychart, Generic Provider MEDICATION REFILL Social History Tobacco Use Types Packs/Day Years Used Date Smoking Tobacco: Never Smokeless Tobacco: Never Alcohol Use Standard Drinks/Week Comments No 0 (1 standard drink = 0.6 oz pur e alcohol) RARELY Sex and Gender Information Value Date Recorded Sex Assigned at Not on file 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 [address] [place] [address], [place] [phone] 04/27/2025 11:30 AM CDT Office Visit [facility] - GI [address] [place] [address], [place] [phone] Frank Dela Cruz MD [address] [place] [address] [address] [place] [address] 05/22/2025 8:30 AM CDT Video Visit [facility] - Nephrology [address] [place] [phone] Keyla Contreras MD [address] [place] [address] [address] [place] [phone] documented as of this encounter Visit Diagnoses Diagnosis Type 2 diabetes mellitus with diabetic peripheral angiopathy without gangrene, with long-term current use of insulin (HCC)- Primary Type 2 diabetes mellitus with complication, with long-term current use of insulin (HCC) documented in this encounter Care Teams Energy Scheduler Relationship Specialty Start Date End Date La Erazo MD PCP - General Student Resident 03/19/20 12/20/23 Orion Pinzon PAIanC [address] [place] [address] PCP - General Physician Transcribing Operators Supervisor 12/21/23 documented as of this encounter
--- OUTSIDE RECORDS SUMMARY | 2025-02-04 08:27 | XMS_ITS | Encounter Summary ---
Author Organization [facility] Address [facility] [place] [address] Care Team Providers Care Pot Operator Name Role Phone Deborah Haley MD Unavailable [phone] Yogesh Bazzi MD Primary Care Provider [phone] Andreas Alcantara MD Unavailable Valentin Lee MD Primary Care Provider Dona Carmona DO Primary Care Provider [phone] La Erazo MD Primary Care Provider [phone]- [phone] Sean Smith MD Primary Care Provider [phone] Orion Pinzon Primary Care Provider [phone] John Cleary MD Unavailable Encounter Details Date Type Department Care Team (Late st Contact Info) Description 10/10/2018 Abstract [facility], [address] [address] Gerardo Strauss MA Social History Tobacco Use Types Packs/Day Years Used Date Smoking Tobacco: Never Smokeless Tobacco: Never Alcohol Use Standard Drinks/Week Comments Yes 0 (1 standard drink = 0.6 oz pur e alcohol) rare Sex and Gender Information Value Date Recorded Sex Assigned at Male 11/07/2023 6:03 PM STATEMENT CLERKS SUPERVISOR Legal Sex Male 12:46 AM CDT Gender Identity Male 11/07/2023 6:03 PM STATEMENT CLERKS SUPERVISOR Sexual Orientation Straight 11/07/2023 6: 03 PM STATEMENT CLERKS SUPERVISOR 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 [place] [address] [place] [address] [facility] [address] [address] 02/06/2025 12:45 PM CDT [facility]ment [facility] [address] [place] [address] John Cleary MD [place]. [address] [place] [address] 02/18/2025 11:30 AM CDT Office Visit [facility] [address] [place] [phone] John Cleary MD [place]. [address] [place] [address] 02/23/2025 9:00 AM CDT Office Visit [facility] [address] [facility] [address] [place] [address] [place] [address] [place] [address] 04/03/2025 10:30 AM CDT [facility], [address] [place], [place] [address] Kathi Gant PA-C [address] [facility], [address] [place] [address] 04/27/2025 10:00 AM CDT Office Visit [facility] [address] [place] [address] [place] [address] [place] [address] 08/20/2025 11:00 AM STATEMENT CLERKS SUPERVISOR Office Visit [facility] - [facility] [address] [facility] [place] [phone] Baljeet Chavez DO 3 [facility] [address] [place] [address] documented as of this encounter Procedures Procedure Name Priority Date/Time Associated Diagnosis Comments CBC (OUTSIDE LAB) Routine 10/04/2018 COMPREHENSIVE METABOLIC PANEL Routine 10/04/2018 LIPID PANEL Routine 10/04/2018 documented in this encounter Results * CBC (OUTSIDE LAB) (10/04/2018) Pathologist [facility] WBC 4.9 HGB 14.6 HCT 46.5 PLT 232 10/04/2018 us Doc [facility] Abstract LAB-OUTSIDE/ABSTRACTED Final Result * (ABNORMAL) COMPREHENSIVE METABOLIC PANEL (10/04/2018) Pathologist [facility] SODIUM S/P/B 143 POTASSIUM S/P/B 4.1 CO2 28 CHLORIDE S/P/B 106 GLUCOSE 120 mg/dL CALCIUM S/P/B 9.4 BUN 26 CREATININE S/P/B 1.40(A) 0.7 - 1.3 EGFR AFR. AMER. 61 EGFR NON-AFR. AMER. 53 <=90 ALKALINE PHOSPHATASE S/P/B 59 ALT 74 AST 84 BILIRUBIN TOTAL S/P/B 0.4 ALBUMIN S/P/B 3.6 3.5 - 5.0 TOTAL PROTEIN S/P/B 6.9 10/04/2018 us Doc [facility] Abstract LABORATORY Final Result * LIPID PANEL (10/04/2018) CHOLESTEROL 193 HDL 30 TRIGLYCERIDES 371 LDL (CALCULATED) 99 10/04/2018 us Doc [facility] Abstract LABORATORY Final Result documented in this encounter Visit Diagnoses Not on filedocumented in this encounter Additional Health Concerns Infection Onset Date Last Indicated Resolved Time COVID-19 Rule Out 07/22/2024 07/22/2024 07/22/2024 8:48 AM CDT COVID-19 Rule Out 07/25/2024 07/25/2024 07/25/2024 9:25 PM CDT MRSA Comment:08/28/24 Left Toe (RR) 08/28/2024 08/28/2024 COVID-19 Rule Out 11/26/2024 11/26/2024 11/26/2024 6:06 AM STATEMENT CLERKS SUPERVISOR documented as of this encounter Care Teams Pot Operator Relationship Specialty Start Date End Date Yogesh Bazzi MD [address] [id number] PCP - General INTERNAL MEDICINE 12/06/17 07/02/19 Valentin Valentin MD [address] [place] [address] PCP - General INTERNAL MEDICINE 07/03/19 10/01/19 Dona Carmona DO [address] [address] PCP - General UNKNOWN PHYSICIAN SPECIALTY 10/02/19 06/10/20 La Erazo MD [address] [address] PCP - General FAMILY PRACTICE 06/11/20 05/22/23 Sean Smith MD [address] [address] PCP - General FAMILY PRACTICE 05/23/23 11/12/23 [place] [address] [place], [place] [phone] PCP - General Physician Personnel Coordinator Medical 11/13/23 Deborah Haley MD [facility] [address] [place] [address] [employer] Order Clerk CARDIOVASCULAR DISEASE 03/15/16 Andreas Alcantara MD [facility] [address] [place] [address] Consulting Physician Internal Medicine Pulmonary Disease 10/14/18 [place] [address] [place] [address] Referring Physician VASCULAR SURGERY 09/09/24 09/09/25 documented as of this encounter
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
--- OUTSIDE RECORDS SUMMARY | 2025-02-04 08:27 | XMS_ITS | Encounter Summary ---
Author Organization [facility] Address [facility] [place] [address] Care Team Providers Care Powder Expert Name Role Phone Deborah Haley MD Unavailable [phone] Yogesh Bazzi MD Primary Care Provider [phone] Andreas Alcantara MD Unavailable Valentin Lee MD Primary Care Provider Dona Carmona DO Primary Care Provider [phone] La Erazo MD Primary Care Provider [phone] Sean Smith MD Primary Care Provider [phone] Orion Pinzon Primary Care Provider John Cleary MD Unavailable Encounter Details Date Type Department Care Team (Late st Contact Info) Description 09/23/2018 [facility] Message Enc [facility], [facility] [address] [place] [address] Deborah Haley MD [facility]. 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 Haley had reviewed my lab test results and that I should continue my current medications. In a recent office visit I was asked to hold the spironolactones 25 mg tablets. Should I start taking this again? Do I continue to take fosinopri at 20mg or go back to 40mg? Do I continue to take atenolol at 50mg or go back to 100mg? GRATION LAWYER documented in this encounter Plan of Treatment Upcoming Encounters Date Type Department Care Team (Late st Contact Info) Description 02/05/2025 8:30 AM CDT Appointment [facility] [address] [place] [address] [place] [address] [address] 02/06/2025 12:45 PM CDT Appointment [facility] [address] [place] [address] John Cleary MD [facility]. [address] [place], [place] [address] 02/18/2025 11:30 AM CDT Office Visit [facility] [address] [place] [address] John Cleary MD [facility]. [facility] [address] [place] [address] 02/23/2025 9:00 AM CDT Office Visit [facility] Orthopedic Surgery [facility] [address] [facility] [address] [place], [place] [phone] [place] [address] [place], [place] [address] 04/03/2025 10:30 AM CDT [facility], [address] [place], [place] [address] Kathi Gant PA-C 3 [facility], [address] [place] [address] 04/27/2025 10:00 AM CDT Office Visit [facility] Family & Internal Medicine [facility] [address] [place] [address] [place] [address] [place], [place] [phone] 08/20/2025 11:00 AM IMMIGRATION LAWYER Office Visit [facility] Group Multispecialty Care - [facility] [address] [place] [address] Baljeet Chavez DO [address] [place] [address] documented as of this encounter Visit Diagnoses Not on filedocumented in this encounter Additional Health Concerns Infection Onset Date Last Indicated Resolved Time COVID-19 Rule Out 07/22/2024 07/22/2024 07/22/2024 8:48 AM CDT COVID-19 Rule Out 07/25/2024 07/25/2024 07/25/2024 9:25 PM CDT MRSA Comment:08/28/24 Left Toe (RR) 08/28/2024 08/28/2024 COVID-19 Rule Out 11/26/2024 11/26/2024 11/26/2024 6:06 AM IMMIGRATION LAWYER documented as of this encounter Care Teams Powder Expert Relationship Specialty Start Date End Date Yogesh Bazzi MD [address] [place] [address] PCP - General INTERNAL MEDICINE 12/06/17 07/02/19 Valentin Valentin MD [address] [place] [address] [place] [address] PCP - General INTERNAL MEDICINE 07/03/19 10/01/19 Dona Carmona DO [address] [place] [id number] PCP - General UNKNOWN PHYSICIAN SPECIALTY 10/02/19 06/10/20 La Erazo MD [address] [place] [address] [place] [address] PCP - General FAMILY PRACTICE 06/11/20 05/22/23 Sean Smith MD [address] [address] PCP - General FAMILY PRACTICE 05/23/23 11/12/23 [place] [address] [place] [address] PCP - General Physician Counter Server Medical 11/13/23 Deborah Haley MD Three [facility]. [address] [place] [address] [place] Orthophotography Technician CARDIOVASCULAR DISEASE 03/15/16 Andreas Alcantara MD [facility]. [facility] [address] [place] [address] Consulting Physician Internal Medicine Pulmonary Disease 10/14/18 [place] [address] [place] [address] Referring Physician VASCULAR SURGERY 09/09/24 09/09/25 documented as of this encounter
--- OUTSIDE RECORDS SUMMARY | 2025-02-04 08:27 | XMS_ITS | Encounter Summary ---
Author Organization [facility] Address [facility] [place] [address] Care Team Providers Care Privacy Compliance Manager Name Role Phone Deborah Haley MD Unavailable [phone] Andreas Alcantara MD Unavailable Orion Lomax Primary Care Provider [phone] John Cleary MD Unavailable Encounter Details Date Type Department Care Team (Late st Contact Info) Description 08/06/2024 TweepsMap Message Enc [facility], [facility] [address] [place] [address] Deborah Haley MD Three [facility]. [facility] [address] [place] [address] New Meds Request Social History Tobacco Use Types Packs/Day [...] from your doctor or pharmacy? Never 07/25/2024 [facility] Utilities Answer Date Recorded In the past 12 months has e [employer], gas, oil, or water company threatened to [...] How often do you attend chur or episcopalian services? More than 4 times per year 07/25/2024 Do you belong to any clubs o r organizations such as confucianism groups, unions, fraternal or athletic groups, or [...] Recorded Patient Health Questionnaire-2 Score 0 02/26/2024 [place] [place] of Occupat ional Health - Occupational Stress [...] place to sleep or slept in a long term (including now)? No 11/07/2023 Housing Stability Vital Sign Answer Nolan e Recorded In the last 12 months, was t here a time when you were not able to pay the mortgage or rent on time? No 07/25/2024 In the past 12 months, how m any times have you moved where you were living? 0 07/25/2024 At any time in the past 12 m onths, were you homeless or living in a long term (including now)? 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 [place] [address] 02/06/2025 12:45 PM CDT Appointment [facility] [address] [place] [address] John Cleary MD [facility]. [address] [place] [address] 02/18/2025 11:30 AM CDT Office Visit [facility] [address] [place] [phone] John Cleary MD [facility]. [facility] [address] [place], [place] [address] 02/23/2025 9:00 AM CDT Office Visit [facility] [place] [address] [facility] [address] [place], [place] [phone] [place] [address] [place], [place] [address] 04/03/2025 10:30 AM CDT Office Visit [facility], [address] [place] [address] Kathi Gant PA-C [address] [place] [address], [address] [place] [address] 04/27/2025 10:00 AM CDT Office Visit [facility] Family [facility] Internal [facility] - [place] [address] [place] [phone] [place] [address] [place], [place] [phone] 08/20/2025 11:00 AM CLAIM ANALYST Office Visit [facility] Care - [facility] [address] [facility], [address] [place] [phone] Baljeet Chavez, DO [facility] [address] [place], [place] [address] documented as of this encounter Goals Goal [...] Rule Out 11/26/2024 11/26/2024 11/26/2024 6:06 AM CLAIM ANALYST Assessment Noted Time PHQ-9 Depression Total Score: 3 02/26/20 24 10:46 AM CDT documented as of this encounter Care Teams Privacy Compliance Manager Relationship Specialty [place] [address] [place] [address] PCP - General Physician Inside Solar Sales Consultant Medical 11/13/23 Deborah Haley MD Three [facility]. [address] [place] [address] [place] See Supervisor CARDIOVASCULAR DISEASE 03/15/16 Andreas Alcantara MD Three [facility]. [address] [place] [address] Consulting Physician Internal Medicine Pulmonary Disease 10/14/18 [place] [address] [place] [address] Referring Physician VASCULAR SURGERY 09/09/24 09/09/25 documented as of this encounter
--- OUTSIDE RECORDS SUMMARY | 2025-02-04 08:27 | XMS_ITS | Referral Summary ---
Author Organization [facility] [address] Address [address] [place] [address] Care Team Providers Care Territory Account Manager Name Role Phone La Erazo MD Primary [...] clinic, monitor with IV antibiotics as above. Social History Tobacco Use Types Packs/Day Years [...] on file Legal Sex Male 2:40 AM SUPPLIES PACKER Gender Identity Not on file Sexual Orientation [...] 06/20/2022 12:43 PM CDT Plan of Treatment Not on file Procedures Procedure Name Priority Date/Time Associated Diagnosis Comments EGFR Timed 06/26/2022 6:16 AM CDT from Last 3 Months or Most Recently Relevant to Health Maintenance Results * eGFR (06/26/2022 6:16 AM CDT) eGFR 56 mL/min/1. 73 m2 MIKE [facility]TNO (ANETTE) Comment: Interpretive Data Reference Interval Normal [...] BLOOD ORDERABLE S Final Result [facility] (ANETTE) [facility] Department of Laboratories [place], [place] [id number] from Last 3 Months or Most Recently Relevant to Health Maintenance Insurance [employer] MEDICARE MEDICARE [facility] CLAIMS Advance Directives For more information, please contact: [phone] * Full Code (Latest Code Status on File) Date Activated Date Inactivated Comments 06/20/2022 11:27 PM 06/27/2022 3:17 PM * Full Code Date Activated Date Inactivated Comments 06/08/2022 3:43 PM 06/14/2022 3:35 PM Care Teams Territory Account Manager Relationship Specialty Start Date End Date La Erazo MD [address] [address] PCP - General 12/23/20
--- OUTSIDE RECORDS SUMMARY | 2025-02-04 08:27 | XMS_ITS | Encounter Summary ---
Author Organization [facility] Address [address] [facility] [place] [address] Care Team Providers Care Lean Facilitator Name Role Phone La Erazo MD Primary Care Provider [phone] Orion Pinzon PA-C Primary Care Provider [phone] Reason for Visit * Reason Onset Date Comments MEDICATION REFILL 12/26/2020 Encounter Details Date Type Department Care Team (Late st Contact Info) Description 12/26/2020 Refill [facility] [address] [place] [address] Mychart, Generic Provider MEDICATION REFILL Social History Tobacco Use Types Packs/Day Years Used Date Smoking Tobacco: Never Smokeless Tobacco: Never Alcohol Use Standard Drinks/Week Comments No 0 (1 standard drink = 0.6 oz pur e alcohol) RARELY Sex and Gender Information Value Date Recorded Sex Assigned at Not on file Legal Sex Male 5:16 PM AUDIO VIDEO REPAIRER Gender Identity Not on file Sexual Orientation Not on file documented as of this encounter Plan of Treatment Upcoming Encounters Date Type Department Care Team (Late st Contact Info) Description 02/17/2025 9:00 AM CDT Office Visit [facility] - Endocrinology [address] [place] [address], [facility] [place] [phone] Marce Demarco MD [address] [place] [address] [place] [phone] 04/27/2025 11:00 AM CDT [facility] [address] [place] [address], [place] [phone] 04/27/2025 11:30 AM CDT Office Visit [facility] - GI [address] [place] [phone] Frank Dela Cruz MD [address] [place] [address] 2L [place] [address] 05/22/2025 8:30 AM CDT Video Visit [facility] - Nephrology [address] [place] [phone] Keyla Contreras MD [address] [place] [address] 2L [place] [phone] documented as of this encounter Visit Diagnoses Not on filedocumented in this encounter Care Teams Lean Facilitator Relationship Specialty Start Date End Date La Erazo MD PCP - General Student Resident 03/19/20 12/20/23 Orion Pinzon, PAIanC [address] [place] [address] PCP - General Physician Protocol Manager 12/21/23 documented as of this encounter
--- OUTSIDE RECORDS SUMMARY | 2025-02-04 08:27 | XMS_ITS | Encounter Summary ---
Author Organization [facility] Address [facility] [place] [address] Care Team Providers Care Phlebotomist Supervisor/Instructor Name Role Phone Deborah Haley MD Unavailable [phone] Andreas Alcantara MD Unavailable Orion Lomax Primary Care Provider [phone] John Cleary MD Unavailable Encounter Details Date Type Department Care Team (Late st Contact Info) Description 06/02/2024 [employer] Message Enc [facility] Family & Internal Medicine [facility] [address] [place] [address] [facility], [facility] Provider Screening Social History Tobacco Use Types Packs/Day Years Used Date Smoking Tobacco: Never Smokeless Tobacco: Never Comments:na Alcohol Use Standard Drinks/Week Comments Yes 0 (1 standard drink = 0.6 oz pur e alcohol) rare [facility] Utilities Answer Date Recorded In the [...] How often do you attend chur or buddhist services? More than 4 times per year 11/07/2023 Do you belong to any clubs o r organizations such as jew groups, unions, fraternal or athletic groups, or [...] Recorded Patient Health Questionnaire-2 Score 0 02/26/2024 [facility] [place] of Occupat ional Health - Occupational Stress [...] money to buy more. 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 [place] [address] 02/06/2025 12:[address] [facility] Open MRI [address] [place] [address] John Cleary MD [facility] [address] [place] [address] 02/18/2025 11:30 AM CDT [facility] [address] [place] [phone] John Cleary MD [facility]. [facility] [address] [place] [address] 02/23/2025 9:00 AM CDT Office Visit [facility] Medical Group Orthopedic Surgery - [place] [address] [address] [facility] [address] [place], [place] [phone] [place] [address] [place] [address] 04/03/2025 10:30 AM CDT Office Visit [facility], [address] [place] [address] Kathi Gant PA-C [address] [facility], [address] [place] [address] 04/27/2025 10:00 AM CDT Office Visit [facility] - [place] [address] [place] [address] [place] [address] [place], [place] [phone] 08/20/2025 11:00 AM CREDIT VERIFICATION CLERK Office Visit [facility]ty Care - [facility] [address] [facility] [place] [phone] Baljeet Chavez DO 3 [facility] [address] [place] [address] documented as of this encounter Goals Goal [...] Rule Out 11/26/2024 11/26/2024 11/26/2024 6:06 AM CREDIT VERIFICATION CLERK Assessment Noted Time PHQ-9 Depression Total Score: 3 02/26/20 10:46 AM CDT documented as of this encounter Care Teams Phlebotomist Supervisor/Instructor Relationship Specialty [place] [address] [place] [address] PCP - General Physician Ammonia Box Tender Medical 11/13/23 Deborah Haley MD [facility]. [address] [address] [place] Labor Relations Supervisor CARDIOVASCULAR DISEASE 03/15/16 Andreas Alcantara MD [facility]. [address] [address] Consulting Physician Internal Medicine Pulmonary Disease 10/14/18 [place] [address] [place] [address] Referring Physician VASCULAR SURGERY 09/09/24 09/09/25 documented as of this encounter
--- OUTSIDE RECORDS SUMMARY | 2025-02-04 08:27 | XMS_ITS | Encounter Summary ---
Author Organization [facility] Address [facility] [place] [address] Care Team Providers Care El Teacher Name Role Phone Deborah Haley MD Unavailable [phone] Yogesh Bazzi MD Primary Care Provider [phone] Andreas Alcantara MD Unavailable Valentin Lee MD Primary Care Provider Dona Carmona DO Primary Care Provider [phone] La Erazo MD Primary Care Provider [phone] Sean Smith MD Primary Care Provider [phone] Orion Pinzon Primary Care Provider John Cleary MD Unavailable Encounter Details Date Type Department Care Team (Late st Contact Info) Description 10/17/2018 Pryv Message Enc [facility] [address] [place] [address] Deborah Haley MD [facility]. 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 IAGE COUNSELOR MINISTER * Vi Jackson - 10/18/2018 3:13 PM CST Spoke with patient, advised to have pre-testing done 3 days before procedure. I also told him we were working on his paperwork. IAGE COUNSELOR MINISTER * Kerline Rosales - 10/18/2018 12:38 PM CST Im so paula Antoine, but I do not see the completed parking placard. I will put another copy on your desk, and let you know immediately if it shows up. IAGE COUNSELOR MINISTER * Elina Begum NP - 10/17/2018 3:44 PM CST Pre-testing to be done 3 days prior to procedure. Thanks Levon, I dont see this scanned in anywhere. Do you have it? I can remember filling it out, would havereturned. Let me know. Thanks IAGE COUNSELOR MINISTER * Catherine Solomon RN - 10/17/2018 3:27 PM CST Elina-see note re. paperwork Vi-please let pt know when to have pre testing done thanks IAGE COUNSELOR MINISTER * Catherine Solomon RN - 10/17/2018 3:25 PM CST Please advise IAGE COUNSELOR MINISTER * Walter Gregg RN - 10/17/2018 3:18 PM CSTFrom: Vinh Goodrich To: Deborah Haley MD Sent: 10/17/2018 3:09 PM MARRIAGE COUNSELOR MINISTER Subject: Question I have received the lab orders and the request for an EKG in the mail. I am scheduled for the heartcath on October 28. When do you want me to get the lab work done at [facility] and the EKG? For Elina, did you receive my request for the disability parking plackard? My dropped it offat the office on 09/20/2018. Did the office mail it in? I have not received anything back in the mail. IAGE COUNSELOR MINISTER documented in this encounter Plan of Treatment Upcoming Encounters Date Type Department Care Team (Late st Contact Info) Description 02/05/2025 8:30 AM CDT Appointment [facility] Care [address] [place], [place] [phone] [place] [address] [facility] Suite [facility] [place], [place] [phone] 02/06/2025 12:45 PM CDT Appointment [facility] Open MRI [address] [facility] [place] [phone] John Cleary MD [facility]. [facility] [address] [place] [address] 02/18/2025 11:30 AM CDT Office Visit [facility] [address] [place] [phone] John Cleary MD [facility]. [address] [place] [address] 02/23/2025 9:00 AM CDT Office Visit [facility] [place] [address] [facility] [address] [place], [place] [phone] [place] [address] [place] [address] 04/03/2025 10:30 AM CDT Office Visit [facility], [address] [place] [address] Kathi Gant PA-C [address] [place] [address], [address] [place] [address] 04/27/2025 10:00 AM CDT Office Visit [facility] Medicine [facility] [address] [place] [address] [place] [address] [place] [address] 08/20/2025 11:00 AM MARRIAGE COUNSELOR MINISTER Office Visit [facility]ty Care - [facility] [address] [facility] [address] [place] [address] Baljeet Chavez DO 3 [facility] [address] [place] [address] documented as of this encounter Visit Diagnoses Not on filedocumented in this encounter Additional Health Concerns Infection Onset Date Last Indicated Resolved Time COVID-19 Rule Out 07/22/2024 07/22/2024 07/22/2024 8:48 AM CDT COVID-19 Rule Out 07/25/2024 07/25/2024 07/25/2024 9:25 PM CDT MRSA Comment:08/28/24 Left Toe (RR) 08/28/2024 08/28/2024 COVID-19 Rule Out 11/26/2024 11/26/2024 11/26/2024 6:06 AM MARRIAGE COUNSELOR MINISTER documented as of this encounter Care Teams El Teacher Relationship Specialty Start Date End Date Yogesh Bazzi MD [address] [phone] PCP - General INTERNAL MEDICINE 12/06/17 07/02/19 Valentin Valentin MD [address] [place] [address] PCP - General INTERNAL MEDICINE 07/03/19 10/01/19 Dona Carmona DO [address] [phone] PCP - General UNKNOWN PHYSICIAN SPECIALTY 10/02/19 06/10/20 La Erazo MD [address] [address] PCP - General FAMILY PRACTICE 06/11/20 05/22/23 Sean Smith MD [address] [phone] PCP - General FAMILY PRACTICE 05/23/23 11/12/23 [place] [address] [place] [address] PCP - General Physician Cutter Operator Medical 11/13/23 Deborah Haley MD [facility]. [address] [address] [employer] Equipment Installer CARDIOVASCULAR DISEASE 03/15/16 Andreas Alcantara MD [facility]. [address] [address] Consulting Physician Internal Medicine Pulmonary Disease 10/14/18 [place] [address] [place] [address] Referring Physician VASCULAR SURGERY 09/09/24 09/09/25 documented as of this encounter
--- OUTSIDE RECORDS SUMMARY | 2025-02-04 08:27 | XMS_ITS | Encounter Summary ---
Author Organization [facility] Address [address] [place] [address] Care Team Providers Care Bag Bundler Name Role Phone Deborah Haley MD Unavailable [phone] Yogesh Bazzi MD Primary Care Provider [phone] Andreas Alcantara MD Unavailable Valentin Lee MD Primary Care Provider [phone] Dona Carmona DO Primary Care Provider [phone] La Erazo MD Primary Care Provider [phone]- [phone] Sean Smith MD Primary Care Provider [phone] Orion Pinzon Primary Care Provider [phone] John Cleary MD Unavailable Encounter Details Date Type Department Care Team (Late st Contact Info) Description 09/23/2018 LegalFácil Message Enc ePAR DEPARTMENT [address] [place] [id number] [facility] Provider Medication clarification Social History Tobacco Use Types Packs/Day Years Used Date Smoking Tobacco: Never Smokeless Tobacco: Never Alcohol Use Standard Drinks/Week Comments Yes 0 (1 standard drink = 0.6 oz pur e alcohol) rare Sex and Gender Information Value Date Recorded Sex Assigned at Male 11/07/2023 6:03 PM HERPETOLOGIST Legal Sex Male 12:46 AM CDT Gender Identity Male 11/07/2023 6:03 PM HERPETOLOGIST Sexual Orientation Straight 11/07/2023 6: 03 PM HERPETOLOGIST 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 [place] [address] 02/06/2025 12:45 PM CDT Appointment [facility] Open MRI [address] [place] [address] John Cleary MD [facility]. [address] [place] [address] 02/18/2025 11:30 AM CDT [facility] [address] [place] [phone] John Cleary MD [facility]. [address] [place] [address] 02/23/2025 9:00 AM CDT Office Visit [facility] Orthopedic Surgery - [place] [address] [facility] [address] [place] [address] [place] [address] [place] [address] 04/03/2025 10:30 AM CDT Office [facility], [address] [place] [address] Kathi Gant PA-C [address] [facility], [address] [place] [address] 04/27/2025 10:00 AM CDT Office Visit [facility] Internal Medicine [facility] [address] [place] [address] [place] [address] [place], [place] [id number] 08/20/2025 11:00 AM HERPETOLOGIST Office Visit [facility] - [facility] [address] [facility] [place] [id number] Baljeet Chavez DO [address] [facility] [address] [place] [address] documented as of this encounter Visit Diagnoses Not on filedocumented in this encounter Additional Health Concerns Infection Onset Date Last Indicated Resolved Time COVID-19 Rule Out 07/22/2024 07/22/2024 07/22/2024 8:48 AM CDT COVID-19 Rule Out 07/25/2024 07/25/2024 07/25/2024 9:25 PM CDT MRSA Comment:08/28/24 Left Toe (RR) 08/28/2024 08/28/2024 COVID-19 Rule Out 11/26/2024 11/26/2024 11/26/2024 6:06 AM HERPETOLOGIST documented as of this encounter Care Teams Bag Bundler Relationship Specialty Start Date End Date Yogesh Bazzi MD Three [facility]. [address] [place] [address] PCP - General INTERNAL MEDICINE 12/06/17 07/02/19 Valentin Valentin MD [address] [place] [address] PCP - General INTERNAL MEDICINE 07/03/19 10/01/19 Dona Carmona DO [address] [address] PCP - General UNKNOWN PHYSICIAN SPECIALTY 10/02/19 06/10/20 La Erazo MD [address] [address] PCP - General FAMILY PRACTICE 06/11/20 05/22/23 Sean Smith MD [address] [address] PCP - General FAMILY PRACTICE 05/23/23 11/12/23 [place] [address] [place], [place] [id number] PCP - General Physician Morale Officer Medical 11/13/23 Deborah Haley MD [facility] [address] [place], [place] [phone] [place] Project Structural Engineer CARDIOVASCULAR DISEASE 03/15/16 Andreas Alcantara MD [facility] [address] [place] [address] Consulting Physician Internal Medicine Pulmonary Disease 10/14/18 [place] [address] [place], [place] [id number] Referring Physician VASCULAR SURGERY 09/09/24 09/09/25 documented as of this encounter
--- OUTSIDE RECORDS SUMMARY | 2025-02-04 08:27 | XMS_ITS | Clinical Summary ---
Author Organization [facility] Address [address] [place] [address] Care Team Providers Care Limousine Rental Clerk Name Role Phone Orion Pinzon PA-C Primary Care Provider Source Comments [facility],non-owned Affiliates and Associated Physician Practices is amultiple site organization consisting of ambulatory clinics and hospital sitesin [place], [place], [place] and [place]. This disclosure is being madepursuant to the Care Everywhere program and may not contain all information available regarding this patient. Last updated 18.[facility] Allergies Active Allergy Reactions Criticality Noted Date Comments Zolpidem Other 05/05/2021 Sleep walking: Daughter caught him in the middle of the night saying I need donuts . Sleep eating Metformin Rash Medium 11/13/2023 No Known Environmental Allergies Other Low 02/10/2013 None known. No Known Food Allergy Other Low 02/10/2013 None known. Sitagliptin-Metformin Hcl Itching,Rash Medium 02/26/20 13 Sitagliptin-Metformin Hcl Itching,Rash Medium 02/26/20 13 Medications * Be aware that medications may not be up to date on this document. Alwaysverify current medications with the patient. warfarin (COUMADIN) 10 MG tablet Take 10 mg by mouth DAILY. 30 tablet 3 10/30/19 18 Active Additional Information Patient taking differently:10 mg Oral DAILY,Take 10mg every evening except for take 5mg, Indications: 10mg 4 times a week 5mg 3 times a week, Reported on 08/14/2022 fluticasone propionate (FLONASE) 50 MCG/ACT nasal spray [place] 1 (one) spray into each nostril once daily as needed Active fenofibrate (LOFIBRA) 160 MG tablet Take 54 mg by mouth once daily Per pt taking 54mg Active cetirizine (ZYRTEC) 10 MG tablet Take 1 (one) tablet by mouth once daily as needed Active acetaminophen (TYLENOL) 500 MG tablet Take 1 (one) tablet by mouth every 6 hours as needed Active rOPINIRole (REQUIP) 0.5 MG tablet Take 4 (four) tablets by mouth at bedtime Active isosorbide mononitrate CR 24hr (IMDUR) 120 MG tablet Take 1 (one) tablet by mouth once daily Active gabapentin (NEURONTIN) 600 MG tablet Take 2 (two) tablets by mouth 3 times daily Take 2 tablets, tid Active torsemide (DEMADEX) 20 MG tablet Take 4 (four) tablets by mouth daily with breakfast Active Multiple Vitamin (MULTI VITAMIN PO) Take 1 tablet by mouth once daily Active cyclobenzaprine (FLEXERIL) 10 MG tablet Take 1 tablet by mouth at bedtime 90 tablet 2 02/13/20 19 Active polyethylene glycol 3350 (MIRALAX) powder Take 17 (seventeen) g by mouth once daily as needed for Constipation Active pantoprazole EC (PROTONIX) 20 MG tablet Take 1 (one) tablet by mouth once daily Active atorvastatin (LIPITOR) 40 MG tablet Take 1 (one) tablet by mouth at bedtime Active metoprolol tartrate (LOPRESSOR) 100 MG tablet Take 1 (one) tablet by mouth 2 times daily Active nitroGLYCERIN (NITROLINGUAL) 0.4 MG/SPRAY spray Dissolve 1 (one) spray under the tongue every 5 minutes as needed for Angina Active Ferrous Fumarate 325 (106 Fe) MG Take by mouth 2 times daily Active lidocaine (LIDODERM) 4 % patch Apply 1 (one) patch to skin as needed Active ciclopirox (LOPROX) 0.77 % cream 08/21/20 20 Active calcipotriene-b etamethasone dip (TACLONEX) 0.005-0.064 % ointment 11/02/19 21 Active ezetimibe (ZETIA) 10 MG tablet Take 1 (one) tablet by mouth once daily 09/17/20 20 Active melatonin 3 MG tablet Take 10 mg by mouth once daily as needed Active Continuous Blood Gluc Sensor (FreeStyle Adele 2 Sensor Systm) MISCIndications :Type 2 diabetes mellitus with diabetic peripheral angiopathy without gangrene, with long-term current use of insulin (HCC) Use 1 (one) Each every 14 days 6 Each 3 08/14/20 22 Active Continuous Blood Gluc Office Clin Asst (FreeStyle Adele 2 [place] Systm) DEVIIndications :Type 2 diabetes mellitus with diabetic peripheral angiopathy without gangrene, with long-term current use of insulin (HCC) Use 1 Each as directed 1 Each 08/14/20 22 Active escitalopram (Lexapro) 10 MG tablet Take 1 (one) tablet by mouth once daily Active traMADol (Ultram) 50 MG tablet Take 1 (one) tablet by mouth every 6 hours as needed for Pain Active ramelteon (Rozerem) 8 MG tablet Take 1 (one) tablet by mouth nightly as needed for Insomnia Active potassium chloride ER (Micro-K) 10 MEQ capsule Take 1 (one) capsule by mouth once daily 90 capsule 3 05/02/20 24 Active allopurinol (Zyloprim) 300 MG tablet Take 1 (one) tablet by mouth once daily 90 tablet 3 05/04/20 24 Active ergocalciferol (Drisdol) 1.25 MG (66072 UT) capsule Take 1 (one) capsule by mouth every 7 days 4 capsule 08/15/20 24 Active ondansetron (Zofran) 4 MG tablet Take 1 (one) tablet by mouth every 8 hours as needed 07/22/20 24 Active ranolazine ER 12hr (Ranexa) 500 MG tablet Take 1 (one) tablet by mouth 2 times daily 08/06/20 24 Active lisinopril (Prinivil; Zestril) 5 MG tablet Take 1 (one) tablet by mouth once daily 08/06/20 24 Active metoprolol succinate XL 24hr (Toprol XL) 50 MG tablet Take 1 (one) tablet by mouth once daily 05/01/20 24 Active tamsulosin (Flomax) 0.4 MG capsule TAKE 1 CAPSULE(0.4 MG) BY MOUTH EVERY NIGHT 05/01/20 24 Active clopidogrel (plaVIX) 75 MG tablet Take 1 (one) tablet by mouth once daily 05/01/20 24 Active diclofenac sodium (Voltaren) 1 % gel Apply 2 (two) g to affected area 4 times daily 06/30/20 24 Active doxycycline hyclate (Vibramycin) 100 MG capsule Take 1 (one) capsule by mouth every 12 hours Active dulaglutide (Trulicity) 4.5 MG/0.5ML injectionIndica tions:Type 2 diabetes mellitus with diabetic peripheral angiopathy without gangrene, with long-term current use of insulin ([facility]) Inject 4.5 (four and one-half) mg subcutaneously every 7 days 6 mL 3 09/23/20 24 Active empagliflozin (Jardiance) 25 MG tabletIndicatio ns:Type 2 diabetes mellitus with diabetic peripheral angiopathy without gangrene, with long-term current use of insulin ([facility]) Take 1 (one) tablet by mouth once daily 90 tablet 3 09/23/20 24 Active insulin aspart (NovoLOG) pen Inject 8 (eight) Units to 12 (twelve) Units subcutaneously 3 times daily before meals 8U if glucose over 200, 10u if over 300, 12U if over 350, daily max 36U 30 mL 5 09/23/20 24 Active insulin glargine (Lantus/Semglee ) 100 units/ml injectionIndica tions:Type 2 diabetes mellitus with complication, with long-term current use of insulin ([facility]) Inject 32 (thirty two) Units subcutaneously 2 times daily 90 mL 3 09/23/20 24 Active Insulin Pen Needle (BD Pen Needle Trinity 2nd Gen) 32G X 4 MM MISCIndications :Type 2 diabetes mellitus with diabetic peripheral angiopathy without gangrene, with long-term current use of insulin ([facility]) Use 1 Each 4 times daily 200 Each 11 09/23/20 24 Active insulin syringe-needle (Bd Ultrafine Ii) 31G X 5/16 0.5 ML syringeIndicati ons:Type 2 diabetes mellitus with diabetic peripheral angiopathy without gangrene, with long-term current use of insulin ([facility]) 1 (one) Each 2 times daily 200 Each 3 09/23/20 24 Active Glucagon (Gvoke HypoPen 2-Pack) 1 MG/0.2ML SOAJ Inject 1 mg subcutaneously as directed For severe hypoglycemia 0.4 mL 1 09/23/20 24 Active paricalcitol (Zemplar) 1 MCG capsule Take 1 (one) capsule by mouth every Sunday & 30 capsule 01/30/20 25 Active paricalcitol (Zemplar) 1 MCG capsule Take 1 (one) capsule by mouth every Sunday & 30 capsule 08/18/20 24 025 Discontin ued(Reord er) Active Problems Problem Noted Date Diagnosed Date CHF (congestive heart failure) 04/11/2021 Venous insufficiency 12/31/2018 PAD (peripheral artery disease) 12/31/2018 Pulmonary embolism 02/18/2018 Overview (02/18/2018): 10/26/17 after stopping coumadin x 8 weeks. 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 Follows with Dr. Delfina GERARDO (metabolic dysfunction associated steatohepatitis, previously known as MILLER) 10/26/2017 Overview (04/28/2024): 12/28/04 liver biopsy: MILLER, Stage 3 fibrosis 08/29/11 liver biopsy: MILLER, focal bridging, stage 3 fibrosis 08/01/16 liver biopsy: Mild steatosis, stage 2 fibrosis, routed to PCP 04/11/21 Fibroscan CAP 400, LSM 33.4 kPa dwp 01/13/22 Fibroscan technically not possible 04/30/23 Fibroscan CAP 299, LSM 10.8 kPa but variable readings 04/28/24: Fibroscan: CAP 355, LSM 9.1 kPa Type 2 diabetes mellitus 10/26/2017 Colon adenoma 08/08/2016 Overview (04/28/2024): 08/01/16 colonoscopy: 3 mm adenoma removed from the cecum. Repeat deferred due comorbidities. 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 Follows with Dr. Mathis Hemorrhoids 06/10/2012 DISH (diffuse idiopathic skeletal hyperostosis) 06/10/2012 Overview (02/17/2018): Overview: Causes significant msk pain. Gets injections in low back. Encounters Date Type Department Care Team Description 01/26/2025 Refill [facility] - Nephrology [address] [place] [phone] Keyla Contreras MD MEDICATION REFILL 12/01/2024 Orders Only [facility] - Nephrology [address] [place] [phone] Keyla Contreras MD Stage 3 chronic kidney disease, unspecified whether stage 3a or 3b CKD ; Primary hypertension; Chronic kidney disease-mineral and bone disorder; Hyperuricemia 11/21/2024 8:30 AM RECEIVING CLERK Office Visit [facility] - Nephrology [address] [place] [phone] Keyla Contreras MD Stage 3 chronic kidney disease, unspecified whether stage 3a or 3b CKD (Primary Dx); Primary hypertension; Vitamin D deficiency; Hyperuricemia; Microhematuria 11/21/2024 Travel from Last 3 Months Immunizations Immunization Administration Dates Next Due Covid Moderna primary monova lent 12+ yr 0.5mL 12/10/2020,11/15/2020 FLU VACCINE QUAD IIV4 SPLIT 0.25 ML IM 07/17/2016 HEP A/HEP B 05/08/2007, 7,10/18/2006,2006,03/15/2006,10/15/2005 INFLUENZA VACCINE 07/06/2021, 9,10/05/2018,2017 INFLUENZA VACCINE, CELL CULT URE, QUADR. (FLUCELVAX QUADRIVALENT; 6MO+) (CCIIV4) 07/18/2017 INFLUENZA VACCINE, HIGH-DOSE , QUADR. (FLUZONE HIGH-DOSE QUADRIVALENT; 65Y+), 0.7 ML (HD-IIV4) 06/17/2020 INFLUENZA VACCINE, QUADR. (F LUZONE; FLULAVAL; FLUARIX; AFLURIA QUADRIVALENT; 6MO+), 0.5 ML (IIV4) 09/05/2019,08/14/2018,08/04/2015 PNEUMOCOCCAL PPSV23 11/05/2009,02/20/2002 TDAP (7yrs+) 08/04/2015 Td (Adult), 2 Lf Tetanus Tox oid, Adsorbed, Pf 02/20/2002 ZOSTER VACCINE, LIVE 11/24/2015 Family History Medical History Relation Name Comments Diabetes Brother 1 Patrick Prediabetes Blood Clots Brother 2 Sridhar leg Diabetes - Type 2 Brother 2 Sridhar Diabetes - Type 2 Brother 3 Mark ALS - Amyotrophic Lateral Sclerosis Father 65 None Known Maternal Grandfather None Known Maternal Grandmother Heart Disease Mother Status: Alive Hypertension Mother None Known Other None Known Paternal Grandfather None Known Paternal Grandmother Diabetes - Type 2 Sister Zulema Obesity Sister Zulema Status: Alive Alcohol abuse Neg Hx Asthma Neg Hx Dementia Neg Hx Depression Neg Hx Drug Abuse Neg Hx Glaucoma Neg Hx Gout Neg Hx Leukemia Neg Hx Migraine Neg Hx Multiple Sclerosis Neg Hx Osteoporosis Neg Hx Other Neg Hx Thyroid Disease Neg Hx Relation Name Status Comments Brother 1 Patrick Alive Brother 2 Sridhar Alive Brother 3 Mark Alive Father 65 Maternal Grandfather Maternal Grandmother Mother Alive Other Paternal Grandfather Paternal Grandmother Sister Zulema Alive Social History Tobacco Use Types Packs/Day Years Used Date Smoking Tobacco: Never Smokeless Tobacco: Never Tobacco Cessation:Counseling Given: Not Answered Alcohol Use Standard Drinks/Week Comments Yes 0 (1 standard drink = 0.6 oz pur e alcohol) RARELY; 3 beers this year Sex and Gender Information Value Date Recorded Sex Assigned at Not on file Legal Sex Male 5:16 PM RECEIVING CLERK Gender Identity Not on file Sexual Orientation Not on file Occupation Industry Job Start Date Job End 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 Not on file 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 Not on file Not on file Last Filed Vital Signs Vital Sign Reading Time Taken Comments Blood Pressure 135/55 11/21/2024 8:37 AM RECEIVING CLERK Pulse 73 11/21/2024 8:37 AM RECEIVING CLERK Temperature 36.6 C (97.9 F) 11/21/2024 8:37 AM RECEIVING CLERK Respiratory Rate 20 11/21/2024 8:37 AM RECEIVING CLERK Oxygen Saturation 97% 11/21/2024 8:37 AM RECEIVING CLERK Inhaled Oxygen Concentration - - Weight 145.2 kg (320 lb) 09/23/2024 8:45 AM RECEIVING CLERK Height 180.3 cm (5' 11 ) 09/23/2024 8:45 AM RECEIVING CLERK Body Mass Index 44.63 09/23/2024 8:45 AM RECEIVING CLERK Plan of Treatment Upcoming Encounters Date Type Department Care Team (Late st Contact Info) Description 02/17/2025 9:00 AM CDT Office Visit [facility] - Endocrinology [address] [place] [phone] Marce Demarco MD [address] [place] [address] 2L [place] [phone] 04/27/2025 11:00 AM CDT Procedure visit [facility] - GI [address] [place] [phone] 04/27/2025 11:30 AM CDT Office Visit [facility] - GI [address] [place] [phone] Frank Dela Cruz MD [address] [place] [address] 2L [place] [address] 05/22/2025 8:30 AM CDT Video Visit [facility] - Nephrology [address] [place] [address], [place] [phone] Keyla Contreras MD [facility] [address]L [place] [phone] Health Maintenance Due Date Last Done Comments COLOGUARD (AGES 45-75) - COLON CA SCREENING 1954 COLON MONITORING 1954 COLONOSCOPY - COLON CA SCREENING 1954 CT COLONOGRAPHY - COLON CA SCREENING 1954 Colorectal Cancer Screening 1954 FIT - COLON CA SCREENING 1954 FLEX SIG - COLON CA SCREENING 1954 MEDICARE AWV 12 MONTHS 1954 Opioid Medication Agreement - Annual 1954 HEPATITIS C SCREENING 12/24/1972 PNEUMOCOCCAL VACCINE 50+ (2 of 2 - PCV) 11/05/2010 11/05/2009, 02/20/2002 Respiratory Syncytial Virus (RSV) Vaccine Pt: or over 60 yrs (1 - Risk 60-74 years 1-dose series) 2014 ZOSTER VACCINE (2 of 3) 01/19/2016 11/24/2015 DIABETES RETINOPATHY SCREENING 01/14/2018 DIABETES-FOOT EXAM WITH MONOFILAMENT 08/14/2023 08/14/2022, 12/21/2020, 08/07/2019, Additional history exists DEPRESSION SCREENING 10/15/2024 DIABETES - URINE PROTEIN SCREENING 10/15/2024 07/22/2019, 03/18/2019, 10/04/2018 COVID-19 VACCINE ( season) 2025 07/15/2024, 10/11/2023, 08/19/2021, Additional history exists DIABETES-HGB A1C 03/24/2025 09/23/2024, 09/2024, 04/25/2024, Additional history exists INFLUENZA VACCINE (Season Ended) 2025 09/30/2023, 09/12/2022, 07/06/2021, Additional history exists DTAP/TDAP/TD VACCINES (2 - Td or Tdap) 08/04/2025 08/04/2015, 02/20/2002 DIABETES-SERUM CREATININE 11/26/20252024, 11/26/2024, 10/30/2024, Additional history exists HEPATITIS B VACCINE Completed 05/08/2007, 11/28/2006, 10/18/2006, Additional history exists HIB VACCINE Aged Out No longer eligi ble based on patient's age to complete this topic HPV VACCINE Aged Out No longer eligi ble based on patient's age to complete this topic MENINGOCOCCAL (Group B) VACCINE SHARED DECISION-MAKING Aged Out No longer eligible based on patient's age to complete this topic MENINGOCOCCAL GROUPS A/C/Y/W VACCINE Aged Out No longer eligible based on patient's age to complete this topic Goals Goal Patient Goal Type Associated Problems Recent Progress Patient-Stated? Author Medication Management General On track( 024 10:40 AM CDT) Vinh Vazquez, RN Note: Expected end date: Interventions: Take all medications as prescribed Let your doctor know right away about any changes in your medications Make sure to request a refill of your medication at least one week prior to your last dose Procedures Procedure Name Priority Date/Time Associated Diagnosis Comments HEMOGLOBIN A1C - POINT OF CARE (AMB) [facility] Routine 09/23/2024 8:51 AM RECEIVING CLERK Type 2 diabetes mellitus with diabetic peripheral angiopathy without gangrene, with long-term current use of insulin RENAL FUNCTION PANEL Routine 02/29/2024 9:35 AM CDT Stage 3 chronic kidney disease, unspecified whether stage 3a or 3b CKD Primary hypertension Vitamin D deficiency Albuminuria Anemia associated with stage 3 chronic renal failure MICROALB/CREAT RATIO URINE (EXTERNAL RESULT ENTRY) Routine 10/04/2018 from Last 3 Months or Most Recently Relevant to Health Maintenance Results * HEMOGLOBIN A1C - POINT OF CARE (AMB) [facility] (09/23/2024 8:51 AM RECEIVING CLERK) Hemoglobin A1c POCT 6.9 % [facility] [address] BLOOD SPECIMEN / Unknown 09/23/2024 8:51 AM RECEIVING CLERK us Marce Demarco MD LAB - POINT OF CARE ORDERABLES F inal Result [address], [address] [place] [address], [facility] [phone] * (ABNORMAL) RENAL FUNCTION PANEL (02/29/2024 9:35 AM [facility]) BUN 19 7 - 26 mg/dL 02/29/2024 10:[address] [facility] Creatinine 1.52(H) 0.71 - 1.16 mg/dL 02/29/2024 10:[address] [facility] Sodium 141 136 - 145 mmol/L 02/29/2024 10:[address] [facility] Potassium 3.8 3.5 - 4.5 mmol/L 02/29/2024 10:[address] [facility] Chloride 100 98 - 107 mmol/L 02/29/2024 10:[address] [facility] CO2 31(H) 22 - 29 mmol/L 02/29/2024 10:[address] [facility] Glucose 150(H) 70 - 115 mg/dL 02/29/2024 10:[address] [facility] Albumin 3.2(L) 3.4 - 5.0 g/dL 02/29/2024 10:[address] [facility] Calcium 10.0 8.4 - 10.2 mg/dL 02/29/2024 10:[address] [facility] Phosphorus 2.9 2.8 - 5.1 mg/dL 02/29/2024 10:[address] [facility] Anion Gap 10 6 - 16 02/29/2024 10:[address] [facility] BUN/Creatinine Ratio 13 7 - 23 02/29/2024 10:[address] [facility] Osmolality Calculated 297(H) 275 - 295 mOsm/kg 02/29/2024 10:[address] [facility] eGFR by CKD-EPI 49(L) >=90 mL/min/1.7 3 m2 02/29/2024 10:39 AM CDT [facility] Blood BLOOD SPECIMEN / Unknown Lab Venipuncture / Unknown 02/29/2024 9:35 AM CDT 02/29/2024 10:04 AM CDT Keyla Contreras MD LAB - CHEMISTRY ORDERABLES Fin al Result [facility] [address] [place] [address], [facility] [phone] * (ABNORMAL) MICROALB/CREAT RATIO URINE (EXTERNAL RESULT ENTRY) (10/04/2018) Microalb/Creat Ratio (EXTERNAL RESULT) 65.2(A) 0 - 30.0 mg/g Urine URINE / Unknown 10/04/2018 Historical Provider LAB - URINE CHEMISTRY ORD ERABLES Final Result from Last 3 Months or Most Recently Relevant to Health Maintenance [place] [address] MEDICARE [facility] Care Teams Limousine Rental Clerk Relationship Specialty Start Date End Date Orion Pinzon PAIanC [id number] [place], [place] [phone] PCP - General Physician Speaker Mounter 12/21/23
--- OUTSIDE RECORDS SUMMARY | 2025-02-04 08:27 | XMS_ITS | Encounter Summary ---
Author Organization [facility] Address [address] [place] [address] Care Team Providers Care Vehicle Leasing And Rental Manager Name Role Phone Yogesh Bazzi MD Primary Care Provider [phone] La Erazo MD Primary Care Provider [phone] Orion Pinzon PA-C Primary Care Provider [phone] Reason for Visit * Reason Onset Date Comments MEDICATION REFILL 02/02/2020 Encounter Details Date Type Department Care Team (Late st Contact Info) Description 02/02/2020 Refill [facility], Diabetes and Met[facility] [address] [place] [address] Ramesh Coyle MD [address] [place] [address] MEDICATION REFILL Social History Tobacco Use Types Packs/Day Years Used Date Smoking Tobacco: Never Smokeless Tobacco: Never Alcohol Use Standard Drinks/Week Comments No 0 (1 standard drink = 0.6 oz pur e alcohol) RARELY Sex and Gender Information Value Date Recorded Sex Assigned at Not on file Legal Sex Male 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 Unable to assess 01/29/2020 2:24 PM CDT documented as of this encounter Plan of Treatment Upcoming Encounters Date Type Department Care Team (Late st Contact Info) Description 02/17/2025 9:00 AM CDT Office Visit [facility] - Endocrinology [address] [place] [address], [place] [phone] Marce Demarco MD [address] [place] [address] 2[address] [place] [address] 04/27/2025 11:00 AM CDT Procedure visit [facility] - GI [address] [place] [address], [place] [phone] 04/27/2025 11:30 AM CDT [facility] [address] [place] [address], [place] [phone] Frank Dela Cruz MD [address] [place] [address] 2[address] [place] [address] 05/22/2025 8:30 AM CDT Video Visit [facility] - Nephrology [address] [place] [address], [place] [phone] Keyla Contreras MD [address] [place] [address] [address] [place] [phone] documented as of this encounter Visit Diagnoses Not on filedocumented in this encounter Care Teams Vehicle Leasing And Rental Manager Relationship Specialty Start Date End Date Yogesh Bazzi MD [address] [place] [address] PCP - General 11/20/17 03/18/20 La Erazo MD [address] [place] [address] PCP - General Student Resident 03/19/20 12/20/23 Orion Pinzon, PA-C [phone] [place] [address] PCP - General Physician Slope Hoist Operator 12/21/23 documented as of this encounter
--- OUTSIDE RECORDS SUMMARY | 2025-02-04 08:27 | XMS_ITS | Encounter Summary ---
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 [facility] [address] [place] [id number] Scanned, Documents Social History Tobacco Use Types Packs/Day Years Used Date Smoking Tobacco: Never Smokeless Tobacco: Never Alcohol Use Standard Drinks/Week Comments Yes 0 (1 standard drink = 0.6 oz pur e alcohol) rare Sex and Gender Information Value Date Recorded Sex Assigned at Male 11/07/2023 6:03 PM GAMING HOST Legal Sex Male 12:46 AM CDT Gender Identity Male 11/07/2023 6:03 PM GAMING HOST Sexual Orientation Straight 11/07/2023 6: 03 PM GAMING HOST 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 Answer Date of Assessment Author Status No 10/02/2019 3:21 PM GAMING HOST Activ e * Do you have serious [...] Info) Description 02/05/2025 8:30 AM CDT Appointment [facility] [address] [place] [address] Gillina Jameson, HOME HOUSEKEEPER [address] [facility] [address] [place] [address] 02/06/2025 12:45 PM CDT Appointment [facility] [address] [place], [place] [id number] John Cleary MD [facility] [address] [place] [address] 02/18/2025 11:30 AM CDT Office Visit [facility] [address] [place] [phone] John Cleary MD [facility]. [facility] [address] [place], [place] [address] 02/23/2025 9:00 AM CDT Office Visit [facility] [place] [address] [facility] [address] [place], [place] [id number] [place] [address] [place] [address] 04/03/2025 10:30 AM CDT Office Visit [facility], [address] [place] [address] Kathi Gant PA-C [address] [place] [address], [address] [place] [address] 04/27/2025 10:00 AM CDT Office Visit [facility] [place] [address] [place] [address] [place] [address] [place], [place] [id number] 08/20/2025 11:00 AM GAMING HOST Office Visit [facility] - [address] [place] [phone] Baljeet Chavez DO [address] [facility] [address] [place] [address] documented as of this encounter Visit Diagnoses Not on filedocumented in this encounter Additional Health Concerns Infection Onset Date Last Indicated Resolved Time COVID-19 Rule Out 07/22/2024 07/22/2024 07/22/2024 8:48 AM CDT COVID-19 Rule Out 07/25/2024 07/25/2024 07/25/2024 9:25 PM CDT MRSA Comment:08/28/24 Left Toe (RR) 08/28/2024 08/28/2024 COVID-19 Rule Out 11/26/2024 11/26/2024 11/26/2024 6:06 AM GAMING HOST documented as of this encounter Care Teams Ship Pilot Relationship Specialty Start Date End Date Dona Carmona DO [address] [address] PCP - General UNKNOWN PHYSICIAN SPECIALTY 10/02/19 06/10/20 La Erazo MD [address] [place] [address] PCP - General FAMILY PRACTICE 06/11/20 05/22/23 Sean Smith MD [address] [address] PCP - General FAMILY PRACTICE 05/23/23 11/12/23 [place] [address] [place] [address] PCP - General Physician [employer] [facility] 11/13/23 Deborah Haley MD [facility] [address] [place] [address] [place] [employer] Analyst CARDIOVASCULAR DISEASE 03/15/16 Andreas Alcantara MD [facility] [address] [place] [address] Consulting Physician Internal Medicine Pulmonary Disease 10/14/18 [place] [address] [facility] [place] [address] Referring Physician VASCULAR SURGERY 09/09/24 09/09/25 documented as of this encounter
--- OUTSIDE RECORDS SUMMARY | 2025-02-04 08:28 | XMS_ITS | Clinical Summary ---
Author Organization [facility] Address Formerly [facility], later [facility] [place] [address] Care Team Providers Care Car Shifter Name Role Phone Deborah Haley MD Unavailable [phone] Andreas Alcantara MD Unavailable Orion Lomax Primary Care Provider [phone] John Cleary MD Unavailable Allergies Active Allergy Reactions Criticality Noted Date Comments Empagliflozin Nausea and Vomiting 01/26/2025 Metformin Rash Medium 11/13/2023 Pregabalin GI Upset Medium 11/16/2023 Sitaglip Phos-Metformin Hcl Er Rash,Itching Low 08/30/2016 Sitagliptin Phos-Metformin Hcl Hives,Rash High 05/07/2013 Zolpidem Other (see comment) 05/05/2021 Sleep walking: Daughter caught him in the middle of the night saying I need donuts . Sleep eating Medications COMPRESSION STOCKINGSIndicati ons:Lower leg edema 15-20 mm Hg compression knee highs 2 Container 1 020 Active Dulaglutide (TRULICITY) 4.5 MG/0.5ML Solution Pen-injector Inject 4.5 mg into the skin once a week. On Sundays 021 Active paricalcitol (ZEMPLAR) 1 MCG capsule Take 1 capsule (1 mcg total) by mouth 2 (two) times a week. Every Sunday and 023 Active lidocaine 4 % patch Place 1 patch onto the skin daily. Remove & Discard patch within 12 hours or as directed by 30 patch 024 Active potassium chloride CR (MICRO-K) 10 MEQ CR capsule Take 1 capsule (10 mEq total) by mouth daily. 024 Active warfarin (COUMADIN) 5 MG tablet 1.5 tablets 6 days and one tablet the other day. 135 tablet 3 024 Active atorvastatin (LIPITOR) 40 MG tablet Take 1 tablet (40 mg total) by mouth nightly at bedtime. 90 tablet 024 Active Melatonin 10 MG CapIndications:[place] pain of left shoulder,Wheezing ,Shortness of breath,Polyneurop athy,Chronic bilateral low back pain without sciatica,Anxiety Take 10 mg by mouth nightly. 30 capsule 1 024 Active Glucagon (GVOKE HYPOPEN 2-PACK) 1 MG/0.2ML Solution Auto-injector Inject 1 mg into the skin. 024 Active pantoprazole EC (PROTONIX) 20 MG tablet Take 1 tablet (20 mg total) by mouth daily. 90 tablet 025 Active SURE COMFORT PEN NEEDLES 31G X 8 MM MiscIndications:T ype 2 diabetes mellitus with stage 3a chronic kidney disease, with long-term current use of insulin ([facility] HHS/HCC) Inject 1 each into the skin daily as needed. 100 each 5 025 Active BD PEN NEEDLE CARLOS 2ND GEN 32G X 4 MM MiscIndications:T ype 2 diabetes mellitus with stage 3a chronic kidney disease, with long-term current use of insulin ([facility] HHS/HCC) Inject 1 each into the skin 5 (five) times daily. 500 each 3 025 2024 Active allopurinol (ZYLOPRIM) 300 MG tabletIndications :Chronic gout without tophus, unspecified cause, unspecified site Take 1 tablet (300 mg total) by mouth daily. 30 tablet 025 Active diclofenac sodium (VOLTAREN) 1 % gelIndications:[place] pain of left shoulder Apply 2 g topically 4 (four) times daily. 100 g 3 025 Active vitamin D2, ergocalciferol, (DRISDOL) 1.25 mg capsuleIndication s:Anemia, unspecified type Take 1 capsule (1.25 mg total) by mouth every 7 days. 12 capsule 3 2024 Active BD INSULIN SYRINGE U/F 31G X 5/16 1 ML MiscIndications:T ype 2 diabetes mellitus with stage 3a chronic kidney disease, with long-term current use of insulin ([facility]) Inject 1 each into the skin 5 (five) times daily. 500 each 2024 Active insulin aspart (NOVOLOG) 100 UNIT/ML injection (PEN)Indications: Type 2 diabetes mellitus with stage 3a chronic kidney disease, with long-term current use of insulin ([facility]) Inject 10-20 Units into the skin 3 (three) times daily before meals. 6 Pen 3 Active insulin glargine (LANTUS) 100 UNIT/ML injection (VIAL)Indications :Type 2 diabetes mellitus with stage 3a chronic kidney disease, with long-term current use of insulin ([facility]) Inject 42 Units into the skin 2 (two) times daily. 80 mL 3 2025 Active lisinopril (PRINIVIL) 5 MG tablet Take 1 tablet (5 mg total) by mouth daily. 90 tablet 3 Active ondansetron (ZOFRAN-ODT) 4 MG disintegrating tablet Take 1 tablet (4 mg total) by mouth every 8 (eight) hours as needed for Nausea. 30 tablet Active aspirin EC (ECOTRIN) 81 MG tablet Take 1 tablet (81 mg total) by mouth every other day. 30 tablet 1 025 Active torsemide (DEMADEX) 20 MG tablet TAKE 4 TABLETS(80 MG) BY MOUTH DAILY 120 tablet 3 Active clobetasol (TEMOVATE) 0.05 % cream Apply topically 2 (two) times daily. Active rOPINIRole (REQUIP) 2 MG tabletIndications :Restless leg syndrome Take 1 tablet (2 mg total) by mouth nightly at bedtime. 90 tablet Active albuterol sulfate HFA 108 (90 Base) MCG/ACT inhalerIndication s:Wheezing,Shortn ess of breath INHALE 1 PUFF BY MOUTH FOUR TIMES DAILY NEEDED FOR SHORTNESS OF BREATH OR WHEEZING 18 g 1 025 Active fluticasone propionate (FLONASE) 50 MCG/ACT nasal sprayIndications: Wheezing,Shortnes s of breath 1 spray by Nasal route daily as needed. 18.2 mL 1 Active gabapentin (NEURONTIN) 600 MG tabletIndications :Polyneuropathy Take 2 tablets (1,200 mg total) by mouth 2 (two) times daily. 120 tablet 1 Active cetirizine (ZYRTEC) 10 MG tabletIndications :Wheezing,Shortne ss of breath,Polyneurop athy,Acute pain of left shoulder,Chronic bilateral low back pain without sciatica,Anxiety Take 1 tablet (10 mg total) by mouth daily. 15 tablet 1 Active cyclobenzaprine (FLEXERIL) 10 MG tabletIndications :Chronic bilateral low back pain without sciatica Take 1 tablet (10 mg total) by mouth nightly. 90 tablet 1 Active escitalopram (LEXAPRO) 20 MG tabletIndications :Anxiety Take 1 tablet (20 mg total) by mouth daily. 90 tablet 025 2024 Active HYDROcodone-aceta minophen (NORCO) 10-325 MG tabletIndications :Chronic Pain Take 1 tablet by mouth every 8 (eight) hours as needed for Pain. Indications: Chronic Pain 90 tablet 025 2024 Active nitroglycerin (NITROLINGUAL) 0.4 MG/SPRAY spray Place 1 spray (0.4 mg total) under the tongue every 5 (five) minutes as needed for Chest Pain (It taking 3rd dose, contact 911.). 12 g 025 Active metoprolol succinate ER (TOPROL-XL) 50 MG 24 hr tablet Take 1 tablet (50 mg total) by mouth daily. 90 tablet 1 025 Active ezetimibe (ZETIA) 10 MG tablet Take 1 tablet (10 mg total) by mouth daily. 90 tablet 1 025 Active fenofibrate (TRICOR) 54 MG tablet Take 1 tablet (54 mg total) by mouth daily with breakfast. 90 tablet 1 025 Active tamsulosin (FLOMAX) 0.4 MG CapIndications:BP H without urinary obstruction Take 1 capsule (0.4 mg total) by mouth nightly. 90 capsule 1 025 Active isosorbide mononitrate ER (IMDUR) 60 MG 24 hr tablet Take 1 tablet (60 mg total) by mouth daily. 90 tablet 1 025 Active ranolazine ER (RANEXA) 500 MG 12 hr tablet Take 1 tablet (500 mg total) by mouth 2 (two) times daily. 180 tablet 1 025 Active rOPINIRole (REQUIP) 2 MG tabletIndications :Restless leg syndrome Take 1 tablet (2 mg total) by mouth nightly at bedtime. 90 tablet 3 024 2024 Discontinued(R eorder) albuterol sulfate HFA 108 (90 Base) MCG/ACT inhalerIndication s:Wheezing,Shortn ess of breath INHALE 1 PUFF BY MOUTH FOUR TIMES DAILY NEEDED FOR SHORTNESS OF BREATH OR WHEEZING 18 g 11 024 2024 Discontinued(R eorder) nitroglycerin (NITROLINGUAL) 0.4 MG/SPRAY spray Place 1 spray (0.4 mg total) under the tongue every 5 (five) minutes as needed for Chest Pain (It taking 3rd dose, contact 911.). 12 g 024 2024 Discontinued(R eorder) fluticasone propionate (FLONASE) 50 MCG/ACT nasal sprayIndications: Wheezing,Shortnes s of breath 1 spray by Nasal route daily as needed. 18.2 mL 11 024 2024 Discontinued(R eorder) torsemide (DEMADEX) 20 MG tablet Take 4 tablets (80 mg total) by mouth daily. 120 tablet 3 024 2024 Discontinued gabapentin (NEURONTIN) 600 MG tabletIndications :Polyneuropathy Take 2 tablets (1,200 mg total) by mouth 2 (two) times daily. 120 tablet 1 025 2024 Discontinued(R eorder) metoprolol succinate ER (TOPROL-XL) 50 MG 24 hr tablet Take 1 tablet (50 mg total) by mouth daily. 90 tablet 2024 Discontinued(R eorder) ezetimibe (ZETIA) 10 MG tablet Take 1 tablet (10 mg total) by mouth daily. 90 tablet 2024 Discontinued(R eorder) fenofibrate (TRICOR) 54 MG tablet Take 1 tablet (54 mg total) by mouth daily with breakfast. 90 tablet 2024 Discontinued(R eorder) tamsulosin (FLOMAX) 0.4 MG CapIndications:BP H without urinary obstruction Take 1 capsule (0.4 mg total) by mouth nightly. 90 capsule 2024 Discontinued(R eorder) isosorbide mononitrate ER (IMDUR) 60 MG 24 hr tablet Take 1 tablet (60 mg total) by mouth daily. 90 tablet 2024 Discontinued(R eorder) ranolazine ER (RANEXA) 500 MG 12 hr tablet Take 1 tablet (500 mg total) by mouth 2 (two) times daily. 180 tablet 2024 Discontinued(R eorder) cetirizine (ZYRTEC) 10 MG tabletIndications :Wheezing,Shortne ss of breath,Acute pain of left shoulder,Polyneur opathy,Chronic bilateral low back pain without sciatica,Anxiety Take 1 tablet (10 mg total) by mouth daily. 15 tablet 1 2024 Discontinued(R eorder) cyclobenzaprine (FLEXERIL) 10 MG tabletIndications :Chronic bilateral low back pain without sciatica Take 1 tablet (10 mg total) by mouth nightly. 90 tablet 1 2024 Discontinued(R eorder) escitalopram (LEXAPRO) 20 MG tabletIndications :Anxiety Take 1 tablet (20 mg total) by mouth daily. 90 tablet 2024 Discontinued(R eorder) HYDROcodone-aceta minophen (NORCO) 10-325 MG tabletIndications :Chronic Pain Take 1 tablet by mouth every 8 (eight) hours as needed for Pain. Indications: Chronic Pain 90 tablet 025 2024 Discontinued(R eorder) Active Problems Problem Noted Date Diagnosed Date Cervical spinal stenosis 11/25/2024 Carpal tunnel syndrome 11/25/2024 Assessment & Plan (11/25/2024 4:39 PM SAP BODS DEVELOPER): Recommendation at this time we went over the risks, the benefits, as well as the alternatives Certainly not a surgical, candidates. He is willing to proceed with another steroid injection. We'll try to get him set up for a steroid injection today. Decreased range of motion of left shoulder 11/25 Left eye symptoms 10/17/2024 Elevated CPK 10/17/2024 Osteomyelitis of left foot ([facility]) Leg wound, left 09/23/2024 Leg wound, right 09/23/2024 NSTEMI (non-ST elevated myoc ardial infarction) ([facility]) 07/25/2024 History of degenerative disc disease 07/01/2024 Rotator cuff arthropathy of left shoulder 2023 Assessment & Plan (07/01/2024 9:09 AM CDT): Recommendation at this time, steroid was injected to the left shoulder. We will see him back in three months as needed. Adhesive capsulitis of left shoulder 02/18/2024 Primary osteoarthritis of left shoulder 02/18/20 24 Assessment & Plan (02/18/2024 11:31 AM CDT): Recommendation at this time, we went over the risks, benefits, as well as the alternatives. At this point in time, he'll continue with his home exercises. We'll follow up in six weeks for repeat evaluation, possible repeat steroid shot. History of coronary artery stent placement 02/17 Impingement of left shoulder 01/07/2024 Assessment & Plan (04/01/2024 8:00 AM CDT): Recomendation at this time, he does not want to proceed with any surgical intervention at this time, so he opted not to get the MRI. The only reason why we would get the MRI is if we were considering surgery. As far as the shoulder, a steroid was injected. We'll see him back in three months. Assessment & Plan (01/07/2024 11:22 AM CDT): Recommendation at this time: went over the risks, benefits as well as the alternatives. At this point in time, we will try the steroid shot to the shoulder. Does realize that it may elevate his blood sugars. Just finished formal physical therapy. Will give him some exercises for his adhesive capsulitis. Can't take non-steroidal anti-inflammatories. He received a steroid injection to the left shoulder today. Tolerated it well. Patient will be seen back in six weeks. Physical deconditioning 11/07/2023 Actinic keratosis 11/07/2023 Costochondritis 11/07/2023 Diabetic retinopathy ([facility]) Overview (11/07/2023): Referral to optho renewed for cataracts and diabetic rentinopathy. 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 Lymphedema, not elsewhere classified 11/07/2023 Male erectile disorder 11/07/2023 Tarsal tunnel syndrome 11/07/2023 Thrombosed external hemorrhoids 11/07/2023 Overview (11/07/2023): Script given for Colace and Anusol HC cream Chronic low back pain 03/21/2023 Migraine 03/21/2023 Neuropathy 03/21/2023 Other thrombophilia ([facility]) 01/19/2023 CHF (congestive heart failure) ([facility]) 04/11/2021 Insomnia, unspecified type 01/04/2021 Chest pain 10/02/2019 Assessment & Plan (10/04/2019 9:29 AM SAP BODS DEVELOPER): Patient with hx of CAD s/p stenting in 10/2018 now presenting with 2 week history of symptoms consistent with stable angina which have improved with nitro. Cath 10/02/19 demonstrated patent stents and required no intervention. Patient also with recent 4 point drop in Hgb over the last 2 months but no known source of bleeding which may be source of chest pain with exertion. CXR demonstrates venous pulmonary congestion but no consolidation concerning for PNA. No pneumothorax. Patient with normal heart rate and SpO2 making PE unlikely despite slightly subtherapeutic INR. Iron studies consistent with anemia of chronic disease but CBC with normal MCV. - Cardiology following- follow up recs - Continue Imdur 120mg ER PO once daily - GI consulted for anemia - scopes today - Daily CBC - Continue Plavix; Warfarin held 2/2 anemia; will follow up GI recs regarding restarting anticoagulation - Continue pravastatin, atenolol, lisinopril - Nitro PRN Anemia 10/02/2019 Assessment & Plan (10/03/2019 10:40 AM SAP BODS DEVELOPER): Unclear etiology Hgb 14.4->9.9 Reports up to date on colonoscopy. No smoking history. No hematemesis, hemoptysis, GERD, melena, hematochezia, recent falls, or recent bleeds. Iron studies consistent with AOCD but CBC with normal MCV. Fecal occult blood test negative. Hgb continues to downtrend to 9.2 on 10/03/19 - IV iron - GI consulted- follow up recs - Peripheral blood smear; if demonstrates rouleaux formation will order SPEP. - Check LDH and haptoglobin - NPO pending possible GI intervention - Holding warfarin - Daily CBC Lower leg edema 04/22/2019 Venous insufficiency 12/31/2018 Unstable angina ([facility]) 10/28/2018 Hx of cardiac cath 10/28/2018 GERD (gastroesophageal reflux disease) 8 Assessment & Plan (10/03/2019 7:00 AM SAP BODS DEVELOPER): Chronic Controlled Denies significant heartburn, hematemesis, hematochezia, melena, or weight loss. No signs of acute blood loss at this time. - Continue H2 martita Pulmonary embolism ([facility]) 12/22/2017 Assessment & Plan (10/04/2019 9:26 AM SAP BODS DEVELOPER): Diagnosed Oct 2017. 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 INR sub-therapeutic Venous dopplers with no acute DVT - Warfarin held for procedures; will await GI recs regarding restarting - If develops tachycardia and dyspnea consider PE Chronic kidney disease, stage III (moderate) 09/2018 Overview (10/29/2018): Overview: Due to DM2, HTN Assessment & Plan (10/03/2019 7:00 AM SAP BODS DEVELOPER): Chronic Stable Baseline SCr appears to be around 1.5 - Continue lisinopril - Avoid nephrotoxin agents - Maintain hemodynamics Gout 10/26/2017 Nonalcoholic steatohepatitis (MILLER) 10/26/2017 Overview (10/29/2018): Overview: 12/28/04 liver biopsy: MILLRE, Stage 3 fibrosis 08/29/11 liver biopsy: MILLER, focal bridging, stage 3 fibrosis 08/01/16 liver biopsy: Mild steatosis, stage 2 fibrosis, routed to PCP Obesity 10/26/2017 Polyneuropathy 10/26/2017 Portal vein thrombosis 10/26/2017 Overview (10/29/2018): Overview: On coumadin. Follows with Dr. Mathis Type 2 diabetes mellitus ([facility]) 10/26 Assessment & Plan (10/03/2019 7:00 AM SAP BODS DEVELOPER): Chronic A1c 8.5 - Hold PO medications - Continue Lantus 80 units BID with correctional - POC glucose checks - Hypoglycemic protocol Vitamin D deficiency 10/26/2017 CPAP (continuous positive airway pressure) depen deninocencia 10/19/2017 Obstructive sleep apnea 10/19/2017 Overview (10/29/2018): Overview: On CPAP Assessment & Plan (10/04/2019 9:28 AM SAP BODS DEVELOPER): CPAP at nighttime PRN Restless leg syndrome 04/03/2017 Edema, unspecified type 08/30/2016 Mixed hyperlipidemia 08/30/2016 Assessment & Plan (10/02/2019 5:45 PM SAP BODS DEVELOPER): Chronic - Continue statin Colon adenoma 08/08/2016 Overview (10/29/2018): Overview: Overview: 08/01/16 colonoscopy: 3 mm adenoma removed from the cecum. Repeat in 5 years. Superior mesenteric vein thrombosis (HHS/HCC) Overview (10/29/2018): Overview: Overview: On coumadin. Follows with Dr. Delfina NEAL (diffuse idiopathic skeletal hyperostosis) 06/10/2012 Overview (10/29/2018): Overview: Overview: Causes significant msk pain. Gets injections in low back. Hemorrhoids 06/10/2012 Angina pectoris Coronary artery disease of n ative artery of [place] heart with stable angina pectoris Essential hypertension Assessment & Plan (10/02/2019 5:54 PM SAP BODS DEVELOPER): Chronic At goal of less than 150/90 - Continue lisinopril and nifedipine - Daily BMP Chronic diastolic congestive heart failure (CMS/HCC HHS/HCC) Assessment & Plan (10/04/2019 9:24 AM SAP BODS DEVELOPER): Chronic Echocardiogram done 05/14/2018. Moderate concentric LVH. EF 60-65%. Grade 2 diastolic dysfunction. Mildly enlarged left atrium. No significant valve disease. BNP 31 Weight appears stable compared to most recent cardiology visit in 06/2019 - Cardiology consulted- IV diuresis with possible transition to PO today - Daily weights - Strict I/O's - Monitor renal function with daily BMP Resolved Problems Problem Noted Date Diagnosed Date Resolved Date Syncope 10/27/2023 11/07/2023 Pure hypercholesterolemia Peripheral vascular disease 08/30/2016 Encounters Date Type Department Care Team Description 01/26/2025 9:40 AM CDT Office Visit [facility] Medical [facility] Family & Internal Medicine [facility] [address] [place] [phone] Orion Pinzon PA Follow Up (3 month follow up); Diabetes; Hypertension; Hyperlipidemia 01/26/2025 Travel 01/22/2025 8:20 AM CDT - 01/22/2025 11:59 PM CDT Hospital Encounter [facility] [address] [place] [address] Gillian Jameson NP Discharge Disposition: Home or Self Care (Routine Discharge) 01/22/2025 Travel 01/21/2025 Anti-Coag Telephone Call [facility] [place] [address] [place] [address] Jeanne Nur, RN Anticoagulation (INR) 01/21/2025 Orders Only [facility] [address] [place] [id number] Deborah Haley MD 01/08/2025 11:00 AM CDT Office Visit [facility] - [facility] [address] [facility], [address] [place] [address] Lui Parker MD New Patient (MRI cervical ) 01/08/2025 8:14 AM CDT - 01/08/2025 11:59 PM CDT Hospital Encounter [facility] [address] [place] [address] Gillian Jameson, Sonali Ramos, ENGINEERING GROUP LEADER- Discharge Disposition: Home or Self Care (Routine Discharge) 01/08/2025 Travel 01/01/2025 8:19 AM CDT - 01/01/2025 11:59 PM CDT Hospital Encounter [facility] [address] [place] [address] Gillian Jameson NP Discharge Disposition: Home or Self Care (Routine Discharge) 01/01/2025 Travel 12/31/2024 Anti-Coag Telephone Call [facility] [place] [address] [place] [address] Jeanne Nur RN Anticoagulation (INR) 12/25/2024 8:50 AM CDT - 12/25/2024 11:59 PM CDT Hospital Encounter [facility] [address] [place] [address] Deborah Haley MD Discharge Disposition: Home or Self Care (Routine Discharge) 12/25/2024 8:09 AM CDT - 12/25/2024 8:49 AM CDT Hospital Encounter [facility] [address] [place] [address] Gillian Jameson NP Discharge Disposition: Home or Self Care (Routine Discharge) 12/25/2024 Telephone [facility] [place] [address] [place] [address] Catherine Solomon log buyer Results 12/25/2024 Anti-Coag Telephone Call [facility] [place] [address] [place] [address] Jeanne Nur RN Anticoagulation (INR) 12/25/2024 Travel 12/24/2024 8:09 AM CDT - 12/24/2024 11:59 PM CDT Hospital Encounter [facility] [address] [place] [address] Keyla Contreras MD Discharge Disposition: Home or Self Care (Routine Discharge) 12/18/2024 8:30 AM SAP BODS DEVELOPER - 12/18/2024 11:59 PM SAP BODS DEVELOPER Hospital Encounter [facility] [address] [place] [address] Gillian Jameson NP Discharge Disposition: Home or Self Care (Routine Discharge) 12/18/2024 Travel 12/16/2024 Anti-Coag Telephone Call [facility] [address] [place] [address] Jeanne Nur RN Anticoagulation (INR) 12/13/2024 MyChart Message [facility] Medical [facility] Family [facility] Internal Medicine - [place] [address] [place] [phone] Orion Pinzon PA Requested refill 12/11/2024 9:15 AM SAP BODS DEVELOPER - 12/11/2024 11:59 PM SAP BODS DEVELOPER Hospital Encounter [facility] [id number] [place] [address] Keyla Contreras MD Discharge Disposition: Home or Self Care (Routine Discharge) 12/11/2024 8:20 AM SAP BODS DEVELOPER - 12/11/2024 9:14 AM SAP BODS DEVELOPER Hospital Encounter [facility] [id number] [place] [address] Gillian Jameson NP Discharge Disposition: Home or Self Care (Routine Discharge) 12/11/2024 [facility]phone [facility] [address], [address] [place] [phone] Allie Vargas NP Appointment Request 12/11/2024 MyChart [facility] - [address], [address] [place] [phone] [facility] Provider swallow test 12/11/2024 Travel 12/10/2024 10:00 AM SAP BODS DEVELOPER Office Visit [facility] [address] [place] [phone] John Cleary MD Follow Up 12/10/2024 Orders Only [facility], [address] [address] John Cleary MD 12/05/2024 11:00 AM SAP BODS DEVELOPER Office Visit [facility], [address] [address] [address] Deborah Haley MD Coronary Artery Disease; CHF (3 mo follow up) 12/05/2024 Travel 12/04/2024 Anti-Coag Telephone Call [facility], [address] [address] Jeanne Nur RN Anticoagulation (INR) 12/04/2024 Orders Only [facility] MAIN BUSINESS OFFICE [address] [place] [address] Deborah Haley MD 12/03/2024 Scan [email or web address] SRVCS Scanned, [facility] 12/01/2024 Orders Only [facility] Laboratory [address] [facility] [address] Keyla Contreras MD 11/28/2024 Telephone [facility] [address] [address] John Cleary MD Results (MRI LEFT FOOT) 11/27/2024 Anti-Coag Telephone Call [facility] on [address] [address] Jeanne Nur RN Anticoagulation (INR) 11/26/2024 4:45 AM SAP BODS DEVELOPER - 11/26/2024 10:33 AM SAP BODS DEVELOPER Emergency [facility] Emergency Room [address] [place], [place] [phone] Phuong Glez MD Vomiting Discharge Disposition: Home or Self Care (Routine Discharge) 11/26/2024 Travel 11/24/2024 9:20 AM SAP BODS DEVELOPER Office Visit [facility] Medical [facility] Orthopedic Surgery [facility] [address] [id number] Alo Jimenez DO Shoulder Pain (Left shoulder pain- feels about the same) 11/24/2024 Scan [facility]VCS Scanned, [facility] 11/24/2024 Travel 11/21/2024 Scan [facility] Scanned, [facility] 11/20/2024 8:19 AM SAP BODS DEVELOPER - 11/20/2024 11:59 PM SAP BODS DEVELOPER Hospital Encounter [facility] Wound Care [address] [place] [address] Gillian Jameson NP Discharge Disposition: Home or Self Care (Routine Discharge) 11/20/2024 Travel 11/18/2024 [facility] Message Enc [facility], [address] [place] [address] Deborah Haley MD Prescription 11/18/2024 Telephone [facility] [address] [facility], [address] [place] [phone] Allie Vargas DROP WORKER Results 11/17/2024 10:00 AM SAP BODS DEVELOPER Office Visit [facility] [address] [facility], [address] [place] [phone] Andres Greenfield MD EMG Testing (BUE-Polyneuropathy) 11/17/2024 Orders Only [facility] [address] [facility], [address] [place] [phone] Allie Vargas NP 11/17/2024 Telephone [facility] [address] [facility], [address] [place] [phone] Allie Vargas NP Results 11/17/2024 Travel 11/14/2024 9:26 AM SAP BODS DEVELOPER - 11/14/2024 11:59 PM SAP BODS DEVELOPER Hospital Encounter [facility] Open MRI [address] [place] [address] Allie Vargas NP Discharge Disposition: Home or Self Care (Routine Discharge) 11/14/2024 Orders Only [facility] Multispecialty Care - [facility] [address] [facility], [address] [place] [phone] Allie Vargas NP 11/14/2024 MyChart Message Enc [facility] [address] [facility], [address] [place] [phone] Mychart, [facility] Provider Appt Change 11/14/2024 Travel 11/13/2024 8:28 AM SAP BODS DEVELOPER - 11/13/2024 11:59 PM [facility] Hospital Encounter [facility] Wound Care [address] [place] [address] Gillian Jameson NP Discharge Disposition: Home or Self Care (Routine Discharge) 11/13/2024 Travel 11/12/2024 Anti-Coag Telephone Call [facility] on [facility], [address] [place] [address] Jeanne Nur RN Anticoagulation (INR) 11/07/2024 Telephone [facility] Family & Internal Medicine [facility] [address] [place] [address] Orion Pinzon PA Medication 11/06/2024 9:14 AM SAP BODS DEVELOPER - 11/06/2024 10:00 AM [facility] Hospital Encounter [facility] Surgery [address] [place] [address] Shlomo Sanchez MD Discharge Disposition: Home or Self Care (Routine Discharge) 11/06/2024 8:21 AM SAP BODS DEVELOPER - 11/06/2024 9:12 AM [facility] Hospital Encounter [facility] Wound Care [address] [place] [address] Gillian Jameson, DROP WORKER Discharge Disposition: Home or Self Care (Routine Discharge) from Last 3 Months Immunizations Immunization Administration Dates Next Due Afluria 36 MONTHS+ (Prefille d Syringe IIV4) 09/05/2019 Fluzone (IIV3, Trivalent, 0. 5 ML Prefilled Syringe) 07/25/2024(Deferred: Patient/family declined - patient requesting to be given at discharge.) Fluzone High Dose - >Age 65 (Prefilled Syringe) 09/12/2022,07/05/2021,06/17/2020 Hepatitis A/Hepatitis B (Aka Twinrix) 10/15/2006 ,03/15/2006,10/15/2005 Hepatitis A/Hepatitis B(Twinrix) 05/08/2007,11/15,10/18/2006 Influenza (Generic) 07/06/2021, 9,10/05/2018,2017 Influenza Adult (Generic) 09/05/2019,,10/05/2018,2017,07/26/2018,07/18/2017,07/17/2016,1 MODERNA COVID-19 (12+) MRNA, LNP-S, PF, 100 MCG/ 0.5 ML DOSE 08/19/2021,12/10/2020,11/15/2020,2020 Pneumococcal (Pneumovax 23) 07/26/2021, 0,02/20/2002 Pneumococcal (Prevnar 13) 06/22/2020 Td (TDVAX) 02/20/2002 Tdap (Boostrix) 10/27/2023 Tdap (Generic) 03/26/2022,08/04/2015 Zoster (Zostavax) [address] Unt/0.65Ml 11/24/2015 Family History Medical History Relation Comments Family history is positive f or Coronary Artery Disease, Diabetes, Hyperlipidemia / Dyslipidemia, Hypertension Other Relation Status Comments Father Mother Other Social History Tobacco Use Types Packs/Day Years Used Date Smoking Tobacco: Never Smokeless Tobacco: Never Tobacco Cessation:Counseling Given: No Comments:na Alcohol Use Standard Drinks/Week Comments Yes [...] In the past 12 months has e digitalbox, [employer], oil, or water [employer] threatened to shut off services in your [...] 07/25/2024 How often do you attend [facility] or pentecostalism services? More than 4 times per year 07/25/2024 Do you belong to any clubs o r organizations such as orthodox groups, unions, fraternal or athletic groups, or [...] Date Recorded Patient Health Questionnaire-2 Score 0 01/26/2025 [facility] - [...] place to sleep or slept in a intermediate (including now)? No 11/07/2023 Housing Stability Vital Sign Answer Nolan e Recorded In the last 12 months, was t here a time when you were not able to pay the mortgage or rent on time? No 07/25/2024 In the past 12 months, how m any times have you moved where you were living? 0 07/25/2024 At any time in the past 12 m [facility], were you homeless or living in a intermediate (including now)? 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 Not on file Not on file Last Filed Vital Signs Vital Sign Reading Time Taken Comments Blood Pressure 170/48 01/26/2025 9:41 AM CDT pt reports not taking BP meds today Pulse 69 01/26/2025 9:30 AM CDT Temperature 36.8 C (98.2 F) 01/26/2025 9:30 AM CDT Respiratory Rate 18 01/26/2025 9:30 AM CDT Oxygen Saturation 97% 01/26/2025 9:3 0 AM CDT Inhaled Oxygen Concentration - - Weight 140.6 kg (310 lb) 01/08/2025 11: 53 AM CDT Height 180.3 cm (5' 11 ) 01/26/2025 9:3 0 AM CDT Body Mass Index 43.24 01/08/2025 11:53 AM CDT Plan of Treatment Upcoming Encounters Date Type Department Care Team (Late st Contact Info) Description 02/05/2025 8:30 AM CDT Appointment [facility] [address] [place] [address] [place] [address] [address] [place] [address] 02/06/2025 12:45 PM CDT [facility] [address] [place] [facility] [place] [address] [facility]. [address] [place], [place] [phone] 02/18/2025 11:30 AM CDT [facility] [address] [place] [phone] John Cleary MD [facility]. [address] [place] [address] 02/23/2025 9:00 AM CDT Office Visit [facility] Orthopedic Surgery - [place] [address] [facility] [address] [place], [place] [phone] [place] [address] [place] [address] 04/03/2025 10:30 AM CDT Office Visit [facility], [address] [place] [address] Kathi Gant PA-C [address] [place] [address], [facility] [address] [place] [address] 04/27/2025 10:00 AM CDT Office Visit [facility] Family & Internal Medicine - [place] [address] [place] [address] [place] [address] [place], [place] [phone] 08/20/2025 11:00 AM SAP BODS DEVELOPER Office Visit [facility] Multispecialty Care - [address], [address] [place] [phone] Baljeet Chavez DO [address] [facility] [address] [place] [address] Health Maintenance Due Date Last Done Comments Kidney Health Evaluation 1954 Diabetes: Retinopathy Eye Exam 1972 Hepatitis C 1972 RSV Immunization or 60+ Years (1 - Risk 60-74 years 1-dose series) 2014 Zoster Vaccines (2 of 3) 01/19/2016 11/24/2015 COVID-19 Vaccine ( season) 2024 08/19/2021, 12/10/2020, 11/15/2020, Additional history exists Annual Medicare Wellness Visit 02/26/2025 02/26/2024 Lipid Panel 07/26/2025 07/26/2024, 05/2024, 10/27/2023, Additional history exists Hemoglobin A1C 07/28/2025 01/26/2025, 09/14, 07/26/2024, Additional history exists Colorectal Cancer Screening Colonoscopy (10 Years) 10/04/2029 10/04/2019, 10/03/2019 DTaP, Tdap and Td Vaccines (4 - Td or Tdap) 10/27/2033 10/27/2023, 03/26/2022, 08/04/2015, Additional history exists Pneumococcal Vaccine: 50+ Years Completed 07/26/2021, 06/22/2020, 11/05/2009, Additional history exists PHQ-2 (Physician [place]) Completed 01/26/2025 Meningococcal B Vaccine Aged Out No l onger eligible based on patient's age to complete this topic Meningococcal Vaccine Aged Out No alisha yuri eligible based on patient's age to complete this topic RSV Immunizations Under 20 Months Aged Out No longer eligible based on patient's age to complete this topic Goals Goal Patient Goal Type Associated Problems Recent Progress Patient-Stated? 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 Procedure Name Priority Date/Time Associated Diagnosis Comments COLLECT.CAPILLARY (FNGR,HEEL,EAR) Routine 01/26/2025 9:30 AM CDT Type 2 diabetes mellitus with other circulatory complication, with long-term current use of insulin ([facility] HHS/HCC) HEMOGLOBIN, GLYCOSYLATED Routine 01/26/2025 Type 2 diabetes mellitus with other circulatory complication, with long-term current use of insulin ([facility] HHS/HCC) MD REVIEW,HOME INR TEST Routine 01/21/2025 2:30 PM CDT MD REVIEW,HOME INR TEST Routine 12/31/2024 12:38 PM CDT BASIC METABOLIC PANEL Routine 12/25/2024 9:02 AM CDT Chronic diastolic congestive heart failure ([facility] HHS/HCC) Coronary artery disease of [place] artery of [place] heart with stable angina pectoris Essential hypertension Mixed hyperlipidemia PRO-BRAIN NATRIURETIC PEPTIDE Routine 12/25/2024 9:02 AM CDT Chronic diastolic congestive heart failure ([facility] HHS/HCC) Coronary artery disease of [place] artery of [place] heart with stable angina pectoris Essential hypertension Mixed hyperlipidemia PROTHROMBIN TIME, VENOUS Routine 12/25/2024 9:02 AM CDT 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 Persistent atrial fibrillation ([facility] HHS/HCC) URINALYSIS, AUTO, COMPLETE Routine 12/25/2024 8:49 AM CDT Chronic kidney disease, stage III (moderate) ([facility]) Primary hypertension Chronic kidney disease, unspecified Disorder of mineral metabolism Bone disease Hyperuricemia MD REVIEW,HOME INR TEST Routine 12/16/2024 4:41 PM SAP BODS DEVELOPER URIC ACID BLOOD Routine 12/11/2024 9:21 AM SAP BODS DEVELOPER Chronic kidney disease, stage III (moderate) (CMS/HCC) Primary hypertension Chronic kidney disease, unspecified Disorder of mineral metabolism Bone disease Hyperuricemia VITAMIN D, 25 OH Routine 12/11/2024 9:21 AM SAP BODS DEVELOPER Chronic kidney disease, stage III (moderate) (CMS/HCC) Primary hypertension Chronic kidney disease, unspecified Disorder of mineral metabolism Bone disease Hyperuricemia PTH - INTACT Routine 12/11/2024 9:21 AM SAP BODS DEVELOPER Chronic kidney disease, stage III (moderate) (CMS/HCC) Primary hypertension Chronic kidney disease, unspecified Disorder of mineral metabolism Bone disease Hyperuricemia CBC W/DIFF AUTOMATED Routine 12/11/2024 9:21 AM SAP BODS DEVELOPER Chronic kidney disease, stage III (moderate) (CMS/HCC) Primary hypertension Chronic kidney disease, unspecified Disorder of mineral metabolism Bone disease Hyperuricemia RENAL FUNCTION PANEL Routine 12/11/2024 9:21 AM SAP BODS DEVELOPER Chronic kidney disease, stage III (moderate) (CMS/HCC) Primary hypertension Chronic kidney disease, unspecified Disorder of mineral metabolism Bone disease Hyperuricemia CYSTATIN C Routine 12/11/2024 9:21 AM SAP BODS DEVELOPER Chronic kidney disease, stage III (moderate) (CMS/HCC) Primary hypertension Chronic kidney disease, unspecified Disorder of mineral metabolism Bone disease Hyperuricemia MD REVIEW,HOME INR TEST Routine 12/04/2024 7:14 PM SAP BODS DEVELOPER MD REVIEW,HOME INR TEST Routine 11/27/2024 4:43 PM SAP BODS DEVELOPER LACTIC ACID W REFLEX (SEPSIS) STAT 11/26/2024 9:30 AM SAP BODS DEVELOPER URINALYSIS, AUTO, COMPLETE STAT 11/26/2024 8:[address] ABD+PEL W CON STAT 11/26/2024 7:21 AM SAP BODS DEVELOPER BETA-HYDROXYBUTYRATE Routine 11/26/2024 5:54 AM SAP BODS DEVELOPER XR CHEST PORTABLE STAT 11/26/2024 5:3 0 AM SAP BODS DEVELOPER ECG 12-LEAD STAT 11/26/2024 5:17 AM SAP BODS DEVELOPER INFLUENZA A & B STAT 11/26/2024 5:15 AM SAP BODS DEVELOPER CORONAVIRUS (COVID 19) STAT 11/26/2024 5:15 AM SAP BODS DEVELOPER PRO-BRAIN NATRIURETIC PEPTIDE Routine 11/26/2024 5:00 AM SAP BODS DEVELOPER PROTHROMBIN TIME, VENOUS Routine 11/26/2024 5:00 AM SAP BODS DEVELOPER LACTIC ACID STAT 11/26/2024 5:00 AM SAP BODS DEVELOPER LIPASE STAT 11/26/2024 5:00 AM SAP BODS DEVELOPER TROPONIN, QUANT STAT 11/26/2024 5:00 AM SAP BODS DEVELOPER COMPREHENSIVE METABOLIC PANEL STAT 11/26/2024 5:00 AM SAP BODS DEVELOPER CBC W/DIFF AUTOMATED STAT 11/26/2024 5:00 AM SAP BODS DEVELOPER EMG Routine 11/17/2024 10:00 AM SAP BODS DEVELOPER Polyneuropathy Family hx of ALS (amyotrophic lateral sclerosis) MRI BRAIN WWO CON STAT 11/14/2024 11: 44 AM SAP BODS DEVELOPER Falls frequently MRI CERV SPINE WWO CON STAT 11/14/2024 11:43 AM SAP BODS DEVELOPER Myelopathy (CMS/HCC HHS/HCC) MRI FOOT LT WO CON Routine 11/14/2024 10 :31 AM SAP BODS DEVELOPER Osteomyelitis of fifth toe of left foot (CMS/HCC HHS/HCC) PT/INR (OUTSIDE LAB) Routine 11/12/2024 LIPID PANEL Routine 07/26/2024 9:17 AM CDT COLONOSCOPY Routine 10/03/2019 1:16 PM SAP BODS DEVELOPER from Last 3 Months or Most Recently Relevant to Health Maintenance Results * HEMOGLOBIN, GLYCOSYLATED (01/26/2025) HGB A1C 7.8 % [id number] T QUIN HERNANDEZ 01/26/2025 [facility] Final Result -[id number] [facility] [address] [place] [address], [place] [phone] * (ABNORMAL) MD REVIEW,HOME INR TEST (01/21/2025 2:30 PM CDT) Only the most recent of5 resultswithin the time period is included. INR WHOLE BLOOD 1.4(L) 2.000 - 3.000 ALERE HOME MONITORING DEVICE 01/21/2025 2:30 PM CDT Deborah Haley MD LABORATORY Final Result Performing Organization Address [facility] Co de Phone Number ALERE HOME MONITORING DEVICE * (ABNORMAL) PRO BNP ([facility]) (12/25/2024 9:02 AM CDT) Only the most recent of2 resultswithin the time period is included. PRO-B TYPE NATRIURETIC PEPTIDE 1,401(H) <125 PG/ML 12/25/2024 10:23 AM CDT [facility] Comment: CUT POINTS ESTABLISHED BY [employer]NATIONAL [employer] ON NT PROBNP (ICON) STUDY (2006). AGE INDEPENDENT: <300 PG/ML HAS A 99% NEGATIVE PREDICTIVE VALUE FOR EXCLUDING ACUTE CHF <50 YEARS: >450 PG/ML IS CONSISTENT WITH ACUTE CHF 50-75 YEARS: >900 PG/ML IS CONSISTENT WITH ACUTE CHF >75 YEARS: >1800 PG/ML IS CONSISTENT WITH ACUTE CHF IN PATIENTS WITH RENAL INSUFFICIENCY (GFR <60), >1200 PG/ML YIELDS A DIAGNOSTIC SENSITIVITY AND SPECIFICITY OF 89% AND 72% FOR ACUTE CHF. 12/25/2024 9:02 AM CDT Deborah Haley MD LABORATORY Final Result Performing Organization Address City/[facility]/ZIP Co de Phone Number [facility] [address] [place] [address], [place] [phone] * (ABNORMAL) PROTIME/INR, VENOUS (12/25/2024 9:02 AM CDT) Only the most recent of2 resultswithin the time period is included. PROTIME 25.4(H) 9.1 - 12.4 SEC 12/25/2024 9:41 AM CDT [facility] INR 2.3 12/25/2024 9:41 AM CDT [facility] Comment: Recommend INR ranges for Oral Anticoagulant Therapy: Mechanical Cardiac Values 2.5-3.5 All others indication 2.0-3.0 12/25/2024 9:02 AM CDT Deborah Haley MD LABORATORY Final Result [facility] [address] [place] [address], [place] [phone] * (ABNORMAL) BASIC METABOLIC PANEL (12/25/2024 9:02 AM CDT) [facility] [address] GLUCOSE 150(H) 70 - 99 MG/DL 12/25/2024 10:23 AM CDT [facility] BUN 17 7 - 18 MG/DL 12/25/2024 10:23 AM CDT [facility] CREATININE S/P/B 1.10 0.7 - 1.3 MG/DL 12/25/2024 10:23 AM CDT [facility] SODIUM S/P/B 141 136 - 145 MMOL/L 12/25/2024 10:23 AM CDT [facility] POTASSIUM S/P/B 4.0 3.5 - 5.1 MMOL/L 12/25/2024 10:23 AM CDT [facility] CHLORIDE S/P/B 104 100 - 108 MMOL/L 12/25/2024 10:23 AM CDT [facility] CO2 29.6 21 - 32 MMOL/L 12/25/2024 10:23 AM CDT [facility] CALCIUM S/P/B 9.2 8.5 - 10.1 MG/DL 12/25/2024 10:23 AM CDT [facility] ANION GAP 7.4 5 - 15 MMOL/L 12/25/2024 10:23 AM CDT [facility] BUN CREATININE RATIO 15.5 6 - 26 12/25/2024 10:23 AM CDT [facility] GFR ESTIMATE 73(L) >90 ML/MIN/1.7 3 M2 12/25/2024 10:23 AM CDT [facility] Comment: NOTE: eGFR is not calculated for patients <18 years of age. This is an estimated GFR calculation using the new CKD EPI creatinine equation without race and so does not require a correction factor for race. This estimated GFR should not be used for calculating drug doses. 12/25/2024 9:02 AM CDT Deborah Haley MD LABORATORY Final Result [facility] [address] [place] [address], * (ABNORMAL) URINALYSIS, AUTO, COMPLETE (12/25/2024 8:49 AM CDT) Only the most recent of2 resultswithin the time period is included. COLOR (U) YELLOW 12/25/2024 10:50 AM CDT [facility] TRANSPARENCY CLEAR 12/25/2024 10:50 AM CDT [facility] SPECIFIC GRAVITY (U) 1.010 1.000 - 1.030 12/25/2024 10:50 AM CDT [facility] U PH 7.0 5.0 - 9.0 12/25/2024 10:50 AM CDT [facility] LEUKOCYTES (U) NEGATIVE NEGATIVE 12/25/2024 10:50 AM CDT [facility] NITRITES NEGATIVE NEGATIVE 12/25/2024 10:50 AM CDT [facility] PROTEIN RANDOM (U) TRACE(A) NEGATIVE 12/25/2024 10:50 AM CDT [facility] GLUCOSE (U) 1+(A) NEGATIVE 12/25/2024 10:50 AM CDT [facility] KETONES MG/DL (U) NEGATIVE NEGATIVE 12/25/2024 10:50 AM CDT [facility] BILIRUBIN (U) NEGATIVE NEGATIVE 12/25/2024 10:50 AM CDT [facility] BLOOD (U) NEGATIVE NEGATIVE 12/25/2024 10:50 AM CDT [facility] WBC/HPF NONE SEEN 0 - 5 /HPF 12/25/2024 10:50 AM CDT [facility] RBC/HPF NONE SEEN 0 - 5 /HPF 12/25/2024 10:50 AM CDT [facility] EPI/HPF NONE SEEN /HPF 12/25/2024 10:50 AM CDT [facility] URINE SPECIMEN / Unknown 12/25/2024 8:49 AM CDT us Keyla Contreras MD URINE ORDERABLES Final Resul t [facility] [address] [place] [address], [place] [phone] * (ABNORMAL) CYSTATIN C (12/11/2024 9:21 AM SAP BODS DEVELOPER) CYSTATIN C 2.05(H) 0.52 - 1.20 mg/L 12/13/2024 10:25 AM SAP BODS DEVELOPER [facility] GFR ESTIMATE 29(L) >=60 12/13/2024 10:25 AM SAP BODS DEVELOPER [facility] Comment: REFERENCE RANGE:>=60 mL/min/1.73mE2 Test Performed by [employer], [address] [place] [address] Zaheer Warner M.D., Ph.D., Director of Laboratories , [facility] [id number] 12/11/2024 9:21 AM SAP BODS DEVELOPER us Keyla Contreras MD LABORATORY Final Result [facility] [address] [address], [place] [phone] * PTH - INTACT (12/11/2024 9:21 AM SAP BODS DEVELOPER) PTH INTACT 55.9 18.4 - 80.1 PG/ML 12/11/2024 2:44 PM SAP BODS DEVELOPER [facility] 12/11/2024 9:21 AM SAP BODS DEVELOPER us Keyla Contreras MD LABORATORY Final Result [facility] [address] [place] [address], [place] [phone] * (ABNORMAL) RENAL FUNCTION PANEL (12/11/2024 9:21 AM SAP BODS DEVELOPER) GLUCOSE 133(H) 70 - 99 MG/DL 12/11/2024 9:45 AM SAP BODS DEVELOPER [facility] BUN 16 7 - 18 MG/DL 12/11/2024 9:45 AM SAP BODS DEVELOPER [facility] CREATININE S/P/B 1.15 0.7 - 1.3 MG/DL 12/11/2024 9:45 AM [facility] SODIUM S/P/B 142 136 - 145 MMOL/L 12/11/2024 9:45 AM [facility] POTASSIUM S/P/B 4.0 3.5 - 5.1 MMOL/L 12/11/2024 9:45 AM [facility] CHLORIDE S/P/B 106 100 - 108 MMOL/L 12/11/2024 9:45 AM [facility] CO2 28.1 21 - 32 MMOL/L 12/11/2024 9:45 AM [facility] CALCIUM S/P/B 9.0 8.5 - 10.1 MG/DL 12/11/2024 9:45 AM [facility] ALBUMIN S/P/B 2.9(L) 3.4 - 5.0 G/DL 12/11/2024 9:45 AM [facility] PHOSPHORUS 2.7 2.5 - 4.9 MG/DL 12/11/2024 9:45 AM [facility] ANION GAP 7.9 5 - 15 MMOL/L 12/11/2024 9:45 AM [facility] BUN CREATININE RATIO 13.9 6 - 26 12/11/2024 9:45 AM [facility] GFR ESTIMATE 69(L) >90 ML/MIN/1.7 3 M2 12/11/2024 9:45 AM [facility] Comment: NOTE: eGFR is not calculated for patients <18 years of age. This is an estimated GFR calculation using the new CKD EPI creatinine equation without race and so does not require a correction factor for race. This estimated GFR should not be used for calculating drug doses. 12/11/2024 9:21 AM SAP BODS DEVELOPER us Keyla Contreras MD LABORATORY Final Result [facility] [address] [place] [address], * (ABNORMAL) CBC W/DIFF AUTOMATED (12/11/2024 9:21 AM SAP BODS DEVELOPER) Only the most recent of2 resultswithin the time period is included. WBC 7.31 4.4 - 11.0 x10'3/uL 12/11/2024 9:30 AM [facility] RBC 4.54 4.50 - 5.90 x10'6/uL 12/11/2024 9:30 AM [facility] HGB 13.5(L) 14.0 - 17.5 G/DL 12/11/2024 9:30 AM [facility] HCT 42.2 41.5 - 50.4 % 12/11/2024 9:30 AM [facility] MCV 93.0 80.0 - 96.0 FL 12/11/2024 9:30 AM [facility] MCH 29.7 26.5 - 31.4 PG 12/11/2024 9:30 AM [facility] MCHC 32.0 31.9 - 34.8 G/DL 12/11/2024 9:30 AM [facility] RDW 15.3(H) 12.3 - 14.3 % 12/11/2024 9:30 AM [facility] PLT 241 151 - 353 x10'3/uL 12/11/2024 9:30 AM [facility] MPV 10.5 9.7 - 11.9 FL 12/11/2024 9:30 AM [facility] RBC MORPHOLOGY NORMAL 12/11/2024 9:30 AM [facility] PLT MORPH. NORMAL 12/11/2024 9:30 AM [facility] WBC MORPHOLOGY NORMAL 12/11/2024 9:30 AM [facility] LYMPHOCYTES % 17.6 15.8 - 45.0 % 12/11/2024 9:30 AM [facility] NEUTROPHILS % 71.7 42.1 - 71.9 % 12/11/2024 9:30 AM [facility] MONOCYTES % 7.8 5.7 - 12.5 % 12/11/2024 9:30 AM [facility] EOSINOPHILS 1.5 0.0 - 5.6 % 12/11/2024 9:30 AM [facility] BASOPHILS 0.7 0.0 - 1.3 % 12/11/2024 9:30 AM [facility] ABS. NEUTROPHILS 5.24 1.40 - 6.00 x10'3/uL 12/11/2024 9:30 AM [facility] IMMATURE GRANS % 0.7(H) 0.0 - 0.5 % 12/11/2024 9:30 AM [facility] ABS. LYMPHOCYTES 1.29 0.80 - 4.70 x10'3/uL 12/11/2024 9:30 AM [facility] 12/11/2024 9:21 AM SAP BODS DEVELOPER us Keyla Contreras MD LABORATORY Final Result [facility] [address] [place] [address], * VITAMIN D, 25 [place] (12/11/2024 9:21 AM SAP BODS DEVELOPER) Pathologist [facility] VITAMIN D 25 HYDROXY S/P/B 37 30 - 100 NG/ML 12/11/2024 10:50 AM SAP BODS DEVELOPER [facility] Comment: INTERPRETATION DEFICIENT <20 INSUFFICIENT 20-29 SUFFICIENT 30-100 12/11/2024 9:21 AM SAP BODS DEVELOPER us Keyla Contreras MD LABORATORY Final Result Performing Organization Address [facility]/ZIP Co de Phone Number [facility] [address] [place] [address], [place] [phone] * URIC ACID BLOOD (12/11/2024 9:21 AM SAP BODS DEVELOPER) URIC ACID 4.4 3.5 - 7.2 MG/DL 12/11/2024 9:45 AM SAP BODS DEVELOPER [facility] 12/11/2024 9:21 AM SAP BODS DEVELOPER us Keyal Contreras MD LABORATORY Final Result Performing Organization Address [facility] Co de Phone Number [facility] [address] [place] [address], [place] [phone] * LACTIC ACID W REFLEX (SEPSIS) (11/26/2024 9:30 AM SAP BODS DEVELOPER) LACTIC ACID VENOUS 1.4 0.4 - 2.0 MMOL/L 11/26/2024 9:53 AM SAP BODS DEVELOPER [facility] 11/26/2024 9:30 AM SAP BODS DEVELOPER us Michael Petty MD LABORATORY Final Result Performing Organization Address [facility]/ZIP Co de Phone Number [facility] [address] [place] [address], [place] [phone] * CT ABD+PEL W CON (11/26/2024 7:21 AM SAP BODS DEVELOPER) Anatomical Region Laterality Modality Abdomen Computed Tomogra phy 11/26/2024 8:13 AM SAP BODS DEVELOPER Impressions 11/26/2024 8:19 AM SAP BODS DEVELOPER IMPRESSION: 1. No acute intra-abdominal or intrapelvic process identified. 2. Coronary artery disease. 3. Colonic diverticulosis. 4. Additional chronic/nonurgent findings as described. Ordered By: PHUONG GLEZ Interpreted By: Justus Gomez MD, 11/26/2024 8:13 AM Narrative 11/26/2024 8:19 AM SAP BODS DEVELOPER [facility] [address] [place] [id number] Examination: CT of the abdomen and pelvis with contrast. Exam time: 0717 hours. Clinical history: Abdominal pain. Nausea and vomiting. Prior appendectomy. Comparison: 07/25/2024 ([facility]). Technique: Following the administration of intravenous contrast, spiral scanning was performed through the abdomen and pelvis. Coronal and sagittal reconstructions were performed from the data set. A dose lowering technique was used for this procedure, which may include, but is not limited to, dose reduction techniques, automated exposure control, the use of iterative reconstruction and ALARA/Image Gently techniques. Findings: Minor scarring at the lung bases is again evident. Allowing for respiratory motion, the lung bases are otherwise clear. No pleural effusions are seen. Calcific coronary artery disease and aortic valve calcification again evident. The liver, spleen, gallbladder, pancreas, adrenals and kidneys appear unremarkable. The urinary bladder appears unremarkable. The appendix is not identified, compatible with the history. Diverticulum of the third portion of the duodenum is again noted. Colonic diverticulosis is again noted without signs of diverticulitis. There is no ascites, lymphadenopathy or bowel distention. The caliber of the abdominal aorta is normal. Small fat-containing umbilical hernia again evident. Procedure Note Justus Gomez MD - 11/26/2024 [facility] [address] [place] [id number] Examination: CT of the abdomen and pelvis with contrast. Exam time: 0717 hours. Clinical history: Abdominal pain. Nausea and vomiting. Prior appendectomy. Comparison: 07/25/2024 ([facility]). Technique: Following the administration of intravenous contrast, spiralscanning was performed through the abdomen and pelvis. Coronal andsagittal reconstructions were performed from the data set. A dose loweringtechnique was used for this procedure, which may include, but is notlimited to, dose reduction techniques, automated exposure control, the useof iterative reconstruction and ALARA/Image Gently techniques. Findings: Minor scarring at the lung bases is again evident. Allowing forrespiratory motion, the lung bases are otherwise clear. No pleuraleffusions are seen. Calcific coronary artery disease and aortic valvecalcification again evident. The liver, spleen, gallbladder, pancreas,adrenals and kidneys appear unremarkable. The urinary bladder appearsunremarkable. The appendix is not identified, compatible with the history.Diverticulum of the third portion of the duodenum is again noted. Colonicdiverticulosis is again noted without signs of diverticulitis. There is noascites, lymphadenopathy or bowel distention. The caliber of the abdominalaorta is normal. Small fat-containing umbilical hernia again evident. IMPRESSION: 1. No acute intra-abdominal or intrapelvic process identified. 2. Coronary artery disease. 3. Colonic diverticulosis. 4. Additional chronic/nonurgent findings as described. Ordered By: PHUONG GLEZ Interpreted By: Justus Gomez MD, 11/26/2024 8:13 AM Phuong Glez MD CT Final Result * (ABNORMAL) BETA-HYDROXYBUTYRATE (11/26/2024 5:54 AM SAP BODS DEVELOPER) BETA-HYDROXYBU TYRATE 2.1(H) 0.0 - 0.6 MMOL/L 11/26/2024 6:06 AM SAP BODS DEVELOPER [facility] 11/26/2024 5:54 AM SAP BODS DEVELOPER us Phuong Glez MD LABORATORY Final Result [facility] [address] [place] [address], [place] [phone] * XR CHEST PORTABLE (11/26/2024 5:30 AM SAP BODS DEVELOPER) Anatomical Region Laterality Modality Chest Radiographic Karen ging 11/26/2024 5:31 AM SAP BODS DEVELOPER Impressions 11/26/2024 5:32 AM SAP BODS DEVELOPER IMPRESSION: No acute pulmonary findings. Referred By: Interpreted By: Ahmet Naidu MD, 11/26/2024 5:31 AM Narrative 11/26/2024 5:32 [place] [address] Examination: XR CHEST PORTABLE Exam time: 11/26/2024 5:19 AM Indication: Vomiting Comparison: Chest 10/15/2024 Findings: Upright AP view of the chest was obtained. Cardiomegaly. No vascular congestion. No airspace consolidation, pleural effusion, or pneumothorax. Procedure Note Ahmet Naidu MD - 11/26/2024 [place] [address] Examination: XR CHEST PORTABLE Exam time: 11/26/2024 5:19 AM Indication: Vomiting Comparison: Chest 10/15/2024 Findings: Upright AP view of the chest was obtained. Cardiomegaly. Novascular congestion. No airspace consolidation, pleural effusion, orpneumothorax. IMPRESSION: No acute pulmonary findings. Referred By: Interpreted By: Ahmet Naidu MD, 11/26/2024 5:31 AM Phuong Glez MD GENERAL IMAGING Final Result * ECG 12 lead (11/26/2024 5:17 AM SAP BODS DEVELOPER) 11/26/2024 5:17 AM SAP BODS DEVELOPER Narrative [facility] ([facility]) RAD - 11/26/2024 1:54 PM SAP BODS DEVEL[facility] Date: 2024-11-26 Pat Name: VINH GOODRICH Department: 85 Room: EXAM 101 Gender: Male Cpht: : 1955 Requested By: PHUONG GLEZ Order Number: [id number] Reading MD: Marifer Vega Measurements Intervals [place] Rate: 79 P: 44 DC: 176 QRS: -3 QRSD: 97 T: 26 QT: 422 QTc: 486 Interpretive Statements SINUS RHYTHM WITH OCCASIONAL VENTRICULAR PREMATURE COMPLEXES LOW QRS VOLTAGE IN PRECORDIAL LEADS [QRS DEFLECTION < 1.0 mV IN CHEST LEADS] POSSIBLE RIGHT VENTRICULAR CONDUCTION DELAY [RSR (QR) IN V1/V2] Baseline artifact limits interpretation BODS DEVELOPER Procedure Note Marifer Vega MD - 11/26/2024 [facility] Test Date: 2024-11-26 Pat Name: VINH GOODRICH Department: 85 Room: EXAM 101 Gender: Male Cpht: : 1955 Requested By: PHUONG GLEZ Order Number: [id number] Reading MD: Marifer Vega Measurements Intervals [place] Rate: 79 P: 44 DC: 176 QRS: -3 QRSD: 97 T: 26 QT: 422 QTc: 486 Interpretive Statements SINUS RHYTHM WITH OCCASIONAL VENTRICULAR PREMATURE COMPLEXES LOW QRS VOLTAGE IN PRECORDIAL LEADS [QRS DEFLECTION < 1.0 mV IN CHESTLEADS] POSSIBLE RIGHT VENTRICULAR CONDUCTION DELAY [RSR (QR) IN V1/V2] Baseline artifact limits interpretation BODS DEVELOPER us Phuong Glez MD ECG ORDERABLES Final Result [facility] ([facility]) RAD * CORONAVIRUS (COVID-19) MOLECULAR (11/26/2024 5:15 AM SAP BODS DEVELOPER) CORONAVIRUS SARS COV 2 RNA NEGATIVE NEGATIVE 11/26/2024 6:06 AM SAP BODS DEVELOPER [facility] Comment: NEGATIVE RESULTS DO NOT RULE OUT COVID 19 AND SHOULD NOT BE USED THE SOLE BASIS FOR TREATMENT OR PATIENT MANAGEMENT DECISIONS, INCLUDING INFECTION CONTROL DECISIONS. NEGATIVE RESULTS SHOULD BE CONSIDERED IN THE CONTEXT OF A PATIENT'S RECENT EXPOSURES, HISTORY AND THE PRESENCE OF CLINICAL SIGNS AND SYMPTOMS CONSISTENT WITH COVID 19. THE ID NOW COVID-19 2.0 TEST HAS BEEN AUTHORIZED BY THE FDA UNDER EAU FOR USE BY AUTHORIZED LABORATORIES. PERFORMED BY NUCLEIC ACID AMPLIFICATION FOR MOLECULAR QUALITATIVE DETECTION OF SARS-COV-2. SPECIMEN TYPE NASAL 11/26/2024 5:14 AM SAP BODS DEVELOPER [facility] NASOPHARYNGEAL SWAB / Unknown 11/26/2024 5:15 AM SAP BODS DEVELOPER us Phuong Glez MD MICROBIOLOGY - GENERAL ORDERABL ES Final Result Performing Organization Address City/[facility]/ZIP Co de Phone Number [facility] [address] [place] [address], [place] [phone] * INFLUENZA A & B (11/26/2024 5:15 AM SAP BODS DEVELOPER) SPECIMEN TYPE NASOPHARYNX 11/26/2024 5:45 AM SAP BODS DEVELOPER [facility] INFLUENZA A NEGATIVE NEGATIVE 11/26/2024 6:06 AM SAP BODS DEVELOPER [facility] INFLUENZA B NEGATIVE NEGATIVE 11/26/2024 6:06 AM SAP BODS DEVELOPER [facility] NASOPHARYNGEAL SWAB / Unknown 11/26/2024 5:15 AM SAP BODS DEVELOPER us Phuong Glez MD MICROBIOLOGY - GENERAL ORDERABL ES Final Result Performing Organization Address City/[facility]/ZIP Co de Phone Number [facility] [address] [place] [address], [place] [phone] * (ABNORMAL) COMPREHENSIVE METABOLIC PANEL (11/26/2024 5:00 AM SAP BODS DEVELOPER) GLUCOSE 160(H) 70 - 99 MG/DL 11/26/2024 5:51 AM [facility] BUN 13 7 - 18 MG/DL 11/26/2024 5:51 AM [facility] CREATININE S/P/B 1.23 0.7 - 1.3 MG/DL 11/26/2024 5:51 AM [facility] SODIUM S/P/B 140 136 - 145 MMOL/L 11/26/2024 5:51 AM [facility] POTASSIUM S/P/B 3.7 3.5 - 5.1 MMOL/L 11/26/2024 5:51 AM [facility] CHLORIDE S/P/B 101 100 - 108 MMOL/L 11/26/2024 5:51 AM [facility] CO2 20.3(L) 21 - 32 MMOL/L 11/26/2024 5:51 AM [facility] CALCIUM S/P/B 10.2(H) 8.5 - 10.1 MG/DL 11/26/2024 5:51 AM [facility] BILIRUBIN TOTAL S/P/B 1.1 0.2 - 1.2 MG/DL 11/26/2024 5:51 AM [facility] TOTAL PROTEIN S/P/B 7.8 6.4 - 8.2 G/DL 11/26/2024 5:51 AM [facility] ALBUMIN S/P/B 3.8 3.4 - 5.0 G/DL 11/26/2024 5:51 AM [facility] AST 24 15 - 37 U/L 11/26/2024 5:51 AM [facility] ALT 16 16 - 60 U/L 11/26/2024 5:51 AM [facility] ALKALINE PHOSPHATASE S/P/B 59 50 - 136 U/L 11/26/2024 5:51 AM [facility] ANION GAP 18.7(H) 5 - 15 MMOL/L 11/26/2024 5:51 AM [facility] BUN CREATININE RATIO 10.6 6 - 26 11/26/2024 5:51 AM [facility] A/G RATIO 1.0 1.0 - 2.0 RATIO 11/26/2024 5:51 AM [facility] GFR ESTIMATE 64(L) >90 ML/MIN/1.7 3 M2 11/26/2024 5:51 AM [facility] Comment: NOTE: eGFR is not calculated for patients <18 years of age. This is an estimated GFR calculation using the new CKD EPI creatinine equation without race and so does not require a correction factor for race. This estimated GFR should not be used for calculating drug doses. 11/26/2024 5:00 AM SAP BODS DEVELOPER us hPuong Glez MD LABORATORY Final Result Performing Organization Address City/[facility] de Phone Number [facility] [address] [place] [address], * (ABNORMAL) LACTIC ACID - SINGLE (11/26/2024 5:00 AM SAP BODS DEVELOPER) LACTIC ACID VENOUS 3.2(HH) 0.4 - 2.0 MMOL/L 11/26/2024 6:09 AM SAP BODS DEVELOPER [facility] Comment: Critical Result(s) Called at: 06:07:57 on 11/26/2024 by: ALLIE VORA to and read back by:LUDIVINA Will AN ORDER FOR A REPEAT LACTIC ACID TEST IS REQUIRED WITHIN 6 HOURS OF DIAGNOSIS ON A PATIENT WITH SEVERE SEPSIS. 11/26/2024 5:00 AM SAP BODS DEVELOPER us Phuong Glez MD LABORATORY Final Result [facility] [address] [place] [address], [place] [phone] * TROPONIN, QUANT (11/26/2024 5:00 AM SAP BODS DEVELOPER) TROPONIN I HIGH SENSITIVITY 45 0 - 75 ng/L 11/26/2024 5:49 AM SAP BODS DEVELOPER [facility] Comment: HIGH DOSES OF BIOTIN, TROPONIN-SPECIFIC AUTOANTIBODIES, AND ANTIBODY THERAPY CONTAINING HAMA MAY INTERFERE WITH THIS TEST RESULT. CORRELATION TO CLINICAL HISTORY AND PRESENTATION RECOMMENDED. 11/26/2024 5:00 AM SAP BODS DEVELOPER us Phuong Glez MD LABORATORY Final Result Performing Organization Address [facility] Co de Phone Number [facility] [address] [place] [address], [place] [phone] * (ABNORMAL) LIPASE (11/26/2024 5:00 AM SAP BODS DEVELOPER) LIPASE 147(H) 16 - 77 UNITS/L 11/26/2024 5:51 AM SAP BODS DEVELOPER [facility] 11/26/2024 5:00 AM SAP BODS DEVELOPER us Phuong Glez MD LABORATORY Final Result Performing Organization Address [facility] Co de Phone Number [facility] [address] [place] [address], [place] [phone] * NCVS/EMG ([place]) (11/17/2024 10:00 AM SAP BODS DEVELOPER) Narrative [facility] - 11/17/2024 10:00 AM SAP BODS DEVELOPER Andres Greenfield MD 11/17/2024 8:19 PM .Brief history: Mr. Goodrich notes that he has been having numbness and tingling in his left hand, difficulty gripping and holding onto things. He has also noticed that his left shoulder is painful. He notes that he might need surgery for the left shoulder, however he has had multiple cardiac issues, and notes that he may not be able to get surgery because of that. He has neck pain, but hand numbness and tingling is more significant symptoms. There is no similar symptoms on the right upper limb. He has been having gait issues, and has been diagnosed with neuropathy as well. He has had numerous falls and near falls. He is using a cane to help with balance. Limited Neurological Exam: Strength in the right upper limb is normal. Strength in the left upper limb is hard to assess because of shoulder pain and injury. Tinel's sign is positive at the left wrist. It is negative at the right wrist. Reflexes are 1-2+ in the upper limb. They are absent in the lower limb. Nguyen's is negative. Electrodiagnostic testing: For sensory nerve conduction studies, the amplitude is measured [id number], the latency reported is the distal peak latency, and the conduction velocity, if measured, is determined from onset latencies and is over the forearm. For motor nerve conduction studies, the amplitude is measured [id number], the latency reported is the distal onset latency, the conduction velocity is calculated over the forearm, and the F wave latency is the minimum latency. Unless otherwise noted, the hand temperature was monitored continuously and remained between 32 C and 36 C during the performance of the NCSs.The study was performed with a concentric needle electrode. Fibrillation and fasciculation activity is graded from none (0) to continuous (4+). The configuration and recruitment pattern of motor unit action potentials under voluntary control, if not normal, are described below. Abbreviations: NCS= nerve conduction study SNAP= sensory nerve action potential CMAP= compound muscle action potential MUP= motor unit potential EMG= electromyogram F IBS= fibrillations PS W's= positive sharp waves .CTS severity scale: mild: prolonged sensory nerve conduction latency, normal distal motor latency; moderate: prolonged sensory latency and prolonged distal motor latency; severe: absent sensory latency, prolonged distal motor latency Filiberto BOLAND. A neurophysiological grading scale for carpal tunnel syndrome. Muscle Nerve. 1999;23(8):1280-3. Summary of findings: Left median motor NCS shows prolonged latency and small CMAP amplitude Right median motor NCS shows normal latency Bilateral ulnar motor NCS is normal Left median sensory NCS shows prolonged latency and small snap amplitude Right median sensory NCS shows normal latency Bilateral ulnar sensory NCS shows prolonged latency and small snap amplitude Left radial sensory NCS is normal Right radial sensory NCS is absent due to inadequate stimulation Bilateral median orthodromic mixed NCS shows prolonged latency Right ulnar orthodromic mixed NCS is absent Left ulnar orthodromic mixed NCS shows small amplitude Needle EMG of the left upper limb is normal Conclusion: This study shows the evidence of a moderate left median mononeuropathy at the wrist [carpal tunnel syndrome]. There is an incidentally noted mild right median mononeuropathy at the wrist. There is no evidence of a superimposed cervical radiculopathy. Nerve conduction and EMG is an extension of history and examination. Clinical correlation is recommended for the electrodiagnostic findings. us Allie Vargas DROP WORKER NEUROLOGY ORDERABLES Final R esult [facility] [address] [place] [address], * MRI BRAIN WWO CON (11/14/2024 11:44 AM SAP BODS DEVELOPER) Anatomical Region Laterality Modality Head Magnetic Resonan ce 11/14/2024 11:5 2 AM SAP BODS DEVELOPER Impressions 11/14/2024 11:55 AM SAP BODS DEVELOPER IMPRESSION: 1. No acute intracranial abnormalities identified. No acute infarct, intracranial mass, or abnormal enhancement. 2. Small vessel disease and volume loss. Ordered By: ALLIE VARGAS Interpreted By: Vic Hendrix MD, 11/14/2024 11:52 AM Narrative 11/14/2024 11:55 AM SAP BODS DEVELOPER [facility] [address] [place] [address] DATE: 11/14/2024 10:28 AM INDICATION: Neck pain. Frequent falls. EXAMINATION: MRI brain with and without contrast. TECHNIQUE: Multiplanar and multisequence MRI images of the brain were obtained before and after uneventful intravenous administration of 20 mL Dotarem COMPARISON: None FINDINGS: No diffusion restriction or evidence of acute infarct. No intracranial mass, mass effect, or midline shift. Postcontrast images reveal no abnormal intracranial enhancement. Confluent and patchy foci of FLAIR hyperintensity noted in the hemispheric white matter and yessenia, likely due to small vessel disease. Moderate volume loss with enlargement of the ventricles and extra-axial/subarachnoid spaces. No extra-axial collections. Proximal portions of the major intracranial arterial flow voids are patent. No hemorrhagic foci of susceptibility seen on gradient echo images. Craniocervical junction, sellar content, pineal region are unremarkable. Minimal fluid scattered mastoid air cells. Mild mucosal thickening in the paranasal sinuses. Bilateral lens replacements. Procedure Note Vic Hendrix MD - 11/14/[address] [address] DATE: 11/14/2024 10:28 AM INDICATION: Neck pain. Frequent falls. EXAMINATION: MRI brain with and without contrast. TECHNIQUE: Multiplanar and multisequence MRI images of the brain wereobtained before and after uneventful intravenous administration of 20 mLDotarem COMPARISON: None FINDINGS: No diffusion restriction or evidence of acute infarct. No intracranialmass, mass effect, or midline shift. Postcontrast images reveal noabnormal intracranial enhancement. Confluent and patchy foci of FLAIRhyperintensity noted in the hemispheric white matter and yessenia, likely dueto small vessel disease. Moderate volume loss with enlargement of theventricles and extra-axial/subarachnoid spaces. No extra-axialcollections. Proximal portions of the major intracranial arterial flowvoids are patent. No hemorrhagic foci of susceptibility seen on gradientecho images. Craniocervical junction, sellar content, pineal region areunremarkable. Minimal fluid scattered mastoid air cells. Mild mucosalthickening in the paranasal sinuses. Bilateral lens replacements. IMPRESSION: 1. No acute intracranial abnormalities identified. No acute infarct,intracranial mass, or abnormal enhancement. 2. Small vessel disease and volume loss. Ordered By: ALLIE VARGAS Interpreted By: Vic Hendrix MD, 11/14/2024 11:52 AM Allie Vargas DROP WORKER MRI Final Result * MRI CERV SPINE WWO CON (11/14/2024 11:43 AM SAP BODS DEVELOPER) Anatomical Region Laterality Modality Spine Magnetic Resonan ce 11/14/2024 11:5 7 AM SAP BODS DEVELOPER Impressions 11/14/2024 12:02 PM SAP BODS DEVELOPER IMPRESSION: 1. Multilevel degenerative changes in the cervical spine. Most severe canal stenosis at C5-C6 more so than C4-C5 with effacement of the thecal sac and mass effect upon the cord. 2. Multilevel severe foraminal narrowing from C3-C4 through C5-C6. 3. Additional degenerative changes elsewhere as detailed. 4. No obvious cervical cord signal abnormality identified, though image quality is somewhat degraded by artifact 5. Approximately 2.5 cm right-sided thyroid nodule. Could further evaluate with follow-up thyroid ultrasound. Ordered By: ALLIE VARGAS Interpreted By: Vic Hendrix MD, 11/14/2024 11:57 AM Narrative 11/14/2024 12:02 PM SAP BODS DEVELOPER [address] [address] DATE: 11/14/2024 10:28 AM INDICATION: Neck pain. Frequent falls. Cervical myelopathy. EXAMINATION: MRI of the cervical spine without and with contrast. TECHNIQUE: Multiplanar and multisequence MRI images of the cervical spine were obtained before and after uneventful intravenous administration of 20 mL Dotarem. COMPARISON: None FINDINGS: There is slight anterolisthesis of C7 on T1. Chronic appearing superior endplate compression deformity versus Schmorl's node at C7. Otherwise the cervical vertebral alignment, vertebral body heights, and facet alignment are maintained. Multilevel degenerative changes are evident in the cervical spine with disc degeneration, endplate/uncovertebral osteophytes, ligamentum flavum thickening, and facet hypertrophy noted. Multilevel disc desiccation. No obvious cervical cord signal abnormality identified, though image quality is somewhat degraded by artifact. Craniocervical junction unremarkable. Patchy foci of STIR hyperintensity noted in the yessenia, likely due to small vessel disease. T2 hyperintense right-sided thyroid nodule measuring up to 2.5 cm. C2-C3: Small uncovertebral osteophytes. Facet hypertrophy. No significant canal stenosis. Mild left foraminal narrowing. C3-C4: Disc bulge. Posterior endplate and uncovertebral osteophytes. Ligamentum flavum thickening. Facet hypertrophy. Moderate canal stenosis with partial effacement of the thecal sac and flattening of the subjacent cord. Severe foraminal narrowing, worse on the right. C4-C5: Disc bulge. Posterior endplate and uncovertebral osteophytes. Ligamentum flavum thickening. Facet hypertrophy. Severe canal stenosis with near complete effacement of the thecal sac and mass effect upon the cord. Severe right and moderate left foraminal narrowing. C5-C6: Disc osteophyte complex. Uncovertebral osteophytes. Ligamentum flavum thickening. Facet hypertrophy. Severe canal stenosis with complete effacement of the thecal sac and mass effect upon the cord. Severe bilateral foraminal narrowing. C6-C7: Disc bulge. Uncovertebral osteophytes. Ligamentum flavum thickening. Facet hypertrophy. Mild to moderate canal stenosis. Mild foraminal narrowing. C7-T1: Slight anterolisthesis. Central protrusion. Disc bulge. Facet hypertrophy. No significant canal stenosis. Mild right foraminal narrowing. Procedure Note Vic Hendrix MD - 11/14/[address] [address] DATE: 11/14/2024 10:28 AM INDICATION: Neck pain. Frequent falls. Cervical myelopathy. EXAMINATION: MRI of the cervical spine without and with contrast. TECHNIQUE: Multiplanar and multisequence MRI images of the cervical spinewere obtained before and after uneventful intravenous administration of 20mL Dotarem. COMPARISON: None FINDINGS: There is slight anterolisthesis of C7 on T1. Chronic appearing superiorendplate compression deformity versus Schmorl's node at C7. Otherwise thecervical vertebral alignment, vertebral body heights, and facet alignmentare maintained. Multilevel degenerative changes are evident in thecervical spine with disc degeneration, endplate/uncovertebral osteophytes,ligamentum flavum thickening, and facet hypertrophy noted. Multilevel discdesiccation. No obvious cervical cord signal abnormality identified,though image quality is somewhat degraded by artifact. Craniocervical junction unremarkable. Patchy foci of STIR hyperintensitynoted in the yessenia, likely due to small vessel disease. T2 hyperintenseright-sided thyroid nodule measuring up to 2.5 cm. C2-C3: Small uncovertebral osteophytes. Facet hypertrophy. No significantcanal stenosis. Mild left foraminal narrowing. C3-C4: Disc bulge. Posterior endplate and uncovertebral osteophytes.Ligamentum flavum thickening. Facet hypertrophy. Moderate canal stenosiswith partial effacement of the thecal sac and flattening of the subjacentcord. Severe foraminal narrowing, worse on the right. C4-C5: Disc bulge. Posterior endplate and uncovertebral osteophytes.Ligamentum flavum thickening. Facet hypertrophy. Severe canal stenosiswith near complete effacement of the thecal sac and mass effect upon thecord. Severe right and moderate left foraminal narrowing. C5-C6: Disc osteophyte complex. Uncovertebral osteophytes. Ligamentumflavum thickening. Facet hypertrophy. Severe canal stenosis with completeeffacement of the thecal sac and mass effect upon the cord. Severebilateral foraminal narrowing. C6-C7: Disc bulge. Uncovertebral osteophytes. Ligamentum flavumthickening. Facet hypertrophy. Mild to moderate canal stenosis. Mildforaminal narrowing. C7-T1: Slight anterolisthesis. Central protrusion. Disc bulge. Facethypertrophy. No significant canal stenosis. Mild right foraminalnarrowing. IMPRESSION: 1. Multilevel degenerative changes in the cervical spine. Most severecanal stenosis at C5-C6 more so than C4-C5 with effacement of the thecalsac and mass effect upon the cord. 2. Multilevel severe foraminal narrowing from C3-C4 through C5-C6. 3. Additional degenerative changes elsewhere as detailed. 4. No obvious cervical cord signal abnormality identified, though imagequality is somewhat degraded by artifact 5. Approximately 2.5 cm right-sided thyroid nodule. Could further evaluatewith follow-up thyroid ultrasound. Ordered By: ALLIE VARGAS Interpreted By: Vic Hendrix MD, 11/14/2024 11:57 AM Allie Vargas DROP WORKER MRI Final Result * MRI FOOT LT WO CON (11/14/2024 10:31 AM SAP BODS DEVELOPER) Anatomical Region Laterality Modality Foot Magnetic Resonan ce 11/21/2024 1:26 PM SAP BODS DEVELOPER Impressions 11/21/2024 1:29 PM SAP BODS DEVELOPER IMPRESSION: Limited by motion artifact. Positive for osteomyelitis of the fifth distal phalanx and to a lesser degree involving the middle and proximal phalanges. Overlying cellulitis and open wound likely. Severe intrinsic muscular atrophy of the foot. Referred By: ALLIE VARGAS Interpreted By: Yunier Lala MD, 11/21/2024 1:26 PM Narrative 11/21/2024 1:29 PM SAP BODS DEVELOPER [address] [address] EXAMINATION: MRI LEFT FOOT WITHOUT CONTRAST EXAM DATE: 11/14/2024 9:51 AM REASON FOR EXAM: Fifth digit pain and swelling, concern for osteomyelitis. COMPARISON: None TECHNIQUE: Multiplanar multisequence imaging of the foot without intravenous contrast. FINDINGS: Moderate soft tissue swelling. Limited by motion. Severe intrinsic muscular atrophy throughout the foot. Possible open wound near the fifth digit. Underlying cellulitis and evidence of osteomyelitis of the fifth digit including marrow edema of the distal and middle and proximal phalanges. Remainder of the digits demonstrate no evidence of osteomyelitis or fracture or suspicious bone lesion. Lisfranc ligament intact. Moderate first MTP osteoarthritis. Slight lateral deviation of the plantar sesamoids. No evidence of infectious tenosynovitis extending to the hindfoot or midfoot. No evidence of intermetatarsal bursitis. Procedure Note Yuneir Lala MD - 11/21/[address] [address] EXAMINATION: MRI LEFT FOOT WITHOUT CONTRAST EXAM DATE: 11/14/2024 9:51 AM REASON FOR EXAM: Fifth digit pain and swelling, concern forosteomyelitis. COMPARISON: None TECHNIQUE: Multiplanar multisequence imaging of the foot withoutintravenous contrast. FINDINGS: Moderate soft tissue swelling. Limited by motion. Severe intrinsic muscular atrophy throughout the foot. Possible open wound near the fifth digit. Underlying cellulitis andevidence of osteomyelitis of the fifth digit including marrow edema of thedistal and middle and proximal phalanges. Remainder of the digits demonstrate no evidence of osteomyelitis orfracture or suspicious bone lesion. Lisfranc ligament intact. Moderate first MTP osteoarthritis. Slight lateral deviation of theplantar sesamoids. No evidence of infectious tenosynovitis extending to the hindfoot ormidfoot. No evidence of intermetatarsal bursitis. IMPRESSION: Limited by motion artifact. Positive for osteomyelitis of the fifth distal phalanx and to a lesserdegree involving the middle and proximal phalanges. Overlying cellulitisand open wound likely. Severe intrinsic muscular atrophy of the foot. Referred By: ALLIE VARGAS Interpreted By: Yunier Lala MD, 11/21/2024 1:26 PM John Cleary MD MRI Final Result * PT/INR (OUTSIDE LAB) (11/12/2024) Pathologist [facility] INR WHOLE BLOOD 2.30 11/12/2024 Default History Genericprovider LAB-OUTSIDE/ABST RACTED Final Result * (ABNORMAL) LIPID PANEL (07/26/2024 9:17 AM CDT) Pathologist [facility] CHOLESTEROL 149 <200 MG/DL 07/26/2024 10:13 AM CDT [facility] TRIGLYCERIDES 172(H) <150 MG/DL 07/26/2024 10:13 AM CDT [facility] HDL 43 >40.0 MG/DL 07/26/2024 10:13 AM CDT [facility] LDL (CALCULATED) 72 <100 MG/DL 07/26/2024 10:13 AM CDT [facility] NON HDL CHOLESTEROL 106 <130 MG/DL 07/26/2024 10:13 AM CDT [facility] CHOL/HDL RATIO 3.5 0.0 - 4.5 07/26/2024 10:13 AM CDT [facility] VLDL CALCULATION 34 5 - 55 MG/DL 07/26/2024 10:13 AM CDT [facility] LIPID INTERPRETATION 07/26/2024 10:13 AM CDT [facility] Comment: [facility] CONCENSUS REPORT RECOMMENDATIONS: ADULT CHILD LOW RISK: CHOLESTEROL <200 <170 TRIGLYCERIDE <150 --- HDL >=60 --- LDL <100 <110 BORDERLINE: CHOLESTEROL 200-239 170-199 TRIGLYCERIDE 150-199 --- HDL 40-59 --- LDL 100-159 110-129 HIGH RISK: CHOLESTEROL >=240 >=200 TRIGLYCERIDE >=200 --- HDL <40 --- LDL >=160 >=130 07/26/2024 9:17 AM CDT Vanna Farooq OTOLARYNGOLOGIST LABORATORY Final Resul t [facility] [address] [place] [address], from Last 3 Months or Most Recently Relevant to Health Maintenance Additional Health Concerns 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 (RR) 08/28/2024 08/28/2024 [place] [address] [place] [address] MEDICARE [facility] Advance Directives Documents on File Type Date Recorded 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 Advance Directives and Living Will 11/13/2023 2:55 PM 11/12/2023 [place]A FOR HEALTH CARE * DNR (Latest Code Status on File) Date Activated Date Inactivated Comments 07/25/2024 7:56 PM 07/27/2024 2:34 PM * DNR Date Activated Date Inactivated Comments 11/07/2023 5:11 PM 11/12/2023 2:32 PM * DNR Date Activated Date Inactivated Comments 11/01/2023 1:57 PM 11/07/2023 5:09 PM * Full Code Date Activated Date Inactivated Comments 11/01/2023 10:20 AM 11/01/2023 1:57 PM * Full Code Date Activated Date Inactivated Comments 10/30/2023 9:36 PM 11/01/2023 10:20 AM Care Teams Car Shifter Relationship Specialty [place] [address] [facility] [place] [address] PCP - General Physician Loan And Credit Manager Medical 11/13/23 Deborah Haley MD [facility] [address] [address] Logan Chiller Operator CARDIOVASCULAR DISEASE 03/15/16 Andreas Alcantara MD [facility] [address] [address] Consulting Physician Internal Medicine Pulmonary Disease 10/14/18 [place] [address] [facility] [place] [address] Referring Physician VASCULAR SURGERY 09/09/24 09/09/25
--- OUTSIDE RECORDS SUMMARY | 2025-02-04 08:28 | XMS_ITS | Encounter Summary ---
Author Organization [facility] Address [facility] [place] [address] Care Team Providers Care Group Billing Coordinator Name Role Phone Deborah Haley MD Unavailable [phone] Andreas Alcantara MD Unavailable Orion Lomax Primary Care Provider [phone] John Cleary MD Unavailable Encounter Details Date Type Department Care Team (Late st Contact Info) Description 12/07/2023 R + B Groupt Message Enc [facility] Medical Group Family & Internal Medicine [facility] [id number] [place] [phone] Orion Pinzon [place] [id number] [place] [address] New Prescription Social History Tobacco Use Types Packs/Day Years Used Date Smoking Tobacco: Never Smokeless Tobacco: Never Alcohol Use Standard Drinks/Week Comments Yes 0 (1 standard drink = 0.6 oz pur e alcohol) rare [facility] Utilities Answer Date Recorded In the [...] often do you attend chur ch or yazidi services? More than 4 times per year 11/07/2023 Do you belong to any clubs o r organizations such as lutheran groups, unions, fraternal or athletic groups, or [...] Recorded Patient Health Questionnaire-2 Score 0 11/26/2023 [facility] of Occupat ional Health - Occupational Stress [...] in a custodial (including now)? 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 [place] [address] 02/06/2025 12:45 PM CDT Appointment [facility] Open MRI [address] [facility] [place] [address] John Cleary MD [facility]. [address] [place] [address] 02/18/2025 11:30 AM CDT [facility] [address] [place] [phone] John Cleary MD [facility]. [address] [place] [address] 02/23/2025 9:00 AM CDT Office Visit [facility] Orthopedic Surgery - [place] [address] [facility] [address] [place], [place] [id number] [place] [address] [place] [address] 04/03/2025 10:30 AM CDT Office Visit [facility] [address] [facility] [place] [address] Kathi Gant PA-C [address] [facility], [address] [place] [address] 04/27/2025 10:00 AM CDT Office Visit [facility] Family & Internal Medicine [facility] [address] [place] [address] [place] [address] [place], [place] [id number] 08/20/2025 11:00 AM WATCH TRAIN INSPECTOR Office Visit [facility]pecialty Care - [facility] [address] [facility] [place] [phone] Baljeet Chavez DO [address] [facility] [address] [place] [address] documented as of this encounter Goals Goal [...] Rule Out 11/26/2024 11/26/2024 11/26/2024 6:06 AM WATCH TRAIN INSPECTOR documented as of this encounter Care Teams Group Billing Coordinator Relationship Specialty [place] [address] [place] [address] PCP - General Physician Physical Medicine Teacher Medical 11/13/23 Deborah Haley MD [facility]. [address] [place] [address] [place] Account Development Representative CARDIOVASCULAR DISEASE 03/15/16 Andreas Alcantara MD [facility]. [facility] [address] [place] [address] Consulting Physician Internal Medicine Pulmonary Disease 10/14/18 [place] [address] [place] [address] Referring Physician VASCULAR SURGERY 09/09/24 09/09/25 documented as of this encounter
[2025-02-04 08:32] LABS: NT Pro B Type Natriuretic Pept 3630 pg/mL (19.9-100)
[2025-02-04 08:39] LABS: Partial Thromboplastin Time 32.7 Seconds (22.3-36.8); Prothrombin Time 23.2 Seconds (11.1-14.7)
[2025-02-04 09:30] LABS: Alveolar/Arterial O2 Gradient 231.8 mmHg; Base Excess ABG 3.4 mEq/l (+/-2.0); Fractional Inspired Oxygen 44 %; HCO3 ABG 27.2 mEq/l (22.0-26.0); Oxygen Content ABG 15.5 %vol (16.0-22.0); PCO2 ABG 38.8 mmHg (35.0-45.0); PO2 FiO2 Ratio Arterial Blood 0.86 %; Total Hemoglobin 14.4 g/dL (12.0-18.0); pH ABG 7.464 (7.350-7.450)
[2025-02-04 09:38] LABS: PO2 ABG 37.7 mmHg (80.0-100.0)
[2025-02-04 09:39] LABS: Oxygen Saturation ABG 75.2 % (95.0-100.0)
[2025-02-04] MEDS: PIPERACILLN/TAZ 3.375GM/NS50ML 3.375 GM/50 ML BAG IVPB (09:39)
[2025-02-04 09:40] LABS: Device NASAL CANNULA; Modified Allen's Test Pass; Oxyhemoglobin 76.7 % THb (90.0-100.0); Site Drawn RIGHT RADIAL
[2025-02-04 09:51] LABS: Reflex Lactic Acid Yes or No Add Lactic
[2025-02-04 10:22] LABS: Add Urine Microscopic? YES; Appearance Urine Clear (Clear); Bilirubin Urine Negative (Negative); Blood Urine Non-Hemolyzed Trace (Negative); Color Urine Dark Yellow (Yellow); Glucose Urine UA 1+ mg/dL (Negative); Ketones Urine Negative (Negative); Leukocyte Esterase Ur Negative LEU/UL (Negative); Nitrate Urine Negative (Negative); Protein Urine 1+ mg/dL (Negative); Specific Grav Ur 1.022 (1.001-1.035)
[2025-02-04 10:23] LABS: Bacteria Urine None Seen /hpf; Non Pathogenic Casts 0-2; Squamous Epithelial Cell Urine None Seen /hpf (Few); WBC Urine 0-5 /hpf (0-3)
[2025-02-04 10:33] LABS: Lipase 120 U/L (23-300)
[2025-02-04 10:34] LABS: Lactic Acid 2.2 mmol/L (0.7-2.0)
--- NOTE | 2025-02-04 10:44 | ECG_ITS ---
Test Date: 2025-02-04 10:57:35 Measurements Intervals [place] Rate: 96 P: 59 [place]: 200 QRS: -4 QRSD: 99 T: 60 QT: 380 QTc: 482 Interpretive Statements SINUS RHYTHM WITH OCCASIONAL SUPRAVENTRICULAR PREMATURE COMPLEXES INCOMPLETE RIGHT BUNDLE BRANCH BLOCK LOW QRS VOLTAGE IN PRECORDIAL LEADS INFERIOR INFARCT, AGE INDETERMINATE ANTEROLATERAL INFARCT, AGE INDETERMINATE BORDERLINE ST-T WAVE ABNORMALITY- HIGH LATERAL LEADS ABNORMAL ECG Compared to ECG 02/04/2025 07:30:51 HEART RATE HAS DECREASED Electronically Signed On 02-04-2025 11:03:44 CDT by Eric Dougherty D.O.
--- NOTE | 2025-02-04 18:29 | PCRCNOTE ---
ABG delayed due to the patient being in CT scan. [id number]
== END 2025-02-04 12:51 | disposition short-term general hospital (02) ==
LOC: ANHED 08:10
PROVIDERS: Emergency Provider Emergency Medicine
DX: K81.0 Acute cholecystitis (principal); R79.89 Other specified abnormal findings of blood chemistry; I50.9 Heart failure, unspecified; E78.5 Hyperlipidemia, unspecified; I25.10 Atherosclerotic heart disease of native coronary artery without angina pectoris; Z86.73 Personal history of transient ischemic attack (TIA), and cerebral infarction without residual deficits; Z79.01 Long term (current) use of anticoagulants; Z79.82 Long term (current) use of aspirin; Z86.711 Personal history of pulmonary embolism; N18.31 Chronic kidney disease, stage 3a; E11.22 Type 2 diabetes mellitus with diabetic chronic kidney disease; I13.0 Hypertensive heart and chronic kidney disease with heart failure and stage 1 through stage 4 chronic kidney disease, or unspecified chronic kidney disease; Z79.4 Long term (current) use of insulin
CPT/HCPCS: 36415; 36600; 71046; 74177; 76705; 80053; 81001; 82805; 82948; 83605; 83690; 83880; 84484; 85018; 85025; 85610; 85730; 93005; 96365; 99285; J2543; Q9967